=== PATIENT | male | born 1940 | race Caucasian/White ===

== ENCOUNTER → 2017-02-03 | Outpatient (CLI) | payer MEDICARE, OTHER ==
[2017-02-03 11:59] LABS: CH 33.1; CHCM 31.9; HCT 46.1 % (39.0-53.0); HDW 2.54; MCHC 32.5 g/dL (31.0-37.0); MCV 104.6 fL (80.0-100.0); Macrocytosis Moderate; Mean Platelet Volume 7.7; RBC 4.41 m/uL (4.30-5.90); RDW 13.9 % (11.5-15.5); WBC 7.5 k/uL (3.8-10.6)
[2017-02-03 13:44] LABS: ALT 51 U/L (21-72); AST 68 U/L (17-59); Alkaline Phosphatase 78 U/L (38-126); Anion Gap 11 mmol/L; Blood Urea Nitrogen 23 mg/dL (9-20); Calcium 9.4 mg/dL (8.4-10.2); Carbon Dioxide 26 mmol/L (22-30); Chloride 105 mmol/L (98-107); Cholesterol 202 mg/dL (<200); Glucose 165 mg/dL (74-99); HDL Cholesterol 69 mg/dL (40-60); Non-African American GFR(MDRD) >60 (>60 ml/min/1.73 sqM); Potassium 4.5 mmol/L (3.5-5.1); Sodium 142 mmol/L (137-145); Total Bilirubin 0.6 mg/dL (0.2-1.3); Total Protein 7.7 g/dL (6.3-8.2)
[2017-02-03 13:52] LABS: Triglycerides 574 mg/dL (<150)
[2017-02-03 16:00] LABS: Hemoglobin A1C 5.8 % (4.2-6.1)
== END | disposition home or self-care (01) ==
LOC: LABWHC1 11:26
PROVIDERS: ATTEND Internal Medicine
DX: I25.10 Atherosclerotic heart disease of native coronary artery without angina pectoris (principal); E78.5 Hyperlipidemia, unspecified; I10 Essential (primary) hypertension; Z12.5 Encounter for screening for malignant neoplasm of prostate; Z13.1 Encounter for screening for diabetes mellitus
CPT/HCPCS: 80061; 80053; 83036; 85027; 36415; G0103

== ENCOUNTER → 2018-03-21 | Outpatient (CLI) | payer MEDICARE, OTHER ==
[2018-03-21 18:02] LABS: Anion Gap 16 mmol/L; Calcium 9.4 mg/dL (8.4-10.2); Carbon Dioxide 21 mmol/L (22-30); Chloride 97 mmol/L (98-107); Glucose 377 mg/dL (74-99); Sodium 134 mmol/L (137-145)
[2018-03-21 18:03] LABS: Blood Urea Nitrogen 15 mg/dL (9-20); Potassium 5.4 mmol/L (3.5-5.1)
--- NOTE | 2018-03-22 12:20 | CT ---
EXAMINATION TYPE: CT pancreas biphase DATE OF EXAM: 03/21/2018 COMPARISON: NONE INDICATION: Possible cancer of pancreas. DLP: 1206 mGycm, Automated exposure control for dose reduction was used. CONTRAST: 125 mL of Isovue 370. Study performed TECHNIQUE: Axial images were obtained from above the diaphragm to iliac crests in the axial plane at 5 mm thick sections. Reconstructed images are reviewed on the computer in the coronal plane. FINDINGS: Limited CT sections are obtained the lung bases. The lung bases are clear. CT ABDOMEN: Liver: Normal Spleen: Normal Pancreas: Pancreas is atrophic. There is a dilated pancreatic duct which measures 0.5 cm at the tail of the pancreas, normal less than 0.1 cm. Pancreatic duct measures 0.7 cm in the body the pancreas, n ormal less than 0.2 cm. The pancreatic duct at the distal head of the pancreas 0.9 cm. Normal less th an 0.3 cm. On delayed imaging there is what appears to be normal enhancement through the head of the pancreas. On the early phase of contrast there is intense heterogenous enhancement of the head of the pancreas. Wall portion of the visualized atrophic pancreas adjacent to the dilated pancreatic duct h as a normal enhancement pattern. There appears to be a 1.3 cm lymph node adjacent to the pancreas hea d. Common bile duct is somewhat prominent 1.1 cm. Normal less than 0.8 cm at this age. Adrenal glands: The adrenal glands are normal. Gallbladder: Normal Kidneys: No masses are evident. No hydronephrosis is present. No cysts are present. Delayed images were obtained through the kidneys, which remain unremarkable. Aorta: Vascular calcification is within the aorta. Inferior vena cava: Normal. Loops of bowel within the abdomen without contrast appear normal. Osseous structures: No suspicious lytic or sclerotic lesions. Sacroiliac joint facet degenerative scot nges are within the lumbar spine. Some spinal canal stenosis L4-5 level may be present. IMPRESSIONS: 1. Intense enhancement of the head of the pancreas on early contrast images. This appears more homog enous on the delayed images. 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 Pillar carcinoma could be considered. 2. Dilated pancreatic duct within the atrophic pancreas discussed above. 3. Enlarged lymph node adjacent to the head of the pancreas 4. ERCP would be useful for additional evaluation.
== END | disposition home or self-care (01) ==
LOC: RADCTMAIN 16:56
PROVIDERS: ATTEND Surgery
DX: K86.89 Other specified diseases of pancreas (principal); C77.9 Secondary and unspecified malignant neoplasm of lymph node, unspecified; Z01.812 Encounter for preprocedural laboratory examination
CPT/HCPCS: 80048; 36415; 74160; Q9967

== ENCOUNTER 2018-06-03 23:30 | Inpatient (IN) | payer MEDICARE, OTHER ==
[2018-06-03] MEDS ORDERED: SODIUM CHLORIDE 0.9% 500 ML IV STA (23:39)
--- NOTE | 2018-06-04 00:05 | ED ---
Seizure HPI - General Chief Complaint: Seizure Stated Complaint: Seizure Time Seen by Provider: 06/03/18 23:39 Source: EMS, old records reviewed Mode of arrival: EMS Limitations: altered mental status (Postictal state) - History of Present Illness Initial Comments: This patient is a 77-year-old man who presents by ambulance to be evaluated for seizure. The patient had undergone Whipple procedure approximately one week ago for a pancreatic mass. [facility]. One of the staff there was checking the patient tonight, and stated that he started acting funny and then had what sounds like a generalized tonic-clonic seizure that lasts approximately 2 minutes. EMS was called and assessed the patient and then while they were transporting him just as a arrived here they described another episode similar to the first. Each episode lasted 1-2 minutes. When I see the patient, he does appear to be somewhat confused and disoriented, consistent with a postictal state. He was able answer simple yes or no questions, but when he tried to give longer answers she did appear to be confused. MD Complaint: seizure Onset/Timin -: hour(s) Description of Episode: loss of consciousness, tonic-clonic movement, post- event confusion Duration of Episode: 2 -: minutes(s) Witnessed: yes - by bystander Trauma: No Seizure History: none Place: other ([facility] facility) Possible Precipitating Event: none Treatments Prior to Arrival: none - Related Data Home Medications Medication Instructions Recorded Confirmed Allopurinol [Zyloprim] 300 mg PO DAILY 10/26/14 06/03/18 Atenolol [Tenormin] 50 mg PO BID 10/26/14 06/03/18 Clopidogrel [Plavix] 75 mg PO HS 10/26/14 06/03/18 Ibuprofen [Motrin] 400 mg PO DAILY PRN 10/26/14 06/03/18 LORazepam [Ativan] 2 mg PO HS PRN 10/26/14 06/03/18 PARoxetine [Paxil] 20 mg PO HS 10/26/14 06/03/18 Ranitidine HCl [Zantac] 150 mg PO HS 10/26/14 06/03/18 clonazePAM [KlonoPIN] 1 mg PO HS 10/26/14 06/03/18 Atorvastatin [Lipitor] 10 mg PO DAILY 06/03/18 06/03/18 Docusate Sodium [Dok] 100 mg PO DAILY 06/03/18 06/03/18 Enoxaparin [Lovenox] 40 mg SQ DAILY 06/03/18 06/03/18 Glimepiride [Amaryl] 1 mg PO AC-BRKFST 06/03/18 06/03/18 Melatonin 3 mg PO DAILY 06/03/18 06/03/18 Omeprazole [PriLOSEC] 20 mg PO AC-BRKFST 06/03/18 06/03/18 Polyethylene Glycol 3350 [Miralax] 17 gm PO DAILY 06/03/18 06/03/18 oxyCODONE HCL 10 mg PO Q4H PRN 06/03/18 06/03/18 oxyCODONE HCL [OxyIR] 5 mg PO Q4H PRN 06/03/18 06/03/18 Previous Rx's Medication Instructions Recorded Aspirin 81 mg PO DAILY #90 chew 11/01/14 HYDROcodone/APAP 10-325MG [[place] 1 each PO Q4H PRN #120 tab 11/01/14 10-325] Allergies Allergy/AdvReac Type Severity Reaction Status Date / Time No Known Allergies Allergy Verified 06/03/18 23:42 Review of Systems ROS Statement: Those systems with pertinent positive or pertinent negative responses have been documented in the HPI. ROS Other: All systems not noted in ROS Statement are negative. 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) History of Any Multi-Drug Resistant Organisms: MRSA Date of last positivie culture/infection: 10/29/2014 MDRO Source:: blood and left foot wound Past Surgical History: Adenoidectomy, Appendectomy, Bowel Resection, Coronary Bypass/CABG, Heart Catheterization, Tonsillectomy Additional Past Surgical History / Comment(s): rt eye sx for detatched retina still has some peripheral vision, triple bypass,meckles diverticulum,whipple procedure Past Anesthesia/Blood Transfusion Reactions: No Reported Reaction Past Psychological History: Depression Smoking Status: Former smoker Past Drug Use History: None Reported - Past Family History Father Family Medical History: Dementia Additional Family Medical History / Comment(s): AT AGE 93 Mother Family Medical History: Cancer Additional Family Medical History / Comment(s): BREAST CANCER SURVIVER, AT AGE 86 General Exam Limitations: altered mental status General appearance: alert, other (Appears postictal) Head exam: Present: atraumatic, normocephalic, normal inspection Eye exam: Absent: scleral icterus, conjunctival injection ENT exam: Present: mucous membranes dry Neck exam: Present: normal inspection, full ROM. Absent: tenderness Respiratory exam: Present: rhonchi (There are scattered rhonchi). Absent: respiratory distress, wheezes, rales, stridor Cardiovascular Exam: Present: regular rate, normal rhythm, normal heart sounds. Absent: systolic murmur, diastolic murmur, rubs, gallop GI/Abdominal exam: Present: soft, other (Patient's surgical incisions are clean dry and intact without any abnormal warmth or erythema. No drainage.). Absent : distended, tenderness, guarding, rebound, rigid, mass Extremities exam: Present: normal capillary refill, other (There is chronic postsurgical change of the left foot, no acute evidence of infection.). Absent : pedal edema, calf tenderness Back exam: Present: normal inspection. Absent: CVA tenderness (R), CVA tenderness (L), vertebral tenderness Neurological exam: Present: alert. Absent: motor sensory deficit Skin exam: Present: warm, dry, intact, normal color. Absent: rash Course Vital Signs 06/03/18 06/04/18 06/04/18 23:32 01:11 02:30 Temperature 98.6 F 98.3 F Pulse Rate 84 72 83 Respiratory 22 16 18 Rate Blood Pressure 185/85 103/53 89/58 O2 Sat by Pulse 95 2 L 97 Oximetry Medical Decision Making - Medical Decision Making The patient did have a third seizure in the emergency department. This was observed and consisted of generalized tonic-clonic seizure lasting less than 1 minute, stopping spontaneously before Ativan could be retrieved from the Pyxis and administered. He was given a dose of Ativan, and given loading dose of phenytoin. Results are discussed with Dr. Cardenas and the patient will be admitted to have EEG and neurology consultation. - Lab Data Result diagrams: 06/04/18 00:14 06/04/18 00:14 Lab Results 06/04/18 06/04/18 06/04/18 Range/Units 00:14 00:14 00:20 WBC 5.6 (3.8-10.6) k/uL RBC 3.00 L (4.30-5.90) m/uL Hgb 9.4 L (13.0-17.5) gm/dL Hct 29.3 L (39.0-53.0) % MCV 97.6 (80.0-100.0) fL MCH 31.2 (25.0-35.0) pg MCHC 32.0 (31.0-37.0) g/dL RDW 14.7 (11.5-15.5) % Plt Count 252 (150-450) k/uL Neutrophils % 58 % Lymphocytes % 30 % Monocytes % 5 % Eosinophils % 3 % Basophils % 0 % Neutrophils # 3.2 (1.3-7.7) k/uL Lymphocytes # 1.7 (1.0-4.8) k/uL Monocytes # 0.3 (0-1.0) k/uL Eosinophils # 0.2 (0-0.7) k/uL Basophils # 0.0 (0-0.2) k/uL Hypochromasia Moderate Poikilocytosis Slight Sodium 137 (137-145) mmol/L Potassium 4.0 (3.5-5.1) mmol/L Chloride 104 (98-107) mmol/L Carbon Dioxide 17 L (22-30) mmol/L Anion Gap 16 mmol/L BUN 7 L (9-20) mg/dL Creatinine 0.80 (0.66-1.25) mg/dL Est GFR (CKD-EPI)AfAm >90 (>60 ml/min/1.73 sqM) Est GFR (CKD-EPI)NonAf 87 (>60 ml/min/1.73 sqM) Glucose 174 H (74-99) mg/dL POC Glucose (mg/dL) 173 H (75-99) mg/dL POC Glu Bar Host/Hostess ID Megan Dukes Calcium 8.1 L (8.4-10.2) mg/dL Total Bilirubin 0.4 (0.2-1.3) mg/dL AST 37 (17-59) U/L ALT 36 (21-72) U/L Alkaline Phosphatase 109 (38-126) U/L Total Protein 5.6 L (6.3-8.2) g/dL Albumin 3.0 L (3.5-5.0) g/dL Urine Color Urine Appearance (Clear) Urine pH (5.0-8.0) Ur Specific Alexander (1.001-1.035) Urine Protein (Negative) Urine Glucose (UA) (Negative) Urine Ketones (Negative) Urine Blood (Negative) Urine Nitrite (Negative) Urine Bilirubin (Negative) Urine Urobilinogen (<2.0) mg/dL Ur Leukocyte Esterase (Negative) Urine RBC (0-5) /hpf Urine WBC (0-5) /hpf Ur Squamous Epith Cells (0-4) /hpf Hyaline Casts (0-2) /lpf Urine Mucus (None) /hpf 06/04/18 Range/Units 01:06 WBC (3.8-10.6) k/uL RBC (4.30-5.90) m/uL Hgb (13.0-17.5) gm/dL Hct (39.0-53.0) % MCV (80.0-100.0) fL MCH (25.0-35.0) pg MCHC (31.0-37.0) g/dL RDW (11.5-15.5) % Plt Count (150-450) k/uL Neutrophils % % Lymphocytes % % Monocytes % % Eosinophils % % Basophils % % Neutrophils # (1.3-7.7) k/uL Lymphocytes # (1.0-4.8) k/uL Monocytes # (0-1.0) k/uL Eosinophils # (0-0.7) k/uL Basophils # (0-0.2) k/uL Hypochromasia Poikilocytosis Sodium (137-145) mmol/L Potassium (3.5-5.1) mmol/L Chloride (98-107) mmol/L Carbon Dioxide (22-30) mmol/L Anion Gap mmol/L BUN (9-20) mg/dL Creatinine (0.66-1.25) mg/dL Est GFR (CKD-EPI)AfAm (>60 ml/min/1.73 sqM) Est GFR (CKD-EPI)NonAf (>60 ml/min/1.73 sqM) Glucose (74-99) mg/dL POC Glucose (mg/dL) (75-99) mg/dL POC Glu Bar Host/Hostess ID Calcium (8.4-10.2) mg/dL Total Bilirubin (0.2-1.3) mg/dL AST (17-59) U/L ALT (21-72) U/L Alkaline Phosphatase (38-126) U/L Total Protein (6.3-8.2) g/dL Albumin (3.5-5.0) g/dL Urine Color Yellow Urine Appearance Clear (Clear) Urine pH 5.5 (5.0-8.0) Ur Specific Alexander 1.014 (1.001-1.035) Urine Protein 1+ H (Negative) Urine Glucose (UA) Negative (Negative) Urine Ketones 1+ H (Negative) Urine Blood Negative (Negative) Urine Nitrite Negative (Negative) Urine Bilirubin Negative (Negative) Urine Urobilinogen <2.0 (<2.0) mg/dL Ur Leukocyte Esterase Negative (Negative) Urine RBC <1 (0-5) /hpf Urine WBC 4 (0-5) /hpf Ur Squamous Epith Cells <1 (0-4) /hpf Hyaline Casts 5 H (0-2) /lpf Urine Mucus Many H (None) /hpf - EKG Data -: EKG Interpreted by [place] EKG shows normal: sinus rhythm (With one PVC, rate 74 bpm), axis (Normal), intervals (MS interval 158 ms, normal. QRS duration 86 ms, normal. QTC 488 ms , prolonged.), QRS complexes (Low-voltage QRS complex), ST-T waves (Normal) Rate: normal Critical Care Time Critical Care Time: Yes (30 minutes) Disposition Clinical Impression: New onset seizure Disposition: ADMITTED IP TO THIS [facility] Condition: Fair
[2018-06-04 00:24] LABS: Basophils % (A) 0 %; Eosinophils # (A) 0.2 k/uL (0-0.7); Eosinophils % (A) 3 %; HCT 29.3 % (39.0-53.0); HGB 9.4 gm/dL (13.0-17.5); Hypochromasia Moderate; Lymphocytes # (A) 1.7 k/uL (1.0-4.8); Lymphocytes % (A) 30 %; MCH 31.2 pg (25.0-35.0); MCV 97.6 fL (80.0-100.0); Monocytes # (A) 0.3 k/uL (0-1.0); Monocytes % (A) 5 %; Neutrophils # (A) 3.2 k/uL (1.3-7.7); Neutrophils % (A) 58 %; Platelet Count 252 k/uL (150-450); Poikilocytosis Slight; RDW 14.7 % (11.5-15.5); WBC 5.6 k/uL (3.8-10.6)
[2018-06-04] MEDS ORDERED: PHENYTOIN SODIUM INJ 1,000 MG in SODIUM CHLORIDE 0.9% 100 ML IVPB STA (00:33)
[2018-06-04] MEDS ORDERED: LORazepam 2 MG/ML INJ IV STA (00:33)
[2018-06-04 00:38] LABS: Glucose 174 mg/dL (74-99); Total Protein 5.6 g/dL (6.3-8.2)
[2018-06-04 00:39] LABS: ALT 36 U/L (21-72); Alkaline Phosphatase 109 U/L (38-126); Anion Gap 16 mmol/L; Calcium 8.1 mg/dL (8.4-10.2); Carbon Dioxide 17 mmol/L (22-30); Chloride 104 mmol/L (98-107); Sodium 137 mmol/L (137-145); Total Bilirubin 0.4 mg/dL (0.2-1.3)
[2018-06-04 00:41] LABS: AST 37 U/L (17-59); Blood Urea Nitrogen 7 mg/dL (9-20)
[2018-06-04 00:50] LABS: Glucose,Whole Blood 173 mg/dL (75-99)
--- NOTE | 2018-06-04 00:58 | CT ---
EXAMINATION TYPE: CT brain wo con DATE OF EXAM: 06/04/2018 COMPARISON: None HISTORY: seizures CT DLP: 1090.40 mGycm Automated exposure control for dose reduction was used. FINDINGS: Ventricles have normal size. There is no mass effect nor midline shift. There is no sign of intracran ial hemorrhage. The calvarium is intact. There is cerebral cortical atrophy. IMPRESSION: CEREBRAL ATROPHY. NO ACUTE INTRACRANIAL ABNORMALITY.
[2018-06-04 01:44] LABS: Appearance,Urine Clear (Clear); Bilirubin,Urine Negative (Negative); Blood,Urine Negative (Negative); Color,Urine Yellow; Glucose,Urine (UA) Negative (Negative); Hyaline Casts,Urine 5 /lpf (0-2); Ketones,Urine 1+ (Negative); Leukocyte Esterase,Urine Negative (Negative); Mucus,Urine Many /hpf; Nitrite,Urine Negative (Negative); PH, Urine 5.5 (5.0-8.0); Protein,Urine 1+ (Negative); RBC,Urine <1 /hpf (0-5); Specific Gravity,Urine 1.014 (1.001-1.035); Squamous Epithelial Cell,Urine <1 /hpf (0-4); Urobilinogen,Urine <2.0 mg/dL (<2.0); WBC,Urine 4 /hpf (0-5)
[2018-06-04] MEDS ORDERED: SODIUM CHLORIDE 0.9% 1,000 ML IV ONE ×3 (01:54→03:43)
[2018-06-04] MEDS ORDERED: NALOXONE 0.4 MG/ML 1 ML VIAL IV PRN (01:57)
[2018-06-04] MEDS ORDERED: LORazepam 1 MG TAB PO PRN (01:59)
[2018-06-04] MEDS ORDERED: IBUPROFEN 200 MG TAB PO PRN (01:59)
[2018-06-04] MEDS ORDERED: LORazepam 2 MG/ML INJ IV PRN (02:01)
[2018-06-04] MEDS: SODIUM CHLORIDE 0.9% 1,000 ML IV SCH ×3 (02:19→21:20)
[2018-06-04 03:27] LABS: Glucose,Whole Blood 186 mg/dL (75-99)
--- NOTE | 2018-06-04 09:07 | P.CNNES ---
History of Present Illness Consult date: 06/04/18 Reason for Consult: Patient admitted with new onset seizure. History of Present Illness: This patient is a 77-year-old right-handed white male who was brought into the emergency room at [facility] for evaluation of new onset seizure. Patient states he has a history of melanoma that was diagnosed in November 2017. He had undergone surgical resection of this melanoma which involved his right arm. Apparently he was found to have spread of the melanoma to the pancreas. 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 He states he was hospitalized at the [facility] and subsequent sent to a jail for rehabilitation. Apparently he had a event yesterday with suggested possibility of a seizure as he became very confused and disoriented. He had some generalized tonic-clonic activity that lasted about 2 minutes in duration. EMS was called to the jail and he was immediately transferred to the ER for further evaluation. He was seen in the ER last night by Dr. Gomes who ordered a computed tomography scan of the brain. Computed tomography scan of the brain without contrast was completed and revealed cerebral atrophy with no acute intracranial abnormality. The patient had 2 more seizures in the emergency room lasting 1-2 minutes in duration. He was given Ativan and subsequently loaded with IV Dilantin. Patient denies any previous history of seizures. The patient is now resting comfortably in his room and did show signs of postictal confusion and disorientation which has resolved now this morning. Patient states that he is following closely with the [facility] regarding his recent Whipple procedure. We did review the results of the CAT scan of the brain today with the patient. He is scheduled to have a routine EEG this morning. We've explained to the patient that given his history of metastatic melanoma that he would require an MRI of the brain to rule out metastatic lesion to the brain as well. He is understanding this and is in agreement with our recommendation to proceed. The patient states he has no previous history of seizures as a young child or early adulthood. His kidney function has remained very good and he does have a history of having had a triple bypass surgery in the past. Patient is resting comfortably. He does complain of mild headache pain this morning. He is being scheduled for his EEG this morning which will be reviewed. We will place the patient on Dilantin 100 mg IV piggyback every 8 hours. We will check a Dilantin level tomorrow morning. We will arrange for MRI of the brain to be done as soon as possible. His overall prognosis at this time remains very guarded. Review of Systems Constitutional: Denies chills, Denies fever Eyes: denies blurred vision, denies pain Ears, nose, mouth and throat: Denies headache, Denies sore throat Cardiovascular: Denies chest pain, Denies shortness of breath Respiratory: Denies cough Gastrointestinal: Denies abdominal pain, Denies diarrhea, Denies nausea, Denies vomiting Musculoskeletal: Denies myalgias Integumentary: Denies pruritus, Denies rash Neurological: Reports confusion, Reports convulsions, Reports headaches, Reports seizures, Denies numbness, Denies weakness Psychiatric: Denies anxiety, Denies depression Endocrine: Denies fatigue, Denies weight change Past Medical History Past Medical History: Coronary Artery Disease (CAD), Diabetes Mellitus, GERD/ Reflux, Hyperlipidemia, Hypertension Additional Past Medical History / Comment(s): gout,triple bypass(1 since collapsed) used the saphenous vein lt leg ,mild tremors, 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 % (per pt) History of Any Multi-Drug Resistant Organisms: MRSA Date of last positivie culture/infection: 10/29/2014 MDRO Source:: blood and left foot wound Past Surgical History: Adenoidectomy, Appendectomy, Bowel Resection, Coronary Bypass/CABG, Heart Catheterization, Tonsillectomy Additional Past Surgical History / Comment(s): rt eye sx for detatched retina still has some peripheral vision, triple bypass,meckles diverticulum,whipple procedure Past Anesthesia/Blood Transfusion Reactions: No Reported Reaction Past Psychological History: Depression Smoking Status: Former smoker Past Drug Use History: None Reported - Past Family History Father Family Medical History: Dementia Additional Family Medical History / Comment(s): AT AGE 93 Mother Family Medical History: Cancer Additional Family Medical History / Comment(s): BREAST CANCER SURVIVER, AT AGE 86 Medications and Allergies Home Medications Medication Instructions Recorded Confirmed Type Allopurinol [Zyloprim] 300 mg PO DAILY 10/26/14 06/03/18 History Atenolol [Tenormin] 50 mg PO BID 10/26/14 06/03/18 History Clopidogrel [Plavix] 75 mg PO HS 10/26/14 06/03/18 History Ibuprofen [Motrin] 400 mg PO DAILY PRN 10/26/14 06/03/18 History LORazepam [Ativan] 2 mg PO HS PRN 10/26/14 06/03/18 History PARoxetine [Paxil] 20 mg PO HS 10/26/14 06/03/18 History Ranitidine HCl [Zantac] 150 mg PO HS 10/26/14 06/03/18 History clonazePAM [KlonoPIN] 1 mg PO HS 10/26/14 06/03/18 History Aspirin 81 mg PO DAILY #90 chew 11/01/14 06/03/18 Rx HYDROcodone/APAP 10-325MG [[place] 1 each PO Q4H PRN #120 tab 11/01/14 06/03/18 Rx 10-325] Atorvastatin [Lipitor] 10 mg PO DAILY 06/03/18 06/03/18 History Docusate Sodium [Dok] 100 mg PO DAILY 06/03/18 06/03/18 History Enoxaparin [Lovenox] 40 mg SQ DAILY 06/03/18 06/03/18 History Glimepiride [Amaryl] 1 mg PO AC-BRKT 06/03/18 06/03/18 History Melatonin 3 mg PO DAILY 06/03/18 06/03/18 History Omeprazole [PriLOSEC] 20 mg PO AC-BRKFST 06/03/18 06/03/18 History Polyethylene Glycol 3350 [Miralax] 17 gm PO DAILY 06/03/18 06/03/18 History oxyCODONE HCL 10 mg PO Q4H PRN 06/03/18 06/03/18 History oxyCODONE HCL [OxyIR] 5 mg PO Q4H PRN 06/03/18 06/03/18 History Allergies Allergy/AdvReac Type Severity Reaction Status Date / Time No Known Allergies Allergy Verified 06/03/18 23:42 Physical Examination - Vital Signs Vital Signs: Vital Signs Temp Pulse Pulse Resp BP BP Pulse Ox 06/04/18 06:55 94/57 06/04/18 05:40 100/61 06/04/18 05:00 88/53 06/04/18 04:20 89/49 08/18/18 04:00 83/46 06/04/18 03:40 77/39 06/04/18 03:30 74/42 06/04/18 03:25 85/52 06/04/18 03:20 82/40 06/04/18 03:15 88/55 06/04/18 03:10 80/44 06/04/18 03:05 81/49 06/04/18 03:00 98.0 F 75 18 98/39 95 06/04/18 02:30 98.3 F 83 18 89/58 97 06/04/18 01:11 72 16 103/53 2 L 06/03/18 23:32 98.6 F 84 22 185/85 95 Intake and Output 06/03/18 06/04/18 06/04/18 22:59 06:59 14:59 Intake Total 1400 Output Total 600 Balance 800 Intake: Intake, IV Titration 1400 Amount Sodium Chloride 0.9% 1, 400 000 ml @ 100 mls/hr IV . Q10H [facility] Rx#:[id number] Sodium Chloride 0.9% 1, 1000 000 ml @ 999 mls/hr IV . Q1H1M ONE Rx#:[id number] Output: Urine 600 Straight 600 Other: Weight 93 kg - Constitutional General appearance: average body habitus, cooperative - EENT EENT: PERRL, mucous membranes moist - Respiratory Respiratory: lungs clear, normal breath sounds - Cardiovascular Cardiovascular: regular rate, normal S1, normal S2 Extremities: no peripheral edema bilaterally - Gastrointestinal Gastrointestinal: normoactive bowel sounds - Integumentary Integumentary: normal - Neurologic Cranial nerve examination: PERRL, EOMI, VFF, V1/V2/V3 grossly intact, face symmetric, tongue midline, intact gag reflex, intact corneal reflex, normal palatal elevation Speech examination: intact Sensorimotor examination: intact Motor examination - right side: 45: biceps, triceps, wrist flexion, wrist extension, 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, hip flexors, knee extensors, dorsiflexion, toe extension (EHL) , plantarflexion Motor examination - left side: 45: biceps, triceps, wrist flexion, wrist extension, 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, hip flexors, knee extensors, dorsiflexion, toe extension (EHL) , plantarflexion Detailed sensory examination: intact Reflex and gait examination: intact Reflexes: 1+: ankle, bicep, knee, tricep - Musculoskeletal Musculoskeletal: no pain - Psychiatric Psychiatric: mood/affect appropriate, cooperative Results - Laboratory Findings CBC and BMP: 06/04/18 00:14 06/04/18 00:14 Abnormal Lab Findings: Abnormal Labs 06/04/18 06/04/18 06/04/18 00:14 00:14 00:20 RBC 3.00 L Hgb 9.4 L Hct 29.3 L Carbon Dioxide 17 L BUN 7 L Glucose 174 H POC Glucose (mg/dL) 173 H Plasma Lactic Acid Isidro Calcium 8.1 L Total Protein 5.6 L Albumin 3.0 L Urine Protein Urine Ketones Hyaline Casts Urine Mucus 06/04/18 06/04/18 06/04/18 01:06 02:05 03:25 RBC Hgb Hct Carbon Dioxide BUN Glucose POC Glucose (mg/dL) 186 H Plasma Lactic Acid Isidro 6.6 H* Calcium Total Protein Albumin Urine Protein 1+ H Urine Ketones 1+ H Hyaline Casts 5 H Urine Mucus Many H 06/04/18 05:25 RBC Hgb Hct Carbon Dioxide BUN Glucose POC Glucose (mg/dL) Plasma Lactic Acid Isidro 3.0 H* Calcium Total Protein Albumin Urine Protein Urine Ketones Hyaline Casts Urine Mucus Assessment and Plan (1) Metastatic melanoma Current Visit: Yes Status: Acute Code(s): C79.9 - SECONDARY MALIGNANT NEOPLASM OF UNSPECIFIED SITE SNOMED Code(s): 020321405 (2) Melanoma-pancreatic cancer syndrome Current Visit: Yes Status: Acute Code(s): C25.9 - MALIGNANT NEOPLASM OF PANCREAS, UNSPECIFIED SNOMED Code(s): 387781993 (3) Diabetes mellitus Current Visit: Yes Status: Acute Code(s): E11.9 - TYPE 2 DIABETES MELLITUS WITHOUT COMPLICATIONS SNOMED Code(s): 75649791 (4) Coronary artery disease Current Visit: Yes Status: Acute Code(s): I25.10 - ATHSCL HEART DISEASE OF [place] CORONARY ARTERY W/O ANG PCTRS SNOMED Code(s): 72865711 (5) New onset seizure Current Visit: Yes Status: Acute Code(s): R56.9 - UNSPECIFIED CONVULSIONS SNOMED Code(s): 28631283 Plan: This patient is a 77-year-old right-handed white male who has a history of recent diagnosis of melanoma involving his right arm. He underwent surgical removal of this melanotic lesion at the [facility]. 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 He underwent a Whipple procedure at the [facility] on 05/24/[address] Ballard. He was then transferred to a jail for further rehabilitation. Apparently yesterday he had a witnessed seizure at the nursing facility lasting 2 minutes in duration. He was transferred by EMS to the emergency room at [facility] for further evaluation. He was seen in the ER by Dr. Gomes and was sent for a computed tomography scan of the brain without contrast which was reported negative. He had 2 more seizures and was loaded with IV Dilantin. He is admitted to hospital for further management. His neurological examination at this time is nonfocal. We have recommended the patient to undergo a MRI of the brain with and without gadolinium for further evaluation of history of metastatic melanoma. We will also obtain a routine EEG today. He should continue with seizure precautions. He will be maintained on Dilantin 100 mg IV piggyback every 8 hours. Further recommendations will be given pending his MRI results. His overall prognosis at this time remains very guarded. We will continue close neurological follow-up for this patient during this admission. Time with Patient: Greater than 30
[2018-06-04] MEDS ORDERED: PHENYTOIN SODIUM INJ 100 MG in SODIUM CHLORIDE 0.9% 100 ML IVPB SCH (09:30)
[2018-06-04] MEDS ORDERED: KETOROLAC 30 MG/ML 1 ML VIAL IVP PRN (09:57)
[2018-06-04] MEDS: GLIMEPIRIDE 1 MG TAB PO SCH (10:15)
[2018-06-04] MEDS: ATORVASTATIN 10 MG TAB PO SCH (10:16)
[2018-06-04] MEDS: PANTOPRAZOLE 40 MG TABLET PO SCH (10:16)
[2018-06-04] MEDS: ALLOPURINOL 300 MG TAB PO SCH (10:16)
[2018-06-04] MEDS: ASPIRIN 81 MG PO SCH (10:16)
[2018-06-04] MEDS: DOCUSATE 100 MG CAP PO SCH (10:17)
[2018-06-04] MEDS: ENOXAPARIN 40 MG/0.4 ML SYRINGE SQ SCH (10:17)
[2018-06-04] MEDS: POLYETHYLENE GLYCOL 3350 17 GM POWD.PACK PO SCH (10:17)
[2018-06-04] MEDS: PHENYTOIN SODIUM INJ 50 MG/ML 2 ML VIAL IV SCH ×3 (10:17→23:10)
--- NOTE | 2018-06-04 11:38 | HP ---
HISTORY AND PHYSICAL ATTENDING PHYSICIAN: Dr. Shiloh Cardenas. CHIEF COMPLAINT: Seizures. HISTORY OF PRESENT ILLNESS: This is a 77-year-old gentleman who was recently discharged from [facility] after Whipple's procedure. 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 The patient's tumor was found incidentally on a PET scan. The patient had a right upper arm melanoma stage IV for which she had a surgical procedure of excision along with left auricle removal. The patient subsequently had a PET scan which revealed this tumor. The patient was sitting in his room and the nurse had just seen him and he suddenly had a seizure. The patient had a grand mal seizure. He is, in view of this, transferred to the hospital. On the way from [facility] to [facility], the patient did have another seizure on the way. The patient also had a 3rd seizure in the hospital. The patient has had no previous history of seizures. The patient had a stat CT scan of the brain done which revealed no evidence of any lesions in the brain. He has had no history of head injury. The patient has had no fever or any other associated symptoms. This morning, he is awake, alert, and his usual occasionally appears forgetful. The patient has a headache but denies any double vision. The patient has no focal neurological signs. PAST MEDICAL HISTORY: 1. Significant for hypertension for the past about 38 years. 2. History of coronary artery disease, status post CABG in September 2002. Has had no symptoms of angina since then. The patient underwent a recent major surgery without any cardiac complications. 3. History of infection and osteomyelitis, left great toe for which he has had surgical amputation. 4. Melanoma stage IV as mentioned above. 5. Neuroendocrine tumor of the pancreas as mentioned above. 6. No history of any TB, hepatitis, rheumatic fever, myocardial infarction. No CVA. 7. History of diabetes mellitus, recent diagnosis. PAST SURGICAL HISTORY: Significant for the CABG, Meckel's diverticular surgery, hemorrhoid surgery, melanoma excision, and Whipple's procedure. PERSONAL HISTORY: Nonsmoker, never smoker. Alcohol, ex-alcohol bingeing, none recently. Past vaccination history: Patient has a Pneumovax in 1998 and repeat later. Also July 17, 2014 also subsequent as well. ALLERGIES: None known. MEDICATIONS: Medications at present include oxycodone 10 mg p.r.n. q.4, Klonopin 1 mg at q.h.s., Zantac 150 mg at q.h.s., MiraLAX daily, Paxil 20 mg daily, Prilosec 20 mg daily. Melatonin 3 mg daily, lorazepam 2 mg p.r.n., Motrin 400 p.r.n. t.i.d., [place] 10/325 p.r.n., glimepiride 1 mg a.c. breakfast, Lovenox 40 mg subcu daily. Colace 100 mg daily, Plavix 75 mg daily. Lipitor 10 mg daily. Tenormin 50 mg b.i.d., aspirin 81 mg daily, allopurinol 300 mg daily. FAMILY MEDICAL HISTORY: Both parents are . Father had diabetes mellitus. Also history of melanoma and colonic diverticular disease. He was 90 years of age. Mother at the age of 85. She had history of carcinoma of the breast. The patient had no siblings. Patient has 1 daughter, 43 years of age in good health. 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 REVIEW OF SYSTEMS: Neuro: Has a headache. Denies any dizziness, double vision or blurred vision. No symptoms of TIA at present. Symptoms of a seizure. Psych: No anxiety, depression. Cardiac: No chest pain, angina or palpitation. Respiratory: No shortness of breath, cough, hemoptysis. GI no nausea, vomiting, abdominal pain, has frequent bowel movements. No blood or mucus in stool. no symptoms of dysuria or hematuria. Extremities: No pain or edema. Constitutional: No fever or chills. Hematological: No anemia or bleeding disorder. Endocrine: History of diabetes mellitus. Skin: No rashes or breakdown. ENT: Adequate smell test and vision. Adequate hearing. PHYSICAL EXAMINATION: Pleasant gentleman at present in no distress at present. Vital signs reveals temperature earlier was normal 98, pulse 75, respirations 18, pulse ox 95 percent on 2 L. Blood pressure during the night was low in the 80s. This morning it is 99/49, pulse 72, respirations 18, pulse ox 95 percent on 2 L. HEENT: Normocephalic. Neck no JVD. Pupils are reactive. Nostrils clear. Oral cavity is moist. No evidence of any tongue injury. Ears reveal no drainage. Neck reveals no JVD, carotid bruits or thyromegaly. No supraclavicular lymphadenopathy. CHEST: Clear to auscultation and percussion. Cardiac normal S1, S2 with no gallops, murmurs, or rubs. ABDOMEN: Soft. Bowel sounds are active. The patient has an incision in the epigastric area, with january still intact with no drainage. Rectal is deferred. Extremities reveal no edema. Good pulses both upper and lower extremities. Neurologically, awake, alert, oriented to place, person, time, however, has some difficulty with the sequence of events from last evening since the seizure. The patient deep tendon reflexes are diminished. Plantars are equivocal on the right, on the left side, the patient has amputation of the 1st and 2nd toe. LABORATORY DATA: Laboratory assessment was urinalysis unremarkable. Lactic acid was 6.6, hemoglobin 9.4, white count is normal 5.6, platelets normal. Electrolytes normal except for a CO2 of 17, anion gap of 16, BUN 7 7, creatinine 0.8, glucose 174, calcium 8.1. Albumin 3.0. Urinalysis unremarkable. Lactic acid as mentioned above, 6.6 and was down to 3.0. A CT scan of the brain did not reveal any acute changes. ASSESSMENT: 1. New onset seizures, etiology unclear. Rule out brain mets with underlying history of 2 malignancies. 2. History of melanoma. 3. History of neuroendocrine tumor of the pancreas, status post Whipple's procedure done on May 24, 2018. 4. Coronary artery disease stable with previous coronary artery bypass grafting. 5. Anemia secondary to recent blood loss. PLAN: The patient at present is stable continue present medical regimen. Patient's condition discussed with the patient. Prognosis remains guarded. Condition discussed with the neurologist, Dr. Flores. He is requesting an MRI. However, the patient since he had surgery recently, will have to wait 6 weeks prior to having an MRI. The patient's condition discussed with the patient. Prognosis guarded. The patient has been placed on Dilantin. MMODL / IJN: [id number] /
[2018-06-04 12:01] LABS: Glucose,Whole Blood 132 mg/dL (75-99)
[2018-06-04] MEDS: ATENOLOL 50 MG TAB PO SCH ×2 (12:17→21:19)
[2018-06-04] MEDS: INSULIN ASPART 100 UNIT/ML 1 ML 10 ML VIAL SQ SCH ×3 (12:18→21:20)
[2018-06-04 16:50] LABS: Glucose,Whole Blood 138 mg/dL (75-99)
[2018-06-04 18:39] LABS: Hemoglobin A1C 5.9 % (4.0-6.0)
[2018-06-04 20:43] LABS: Glucose,Whole Blood 135 mg/dL (75-99)
[2018-06-04] MEDS ORDERED: CLOPIDOGREL 75 MG TAB PO SCH (21:00)
[2018-06-04] MEDS: PARoxetine 20 MG TAB PO SCH (21:19)
[2018-06-04] MEDS: MELATONIN 3 MG TABLET PO SCH (21:19)
[2018-06-04] MEDS: FAMOTIDINE 20 MG TAB PO SCH (21:19)
[2018-06-05 06:23] LABS: Glucose,Whole Blood 123 mg/dL (75-99)
[2018-06-05] MEDS: INSULIN ASPART 100 UNIT/ML 1 ML 10 ML VIAL SQ SCH ×4 (06:35→21:53)
[2018-06-05] MEDS: GLIMEPIRIDE 1 MG TAB PO SCH (06:39)
[2018-06-05] MEDS: PANTOPRAZOLE 40 MG TABLET PO SCH (06:39)
[2018-06-05] MEDS ORDERED: ACETAMINOPHEN TAB 325 MG TAB PO PRN (07:34)
[2018-06-05] MEDS ORDERED: PHENYTOIN SODIUM EXTENDED 100 MG CAP PO STA (08:53)
[2018-06-05] MEDS ORDERED: PHENYTOIN SODIUM INJ 700 MG in SODIUM CHLORIDE 0.9% 100 ML IVPB ONE (09:00)
[2018-06-05] MEDS: ATORVASTATIN 10 MG TAB PO SCH (09:24)
[2018-06-05] MEDS: ALLOPURINOL 300 MG TAB PO SCH (09:24)
[2018-06-05] MEDS: ASPIRIN 81 MG PO SCH (09:24)
[2018-06-05] MEDS: ATENOLOL 50 MG TAB PO SCH ×2 (09:24→20:39)
[2018-06-05] MEDS: DOCUSATE 100 MG CAP PO SCH (09:24)
[2018-06-05] MEDS: POLYETHYLENE GLYCOL 3350 17 GM POWD.PACK PO SCH (09:24)
[2018-06-05] MEDS: PHENYTOIN SODIUM EXTENDED 100 MG CAP PO SCH ×2 (09:25→20:39)
[2018-06-05] MEDS: ENOXAPARIN 40 MG/0.4 ML SYRINGE SQ SCH (09:25)
[2018-06-05] MEDS ORDERED: PHENYTOIN SODIUM EXTENDED 100 MG CAP PO ONE (10:00)
--- NOTE | 2018-06-05 10:17 | P.DS ---
Providers Date of admission: 06/04/18 01:59 Expected date of discharge: 06/05/18 Attending physician: Mario Cardenas Consults: 06/04/18 01:58 Consult Physician Urgent Consulting Provider: Mary Flores Consult Reason/Comments: new onset seizures Do you want consulting provider notified?: Yes Primary care physician: Mario Cardenas [facility] Course: This 77-year-old gentleman was brought into the emergency room from [facility] and rehab. The patient was admitted there 3 days prior following a recent Whipple's procedure. Patient was sitting around when he suddenly had this seizure. This was a grand mal witnessed seizure. He also had another one in the ambulance on transfer to the hospital and one in the hospital. Patient was given Dilantin. He has recently been noted to have a pancreatic tumor for which she had a Whipple's procedure done. The patient had a neuroendocrine tumor lung with involvement and couple of lymph nodes locally. These were incidental findings on workup for melanoma. He had a level IV melanoma in his arm The patient had a PET scan done which reveals his tumor in the pancreas. The patient is recovering well from his Whipple's procedure. He also has underlying history of coronary artery disease stable. A CAT scan of the brain done did not reveal any focal signs however due to this new onset seizures it is felt that he might have a microscopic metastasis which could probably be best seen on MRI. MRI was not done since the patient had surgery recently. He is scheduled for one in 6 weeks. Meanwhile patient is on Dilantin. He was seen by Dr. Poole. He was done. Patient's back to his usual baseline status. He is wanting to go back to the nursing facility to continue his rehab. He will be discharged back to continue with all his usual medications narcotics but discontinued the Lovenox is discontinued and the patient's Plavix is discontinued. He'll continue with aspirin. Patient's diet is regular activity as per rehab. Patient will be on Dilantin 200 mg twice a day and repeat a level in 5 days Abdominal wall sutures be removed on June 07 alternate once and then rest on June 08.if The wound is no dehiscence Final diagnosis to include 1. New onset seizure 2. Neuroendocrine tumor of the pancreas 3. Status post Whipple's procedure 4. History of melanoma stage IV 5. Stable coronary artery disease 6. Diabetes mellitus type 2 without complications 7. Hypertension controlled 8. Amputation left first and second toe Patient Condition at Discharge: Fair Plan - Discharge Summary Discharge Rx Participant: No New Discharge Prescriptions: New Phenytoin Sodium Extended [Dilantin] 200 mg PO BID #0 cap Aspirin 81 mg PO DAILY #0 chew Continue Atenolol [Tenormin] 50 mg PO BID Allopurinol [Zyloprim] 300 mg PO DAILY PARoxetine [Paxil] 20 mg PO DAILY Aspirin 81 mg PO DAILY #90 chew Omeprazole [PriLOSEC] 20 mg PO AC-BRKFST Atorvastatin [Lipitor] 10 mg PO HS Glimepiride [Amaryl] 1 mg PO TID Melatonin 3 mg PO HS Zinc 50 mg PO DAILY Cholecalciferol [Vitamin D3] 1,000 unit PO DAILY Acetaminophen Tab [Tylenol] 650 mg PO Q6H PRN PRN Reason: Pain clonazePAM [KlonoPIN] 1 mg PO HS #30 tab Discontinued Clopidogrel [Plavix] 75 mg PO DAILY oxyCODONE HCL 10 mg PO Q4H PRN PRN Reason: Pain oxyCODONE HCL [OxyIR] 5 mg PO Q4H PRN PRN Reason: Pain Polyethylene Glycol 3350 [Miralax] 17 gm PO DAILY Enoxaparin [Lovenox] 40 mg SQ DAILY Docusate Sodium [Dok] 100 mg PO BID OLANZapine [ZyPREXA] 2.5 mg PO HS Discharge Medication List Allopurinol [Zyloprim] 300 mg PO DAILY 10/26/14 [History] Atenolol [Tenormin] 50 mg PO BID 10/26/14 [History] PARoxetine [Paxil] 20 mg PO DAILY 10/26/14 [History] Aspirin 81 mg PO DAILY #90 chew 11/01/14 [Rx] Atorvastatin [Lipitor] 10 mg PO HS 06/03/18 [History] Glimepiride [Amaryl] 1 mg PO TID 06/03/18 [History] Melatonin 3 mg PO HS 06/03/18 [History] Omeprazole [PriLOSEC] 20 mg PO AC-BRKFST 06/03/18 [History] Acetaminophen Tab [Tylenol] 650 mg PO Q6H PRN 06/04/18 [History] Cholecalciferol [Vitamin D3] 1,000 unit PO DAILY 06/04/18 [History] Zinc 50 mg PO DAILY 06/04/18 [History] Aspirin 81 mg PO DAILY #0 chew 06/05/18 [Rx] Phenytoin Sodium Extended [Dilantin] 200 mg PO BID #0 cap 06/05/18 [Rx] clonazePAM [KlonoPIN] 1 mg PO HS #30 tab 06/05/18 [Rx] Follow up Appointment(s)/Referral(s): Mario Cardenas MD [Primary Care Provider] - 1-2 days
[2018-06-05 11:53] LABS: Glucose,Whole Blood 216 mg/dL (75-99)
[2018-06-05 16:53] LABS: Glucose,Whole Blood 124 mg/dL (75-99)
[2018-06-05] MEDS: FAMOTIDINE 20 MG TAB PO SCH (20:39)
[2018-06-05] MEDS: PARoxetine 20 MG TAB PO SCH (20:39)
[2018-06-05] MEDS: MELATONIN 3 MG TABLET PO SCH (20:39)
[2018-06-05 21:19] LABS: Glucose,Whole Blood 174 mg/dL (75-99)
--- NOTE | 2018-06-05 21:51 | P.PN ---
Subjective Progress Note Date: 06/05/18 This patient is a 77-year-old male who was seen in neurology consultation yesterday for new onset seizure. He has a history of recently undergoing a Whipple procedure due to a neuroendocrine tumor in the pancreas. This was performed at the [facility]. He underwent a computed tomography scan of the brain without contrast which came back negative for any acute findings. He was loaded with IV Dilantin yesterday. His Dilantin level this morning is subtherapeutic at 7.7. We will adjust his Dilantin appropriately and recheck again tomorrow morning. The patient is unable to go for MRI of the brain due to his recent surgery. He is strongly advised to have the MRI of the brain done with and without gadolinium as soon as he is completed the 6 weeks of clearance from his recent surgery. He will discuss this further with Dr. Cardenas. Given his history of metastatic melanoma as well as neuroendocrine tumor in the pancreas he is at risk of having metastatic spread. MRI of the brain would be the most sensitive test to do for further evaluation. Once again we have recommended MRI of the brain with and without gadolinium to be done as soon as possible once he is cleared to 6 weeks postsurgery clearance for MRI. The patient continues to do fairly well today and we will continue close neurological follow-up for him. Due to his low Dilantin level today of 7.7 we had recommended to load him with an extra 700 mg of Dilantin IV piggyback. Unfortunately they nursing staff was unable to find a vein. We then discontinue the IV form of Dilantin and recommended he be given oral Dilantin over a period of 4 hours decompensated total of 700 mg of oral Dilantin. We will check his Dilantin level tomorrow morning. Patient underwent routine EEG yesterday and this will be reviewed. His EEG was reviewed today and is normal for his age. The EEG failed to reveal any evidence of epileptiform discharges. We reviewed the results of the EEG and CAT scan once again with the patient in detail. We have recommended that he cannot drive in the [facility] for appeared of 6 months following his last seizure. He is aware of this regulation and apparently was told this by Dr. Cardenas as well. Patient was eager to be discharged home earlier today however this cannot be done as he is subtherapeutic on his Dilantin level. We will recheck his Dilantin level early tomorrow morning and if it is therapeutic he may be considered for discharge home. Once again we have recommended the patient should follow up with [facility] where they' re treating him for his malignant melanoma. We once again recommend that he should have a MRI of the brain done with and without gadolinium within 6 weeks to rule out any possibility of metastatic lesion to the brain. He is unable to have MRI earlier as he has recently undergone abdominal surgery. He is to wait for 6 weeks prior to having MRI study done. The patient should follow up with Dr. Cardenas soon after discharge to have a repeat Dilantin level done. He should follow-up with his specialists at the [facility] as well to update them on his current finding of new onset seizure. This patient' s overall prognosis at this time remains very guarded. We have discussed all of his test results today with him in detail. He apparently was confused earlier today and was unable to get appropriate answers from the nursing staff. He is now been updated and is clearly aware of his overall condition and his restrictions in regards to driving and his recent new onset seizure. He is once again aware of the MRI study of the brain with and without gadolinium that needs to be done as soon as possible in 6 weeks. We have discussed that with the patient that if his Dilantin level comes back therapeutic tomorrow he will be set for discharge home tomorrow. He should follow-up with Dr. Cardenas soon afterwards. Objective - Vital Signs Vital signs: Vital Signs Temp 97.0 F L 06/05/18 04:00 Pulse 66 06/05/18 04:00 Resp 16 06/05/18 04:00 BP 111/61 06/05/18 04:00 Pulse Ox 98 06/05/18 04:00 Intake & Output 06/04/18 06/05/18 06/05/18 18:59 06:59 18:59 Intake Total 480 1020 Output Total 500 1000 Balance -20 20 Weight 91.5 kg Intake: IV 20 Invasive Line 1 20 Intake, IV Titration 1000 Amount Sodium Chloride 0.9% 1, 1000 000 ml @ 100 mls/hr IV . Q10H UMBERTO Rx#:[id number] Oral 480 Output: Urine 500 1000 Other: Voiding Method Diaper Urinal Incontinent # Voids 1 1 # Bowel Movements 0 - Exam Physical examination: PHYSICAL EXAMINATION: Patient is resting comfortably in bed. VITAL SIGNS: Blood pressure is [157/70]. Heart rate is [70]. Respiration is [18] . Temperature is [99.0]. HEENT: Head is atraumatic, neck is supple, there were no carotid bruits. CHEST: Lungs are clear to auscultation and percussion. CARDIAC: S1, S2 normal rate and rhythm. There is no murmur. ABDOMEN: Soft and nontender. Bowel sounds are present. EXTREMITIES: There is no pedal edema. Peripheral pulses are present. Neurological examination: Patient's neurological examination is unchanged from yesterday. Patient has a nonfocal neurological examination today at bedside. - Labs CBC & Chem 7: 06/04/18 00:14 06/04/18 00:14 Labs: Abnormal Lab Results - Last 24 Hours (Table) 06/04/18 06/04/18 06/04/18 Range/Units 11:42 16:40 20:42 POC Glucose (mg/dL) 132 H 138 H 135 H (75-99) mg/dL 06/05/18 Range/Units 06:21 POC Glucose (mg/dL) 123 H (75-99) mg/dL Assessment and Plan (1) Metastatic melanoma Current Visit: Yes Status: Acute Code(s): C79.9 - SECONDARY MALIGNANT NEOPLASM OF UNSPECIFIED SITE SNOMED Code(s): 466873486 (2) Melanoma-pancreatic cancer syndrome Current Visit: Yes Status: Acute Code(s): C25.9 - MALIGNANT NEOPLASM OF PANCREAS, UNSPECIFIED SNOMED Code(s): 548135104 (3) Diabetes mellitus Current Visit: Yes Status: Acute Code(s): E11.9 - TYPE 2 DIABETES MELLITUS WITHOUT COMPLICATIONS SNOMED Code(s): 66973180 (4) Coronary artery disease Current Visit: Yes Status: Acute Code(s): I25.10 - ATHSCL HEART DISEASE OF [place] CORONARY ARTERY W/O ANG PCTRS SNOMED Code(s): 67400911 (5) New onset seizure Current Visit: Yes Status: Acute Code(s): R56.9 - UNSPECIFIED CONVULSIONS SNOMED Code(s): 02144723 Plan: This patient is a 77-year-old male who was admitted hospital with new onset seizure. He has a history of metastatic melanoma as well as neuroendocrine tumor of the pancreas. He was recently treated at the [facility] with surgical approach for his pancreatic tumor. He is unable to have MRI of the brain for 6 weeks following his recent abdominal surgery. Patient was admitted with new onset seizure. He was loaded with IV Dilantin. His Dilantin level today was subtherapeutic at 7.7. We did give him oral Dilantin today of 700 mg and will have a repeat Dilantin level done tomorrow. If his Dilantin level comes back therapeutic he may be considered for discharge home. The patient also underwent routine EEG yesterday which was reviewed and is normal for his age. Patient was advised of the [place] driving law which states he cannot drive in the [facility] for a period of 6 months following his last seizure. We have recommended the patient to have a MRI of the brain with and without gadolinium as an outpatient after his 6 weeks of surgical healing have been completed and he is capable and cleared to have MRI of the brain done. He should follow-up with a specialist at the [facility] were managing his malignant melanoma and pancreatic tumor. They should be informed of his recent seizure and workup. He should have a repeat Dilantin level once he is discharged in about a week and follow- up with Dr. Cardenas. We have explained to the patient all of his test results in detail today at bedside. He was made aware of all of his current findings. His overall prognosis at this time remains guarded. We will continue close neurological follow-up for the patient during this admission.
[2018-06-05] MEDS: clonazePAM 1 MG TAB PO SCH (21:54)
[2018-06-06 06:40] LABS: Glucose,Whole Blood 145 mg/dL (75-99)
--- NOTE | 2018-06-06 07:19 | EEG ---
ELECTROENCEPHALOGRAM REPORT DATE OF EE06/04/2018 ELECTROENCEPHALOGRAPHIC EXAMINATION REPORT: INDICATION FOR EXAMINATION: This patient is a 77-year-old male, admitted to hospital with new onset seizure. Patient with history of metastatic melanoma and neuroendocrine tumor to the pancreas. The patient admitted with 1 minute episode of generalized seizure activity and confusion. A[age]: [age]. EEG FINDINGS: A routine 21 channel awake digital EEG recording was accomplished utilizing the 10-20 international system with bipolar and referential montages. The background activity in the most alert resting state consists of a low to medium amplitude, fairly well developed and well sustained 7-8 Hz activity over the posterior head region. This posterior rhythm attenuates to eye opening. There is a small amount of low amplitude 18- 20 Hz beta activity seen maximally over the anterior head regions. Muscle and movement artifact was observed on a few occasions during the tracing. Hypoventilation was not performed. Photic stimulation at flash frequencies of 2-30 Hz produced a good symmetrical occipital driving response. No epileptiform discharges were seen. IMPRESSION: This EEG is within normal limits for the patient's age. The EEG failed to reveal any focal, lateralized, or epileptiform abnormalities. Clinical correlation is recommended. MMODL / IJN: [id number] /
[2018-06-06] MEDS: PHENYTOIN SODIUM EXTENDED 100 MG CAP PO SCH ×3 (07:50→21:15)
[2018-06-06] MEDS: DOCUSATE 100 MG CAP PO SCH (07:55)
[2018-06-06] MEDS: ASPIRIN 81 MG PO SCH (07:55)
[2018-06-06] MEDS: PANTOPRAZOLE 40 MG TABLET PO SCH (07:55)
[2018-06-06] MEDS: INSULIN ASPART 100 UNIT/ML 1 ML 10 ML VIAL SQ SCH ×4 (07:55→21:16)
[2018-06-06] MEDS: ATENOLOL 50 MG TAB PO SCH ×3 (07:55→21:15)
[2018-06-06] MEDS: ALLOPURINOL 300 MG TAB PO SCH (07:55)
[2018-06-06] MEDS: GLIMEPIRIDE 1 MG TAB PO SCH (07:55)
[2018-06-06] MEDS: ATORVASTATIN 10 MG TAB PO SCH (07:55)
[2018-06-06] MEDS: POLYETHYLENE GLYCOL 3350 17 GM POWD.PACK PO SCH (07:56)
[2018-06-06] MEDS: ENOXAPARIN 40 MG/0.4 ML SYRINGE SQ SCH (07:56)
[2018-06-06 11:32] LABS: Glucose,Whole Blood 160 mg/dL (75-99)
[2018-06-06 16:50] LABS: Glucose,Whole Blood 139 mg/dL (75-99)
[2018-06-06 20:52] LABS: Glucose,Whole Blood 156 mg/dL (75-99)
[2018-06-06] MEDS: clonazePAM 1 MG TAB PO SCH (21:15)
[2018-06-06] MEDS: MELATONIN 3 MG TABLET PO SCH (21:15)
[2018-06-06] MEDS: FAMOTIDINE 20 MG TAB PO SCH (21:15)
[2018-06-06] MEDS: PARoxetine 20 MG TAB PO SCH (21:15)
[2018-06-06] MEDS: OLANZapine 2.5 MG TAB PO SCH (21:16)
[2018-06-07 06:08] LABS: Glucose,Whole Blood 131 mg/dL (75-99)
[2018-06-07] MEDS: GLIMEPIRIDE 1 MG TAB PO SCH (07:04)
[2018-06-07] MEDS: PANTOPRAZOLE 40 MG TABLET PO SCH (07:04)
[2018-06-07] MEDS: INSULIN ASPART 100 UNIT/ML 1 ML 10 ML VIAL SQ SCH ×4 (07:04→23:00)
[2018-06-07] MEDS: ACETAMINOPHEN TAB 325 MG TAB PO PRN (07:07)
--- NOTE | 2018-06-07 07:56 | PN ---
PROGRESS NOTE CHIEF COMPLAINT: Re-evaluation. HISTORY OF PRESENT ILLNESS: This is a 77-year-old gentleman who was admitted to the hospital with new onset seizure. CAT scan of the brain was unremarkable, based on the plain CAT scan. The patient has been seen by Neurology. EEG was unremarkable for any focal seizure. The patient has known melanoma and recent Whipple's procedure for neuroendocrine tumor. The patient's family has requested the patient be transferred to [facility]. I did contact the physicians down there and they are willing to take the patient when bed is available. Meanwhile, the patient has been kind of agitated off and on. He tried to walk out of the hospital. He cut off his ID band. Refused medications this morning. After further discussion, he did take his medication, except that he only agreed if Dilantin was cut down to 100 mg. The patient did agree to take 100 mg 3 times a day. The patient's level was therapeutic at 13. He does have some short-term memory deficits. His right pupil is smaller than the left. Otherwise no focal neurological deficit. REVIEW OF SYSTEMS: NEURO: Denies any headaches or dizziness. Does feel unsteady when he walks. CARDIAC: Denies chest pain, angina, palpitation. RESPIRATORY: Denies shortness of breath, cough, hemoptysis. GI: No nausea, vomiting, abdominal pain. Did have some loose stools. : No symptoms of dysuria, hematuria. EXTREMITIES: Denies pain. CONSTITUTIONAL: No fever or chills. PHYSICAL EXAMINATION: Pleasant gentleman at present in no distress. He is oriented to place and person and time. Moves both upper lower extremities well with no tremors. No focal deficit except for the right pupil being smaller than the left. They are reactive though. VITAL SIGNS: Patient refused to have any vitals taken. This mornings vital signs were temperature 98.6, pulse 71, respirations 18, blood pressure 145/74, pulse ox 100% on room air. HEENT: Normocephalic. Neck is supple. Right pupil smaller than left reactive. Oral cavity is moist. NECK: There is no JVD. No carotid bruits. CHEST: Clear to auscultation and percussion. CARDIAC: Normal S1, S2 with no gallops, murmurs. ABDOMEN: Soft. Bowel sounds present. Extremities reveal no edema. Good pulses upper extremities. Mild decreased pedal pulses. NEUROLOGICALLY: Awake, alert, oriented to place, person, time. However, he is forgetful about discussions had just a few minutes prior. He has equal strength and moves both upper and lower extremities well. No ataxia is noted. No nystagmus noted. LABORATORY ASSESSMENT: Blood sugars of 145 this morning and Dilantin level of 13.0. ASSESSMENT: 1. New onset seizures. 2. Mild short-term memory deficits. 3. Neuroendocrine pancreatic cancer with local metastasis. 4. History of melanoma. 5. Diabetes mellitus. 6. Coronary artery disease, stable. PLAN: The patient at present is stable. Continue present medical regimen. Patient's condition discussed with the patient. Prognosis guarded. He is awaiting transfer to [place]. Prognosis remains guarded. MMODL / IJN: [id number] /
[2018-06-07] MEDS: ALLOPURINOL 300 MG TAB PO SCH (09:35)
[2018-06-07] MEDS: ATORVASTATIN 10 MG TAB PO SCH (09:35)
[2018-06-07] MEDS: ASPIRIN 81 MG PO SCH (09:35)
[2018-06-07] MEDS: DOCUSATE 100 MG CAP PO SCH (09:35)
[2018-06-07] MEDS: PHENYTOIN SODIUM EXTENDED 100 MG CAP PO SCH ×3 (09:35→23:01)
[2018-06-07] MEDS: ATENOLOL 50 MG TAB PO SCH ×2 (09:35→20:33)
[2018-06-07] MEDS: ENOXAPARIN 40 MG/0.4 ML SYRINGE SQ SCH (09:36)
[2018-06-07] MEDS: POLYETHYLENE GLYCOL 3350 17 GM POWD.PACK PO SCH (09:42)
[2018-06-07 12:17] LABS: Glucose,Whole Blood 151 mg/dL (75-99)
[2018-06-07 16:59] LABS: Glucose,Whole Blood 161 mg/dL (75-99)
[2018-06-07] MEDS: FAMOTIDINE 20 MG TAB PO SCH (20:33)
[2018-06-07] MEDS: OLANZapine 2.5 MG TAB PO SCH (20:33)
[2018-06-07] MEDS: clonazePAM 1 MG TAB PO SCH (20:33)
[2018-06-07] MEDS: PARoxetine 20 MG TAB PO SCH (20:33)
[2018-06-07] MEDS: MELATONIN 3 MG TABLET PO SCH (20:33)
[2018-06-07 21:18] LABS: Glucose,Whole Blood 148 mg/dL (75-99)
[2018-06-07] MEDS: HYDROcodone/APAP 10-325MG 1 EACH TAB PO PRN (22:59)
--- NOTE | 2018-06-07 23:53 | PN ---
PROGRESS NOTE CHIEF COMPLAINT: Re-evaluation. HISTORY OF PRESENT ILLNESS: This 77-year-old gentleman was admitted to the hospital with new onset seizures. He is feeling better. Today he was more cooperative. The patient denies any headaches or dizziness. His unsteadiness is improved. Psych: Has been more cooperative, did sleep through the night. 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 The patient is status post Whipple procedure. REVIEW OF SYSTEMS: NEURO: Denies any headaches, dizziness. PSYCH: Cooperative. CARDIAC: No chest pain, angina, palpitation. RESPIRATORY: No shortness of breath, cough, hemoptysis. GI: No nausea, vomiting, abdominal pain, diarrhea. : No symptoms of dysuria, hematuria, urgency, frequency. EXTREMITIES: Denies pain, edema. CONSTITUTIONAL: No fever, chills. PHYSICAL EXAMINATION: Pleasant gentleman, at present in no distress. Vital signs reveal temperature 98.6, pulse 65, respirations 16, blood pressure 116/68, pulse ox of 95% on room air. HEENT: Normocephalic. Neck: No JVD. Pupils: Right slightly smaller than left, but reactive. Oral cavity is moist. Neck reveals no JVD. No carotid bruits. No thyromegaly. CHEST: Clear to auscultation, percussion. CARDIAC: Normal S1, S2 with no gallops, murmurs or rubs. ABDOMEN: Soft. Bowel sounds are active. Patient incisions dry. Extremities reveal no edema. No tenderness. Neurologically, awake, alert, oriented to place, person and time. Moves both upper and lower extremities adequately. There is no nystagmus noted. LABORATORY ASSESSMENT: The blood sugars which were in adequate range. ASSESSMENT: 1. New onset seizures. 2. Diabetes mellitus. 3. Status post Whipple procedure. 4. Neuroendocrine pancreatic tumor. 5. Melanoma. 6. Coronary artery disease, stable. 7. Anemia secondary to some blood loss. PLAN: The patient is stable. Continue present medical regimen. Patient's condition is stable. The patient is awaiting transfer to [place]. Will reconnect with him tomorrow, as the patient is basically fairly stable here. We will check the patient's Dilantin level tomorrow. MMODL / IJN: [id number] /
[2018-06-08 06:11] LABS: Glucose,Whole Blood 133 mg/dL (75-99)
[2018-06-08] MEDS: INSULIN ASPART 100 UNIT/ML 1 ML 10 ML VIAL SQ SCH ×4 (06:13→21:27)
[2018-06-08] MEDS: GLIMEPIRIDE 1 MG TAB PO SCH (06:14)
[2018-06-08] MEDS: PANTOPRAZOLE 40 MG TABLET PO SCH (06:14)
[2018-06-08] MEDS: ATENOLOL 50 MG TAB PO SCH ×2 (07:57→19:58)
[2018-06-08] MEDS: ASPIRIN 81 MG PO SCH (07:57)
[2018-06-08] MEDS: ALLOPURINOL 300 MG TAB PO SCH (07:57)
[2018-06-08] MEDS: ENOXAPARIN 40 MG/0.4 ML SYRINGE SQ SCH (07:58)
[2018-06-08] MEDS: DOCUSATE 100 MG CAP PO SCH (07:58)
[2018-06-08] MEDS: ATORVASTATIN 10 MG TAB PO SCH (07:58)
[2018-06-08] MEDS: PHENYTOIN SODIUM EXTENDED 100 MG CAP PO SCH ×3 (07:58→23:51)
[2018-06-08] MEDS: POLYETHYLENE GLYCOL 3350 17 GM POWD.PACK PO SCH (07:58)
[2018-06-08] MEDS: ACETAMINOPHEN TAB 325 MG TAB PO PRN (12:18)
[2018-06-08 16:44] LABS: Glucose,Whole Blood 126 mg/dL (75-99)
[2018-06-08 16:50] LABS: Glucose,Whole Blood 145 mg/dL (75-99)
[2018-06-08] MEDS: FAMOTIDINE 20 MG TAB PO SCH (19:57)
[2018-06-08] MEDS: PARoxetine 20 MG TAB PO SCH (19:57)
[2018-06-08] MEDS: OLANZapine 2.5 MG TAB PO SCH (19:58)
[2018-06-08] MEDS: MELATONIN 3 MG TABLET PO SCH (19:58)
[2018-06-08 21:13] LABS: Glucose,Whole Blood 165 mg/dL (75-99)
[2018-06-08] MEDS: HYDROcodone/APAP 10-325MG 1 EACH TAB PO PRN (21:27)
[2018-06-08] MEDS: clonazePAM 1 MG TAB PO SCH (21:27)
--- NOTE | 2018-06-08 23:51 | PN ---
PROGRESS NOTE CHIEF COMPLAINT: Re-evaluation. HISTORY OF PRESENT ILLNESS: This is a 77-year-old gentleman who was admitted to the hospital with new-onset seizures. The patient presented to the hospital after recent Whipple's procedure. Details of the above history as previously dictated. The patient since admission initially had some confusion, but now he has basically settled down pretty well. He has his usual alertness. The patient has had no seizure. His Dilantin level, however, is down to 5.4. He will be given additional Dilantin. The patient denies any headaches or dizziness. REVIEW OF SYSTEMS: NEURO: Denies any headaches, dizziness. PSYCH: No anxiety. CARDIAC: No chest pain, angina, palpitations. RESPIRATORY: No shortness of breath, cough. GI: No nausea, vomiting, abdominal pain, diarrhea. : No symptoms of dysuria, hematuria. EXTREMITIES: No pain. CONSTITUTIONAL: No fever or chills. PHYSICAL EXAMINATION: Pleasant gentleman in no distress. Vital signs reveal temperature 98.1, pulse 74, respiration 18, blood pressure 141/78, pulse ox 97% on room air. HEENT: Normocephalic. NECK: Supple. No JVD. CHEST: Clear to auscultation and percussion. CARDIAC: Normal S1, S2 with no gallops, murmurs. ABDOMEN: Soft. Bowel sounds present. Extremities reveal no edema. Neurologically awake, alert, oriented with well-coordinated movements. LABORATORY ASSESSMENT: Phenytoin level 5.5. ASSESSMENT: 1. New-onset seizures, etiology undetermined; suspect cerebral metastases. 2. History of level IV melanoma. 3. Neuroendocrine pancreatic tumor. 4. Anemia secondary to some blood loss. 5. Status post Whipple's procedure. 6. Stable coronary artery disease. PLAN: The patient is stable. Continue present medical regimen. Patient's condition discussed with the patient. Prognosis guarded. Patient is still awaiting a transfer to [place], [place]. Prognosis guarded. Patient will be given additional Dilantin. MMODL / IJN: [id number] /
[2018-06-09] MEDS: HYDROcodone/APAP 10-325MG 1 EACH TAB PO PRN ×2 (03:29→22:35)
[2018-06-09 07:07] LABS: Glucose,Whole Blood 105 mg/dL (75-99)
[2018-06-09] MEDS: INSULIN ASPART 100 UNIT/ML 1 ML 10 ML VIAL SQ SCH ×4 (07:17→22:31)
[2018-06-09] MEDS: PANTOPRAZOLE 40 MG TABLET PO SCH (07:55)
[2018-06-09] MEDS: DOCUSATE 100 MG CAP PO SCH (07:55)
[2018-06-09] MEDS: ENOXAPARIN 40 MG/0.4 ML SYRINGE SQ SCH (07:55)
[2018-06-09] MEDS: ATENOLOL 50 MG TAB PO SCH ×2 (07:56→20:23)
[2018-06-09] MEDS: PHENYTOIN SODIUM EXTENDED 100 MG CAP PO SCH ×3 (07:56→20:23)
[2018-06-09] MEDS: ATORVASTATIN 10 MG TAB PO SCH (07:56)
[2018-06-09] MEDS: GLIMEPIRIDE 1 MG TAB PO SCH (07:56)
[2018-06-09] MEDS: POLYETHYLENE GLYCOL 3350 17 GM POWD.PACK PO SCH (07:56)
[2018-06-09 08:26] LABS: HCT 29.4 % (39.0-53.0); HGB 9.2 gm/dL (13.0-17.5); Hypochromasia Marked; MCH 30.1 pg (25.0-35.0); MCHC 31.4 g/dL (31.0-37.0); MCV 95.9 fL (80.0-100.0); Mean Platelet Volume 7.4; Platelet Count 232 k/uL (150-450); Poikilocytosis Slight; RBC 3.06 m/uL (4.30-5.90); RDW 14.4 % (11.5-15.5); WBC 4.1 k/uL (3.8-10.6)
[2018-06-09 08:45] LABS: Anion Gap 4 mmol/L; Blood Urea Nitrogen 12 mg/dL (9-20); Calcium 7.6 mg/dL (8.4-10.2); Carbon Dioxide 29 mmol/L (22-30); Chloride 106 mmol/L (98-107); Glucose 97 mg/dL (74-99); Phenytoin (Dilantin) 6.4 ug/mL; Potassium 3.6 mmol/L (3.5-5.1); Sodium 139 mmol/L (137-145)
[2018-06-09] MEDS: ASPIRIN 81 MG PO SCH (09:28)
[2018-06-09] MEDS: ALLOPURINOL 300 MG TAB PO SCH (09:28)
[2018-06-09 11:58] LABS: Glucose,Whole Blood 200 mg/dL (75-99)
[2018-06-09 17:43] LABS: Glucose,Whole Blood 160 mg/dL (75-99)
[2018-06-09] MEDS: MELATONIN 3 MG TABLET PO SCH (20:23)
[2018-06-09] MEDS: PARoxetine 20 MG TAB PO SCH (20:23)
[2018-06-09] MEDS: FAMOTIDINE 20 MG TAB PO SCH (20:23)
[2018-06-09] MEDS: OLANZapine 2.5 MG TAB PO SCH (20:23)
[2018-06-09] MEDS: clonazePAM 1 MG TAB PO SCH (20:27)
[2018-06-09 21:33] LABS: Glucose,Whole Blood 140 mg/dL (75-99)
--- NOTE | 2018-06-09 22:07 | PN ---
PROGRESS NOTE ATTENDING PHYSICIAN: Dr. Mario Cardenas. CHIEF COMPLAINT: Re-evaluation. HISTORY OF PRESENT ILLNESS: This is a 77-year-old gentleman who was admitted to the hospital with following seizures. The patient has been doing fairly well. He is awaiting a transfer to [facility]. The patient meanwhile has had no further seizures on Dilantin, dose therapeutic. The patient has no focal neurological symptoms or signs. REVIEW OF SYSTEMS: Neuro: Denies any headaches or dizziness. Psych: No anxiety. Cardiac: No chest pain, angina or palpitations. Respiratory no shortness of breath, cough. GI no nausea, vomiting, abdominal pain, diarrhea with good bowel movement. no symptoms of dysuria or hematuria. Extremities: Denies pain, edema. Constitutional: No fever or chills. PHYSICAL EXAMINATION: Pleasant gentleman at present in no distress. Vital signs: Temperature 97.6, pulse 61, respirations 20, blood pressure 130/63, pulse ox 98% on room air. HEENT: Normocephalic. NECK: Supple. No JVD. CHEST: Clear to auscultation and percussion. Cardiac: Normal S1, S2 with no gallops. ABDOMEN: Soft. No palpable masses. Bowel sounds normal. No organomegaly. No abdominal bruits. Extremities reveal no edema. Good pulses on both upper extremities. Mild decreased pedal pulses. Neurologically awake, alert, oriented with well-coordinated movements. LABORATORY ASSESSMENT: White count 4.1, hemoglobin 9.2, platelets 232. Electrolytes normal. BUN and creatinine normal. Calcium 7.6, glucose was 97. Dilantin 6.4. ASSESSMENT: 1. New onset seizures. 2. History of melanoma. 3. History of neuroendocrine pancreatic CA. 4. Anemia secondary to recent blood loss. 5. Diabetes mellitus. PLAN: The patient at present is stable. Continue present medical regimen. Patient awaiting transfer [facility]. The patient's daughter has totally refused to accept the patient being discharged from the hospital to await evaluations at [facility]. I did call her today and left a message and never got a call back from her. MMODL / JACOBN: [id number] /
[2018-06-10] MEDS: HYDROcodone/APAP 10-325MG 1 EACH TAB PO PRN ×2 (06:01→21:34)
[2018-06-10 07:41] LABS: Glucose,Whole Blood 121 mg/dL (75-99)
[2018-06-10] MEDS: INSULIN ASPART 100 UNIT/ML 1 ML 10 ML VIAL SQ SCH ×4 (08:11→21:33)
[2018-06-10] MEDS: PHENYTOIN SODIUM EXTENDED 100 MG CAP PO SCH ×3 (08:16→21:33)
[2018-06-10] MEDS: ATENOLOL 50 MG TAB PO SCH ×2 (08:16→21:32)
[2018-06-10] MEDS: GLIMEPIRIDE 1 MG TAB PO SCH (08:16)
[2018-06-10] MEDS: ENOXAPARIN 40 MG/0.4 ML SYRINGE SQ SCH (08:16)
[2018-06-10] MEDS: ATORVASTATIN 10 MG TAB PO SCH (08:16)
[2018-06-10] MEDS: PANTOPRAZOLE 40 MG TABLET PO SCH (08:16)
[2018-06-10] MEDS: ASPIRIN 81 MG PO SCH (08:16)
[2018-06-10] MEDS: ALLOPURINOL 300 MG TAB PO SCH (08:16)
[2018-06-10] MEDS: DOCUSATE 100 MG CAP PO SCH (08:17)
[2018-06-10 10:20] VITALS: BMI 26.4
[2018-06-10 11:41] LABS: Glucose,Whole Blood 193 mg/dL (75-99)
[2018-06-10] MEDS: POLYETHYLENE GLYCOL 3350 17 GM POWD.PACK PO SCH (13:27)
[2018-06-10 16:50] LABS: Glucose,Whole Blood 131 mg/dL (75-99)
[2018-06-10 20:35] LABS: Glucose,Whole Blood 148 mg/dL (75-99)
[2018-06-10] MEDS: clonazePAM 1 MG TAB PO SCH (21:32)
[2018-06-10] MEDS: FAMOTIDINE 20 MG TAB PO SCH (21:32)
[2018-06-10] MEDS: PARoxetine 20 MG TAB PO SCH (21:33)
[2018-06-10] MEDS: OLANZapine 2.5 MG TAB PO SCH (21:33)
[2018-06-10] MEDS: MELATONIN 3 MG TABLET PO SCH (21:33)
[2018-06-10 23:55] VITALS: RESP 20
[2018-06-11] MEDS: HYDROcodone/APAP 10-325MG 1 EACH TAB PO PRN ×2 (04:46→17:21)
[2018-06-11 07:38] LABS: Glucose,Whole Blood 197 mg/dL (75-99)
[2018-06-11] MEDS: ATORVASTATIN 10 MG TAB PO SCH (08:16)
[2018-06-11] MEDS: ALLOPURINOL 300 MG TAB PO SCH (08:16)
[2018-06-11] MEDS: PANTOPRAZOLE 40 MG TABLET PO SCH (08:16)
[2018-06-11] MEDS: GLIMEPIRIDE 1 MG TAB PO SCH (08:16)
[2018-06-11] MEDS: DOCUSATE 100 MG CAP PO SCH (08:16)
[2018-06-11] MEDS: ATENOLOL 50 MG TAB PO SCH (08:16)
[2018-06-11] MEDS: ENOXAPARIN 40 MG/0.4 ML SYRINGE SQ SCH (08:16)
[2018-06-11] MEDS: ASPIRIN 81 MG PO SCH (08:17)
[2018-06-11] MEDS: INSULIN ASPART 100 UNIT/ML 1 ML 10 ML VIAL SQ SCH ×2 (08:17→13:02)
[2018-06-11] MEDS: PHENYTOIN SODIUM EXTENDED 100 MG CAP PO SCH ×2 (08:17→17:22)
[2018-06-11] MEDS: POLYETHYLENE GLYCOL 3350 17 GM POWD.PACK PO SCH (08:56)
[2018-06-11 12:05] LABS: Glucose,Whole Blood 161 mg/dL (75-99)
[2018-06-11 15:08] VITALS: BP 108/69; PULSE 50; TEMP 98.3
--- NOTE | 2018-06-11 17:09 | PN ---
PROGRESS NOTE CHIEF COMPLAINT: Re-evaluation. HISTORY OF PRESENT ILLNESS: This is a 77-year-old admitted to the hospital with new-onset seizures. The patient and daughter refused CT scans with contrast. The patient's MRI is probably not going to be able to be done for another 4 to 5 weeks. He just had a Whipple's procedure. The patient's etiology of new-onset seizure is not clear. The patient does have a history of neuroendocrine pancreatic cancer as well as level IV melanoma. The patient is otherwise doing well. Denies any headaches, dizziness. He has had no further seizures. He is on Dilantin. No adverse affects to Dilantin. REVIEW OF SYSTEMS: NEURO: Denies any headaches, dizziness. PSYCH: No anxiety. CARDIAC: No chest pain, angina, palpitations. RESPIRATORY: Denies shortness of breath, cough, hemoptysis. GI: No nausea, vomiting, abdominal pain, diarrhea. Did have a good bowel movement, well formed. : No symptoms of dysuria or hematuria. EXTREMITIES: No pain. CONSTITUTIONAL: No fever, chills. PHYSICAL EXAMINATION: Pleasant gentleman, at present in no distress. VITAL SIGNS: Temperature 98.6, pulse 70, respirations 20, blood pressure 144/74, pulse ox 90% on room air. HEENT: Normocephalic. NECK: Supple. No JVD. CHEST: Clear to auscultation and percussion. CARDIAC: Normal S1 and S2 with no gallops, murmurs, rubs. ABDOMEN: Soft. Incision well healed. Bowel sounds are active. EXTREMITIES: No edema. No tenderness. NEUROLOGIC: Awake, alert, oriented x3 with well-coordinated movements. The patient's pupils are equal and reactive. LABORATORY ASSESSMENT: Accu-Chek of 197 this morning. ASSESSMENT: 1. New-onset seizures, stable. 2. History of melanoma. 3. History of neuroendocrine tumor. 4. Status post Whipple. 5. Anemia secondary to acute blood loss. 6. Coronary artery disease. PLAN: The patient is stable. Continue present medical regimen. Patient's condition was discussed with the patient. Prognosis guarded. As mentioned above, he is awaiting a bed at the [facility] for continuation of further evaluation. MMODL / IJN: [id number] /
== END 2018-06-11 18:30 | disposition short-term general hospital (02) | DRG 101 ==
LOC: EC 23:30 → 6SEL 06-04 01:59 → 4MS4W 06-08 20:51
PROVIDERS: ADMIT Internal Medicine; ATTEND Internal Medicine
DX: G40.409 Other generalized epilepsy and epileptic syndromes, not intractable, without status epilepticus (principal); C77.9 Secondary and unspecified malignant neoplasm of lymph node, unspecified; C7A.8 Other malignant neuroendocrine tumors; C25.0 Malignant neoplasm of head of pancreas; D62 Acute posthemorrhagic anemia; C43.61 Malignant melanoma of right upper limb, including shoulder; E11.9 Type 2 diabetes mellitus without complications; E78.5 Hyperlipidemia, unspecified; I10 Essential (primary) hypertension; I25.10 Atherosclerotic heart disease of native coronary artery without angina pectoris; K21.9 Gastro-esophageal reflux disease without esophagitis; Z79.82 Long term (current) use of aspirin; Z79.899 Other long term (current) drug therapy; Z80.3 Family history of malignant neoplasm of breast; Z83.3 Family history of diabetes mellitus; Z87.891 Personal history of nicotine dependence; Z90.411 Acquired partial absence of pancreas; Z95.1 Presence of aortocoronary bypass graft; M10.9 Gout, unspecified; Z89.412 Acquired absence of left great toe; Z89.422 Acquired absence of other left toe(s); Z82.0 Family history of epilepsy and other diseases of the nervous system; Z79.02 Long term (current) use of antithrombotics/antiplatelets; Z79.84 Long term (current) use of oral hypoglycemic drugs; Z86.14 Personal history of Methicillin resistant Staphylococcus aureus infection; I65.23 Occlusion and stenosis of bilateral carotid arteries
CPT/HCPCS: 36415; 70450; 80048; 80053; 80185; 81001; 83036; 83605; 85025; 85027; 93005; 95816; 96361; 96374; 96375; 99291

== ENCOUNTER 2018-09-20 05:48 | Emergency (ER) | payer MEDICARE, OTHER ==
[2018-09-20] MEDS ORDERED: SODIUM CHLORIDE 0.9% 1,000 ML IV STA (05:52)
[2018-09-20] MEDS ORDERED: TRANEXAMIC ACID 1,000 MG in SODIUM CHLORIDE 0.9% 100 ML IV STA (05:52)
--- NOTE | 2018-09-20 06:04 | ED ---
Fall HPI - General Chief Complaint: Fall Stated Complaint: Fall Time Seen by Provider: 09/20/18 05:52 Source: EMS Mode of arrival: EMS - History of Present Illness Initial Comments: Dr Tovar is a 77-year-old gentleman with history of coronary artery disease status post bypass for which she is on Plavix and aspirin. Patient presents the emergency department today for evaluation of head trauma. Patient reports he went to bed between 8 and 9 PM, he woke sometime around midnight, patient reports he's had multiple toes removed and has a gait instability at baseline so he falls frequently. Patient reports that he fell backwards and struck his head he believes on some furniture. He did not lose consciousness he is able to get himself up and ambulate to the restroom. Patient reports that he is applied towels to his head and tried to sleep to stop the bleeding however he noticed around 5 AM that he continued to bleed and felt lightheaded upon standing at which time 911 was called. EMS reports the patient had 2 pillows soaked with blood, 2 towels soaked with blood, and he had soaked through for ADD pads during transport. Patient denies any headache or vision changes, he denies any chest pain or palpitations. His only complaint upon arrival is that he is cold. - Related Data Home Medications Medication Instructions Recorded Confirmed RX: Allopurinol [Zyloprim] 300 mg PO DAILY 10/26/14 06/04/18 RX: Atenolol [Tenormin] 50 mg PO BID 10/26/14 06/04/18 RX: PARoxetine [Paxil] 20 mg PO DAILY 10/26/14 06/04/18 RX: Atorvastatin [Lipitor] 10 mg PO HS 06/03/18 06/04/18 RX: Glimepiride [Amaryl] 1 mg PO TID 06/03/18 06/04/18 RX: Melatonin 3 mg PO HS 06/03/18 06/04/18 RX: Omeprazole [PriLOSEC] 20 mg PO AC-BRKFST 06/03/18 06/04/18 RX: Acetaminophen Tab [Tylenol] 650 mg PO Q6H PRN 06/04/18 06/04/18 RX: Cholecalciferol [Vitamin D3] 1,000 unit PO DAILY 06/04/18 06/04/18 RX: Zinc 50 mg PO DAILY 06/04/18 06/04/18 Previous Rx's Medication Instructions Recorded RX: Aspirin 81 mg PO DAILY #90 chew 11/01/14 RX: Aspirin 81 mg PO DAILY #0 chew 06/05/18 RX: Phenytoin Sodium Extended 200 mg PO BID #0 cap 06/05/18 [Dilantin] RX: clonazePAM [KlonoPIN] 1 mg PO HS #30 tab 06/05/18 Allergies Allergy/AdvReac Type Severity Reaction Status Date / Time No Known Allergies Allergy Verified 09/20/18 05:58 Review of Systems ROS Statement: Those systems with pertinent positive or pertinent negative responses have been documented in the HPI. ROS Other: All systems not noted in ROS Statement are negative. 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 Whipple Past Anesthesia/Blood Transfusion Reactions: No Reported Reaction Past Psychological History: Depression Smoking Status: Former smoker Past Drug Use History: None Reported - Past Family History Father Family Medical History: Dementia Additional Family Medical History / Comment(s): AT AGE 93 Mother Family Medical History: Cancer Additional Family Medical History / Comment(s): BREAST CANCER SURVIVER, AT AGE 86 General Exam - General Exam Comments Initial Comments: GENERAL: Patient appears pale HENT: Laceration on posterior scalp Cervical collar in place No midline cervical spine tenderness TMs normal bilaterally, no hemotympanum, no contreras signs, no raccoon eyes EYES: Conjunctiva pallor Pupils are round and reactive to light, left pupil is approximately 1 mm larger than the right, patient reports this is secondary to surgical intervention for retinal detachment in the past PULMONARY: Unlabored respirations. Good breath sounds bilaterally. No audible rales rhonchi or wheezing was noted. CARDIOVASCULAR: Tachycardiac, regular ABDOMEN: Soft and nontender with normal bowel sounds. SKIN: Multiple bruises in multiple stages of healing on bilateral extremities NEUROLOGIC: Patient is alert and oriented x3. Cranial nerves II through XII are grossly intact. Motor and sensory are also intact. Normal speech, volume and content. Symmetrical smile. MUSCULOSKELETAL: Normal extremities with adequate strength and full range of motion. No lower extremity swelling or edema. No calf tenderness. Toe amputations LYMPHATICS: No significant lymphadenopathy is noted PSYCHIATRIC: Normal psychiatric evaluation. Limitations: no limitations Limitations: no limitations Course Vital Signs 09/20/18 09/20/18 09/20/18 05:50 06:15 06:30 Temperature 96.4 F L Pulse Rate 114 H 68 65 Respiratory 20 18 18 Rate Blood Pressure 119/72 135/81 137/74 O2 Sat by Pulse 93 L 98 99 Oximetry 09/20/18 06:49 Temperature 97.9 F Pulse Rate 60 Respiratory 20 Rate Blood Pressure 128/81 O2 Sat by Pulse 100 Oximetry - Reevaluation(s) Reevaluation #1: Patient became nauseated and began vomiting Zofran was ordered 09/20/18 06:49 Procedures - Laceration Laceration #1 Consent Obtained: verbal consent Time Out Performed: Yes Indication: laceration Site: scalp Size (cm): 8 Description: linear Depth: simple, single layer Anesthetic Used: lidocaine 1%, with epi Anesthesia Technique: local infiltration Pre-repair: wound explored, deep structures intact Type of Sutures: other (january - 9 ) Technique: other Patient Tolerated Procedure: well Medical Decision Making - Medical Decision Making The patient was immediately seen and evaluated upon arrival to the emergency department Patient was noted to be tachycardic, actively bleeding, pressure dressing was placed Labs and imaging were ordered Packed red blood cell transfusion and TXA were ordered as I have a high suspicion the patient will have a hemoglobin of less than 7 Pressure dressing was placed on the scalp with improvement in the bleeding, patient was taken to CT for further evaluation Patient returned from CT, remained hemodynamically stable, blood pressure remained stable, heart rate has improved to the 60s Dressing removed from head, no active bleeding, wound was cleansed and explored , was anesthetized with 2 mL of 1% lidocaine with epinephrine, 9 january were placed, hemostasis was obtained Computed tomography scan of the head reveals no acute intracranial process, no acute cervical spine process, cervical collar was removed patient expressed significant improvement in his comfort level after c-collar was removed Patient care was discussed with trauma surgery on-call Dr. Chin who agrees with the plan for transfer to [facility] for further observation as the patient did have a significant fall with head injury and is on aspirin and Plavix, patient lives alone and has nobody to observe him Care was discussed with Dr. Ruiz at [facility] who accepts the transfer Patient developed nausea and had a single episode nonbloody nonbilious emesis. Zofran was ordered I suspect this is secondary to concussion syndrome. The patient's labs resulted, hemoglobin today is 9.1, when compared to hemoglobin of May this is only a mild drop from 9.4, however that hemoglobin was obtained shortly after patient's Whipple procedure and I suspect that he had some postoperative anemia at that time. I don't believe the patient's baseline hemoglobin is this low as his previous hemoglobin in 2017 was noted to be 15 - Lab Data Result diagrams: 09/20/18 05:43 09/20/18 05:43 Lab Results 09/20/18 09/20/18 09/20/18 Range/Units 05:43 05:43 05:43 WBC 10.8 H (3.8-10.6) k/uL RBC 3.90 L (4.30-5.90) m/uL Hgb 9.1 L (13.0-17.5) gm/dL Hct 30.5 L (39.0-53.0) % MCV 78.0 L (80.0-100.0) fL MCH 23.3 L (25.0-35.0) pg MCHC 29.8 L (31.0-37.0) g/dL RDW 17.6 H (11.5-15.5) % Plt Count 181 (150-450) k/uL Neutrophils % 59 % Lymphocytes % 31 % Monocytes % 7 % Eosinophils % 1 % Basophils % 0 % Neutrophils # 6.4 (1.3-7.7) k/uL Lymphocytes # 3.3 (1.0-4.8) k/uL Monocytes # 0.7 (0-1.0) k/uL Eosinophils # 0.1 (0-0.7) k/uL Basophils # 0.0 (0-0.2) k/uL Hypochromasia Marked Anisocytosis Slight Microcytosis Slight PT (9.0-12.0) sec INR (<1.2) APTT (22.0-30.0) sec Sodium 140 (137-145) mmol/L Potassium 4.3 (3.5-5.1) mmol/L Chloride 105 (98-107) mmol/L Carbon Dioxide 21 L (22-30) mmol/L Anion Gap 14 mmol/L BUN 16 (9-20) mg/dL Creatinine 0.72 (0.66-1.25) mg/dL Est GFR (CKD-EPI)AfAm >90 (>60 ml/min/1.73 sqM) Est GFR (CKD-EPI)NonAf >90 (>60 ml/min/1.73 sqM) Glucose 243 H (74-99) mg/dL Calcium 8.3 L (8.4-10.2) mg/dL Total Bilirubin 0.2 (0.2-1.3) mg/dL AST 29 (17-59) U/L ALT 22 (21-72) U/L Alkaline Phosphatase 93 (38-126) U/L Total Creatine Kinase 116 (55-170) U/L CK-MB (CK-2) 1.4 (0.0-2.4) ng/mL CK-MB (CK-2) Rel Index 1.2 Troponin I <0.012 (0.000-0.034) ng/mL Total Protein 5.9 L (6.3-8.2) g/dL Albumin 3.2 L (3.5-5.0) g/dL Serum Alcohol <10 mg/dL 09/20/18 Range/Units 05:43 WBC (3.8-10.6) k/uL RBC (4.30-5.90) m/uL Hgb (13.0-17.5) gm/dL Hct (39.0-53.0) % MCV (80.0-100.0) fL MCH (25.0-35.0) pg MCHC (31.0-37.0) g/dL RDW (11.5-15.5) % Plt Count (150-450) k/uL Neutrophils % % Lymphocytes % % Monocytes % % Eosinophils % % Basophils % % Neutrophils # (1.3-7.7) k/uL Lymphocytes # (1.0-4.8) k/uL Monocytes # (0-1.0) k/uL Eosinophils # (0-0.7) k/uL Basophils # (0-0.2) k/uL Hypochromasia Anisocytosis Microcytosis PT 10.8 (9.0-12.0) sec INR 1.1 (<1.2) APTT 20.7 L (22.0-30.0) sec Sodium (137-145) mmol/L Potassium (3.5-5.1) mmol/L Chloride (98-107) mmol/L Carbon Dioxide (22-30) mmol/L Anion Gap mmol/L BUN (9-20) mg/dL Creatinine (0.66-1.25) mg/dL Est GFR (CKD-EPI)AfAm (>60 ml/min/1.73 sqM) Est GFR (CKD-EPI)NonAf (>60 ml/min/1.73 sqM) Glucose (74-99) mg/dL Calcium (8.4-10.2) mg/dL Total Bilirubin (0.2-1.3) mg/dL AST (17-59) U/L ALT (21-72) U/L Alkaline Phosphatase (38-126) U/L Total Creatine Kinase (55-170) U/L CK-MB (CK-2) (0.0-2.4) ng/mL CK-MB (CK-2) Rel Index Troponin I (0.000-0.034) ng/mL Total Protein (6.3-8.2) g/dL Albumin (3.5-5.0) g/dL Serum Alcohol mg/dL - EKG Data -: EKG Interpreted by Me EKG Comments: EKG was obtained at 5:55 AM, rate was 66, rhythm was sinus, normal axis, MN mildly prolonged at 192, QRS is 74, QTC is 440 there is no acute ST elevations or depressions no evidence of acute ischemia or infarction. Disposition Clinical Impression: Fall, Laceration of scalp, Concussion Disposition: OTHER INSTITUTION NOT DEFINED Condition: Serious Referrals: Mario Cardenas MD [Primary Care Provider] - 1-2 days - Out of Hospital Transfer - Req. Specs Out of Hospital Transfer - Requested Specifics: Other Emergency Center ([facility])
[2018-09-20 06:08] LABS: Anisocytosis Slight; Basophils % (A) 0 %; Eosinophils # (A) 0.1 k/uL (0-0.7); Eosinophils % (A) 1 %; HCT 30.5 % (39.0-53.0); HGB 9.1 gm/dL (13.0-17.5); Hypochromasia Marked; Lymphocytes # (A) 3.3 k/uL (1.0-4.8); Lymphocytes % (A) 31 %; MCH 23.3 pg (25.0-35.0); MCHC 29.8 g/dL (31.0-37.0); Mean Platelet Volume 7.4; Microcytosis Slight; Monocytes # (A) 0.7 k/uL (0-1.0); Monocytes % (A) 7 %; Neutrophils # (A) 6.4 k/uL (1.3-7.7); Neutrophils % (A) 59 %; Platelet Count 181 k/uL (150-450); RDW 17.6 % (11.5-15.5); WBC 10.8 k/uL (3.8-10.6)
[2018-09-20] MEDS ORDERED: LIDOCAINE 1%-EPI 1:100,000 20 ML VIAL SUBMUCOSAL STA (06:13)
[2018-09-20 06:21] LABS: ALT 22 U/L (21-72); AST 29 U/L (17-59); Albumin 3.2 g/dL (3.5-5.0); Alcohol <10 mg/dL; Alkaline Phosphatase 93 U/L (38-126); Anion Gap 14 mmol/L; Blood Urea Nitrogen 16 mg/dL (9-20); Calcium 8.3 mg/dL (8.4-10.2); Carbon Dioxide 21 mmol/L (22-30); Chloride 105 mmol/L (98-107); Glucose 243 mg/dL (74-99); Potassium 4.3 mmol/L (3.5-5.1); Sodium 140 mmol/L (137-145); Total Bilirubin 0.2 mg/dL (0.2-1.3); Total Protein 5.9 g/dL (6.3-8.2)
--- NOTE | 2018-09-20 06:22 | CT ---
EXAMINATION TYPE: CT brain prerna wo con DATE OF EXAM: 09/20/2018 COMPARISON: CT brain 06/04/2018 HISTORY: trauma, fall headache. Neck pain. CT DLP: 1388.4 mGycm Automated exposure control for dose reduction was used. TECHNIQUE: CT scan of the head and cervical spine are performed without contrast. FINDINGS: There is cerebral cortical atrophy. There is no mass effect nor midline shift. There is n o sign of intracranial hemorrhage. The calvarium is intact. The cervical vertebra have normal alignment. There is moderate narrowing of the disc spaces from C3 t o C7 with spurring of the endplates. The posterior elements are intact. There is no compression fract ure. The skull base is intact. Prevertebral soft tissues are not enlarged. IMPRESSION: Cerebral atrophy. No acute intracranial abnormality. Brain unchanged compared to old exam. Spondylotic changes in the cervical spine. No fracture.
[2018-09-20 06:24] LABS: INR 1.1 (<1.2); Prothrombin Time 10.8 sec (9.0-12.0)
[2018-09-20] MEDS: TRANEXAMIC ACID 1,000 MG in SODIUM CHLORIDE 0.9% 250 ML IV ONE ×2 (06:27→06:55)
[2018-09-20 06:38] LABS: Creatine Kinase 116 U/L (55-170); Partial Thromboplastin Time 20.7 sec (22.0-30.0)
[2018-09-20] MEDS ORDERED: ONDANSETRON 4 MG/2 ML VIAL IVP STA (06:44)
[2018-09-20 06:51] VITALS: BP 128/81; PULSE 60; RESP 20; TEMP 97.9
[2018-09-20 06:51] LABS: Creatine Kinase MB 1.4 ng/mL (0.0-2.4); Troponin I <0.012 ng/mL (0.000-0.034)
== END 2018-09-20 07:31 | disposition other institution (70) ==
LOC: EC 05:48
DX: S06.0X0A Concussion without loss of consciousness, initial encounter (principal); S01.01XA Laceration without foreign body of scalp, initial encounter; R00.0 Tachycardia, unspecified; I25.10 Atherosclerotic heart disease of native coronary artery without angina pectoris; E11.9 Type 2 diabetes mellitus without complications; K21.9 Gastro-esophageal reflux disease without esophagitis; E78.5 Hyperlipidemia, unspecified; I10 Essential (primary) hypertension; M10.9 Gout, unspecified; F32.9 Major depressive disorder, single episode, unspecified; Z85.79 Personal history of other malignant neoplasms of lymphoid, hematopoietic and related tissues; Z86.14 Personal history of Methicillin resistant Staphylococcus aureus infection; Z95.1 Presence of aortocoronary bypass graft; Z95.818 Presence of other cardiac implants and grafts; Z87.891 Personal history of nicotine dependence; Z89.412 Acquired absence of left great toe; Z79.84 Long term (current) use of oral hypoglycemic drugs; Z79.899 Other long term (current) drug therapy; W19.XXXA Unspecified fall, initial encounter; Y92.009 Unspecified place in unspecified non-institutional (private) residence as the place of occurrence of the external cause
CPT/HCPCS: 36415; 93005; 86900; 86901; 80053; 82550; 82553; 84484; 85025; 85610; 85730; 86850; 72125; 70450; 99285; 12004; 96365; 96375; G0480; J2405; 80320; 86920

== ENCOUNTER → 2019-01-09 | Outpatient (CLI) | payer MEDICARE, OTHER ==
--- NOTE | 2019-01-11 09:06 | MR ---
EXAMINATION TYPE: MR abdomen wo/w con DATE OF EXAM: 01/09/2019 COMPARISON: CT pancreas March 21, 2018. HISTORY: Malignant neoplasm of head of pancreas status post Whipple surgical procedure. CONTRAST: Standard multiplanar, multisequence MRI departmental protocol utilizing 7.5 mL intravenous Gadavist g adolinium contrast. Imaging is performed of the abdomen focusing on pancreas. FINDINGS: Evaluate noted slightly suboptimal due to respiratory motion artifact degradation. In addit ion patient has had significant interval weight loss, there is little intra-abdominal fat on current study which makes evaluation suboptimal. Pancreas: Anterior to the splenic vein there is evidence of interval surgery as there is now nondilat ed small bowel loop at this level. Previously visualized pancreatic tissue with diffuse ductal dilata tion is not clearly identified. No suspicious recurrent or residual solid mass is present with attent ion to the area of [place] pancreatic head where prior neoplasm was present. There is interval cholecy stectomy noted. No new intrahepatic or extrahepatic biliary dilatation is seen. No new obvious abdomi nal adenopathy is noted. Other: No pleural or pericardial effusion is seen. Artifact from sternal wires is partially imaged. A nterior left hepatic lobe there is trying of the shaped opacification series 701 image 441 felt to re flect transient hepatic attenuation difference as no obvious masses seen on additional T1 and T2-weig hted images and the area is triangular in shape without additional suspicious lesions present. There is splenule in the splenic hilum redemonstrated. Both adrenal glands remain normal in size. There is no concerning renal mass or hydronephrosis. There is no suspicious bowel dilatation. There is multile jer spurring and disc space narrowing throughout the visualized thoracolumbar spine. IMPRESSION: Slightly suboptimal study as detailed above, no obvious residual or recurrent mass or breanne nopathy seen to suggest neoplastic recurrence after interval surgery.
== END | disposition home or self-care (01) ==
LOC: RADMRIMAIN 12:48
PROVIDERS: ATTEND Internal Medicine Hematology & Oncology
DX: C25.0 Malignant neoplasm of head of pancreas (principal)
CPT/HCPCS: 74183; A9585

== ENCOUNTER → 2020-03-15 | Outpatient (CLI) | payer MEDICARE, OTHER ==
--- NOTE | 2020-03-15 14:45 | MR ---
EXAMINATION TYPE: MR abdomen wo/w con DATE OF EXAM: 03/15/2020 COMPARISON: 01/09/2019 HISTORY: Pancreatic cancer CONTRAST: Standard multiplanar, multisequence MRI departmental protocol utilizing 7.5 mL intravenous Gadavist g adolinium contrast. FINDINGS: Exam limited by artifact. Pancreas: Postsurgical changes noted. Previously visualized pancreatic tissue with mild diffuse ducta l dilatation is noted. No suspicious recurrent or residual solid mass is present with attention to th e area of [place] pancreatic head where prior neoplasm was present. Tiny nodule seen adjacent to the c audate lobe of the liver on multiple prior exams including CT of 2018 and stable may represent an are a of shotty adenopathy as previously noted. Short axis measurement of 9 mm. There is post cholecystectomy noted. No new intrahepatic or extrahepatic biliary dilatation is seen. No new obvious abdominal adenopathy is noted. Other: No pleural or pericardial effusion is seen. Minimal intrahepatic biliary dilation noted. No suspicious hepatic lesions. Heterogeneous hepatic enhancement as previously noted is stable from t he prior exam. Triangular-shaped area of opacification is stable. Correlate with LFTs. There is splen ule in the splenic hilum redemonstrated. Both adrenal glands remain normal in size. There is no concerning renal mass or hydronephrosis. There is no suspicious bowel dilatation. There is multilevel spurring and disc space narrowing throughout the visualized thoracolumbar spine. Multilevel facet arthropathy. Suspect multilevel canal stenosis w ith areas of disc bulging or protrusion. IMPRESSION: 1. No evidence of recurrent mass. Small subcentimeter nodule adjacent to the caudate lobe of the live r is retrospectively stable dating back to 2018 and therefore likely benign. 2. Persistent heterogeneous enhancement of the liver some of which may be technical. No suspicious ma ss. The finding is stable from the prior exam.
== END | disposition home or self-care (01) ==
LOC: RADMRIMAIN 12:36
PROVIDERS: ATTEND Internal Medicine Hematology & Oncology
DX: K76.89 Other specified diseases of liver (principal); C25.0 Malignant neoplasm of head of pancreas
CPT/HCPCS: 74183; A9585

== ENCOUNTER 2021-02-26 21:22 | Emergency (ER) | payer MEDICARE, OTHER ==
[2021-02-26 21:30] VITALS: BP 142/81; PULSE 77; RESP 20; TEMP 97.9
--- NOTE | 2021-02-26 22:26 | ED ---
Fall HPI - General Chief Complaint: Fall Stated Complaint: Fall, head lac Time Seen by Provider: 02/26/21 21:33 Source: patient, family Mode of arrival: ambulatory - Related Data Home Medications Medication Instructions Recorded Confirmed PARoxetine [Paxil] 20 mg PO W/SUPPER 10/26/14 02/26/21 allopurinoL [Zyloprim] 300 mg PO W/SUPPER 10/26/14 02/26/21 atenoloL [Tenormin] 50 mg PO BID 10/26/14 02/26/21 Glimepiride [Amaryl] 2 mg PO BID 06/03/18 02/26/21 Omeprazole [PriLOSEC] 20 mg PO W/SUPPER 06/03/18 02/26/21 Zinc 50 mg PO W/SUPPER 06/04/18 02/26/21 Clopidogrel Bisulfate [Plavix] 75 mg PO W/SUPPER 02/26/21 02/26/21 Cyanocobalamin (Vitamin B-12) 1,000 mcg PO W/SUPPER 02/26/21 02/26/21 [Vitamin B-12] Ferrous Sulfate [Feosol] 325 mg PO W/SUPPER 02/26/21 02/26/21 Ibuprofen [Motrin Ib] 600 mg PO Q8H PRN 02/26/21 02/26/21 Lipase/Protease/Amylase [Creon Dr 24,000 units PO ACHS 02/26/21 02/26/21 24,000 Units Capsule] Multivitamins, Thera [Multivitamin 1 tab PO W/SUPPER 02/26/21 02/26/21 (formulary)] Simvastatin [Zocor] 20 mg PO W/SUPPER 02/26/21 02/26/21 clonazePAM [KlonoPIN] 1 mg PO W/SUPPER 02/26/21 02/26/21 lisinopriL [Zestril] 2.5 mg PO W/SUPPER 02/26/21 02/26/21 Allergies Allergy/AdvReac Type Severity Reaction Status Date / Time No Known Allergies Allergy Verified 02/26/21 22:09 Review of Systems ROS Statement: Those systems with pertinent positive or pertinent negative responses have been documented in the HPI. ROS Other: All systems not noted in ROS Statement are negative. 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 Whipple Past Anesthesia/Blood Transfusion Reactions: No Reported Reaction Past Psychological History: Depression Smoking Status: Former smoker Past Alcohol Use History: Daily Past Drug Use History: None Reported - Past Family History Father Family Medical History: Dementia Additional Family Medical History / Comment(s): AT AGE 93 Mother Family Medical History: Cancer Additional Family Medical History / Comment(s): BREAST CANCER SURVIVER, AT AGE 86 General Exam Limitations: no limitations Course Vital Signs 02/26/21 21:25 Temperature 97.9 F Pulse Rate 77 Respiratory 20 Rate Blood Pressure 142/81 O2 Sat by Pulse 98 Oximetry Disposition Clinical Impression: Fall, Laceration of forehead Disposition: HOME SELF-CARE Condition: Good Instructions (If sedation given, give patient instructions): Laceration (ED) Is patient prescribed a controlled substance at d/c from ED?: No Referrals: Ranjana Covarrubias MD [Primary Care Provider] - 1-2 days
--- NOTE | 2021-02-26 23:31 | CT ---
EXAMINATION TYPE: CT brain cspine wo con DATE OF EXAM: 02/26/2021 COMPARISON: 09/20/2018 HISTORY: fall CT DLP: 766 mGycm Automated exposure control for dose reduction was used. There is cerebral atrophy. There is no mass effect nor midline shift. There is no sign of intracrania l hemorrhage. The calvarium is intact. Skull base is intact. There is normal aeration of the mastoid sinuses. There is right frontal scalp soft tissue swelling. The cervical vertebra have normal alignment. There is degenerative disc space narrowing from C3 to C6 with spurring of the endplates. The facet joints are intact. I see no compression fracture. Skull ba se is intact. IMPRESSION: Multilevel cervical spondylotic changes with facet arthropathy. No fracture seen. Cerebral atrophy. No acute intracranial abnormality. Right frontal scalp hematoma. Brain appears unch anged compared to old exam. Cervical spine unchanged.
--- NOTE | 2021-02-26 23:40 | CT ---
EXAMINATION TYPE: CT facial bones wo con DATE OF EXAM: 02/26/2021 COMPARISON: None HISTORY: Fall CT DLP: 455.9 mGycm Automated exposure control for dose reduction was used. Images obtained from the bottom of the mandible to the top of the frontal sinuses without contrast. The mandibular ring is intact. Temporomandibular joints are intact. Zygomatic arches appear normal. M axilla is intact. The nasal bone appears intact. The orbital margins are intact. There is no evidence of retro-orbital mass. There is fairly normal ae ration of the paranasal sinuses. I see no bony destructive process. Sella turcica appears normal. The re is right frontal scalp soft tissue swelling. I see no evidence of frontal bone fracture. There is no evidence of blowout fracture of the orbits. IMPRESSION: Right frontal scalp hematoma measures up to 6 mm in thickness. No evidence of facial bone fracture.
== END 2021-02-27 00:09 | disposition home or self-care (01) ==
LOC: EC 21:22
DX: S00.03XA Contusion of scalp, initial encounter (principal); I25.10 Atherosclerotic heart disease of native coronary artery without angina pectoris; E11.9 Type 2 diabetes mellitus without complications; K21.9 Gastro-esophageal reflux disease without esophagitis; E78.5 Hyperlipidemia, unspecified; I10 Essential (primary) hypertension; F32.9 Major depressive disorder, single episode, unspecified; W19.XXXA Unspecified fall, initial encounter; Z90.49 Acquired absence of other specified parts of digestive tract; Z95.1 Presence of aortocoronary bypass graft; Z95.5 Presence of coronary angioplasty implant and graft; Z90.09 Acquired absence of other part of head and neck; Z87.891 Personal history of nicotine dependence; Z79.84 Long term (current) use of oral hypoglycemic drugs
CPT/HCPCS: 70450; 70486; 72125; 99283

== ENCOUNTER → 2021-03-13 | Outpatient (CLI) | payer MEDICARE, OTHER ==
--- NOTE | 2021-03-14 07:43 | MR ---
EXAMINATION TYPE: MR abdomen wo/w con DATE OF EXAM: 03/13/2021 COMPARISON: Prior MRI abdomen March 15, 2020 and January 09, 2019. Prior pancreatic CT March 21, 2018 HISTORY: History of pancreatic cancer status post Whipple surgery progress study. CONTRAST: Standard multiplanar, multisequence MRI departmental protocol utilizing 9 mL intravenous Gadavist co ntrast. FINDINGS: Evaluate noted slightly suboptimal due to respiratory motion artifact degradation. In addit ion patient has had significant interval weight loss, there is little intra-abdominal fat on current study which makes evaluation suboptimal. Pancreas: Postsurgical change redemonstrated. No suspicious recurrent or residual solid mass is prese nt with attention to the area of [place] pancreatic head where prior neoplasm was present. Some residu al tissue in the tail near the splenic hilum is unchanged from prior MRI studies. There is cholecyste ctomy change redemonstrated. Surgical changes from distal antrectomy and duodenectomy and small bowel anastomosis correlating with history of Whipple surgery redemonstrated. No new intrahepatic or extra hepatic biliary dilatation is seen. No new or enlarging greater than 1 cm abdominal adenopathy is not ed. Other: No pleural or pericardial effusion is seen. Artifact from sternal wires is once again partiall y imaged. No concerning new intrahepatic mass or ductal dilatation. There is 1.5 cm splenule in the s plenic hilum redemonstrated. Both adrenal glands remain normal in size. There is no concerning renal mass or hydronephrosis. Small central parapelvic cysts bilaterally are redemonstrated. There is no [place] spicious bowel dilatation. No new intra-abdominal ascites or abnormal adenopathy. There is multilevel spurring and disc space narrowing throughout the visualized thoracolumbar spine. IMPRESSION: No obvious recurrent mass or adenopathy seen to suggest neoplastic recurrence .
== END | disposition home or self-care (01) ==
LOC: RADMRIMAIN 12:20
PROVIDERS: ATTEND Internal Medicine Hematology & Oncology
DX: C25.0 Malignant neoplasm of head of pancreas (principal)
CPT/HCPCS: 74183; A9585

== ENCOUNTER 2021-11-25 20:02 | Emergency (ER) | payer MEDICARE, OTHER ==
[2021-11-25 20:10] VITALS: RESP 18; TEMP 97.8
[2021-11-25 20:31] LABS: Glucose,Whole Blood 114 mg/dL (75-99)
[2021-11-25 20:40] LABS: HCT 42.7 % (39.0-53.0); HGB 13.7 gm/dL (13.0-17.5); MCH 33.1 pg (25.0-35.0); MCV 103.2 fL (80.0-100.0); Macrocytosis Slight; Mean Platelet Volume 8.5; Platelet Count 122 k/uL (150-450); RBC 4.13 m/uL (4.30-5.90); RDW 14.5 % (11.5-15.5); WBC 6.8 k/uL (3.8-10.6)
[2021-11-25 20:51] LABS: ALT 18 U/L (4-49); AST 40 U/L (17-59); African American GFR (CKD) >90 (>60 ml/min/1.73 sqM); Albumin 4.5 g/dL (3.5-5.0); Alkaline Phosphatase 77 U/L (38-126); Anion Gap 13 mmol/L; Blood Urea Nitrogen 17 mg/dL (9-20); Calcium 8.8 mg/dL (8.4-10.2); Carbon Dioxide 23 mmol/L (22-30); Chloride 104 mmol/L (98-107); Glucose 112 mg/dL (74-99); Non-African American GFR(CKD) 84 (>60 ml/min/1.73 sqM); Potassium 3.8 mmol/L (3.5-5.1); Sodium 140 mmol/L (137-145); Total Bilirubin 0.7 mg/dL (0.2-1.3); Total Protein 7.8 g/dL (6.3-8.2)
[2021-11-25 21:08] LABS: INR 0.9 (<1.2); Partial Thromboplastin Time 25.1 sec (22.0-30.0); Prothrombin Time 10.3 sec (9.0-12.0)
--- NOTE | 2021-11-25 21:18 | CT ---
EXAMINATION TYPE: CT brain cspine wo con CT DLP: 1597.4 mGycm, Automated exposure control for dose reduction was used. DATE OF EXAM: 11/25/2021 8:51 PM COMPARISON: CT brain 02/26/2021. CLINICAL INDICATION:Male, 80 years old with history of trauma; fall, large posterior head lac TECHNIQUE: Brain: Multiple axial CT images of the brain were obtained without IV contrast. Cspine: Axial CT images from the skull base to the inferior aspect of T2 we obtained without intraven ous contrast. Coronal and sagittal reformatted images were also reviewed. FINDINGS: Brain: Extra-axial spaces: No abnormal extra-axial fluid collections. Ventricular system: Within normal limits Cerebral parenchyma: No acute intraparenchymal hemorrhage or mass effect. The morocho-white junction is well differentiated. Cerebellum: Unremarkable. Mass effect: No evidence of midline shift. Intracranial vasculature: Atherosclerotic calcifications of the intracranial vessels. Soft tissues: Posterior scalp soft tissue laceration and edema with subcutaneous edema. Calvarium/osseous structures: No depressed skull fracture. Paranasal sinuses and mastoid air cells: Clear. Visualized orbits: Orbital contents are intact. Postsurgical changes to the right globe. Cervical spine: Fracture: None. Osseous structures: Unremarkable Vertebral alignment: Within normal limits. Spinal canal/Neural Foramina: No evidence of significant spinal canal narrowing. No evidence of signi ficant neural foramina narrowing. Neck soft tissues: Prevertebral soft tissues are within normal limits. Other: The airway is patent. The lung apices are clear. IMPRESSION: 1. No acute intracranial process. 2. Posterior scalp edema with laceration. 3. No evidence of cervical spine fracture. 4. Mild multilevel degenerative disc disease.
[2021-11-25 21:32] LABS: Eosinophils # (M) 0.07 k/uL (0-0.7); Lymphocytes # (M) 2.92 k/uL (1.0-4.8); Monocytes # (M) 0.54 k/uL (0-1.0); Neutrophils # (M) 3.26 k/uL (1.3-7.7); Neutrophils % (M) 48 %; Nucleated Red Blood Cells 0 /100 WBC (0-0); Total Cells Counted 100
[2021-11-25 21:34] LABS: RBC Morphology Normal
--- NOTE | 2021-11-25 22:25 | ED ---
Head Injury HPI - General Chief complaint: Head Injury Stated complaint: Head laceration Source: patient Mode of arrival: ambulatory Limitations: no limitations - History of Present Illness Initial comments: 80-year-old male presents emergency Department after he sustained a fall. Patient states he was walking up steps in his house and fell backwards from 2 steps up. He hit his head on the linoleum floor. He did not have any loss of consciousness. He is on Plavix for previous history of bypass. He did sustain a laceration to the back of the head and a skin tear to the right elbow. He denies any pain in his extremities. No headaches, visual changes. He denies any numbness, tingling or weakness in his extremities. No unilateral numbness or weakness. No other alleviating, precipitating modifying factors - Related Data Home Medications Medication Instructions Recorded Confirmed PARoxetine [Paxil] 20 mg PO W/SUPPER 10/26/14 11/25/21 allopurinoL [Zyloprim] 300 mg PO W/SUPPER 10/26/14 11/25/21 atenoloL [Tenormin] 50 mg PO BID 10/26/14 11/25/21 Glimepiride [Amaryl] 2 mg PO BID 06/03/18 11/25/21 Omeprazole [PriLOSEC] 20 mg PO W/SUPPER 06/03/18 11/25/21 Clopidogrel Bisulfate [Plavix] 75 mg PO W/SUPPER 02/26/21 11/25/21 Cyanocobalamin (Vitamin B-12) 1,000 mcg PO W/SUPPER 02/26/21 11/25/21 [Vitamin B-12] Ferrous Sulfate [Feosol] 325 mg PO W/SUPPER 02/26/21 11/25/21 Lipase/Protease/Amylase [Creon Dr 1 cap PO W/SUPPER 02/26/21 11/25/21 24,000 Units Capsule] Multivitamins, Thera [Multivitamin 1 tab PO W/SUPPER 02/26/21 11/25/21 (formulary)] Simvastatin [Zocor] 20 mg PO W/SUPPER 02/26/21 11/25/21 clonazePAM [KlonoPIN] 1 mg PO W/SUPPER 02/26/21 11/25/21 Acetaminophen-Codeine 300-30mg 1 tab PO TID PRN 11/25/21 11/25/21 [Tylenol w/codeine #3] Gabapentin 300 mg PO BID 11/25/21 11/25/21 Gentamicin 0.1% Cream 1 applic TOPICAL BID 11/25/21 11/25/21 Losartan Potassium [Cozaar] 25 mg PO DAILY 11/25/21 11/25/21 icosapent ethyL [Icosapent Ethyl] 2 gm PO BID-W/MEALS 11/25/21 11/25/21 Allergies/Adverse reactions: Allergies Allergy/AdvReac Type Severity Reaction Status Date / Time lisinopril AdvReac CONSTANT Verified 11/25/21 22:25 COUGH Review of Systems ROS Statement: Those systems with pertinent positive or pertinent negative responses have been documented in the HPI. ROS Other: All systems not noted in ROS Statement are negative. 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 History of Any Multi-Drug Resistant Organisms: MRSA Date of last positivie culture/infection: 10/29/2014 MDRO Source:: Blood and left foot wound Past Surgical History: Adenoidectomy, Appendectomy, Bowel Resection, Coronary Bypass/CABG, Heart Catheterization, Tonsillectomy Additional Past Surgical History / Comment(s): Right eye sx for detatched retina (still has some peripheral vision), Menckel's diverticulum, recent whipple procedure, left great toe amputation w/ removal of some of the metatarsal (b alance issues). Whipple Past Anesthesia/Blood Transfusion Reactions: No Reported Reaction Past Psychological History: Depression Smoking Status: Former smoker Past Alcohol Use History: Daily Past Drug Use History: None Reported - Past Family History Father Family Medical History: Dementia Additional Family Medical History / Comment(s): AT AGE 93 Mother Family Medical History: Cancer Additional Family Medical History / Comment(s): BREAST CANCER SURVIVER, AT AGE 86 General Exam Limitations: no limitations General appearance: alert, in no apparent distress Head exam: Present: normocephalic, other (occipital laceration - stellate - 16 cm in length x 8 cm. mild oozing. no underlying bony fracture) Eye exam: Present: normal appearance, PERRL, EOMI. Absent: scleral icterus, conjunctival injection, periorbital swelling ENT exam: Present: normal exam, mucous membranes moist Neck exam: Present: normal inspection. Absent: tenderness, meningismus, lymphadenopathy Respiratory exam: Present: normal lung sounds bilaterally. Absent: respiratory distress, wheezes, rales, rhonchi, stridor Cardiovascular Exam: Present: regular rate, normal rhythm, normal heart sounds. Absent: systolic murmur, diastolic murmur, rubs, gallop, clicks GI/Abdominal exam: Present: soft, normal bowel sounds. Absent: distended, tenderness, guarding, rebound, rigid Extremities exam: Present: normal inspection, full ROM, normal capillary refill. Absent: tenderness, pedal edema, joint swelling, calf tenderness Back exam: Present: normal inspection Neurological exam: Present: alert, oriented X3, CN II-XII intact Psychiatric exam: Present: normal affect, normal mood Skin exam: Present: warm, dry, intact, normal color. Absent: rash Course Vital Signs 11/25/21 11/25/21 20:06 23:00 Temperature 97.8 F 97.8 F Pulse Rate 71 64 Respiratory 18 18 Rate Blood Pressure 124/73 110/68 O2 Sat by Pulse 94 L 95 Oximetry Procedures - Laceration Laceration #1 Consent Obtained: verbal consent Indication: laceration Site: scalp Size (cm): 16 Description: stellate Depth: involves muscle layer Patient Tolerated Procedure: well, no complications Additional Comments: 7 january Medical Decision Making - Medical Decision Making Upon arrival patient is placed into room 10. Thorough history and physical exam is performed. IV access established. Lab studies conducted. Patient is over for a CT of his head and cervical spine. He does have a large occipital scalp laceration which is repaired using [address] demonstrates no acute intracranial process. Patient does feel comfortable for discharge home at this time. He is ambulatory without difficulty. Patient will be discharged home and instructed to follow up with his primary care doctor within 5-7 days for staple removal. Return for any worsening symptoms for patient. She will plan he was discharged home in stable condition - Lab Data Result diagrams: 11/25/21 20:36 11/25/21 20:36 Lab Results 11/25/21 11/25/21 11/25/21 Range/Units 20:25 20:36 20:36 WBC 6.8 (3.8-10.6) k/uL RBC 4.13 L (4.30-5.90) m/uL Hgb 13.7 (13.0-17.5) gm/dL Hct 42.7 (39.0-53.0) % MCV 103.2 H (80.0-100.0) fL MCH 33.1 (25.0-35.0) pg MCHC 32.0 (31.0-37.0) g/dL RDW 14.5 (11.5-15.5) % Plt Count 122 L (150-450) k/uL MPV 8.5 Neutrophils % (Manual) 48 % Lymphocytes % (Manual) 43 % Monocytes % (Manual) 8 % Eosinophils % (Manual) 1 % Neutrophils # (Manual) 3.26 (1.3-7.7) k/uL Lymphocytes # (Manual) 2.92 (1.0-4.8) k/uL Monocytes # (Manual) 0.54 (0-1.0) k/uL Eosinophils # (Manual) 0.07 (0-0.7) k/uL Nucleated RBCs 0 (0-0) /100 WBC Manual Slide Review Performed RBC Morphology Normal Macrocytosis Slight PT 10.3 (9.0-12.0) sec INR 0.9 (<1.2) APTT 25.1 (22.0-30.0) sec Sodium (137-145) mmol/L Potassium (3.5-5.1) mmol/L Chloride (98-107) mmol/L Carbon Dioxide (22-30) mmol/L Anion Gap mmol/L BUN (9-20) mg/dL Creatinine (0.66-1.25) mg/dL Est GFR (CKD-EPI)AfAm (>60 ml/min/1.73 sqM) Est GFR (CKD-EPI)NonAf (>60 ml/min/1.73 sqM) Glucose (74-99) mg/dL POC Glucose (mg/dL) 114 H (75-99) mg/dL POC Glu Sheep Boner ID RafitaBilly Calcium (8.4-10.2) mg/dL Total Bilirubin (0.2-1.3) mg/dL AST (17-59) U/L ALT (4-49) U/L Alkaline Phosphatase (38-126) U/L Total Protein (6.3-8.2) g/dL Albumin (3.5-5.0) g/dL 11/25/21 Range/Units 20:36 WBC (3.8-10.6) k/uL RBC (4.30-5.90) m/uL Hgb (13.0-17.5) gm/dL Hct (39.0-53.0) % MCV (80.0-100.0) fL MCH (25.0-35.0) pg MCHC (31.0-37.0) g/dL RDW (11.5-15.5) % Plt Count (150-450) k/uL MPV Neutrophils % (Manual) % Lymphocytes % (Manual) % Monocytes % (Manual) % Eosinophils % (Manual) % Neutrophils # (Manual) (1.3-7.7) k/uL Lymphocytes # (Manual) (1.0-4.8) k/uL Monocytes # (Manual) (0-1.0) k/uL Eosinophils # (Manual) (0-0.7) k/uL Nucleated RBCs (0-0) /100 WBC Manual Slide Review RBC Morphology Macrocytosis PT (9.0-12.0) sec INR (<1.2) APTT (22.0-30.0) sec Sodium 140 (137-145) mmol/L Potassium 3.8 (3.5-5.1) mmol/L Chloride 104 (98-107) mmol/L Carbon Dioxide 23 (22-30) mmol/L Anion Gap 13 mmol/L BUN 17 (9-20) mg/dL Creatinine 0.82 (0.66-1.25) mg/dL Est GFR (CKD-EPI)AfAm >90 (>60 ml/min/1.73 sqM) Est GFR (CKD-EPI)NonAf 84 (>60 ml/min/1.73 sqM) Glucose 112 H (74-99) mg/dL POC Glucose (mg/dL) (75-99) mg/dL POC Glu Sheep Boner ID Calcium 8.8 (8.4-10.2) mg/dL Total Bilirubin 0.7 (0.2-1.3) mg/dL AST 40 (17-59) U/L ALT 18 (4-49) U/L Alkaline Phosphatase 77 (38-126) U/L Total Protein 7.8 (6.3-8.2) g/dL Albumin 4.5 (3.5-5.0) g/dL - EKG Data EKG Comments: EKG demonstrates a sinus rhythm with a first-degree AV block. Rate of 62. GA 212. QRS 97. QTC of 436. No acute ST segment elevations or depressions Disposition Clinical Impression: Concussion without loss of consciousness, Platelet inhibition due to Plavix, Scalp laceration Disposition: HOME SELF-CARE Condition: Stable Instructions (If sedation given, give patient instructions): Concussion (ED), Staple Care (ED) Additional Instructions: Please follow-up with Dr. Covarrubias within 5-7 days to have your january removed. Return to the emergency room for any new or worsening symptoms. Is patient prescribed a controlled substance at d/c from ED?: No Referrals: Ranjana Covarrubias MD [Primary Care Provider] - 1-2 days Time of Disposition: 22:25
[2021-11-26 03:05] VITALS: BP 110/68; PULSE 64
== END 2021-11-25 23:00 | disposition home or self-care (01) ==
LOC: EC 20:02
DX: S06.0X0A Concussion without loss of consciousness, initial encounter (principal); S01.01XA Laceration without foreign body of scalp, initial encounter; E11.9 Type 2 diabetes mellitus without complications; I10 Essential (primary) hypertension; K21.9 Gastro-esophageal reflux disease without esophagitis; Z79.890 Hormone replacement therapy; Z88.8 Allergy status to other drugs, medicaments and biological substances; Z87.890 Personal history of sex reassignment; Y93.01 Activity, walking, marching and hiking; X58.XXXA Exposure to other specified factors, initial encounter
CPT/HCPCS: 12005; 36415; 70450; 72125; 80053; 85025; 85610; 85730; 93005; 99284

== ENCOUNTER → 2022-03-13 | Outpatient (CLI) | payer MEDICARE, OTHER ==
--- NOTE | 2022-03-17 07:13 | PE ---
EXAMINATION TYPE: PET CT fusion skull to thigh DATE OF EXAM: 03/13/2022 COMPARISON: MRI abdomen February 24, 2022 and older studies. HISTORY: Malignant melanoma diagnosed right shoulder 2017 with pancreatic cancer diagnosed 2018. Rece nt abnormal MRI. TECHNIQUE: Following the intravenous administration of 10.91 mCi of F-18 FDG, whole body images are performed from the skull base to the midthigh. Images are reviewed on the computer in the coronal, a xial, and sagittal planes. Reconstructed rotating images are created on independent workstation and reviewed on the computer. A localization and attenuation correction CT is performed in conjunction with the PET scan. Blood glucose level equals 115. SCAN: Initial Scan FINDINGS: SKULL BASE AND NECK: No areas of abnormal hypermetabolic uptake. CHEST, MEDIASTINUM, AND HILAR REGION: Abnormal mass or lymph node in the right axilla measuring 2.1 x 1.5 cm axial image 103, max SUV is 7.38. There is additional area metabolic enlarged lymph node just inferior anterior and lateral to this axial image 110. No additional areas of abnormal hypermetabolic uptake in the thorax. ABDOMEN AND PELVIS: Correlating with recent MRI, there is confirmation of local neoplastic recurrence less well-visualized than noncontrast CT in the central upper abdomen just anterior to the abdominal aorta roughly 2.0 cm focus of abnormal hypermetabolic uptake, max SUV is 13.51 on axial image 153. Nonspecific uptake throughout bowel loops of the abdomen and pelvis along with gastric uptake. Normal excretion. No additional areas of abnormal hypermetabolic uptake. OSSEOUS STRUCTURES: No areas of abnormal hypermetabolic uptake. OTHER CT: Right globe cortical buckle. Mild to moderate calcified plaque bilateral carotid bulb level . Post CABG changes with sternal wires and mediastinal clips are present. There is bilateral gynecomast ia. Post Whipple changes redemonstrated. Pneumobilia is seen. Cholecystectomy clipped*noted. Scattered co lonic diverticula. Scattered prominent inferior pelvic phleboliths. Moderate calcified plaque of the infrarenal abdominal aorta. Multilevel spurring and disc space narrowing throughout the spine. IMPRESSION: 1. Confirmation of recurrent local neoplasm at site of prior treatment at area of concern on recent M RI in the central upper to mid abdomen. 2. Abnormal hypermetabolic enlarged right axillary lymph node. Correlate for recent COVID-19 vaccine administration which could then be monitored with short-term follow-up otherwise neoplasm at this lev el needs to be considered. No definitive metastatic disease otherwise is evident.
== END | disposition home or self-care (01) ==
LOC: RADPETMAIN 10:07
PROVIDERS: ATTEND Internal Medicine Hematology & Oncology
DX: C25.0 Malignant neoplasm of head of pancreas (principal)
CPT/HCPCS: 78815; A9552

== ENCOUNTER → 2022-06-12 | Outpatient (CLI) | payer MEDICARE, OTHER ==
--- NOTE | 2022-06-12 11:25 | US ---
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 TECHNIQUE: Carotid duplex ultrasound examination. Indirect Doppler criteria was utilized. FINDINGS: EXAM MEASUREMENTS: RIGHT: Peak Systolic Velocity (PSV) cm/sec ----- Right CCA: 63.7 ----- Right ICA: 97.4 ----- Right ECA: 93.0 ICA/CCA ratio: 1.5 RIGHT: End Diastole cm/sec ----- Right CCA: 12.9 ----- Right ICA: 38.0 ----- Right ECA: 10.6 LEFT: Peak Systolic Velocity (PSV) cm/sec ----- Left CCA: 46.6 ----- Left ICA: 75.6 ----- Left ECA: 188.4 ICA/CCA ratio: 1.6 LEFT: End Diastole cm/sec ----- Left CCA: 15.9 ----- Left ICA: 28.4 ----- Left ECA: 15.6 VERTEBRALS (direction of flow): Right Vertebral: Antegrade Left Vertebral: Antegrade Rhythm: Normal Atheromatous plaquing is present. There is intimal thickening present. Some hard plaque is in the lef t carotid bulb. No significant flow-limiting stenosis. Moderate narrowing greater than 50% is likely present within the left external carotid artery. IMPRESSION: Atheromatous plaquing without significant flow-limiting stenosis. Criteria for Assigning % of Stenosis / Diameter reduction (Estimation based on the indirect measurements of the internal carotid artery velocities (ICA PSV). 1. Normal (no stenosis)=ICA PSV < 125 cm/s: ratio < 2.0: ICA EDV<40 cm/s. 2. Less than 50% stenosis=ICA PSV < 125 cm/s: ratio < 2.0: ICA EDV<40 cm/s. 3. 50 to 69% stenosis=ICA PSV of 125 to 230 cm/s: ration 2.0 ? 4.0: ICA EDV 40-100 cm/s. 4. Greater than 70% stenosis to near occlusion= ICA PSV > 230 cm/s: ratio > 4.0: ICA EDV > 100 cm/s. 5. Near occlusion= ICA PSV velocities may be low or undetectable: variable ratio and ICA EDV. 6. Total occlusion=unable to detect flow.
== END | disposition home or self-care (01) ==
LOC: RADUSWWP 10:53
PROVIDERS: ATTEND Internal Medicine
DX: I25.810 Atherosclerosis of coronary artery bypass graft(s) without angina pectoris (principal); I65.23 Occlusion and stenosis of bilateral carotid arteries
CPT/HCPCS: 93880

== ENCOUNTER → 2022-06-19 | Outpatient (CLI) | payer MEDICARE, OTHER ==
[~2022-06-19] MED LIST: REGADENOSON 0.4 MG/5 ML SYRINGE IV PRN
--- NOTE | 2022-06-19 13:02 | NM ---
EXAMINATION TYPE: NM stress lexiscan cardiolite DATE OF EXAM: 06/19/2022 COMPARISON: NONE HISTORY: TECHNIQUE: After the intravenous administration of 10.3 mCi Tc 99m Sestamibi - Cardiolite resting SP ECT images acquired 45 minutes post injection. The patient received 0.4mg Lexiscan, 25.8 mCi Tc 99m Sestamibi - Stress images obtained [address] injection FINDINGS: Review of stress and rest SPECT images demonstrates no distinct perfusion abnormality. Gated analysi s shows normal wall motion with an estimated left ventricular ejection fraction of 59 %. IMPRESSION: No scintigraphic evidence for reversible ischemia.
--- NOTE | 2022-06-19 17:10 | CA ---
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 ICD-10 Codes: Patient History: ASCAD Medications: Meds past 24 hrs: Pretest Chest Pain: STRESS TEST Lexiscan Protocol Exercise Duration (min:sec): 02:[address] Depressions (mm): Angina Score: Melgoza Score: Resting HR (bpm): 60 Peak HR (bpm): 68 Resting BP (mmHg): 116 / 68 Peak BP (mmHg): 128 / 76 MPHR: 140 Target HR: 119 % MPHR: 49 METS: 1.0 Total Dose: Peak Dose: Atropine: Double Product: 8704 BP Response: Stress Termination: Infusion Complete Stress Symptoms: No chest pain or symptoms Stress Summary: ECG ANALYSIS Resting ECG: Stress ECG: CONCLUSIONS At baseline EKG showed normal sinus rhythm, normal axis, no significant ST-T wave abnormalities. Patient recieved IV infusion of Lexiscan 0.4mg and at peak infusion EKG showed no significant change from baseline. Conclusions: 1. Normal EKG response to Lexiscan infusion 2. Nuclear imaging to be reported separately. Dr. Lewis Claire DO (Electronically Signed) Final Date: 19 June 2022 17:09
== END | disposition home or self-care (01) ==
LOC: RADNMMAIN 07:39
PROVIDERS: ATTEND Internal Medicine
DX: I65.23 Occlusion and stenosis of bilateral carotid arteries (principal); I25.810 Atherosclerosis of coronary artery bypass graft(s) without angina pectoris
CPT/HCPCS: 93017; 78452; A9500; J2785

== ENCOUNTER 2022-06-30 13:01 | Day surgery (SDC) | payer MEDICARE, OTHER ==
[2022-06-30 13:47] VITALS: PULSE 68; RESP 18; TEMP 97.7
--- NOTE | 2022-06-30 14:25 | US ---
ULTRASOUND GUIDED CORE BIOPSY RIGHT AXILLA MASS: CLINICAL HISTORY: Abnormal PET scan FINDINGS: The procedure was explained to the patient. The risks, complications, benefits and alternatives were discussed and any questions were answered. Informed consent was obtained. Patient was placed supin e on the ultrasound table and prepped and draped in the usual sterile fashion. Utilizing a 18 gauge needle, four passes were made into the right axillary mass. Patient was stable throughout the procedure. Pathology is pending. All elements of maximal barrier technique were utilized. IMPRESSION: 1. Successful ultrasound guided core biopsy right axilla mass.
[2022-06-30 14:30] VITALS: BP 150/73
== END 2022-06-30 14:25 | disposition home or self-care (01) ==
LOC: RADPROMAIN 13:01
PROVIDERS: ATTEND Internal Medicine Hematology & Oncology
DX: C77.3 Secondary and unspecified malignant neoplasm of axilla and upper limb lymph nodes (principal)
CPT/HCPCS: 38505; 76942; 88305; 88341; 88342

== ENCOUNTER → 2023-01-20 | Outpatient (CLI) | payer MEDICARE, OTHER ==
--- NOTE | 2023-01-20 19:09 | MR ---
EXAMINATION TYPE: MR abdomen wo/w con DATE OF EXAM: 01/20/2023 9:38 AM INDICATION: Patient age:Male; 82 years old; Reason for study: C25.0; COMPARISON: MR 02/24/2022 including multiple MRI priors dating back to 01/09/2019. PET/CT 12/11/2022. TECHNIQUE: Multiplanar multi-sequence imaging was performed without contrast. Post contrast imaging was performed. Post IV contrast subtraction images were also submitted for review. IV Contrast: 8 cc Gadavist FINDINGS: LOWER CHEST: No gross irregularity. ABDOMEN Liver: Unremarkable. Gallbladder and Bile ducts: There is some suspected pneumobilia low T1 signal seen throughout the michael tral biliary system. Pancreas: Interval enlargement of pancreatic body mass measuring 3.2 x 2.4 cm, previously 2.4 x 1.9 c m. The mass appears to have intrinsic impression upon the portal system and possibly invasion of the superior mesenteric vein near the confluence on series 901 image 349 (series 301 image 11) the splen ic vein also terminates near this mass. There is heterogenous postcontrast enhancement. Spleen: Small splenule is present. Adrenal glands: Unremarkable. Kidneys: Unremarkable. Stomach and Bowel: Status post Whipple changes of the bowel. Peritoneum: No evidence of pneumoperitoneum or free fluid. Vasculature: Unremarkable. No aortic aneurysm. Musculoskeletal: The osseous structures appear intact. Lymph Nodes: Prominent retroperitoneal lymph node measuring up to 13 mm in short axis situated just a nterior to the inferior vena cava series 601 image 17, previously 9 mm in short axis on 03/13/2021. Abdominal wall: Unremarkable. IMPRESSION: 1. Interval increase in size of mass impressing upon the portal venous confluence measuring up to 3. 2 cm, possible invasion into the confluence. 2. Retroperitoneal lymph node just prominent and has slowly increased in size from 03/15/2020.
== END | disposition home or self-care (01) ==
LOC: RADMRIMAIN 08:29
PROVIDERS: ATTEND Internal Medicine Hematology & Oncology
DX: C25.0 Malignant neoplasm of head of pancreas (principal)
CPT/HCPCS: 74183; A9585

== ENCOUNTER → 2023-04-28 | Outpatient (CLI) | payer MEDICARE, OTHER ==
--- NOTE | 2023-05-03 10:08 | MR ---
EXAMINATION TYPE: MR abdomen wo/w con DATE OF EXAM: 04/28/2023 10:48 AM INDICATION: Patient age:Male; 82 years old; Reason for study: C25.0 MALIGNANT NEOPLASM OF HEAD OF PANCREAS; COMPARISON: Multiple MRI abdomen, most recent 01/20/2023, 02/24/2022 and 03/13/2021 TECHNIQUE: Multiplanar multi-sequence imaging was performed without contrast. Post contrast imaging was performed. Post IV contrast subtraction images were also submitted for review. IV Contrast: cc 8.5 cc Gadavist FINDINGS: LOWER CHEST: No gross irregularity. ABDOMEN Liver: Unremarkable. Gallbladder and Bile ducts: Similar suspected pneumobilia low T1 signal seen throughout the central b iliary system. Pancreas: Stable size of pancreatic body mass measuring 3.2 x 2.4 cm, previously 2.4 x 1.9 cm. The ma ss appears to have intrinsic impression upon the portal system as seen on prior imaging. The splenic vein also terminates near this mass postcontrast imaging series 901 image 313.. There is heterogenous postcontrast enhancement. Spleen: Small splenule is present. Adrenal glands: Unremarkable. Kidneys: Unremarkable. Stomach and Bowel: Status post Whipple changes of the bowel. Peritoneum: No evidence of pneumoperitoneum or free fluid. Vasculature: Unremarkable. No aortic aneurysm. Musculoskeletal: The osseous structures appear intact. Lymph Nodes: Prominent retroperitoneal lymph node measuring up to 11 mm in short axis , previously 13 mm in short axis. Abdominal wall: Unremarkable. IMPRESSION: 1. Stable size of mass impressing upon the portal venous confluence measuring up to 3.2 cm. 2. Retroperitoneal lymph node is prominent and has slowly increased in size from 03/15/2020.
== END | disposition home or self-care (01) ==
LOC: RADMRIMAIN 09:24
PROVIDERS: ATTEND Internal Medicine Hematology & Oncology
DX: C25.0 Malignant neoplasm of head of pancreas (principal)
CPT/HCPCS: 74183; A9585

== ENCOUNTER 2023-08-13 14:43 | Inpatient (IN) | payer MEDICARE, OTHER ==
[2023-08-13] MEDS ORDERED: Acetaminophen-Codeine 300-30mg TAB PO STA (17:34)
--- NOTE | 2023-08-13 18:08 | ED ---
General Adult HPI - General Source: patient, RN notes reviewed Mode of arrival: wheelchair Limitations: no limitations <Sheree Mcdonald - Last Filed: 08/13/23 19:46> <Salinas Becker - Last Filed: 08/13/23 21:38> - General Chief complaint: Skin/Abscess/Foreign Body Stated complaint: infected L foot Time Seen by Provider: 08/13/23 17:16 - History of Present Illness Initial comments: 82-year-old male with a past medical history significant for anemia, diabetes mellitus type 2, coronary artery disease presents the emergency department with a chief complaint of left foot wound. Patient reports that he was seen by his hook and eye machine operator today who is concerned that his wound looks worse. He denies any new trauma or injury. He denies any known fevers. It is not painful. Denies any numbness, tingling, weakness in the extremity. (Sheree Mcdonald) - Related Data Home Medications Medication Instructions Recorded Confirmed allopurinoL [Zyloprim] 300 mg PO DAILY 10/26/14 08/13/23 Glimepiride [Amaryl] 2 mg PO BID 06/03/18 08/13/23 Omeprazole [PriLOSEC] 20 mg PO DAILY 06/03/18 08/13/23 Clopidogrel Bisulfate [Plavix] 75 mg PO DAILY 02/26/21 08/13/23 Lipase/Protease/Amylase [Creon Dr 1 cap PO ACHS 02/26/21 08/13/23 24,000 Unit Capsule] Simvastatin [Zocor] 20 mg PO HS 02/26/21 08/13/23 icosapent ethyL [Icosapent Ethyl] 2 gm PO BID-W/MEALS 11/25/21 08/13/23 Furosemide [Lasix] 40 mg PO DIRECTED 08/13/23 08/13/23 LORazepam [Ativan] 0.5 mg PO HS PRN 08/13/23 08/13/23 Potassium(Unknown Dose) 1 tab PO DIRECTED 08/13/23 08/13/23 clonazePAM [KlonoPIN] 1 mg PO HS 08/13/23 08/13/23 Previous Rx's Medication Instructions Recorded Acetaminophen Tab [Tylenol] 650 mg PO Q6HR PRN tab 07/14/23 Acetaminophen-Codeine 300-30mg 1 tab PO TID PRN #9 tab 07/14/23 [Tylenol w/codeine #3] Gabapentin 300 mg PO BID #6 cap 07/14/23 Midodrine [ProAmatine] 5 mg PO AC-TID tab 07/14/23 Allergies Allergy/AdvReac Type Severity Reaction Status Date / Time No Known Allergies Allergy Verified 08/13/23 19:08 Review of Systems ROS Other: All systems not noted in ROS Statement are negative. <Sheree Mcdonald - Last Filed: 08/13/23 19:46> ROS Other: All systems not noted in ROS Statement are negative. <Salinas Bekcer - Last Filed: 08/13/23 21:38> ROS Statement: Those systems with pertinent positive or pertinent negative responses have been documented in the HPI. 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 Whipple Past Anesthesia/Blood Transfusion Reactions: No Reported Reaction Past Psychological History: Depression Smoking Status: Former smoker Past Alcohol Use History: Daily Past Drug Use History: None Reported - Past Family History Father Family Medical History: Dementia Additional Family Medical History / Comment(s): AT AGE 93 Mother Family Medical History: Cancer Additional Family Medical History / Comment(s): BREAST CANCER SURVIVER, AT AGE 86 <Sheree Mcdonald - Last Filed: 08/13/23 19:46> General Exam Limitations: no limitations <Sheree Mcdonald - Last Filed: 08/13/23 19:46> - General Exam Comments Initial Comments: General: Alert, in no acute distress Head: atraumatic normocephalic. Eyes PERRL, EOMI intact, mucous membranes moist Respiratory: Lungs clear to auscultation bilaterally Cardiovascular: Heart rate regular rate and rhythm Abdominal: Soft without guarding or rebound Extremities: Normal inspection with full range of motion and normal capillary refill, 1 x 1 cm circular ulcer to fifth metatarsal. No active drainage. No crepitus. 2+ DP/PT pulses. Circumferential erythema 1+ edema to left lower extremity. Neuroogic: alert and oriented 3, CN II-XII intact, able to ambulate with steady gait Skin: warm dry and intact with normal color (Sheree Mcdonald) Course <Sheree Mcdonald - Last Filed: 08/13/23 19:46> Vital Signs 08/13/23 14:49 Temperature 98.3 F Pulse Rate 69 Respiratory 18 Rate Blood Pressure 112/68 O2 Sat by Pulse 99 Oximetry - Reevaluation(s) Reevaluation #1: 08/13/23 19:46 Patient reevaluated. Patient aware awaiting laboratory and imaging results. No acute distress. (Sheree Mcdonald) Medical Decision Making - Lab Data Result diagrams: 08/13/23 18:34 <Sheree Mcdonald - Last Filed: 08/13/23 19:46> - Lab Data Result diagrams: 08/13/23 18:34 08/13/23 18:34 <Salinas Becker - Last Filed: 08/13/23 21:38> - Medical Decision Making Was pt. sent in by a medical professional or institution (THOMAS Dixon, COM WRITER, urgent care, hospital, or shelter...) When possible be specific @ -[No] Did you speak to anyone other than the patient for history (EMS, parent, family, police, friend...)? What history was obtained from this source @ -[No] Did you review nursing and triage notes (agree or disagree)? Why? @ -[I reviewed and agree with nursing and triage notes] Were old charts reviewed (outside hosp., previous admission, EMS record, old EKG, old radiological studies, urgent care reports/EKG's, shelter records)? Report findings @ -[No old charts were reviewed] Differential Diagnosis (chest pain, altered mental status, abdominal pain women, abdominal pain men, vaginal bleeding, weakness, fever, dyspnea, syncope, headache, dizziness, GI bleed, back pain, seizure, CVA, palpatations, mental health, musculoskeletal)? @ -[not applicable] EKG interpreted by me (3pts min.). @ -[As above] X-rays interpreted by me (1pt min.). @ -[None done] CT interpreted by me (1pt min.). @ -[None done] U/S interpreted by me (1pt. min.). @ -[None done] What testing was considered but not performed or refused? (CT, X-rays, U/S, labs)? Why? @ -[None] What meds were considered but not given or refused? Why? @ -[None] Did you discuss the management of the patient with other professionals (professionals i.e. , PA, COM WRITER, lab, RT, psych nurse, social problems specialist, customer success specialist, teacher, chief operations officer, case management manager)? Give summary @ -[No] Was smoking cessation discussed for >3mins.? @ -[No] Was critical care preformed (if so, how long)? @ -[No] Were there social determinants of health that impacted care today? How? (Homelessness, low income, unemployed, alcoholism, drug addiction, transportation, low edu. Level, literacy, decrease access to med. care, long-term, rehab)? @ -[No] Was there de-escalation of care discussed even if they declined (Discuss DNR or withdrawal of care, Hospice)? DNR status @ -[No] What co-morbidities impacted this encounter? (DM, HTN, Smoking, COPD, CAD, Cancer, CVA, ARF, Chemo, Hep., AIDS, mental health diagnosis, sleep apnea, morbid obesity)? @ -[None] Was patient admitted / discharged? Hospital course, mention meds given and route, prescriptions, significant lab abnormalities, going to OR and other pertinent info. @ -Disposition Pending. Patient is a pleasant 82-year-old male who presents the emergency department with foot wound. Patient had a thorough history and physical exam. 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 Patient will be signed out to CATRACHO nicholas pending laboratory and imaging results. (Sheree Mcdonald) Case signed out to Salinas malave PA-C. Imaging studies reviewed and at this time unable to rule out osteomyelitis. Laboratory studies reveal no elevation of white count and vital signs show that the patient is afebrile. However, with history of MRSA and other infections requiring IV antibiotic use, patient will be admitted to observation for IV antibiotics with consult to wound care infectious disease. Wound cultures obtained and at this time are pending. Discussed with Dr. Covarrubias, who accepts admission and is in agreement with plan of care. (Salinas Becker) - Lab Data Lab Results 08/13/23 08/13/23 08/13/23 Range/Units 18:34 18:34 18:34 WBC 7.3 (3.8-10.6) k/uL RBC 3.28 L (4.30-5.90) m/uL Hgb 9.8 L D (13.0-17.5) gm/dL Hct 31.2 L (39.0-53.0) % MCV 95.0 D (80.0-100.0) fL MCH 29.8 (25.0-35.0) pg MCHC 31.4 (31.0-37.0) g/dL RDW 16.8 H (11.5-15.5) % Plt Count 330 D (150-450) k/uL MPV 7.9 Neutrophils % 67 % Lymphocytes % 20 % Monocytes % 7 % Eosinophils % 4 % Basophils % 0 % Neutrophils # 4.9 (1.3-7.7) k/uL Lymphocytes # 1.4 (1.0-4.8) k/uL Monocytes # 0.5 (0-1.0) k/uL Eosinophils # 0.3 (0-0.7) k/uL Basophils # 0.0 (0-0.2) k/uL Hypochromasia Marked Anisocytosis Slight Sodium (137-145) mmol/L Potassium (3.5-5.1) mmol/L Chloride (98-107) mmol/L Carbon Dioxide (22-30) mmol/L Anion Gap mmol/L BUN (9-20) mg/dL Creatinine (0.66-1.25) mg/dL Est GFR (CKD-EPI)AfAm (>60 ml/min/1.73 sqM) Est GFR (CKD-EPI)NonAf (>60 ml/min/1.73 sqM) Glucose (74-99) mg/dL Plasma Lactic Acid Isidro 1.3 (0.7-2.0) mmol/L Calcium (8.4-10.2) mg/dL Total Bilirubin (0.2-1.3) mg/dL AST (17-59) U/L ALT (4-49) U/L Alkaline Phosphatase (38-126) U/L Total Protein (6.3-8.2) g/dL Albumin (3.5-5.0) g/dL Influenza Type A (PCR) Not Detected (Not Detectd) Influenza Type B (PCR) Not Detected (Not Detectd) RSV (PCR) Not Detected (Not Detectd) SARS-CoV-2 (PCR) Not Detected (Not Detectd) 08/13/23 Range/Units 18:34 WBC (3.8-10.6) k/uL RBC (4.30-5.90) m/uL Hgb (13.0-17.5) gm/dL Hct (39.0-53.0) % MCV (80.0-100.0) fL MCH (25.0-35.0) pg MCHC (31.0-37.0) g/dL RDW (11.5-15.5) % Plt Count (150-450) k/uL MPV Neutrophils % % Lymphocytes % % Monocytes % % Eosinophils % % Basophils % % Neutrophils # (1.3-7.7) k/uL Lymphocytes # (1.0-4.8) k/uL Monocytes # (0-1.0) k/uL Eosinophils # (0-0.7) k/uL Basophils # (0-0.2) k/uL Hypochromasia Anisocytosis Sodium 139 (137-145) mmol/L Potassium 4.0 (3.5-5.1) mmol/L Chloride 103 (98-107) mmol/L Carbon Dioxide 26 (22-30) mmol/L Anion Gap 10 mmol/L BUN 14 (9-20) mg/dL Creatinine 0.60 L (0.66-1.25) mg/dL Est GFR (CKD-EPI)AfAm >90 (>60 ml/min/1.73 sqM) Est GFR (CKD-EPI)NonAf >90 (>60 ml/min/1.73 sqM) Glucose 92 (74-99) mg/dL Plasma Lactic Acid Isidro (0.7-2.0) mmol/L Calcium 8.6 (8.4-10.2) mg/dL Total Bilirubin 0.6 (0.2-1.3) mg/dL AST 29 (17-59) U/L ALT 17 (4-49) U/L Alkaline Phosphatase 106 (38-126) U/L Total Protein 6.8 (6.3-8.2) g/dL Albumin 3.5 (3.5-5.0) g/dL Influenza Type A (PCR) (Not Detectd) Influenza Type B (PCR) (Not Detectd) RSV (PCR) (Not Detectd) SARS-CoV-2 (PCR) (Not Detectd) Disposition <Sheree Mcdonald - Last Filed: 08/13/23 19:46> Time of Disposition: 21:38 <Salinas Becker - Last Filed: 08/13/23 21:38> Clinical Impression: Osteomyelitis Disposition: ADMITTED IP TO THIS HOSP Condition: Good Referrals: Ranjana Covarrubias MD [Primary Care Provider] - 1-2 days
[2023-08-13 19:12] LABS: Anisocytosis Slight; Basophils % (A) 0 %; Eosinophils # (A) 0.3 k/uL (0-0.7); Eosinophils % (A) 4 %; HCT 31.2 % (39.0-53.0); Hypochromasia Marked; Lymphocytes # (A) 1.4 k/uL (1.0-4.8); Lymphocytes % (A) 20 %; MCH 29.8 pg (25.0-35.0); MCHC 31.4 g/dL (31.0-37.0); Mean Platelet Volume 7.9; Monocytes # (A) 0.5 k/uL (0-1.0); Monocytes % (A) 7 %; Neutrophils # (A) 4.9 k/uL (1.3-7.7); Neutrophils % (A) 67 %; RBC 3.28 m/uL (4.30-5.90); RDW 16.8 % (11.5-15.5); WBC 7.3 k/uL (3.8-10.6)
[2023-08-13 19:26] LABS: HGB 9.8 gm/dL (13.0-17.5); Platelet Count 330 k/uL (150-450)
[2023-08-13] MEDS ORDERED: VANCOMYCIN IV PER PHARMACY 1 EACH MISC MISCELLANE PRN (20:05)
[2023-08-13 20:22] LABS: ALT 17 U/L (4-49); AST 29 U/L (17-59); African American GFR (CKD) >90 (>60 ml/min/1.73 sqM); Albumin 3.5 g/dL (3.5-5.0); Alkaline Phosphatase 106 U/L (38-126); Anion Gap 10 mmol/L; Blood Urea Nitrogen 14 mg/dL (9-20); Calcium 8.6 mg/dL (8.4-10.2); Carbon Dioxide 26 mmol/L (22-30); Chloride 103 mmol/L (98-107); Glucose 92 mg/dL (74-99); Non-African American GFR(CKD) >90 (>60 ml/min/1.73 sqM); Sodium 139 mmol/L (137-145); Total Bilirubin 0.6 mg/dL (0.2-1.3); Total Protein 6.8 g/dL (6.3-8.2)
[2023-08-13] MEDS ORDERED: VANCOMYCIN 1,500 MG in SODIUM CHLORIDE 0.9% 500 ML 500 ML IVPB ONE (20:30)
--- NOTE | 2023-08-13 20:51 | XR ---
EXAMINATION TYPE: XR foot complete LT DATE OF EXAM: 08/13/2023 CLINICAL HISTORY: r/out osteomyelitis. Pain and swelling. TECHNIQUE: Frontal, lateral, and oblique images of the left foot are obtained. COMPARISON: Prior left foot x-ray October 26, 2014 FINDINGS: There is now amputation defect at level of the proximal metadiaphysis first metatarsal. The re is now dislocation at the level of the fifth metatarsophalangeal joint. There is some ill-defined deformity to the fifth metatarsal head. If this is site of soft tissue infection acute osteomyelitis at this level cannot be excluded. Correlate clinically. Amputation defect second toe at the metatarsa l head is now present. There is now marked flexion in the third through fifth toes making evaluation at this level suboptimal. Hindfoot and midfoot articulations are preserved. IMPRESSION: As above.
[2023-08-13] MEDS ORDERED: cefTRIAXone IN SWFI 1,000 MG/10 ML SYRINGE IVP STA (21:38)
[2023-08-13] MEDS ORDERED: NALOXONE 0.4 MG/ML 1 ML VIAL IV PRN (21:39)
[2023-08-13] MEDS ORDERED: ONDANSETRON 4 MG/2 ML VIAL IVP PRN (21:39)
[2023-08-13] MEDS ORDERED: KETOROLAC 15 MG/ML 1 ML VIAL IVP PRN (21:39)
[2023-08-13] MEDS ORDERED: ACETAMINOPHEN TAB 325 MG TAB PO PRN (21:39)
[2023-08-13] MEDS ORDERED: HYDROmorphone 1 MG/ML 1 ML SYRINGE IVP PRN (21:39)
[2023-08-14] MEDS: SODIUM CHLORIDE 0.9% 1,000 ML IV SCH ×2 (01:02→12:40)
[2023-08-14] MEDS: Acetaminophen-Codeine 300-30mg TAB PO PRN ×2 (01:06→19:44)
[2023-08-14] MEDS: LORazepam 0.5 MG TAB PO PRN ×2 (01:07→19:44)
[2023-08-14] MEDS: clonazePAM 1 MG TAB PO SCH ×2 (01:07→19:44)
[2023-08-14] MEDS: GABAPENTIN 300 MG CAP PO SCH ×3 (01:07→19:44)
[2023-08-14] MEDS ORDERED: VANCOMYCIN 1,500 MG in SODIUM CHLORIDE 0.9% 500 ML 500 ML IVPB SCH (06:00)
[2023-08-14 06:32] LABS: Anisocytosis Slight; Basophils % (A) 0 %; Eosinophils # (A) 0.3 k/uL (0-0.7); Eosinophils % (A) 7 %; HCT 30.1 % (39.0-53.0); HGB 9.2 gm/dL (13.0-17.5); Hypochromasia Marked; Lymphocytes # (A) 1.4 k/uL (1.0-4.8); Lymphocytes % (A) 28 %; MCH 30.1 pg (25.0-35.0); MCHC 30.7 g/dL (31.0-37.0); Macrocytosis Slight; Mean Platelet Volume 8.1; Monocytes # (A) 0.4 k/uL (0-1.0); Monocytes % (A) 8 %; Neutrophils # (A) 2.6 k/uL (1.3-7.7); Neutrophils % (A) 53 %; Platelet Count 277 k/uL (150-450); Poikilocytosis Slight; RBC 3.07 m/uL (4.30-5.90); RDW 16.6 % (11.5-15.5)
[2023-08-14] MEDS: PANTOPRAZOLE 40 MG TABLET PO SCH (06:34)
[2023-08-14] MEDS: MIDODRINE 5 MG TAB PO SCH ×3 (06:34→17:55)
[2023-08-14] MEDS: LIPASE 20,000/PROTEASE 63,000/AMYLASE 84,000 PO SCH ×4 (06:34→19:44)
[2023-08-14] MEDS: GLIMEPIRIDE 1 MG TAB PO SCH ×2 (06:34→17:55)
[2023-08-14] MEDS: VANCOMYCIN 1,500 MG in SODIUM CHLORIDE 0.9% 500 ML 500 ML IVPB SCH ×2 (06:34→17:55)
[2023-08-14 06:42] LABS: African American GFR (CKD) >90 (>60 ml/min/1.73 sqM); Non-African American GFR(CKD) >90 (>60 ml/min/1.73 sqM)
[2023-08-14] MEDS: Icosapent Ethyl [Icosapent Ethyl] 1 GM Capsule PO SCH ×2 (08:33→17:53)
[2023-08-14] MEDS: FUROSEMIDE 40 MG TAB PO SCH (08:33)
[2023-08-14] MEDS: CLOPIDOGREL 75 MG TAB PO SCH (08:33)
[2023-08-14] MEDS: POTASSIUM CHLORIDE ER 10 MEQ TAB.ER.PRT PO SCH (08:33)
[2023-08-14] MEDS: allopurinoL 300 MG TAB PO SCH (08:33)
[2023-08-14 14:27] VITALS: BMI 22.7
--- NOTE | 2023-08-14 16:35 | P.HPIM ---
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 He has more swelling and warmth and tenderness at the area around the fifth metatarsal tarsal joint. He denies any other specific complaints. No chest pain dyspnea. Change in urine or bowel habits. No fever. He denies smoking or illicit drugs. He consumes one cup of liquor or wine every day. He has history of anemia hemoglobin was 7.5 and currently improved to 9. He had a fall when he had more severe anemia but not currently. He had black stool but currently he taking iron pills which is most likely the cause of his black stool. Hemoglobin is stable at 9.2. His oncologist is Dr. Eason for his pancreatic cancer and malignant melanoma Hemodynamically stable and afebrile Hemoglobin 9.2, rest of CBC, BMP, liver enzymes are unremarkable. Influenza and called undetected Review of Systems Review of systems CONSTITUTIONAL: No fever, no malaise, no fatigue. HEENT: No recent visual problems or hearing problems. Denied any sore throat. CARDIOVASCULAR: No orthopnea, PND, no palpitations, no syncope. PULMONARY: No shortness of breath, no cough, no hemoptysis. GASTROINTESTINAL: No diarrhea, no nausea, no vomiting, no abdominal pain. Normoactive bowel sounds. NEUROLOGICAL: No headaches, no weakness, no numbness. HEMATOLOGICAL: Denies any bleeding or petechiae. GENITOURINARY: Denies any burning micturition, frequency, or urgency. MUSCULOSKELETAL/RHEUMATOLOGICAL: Denies any joint pain, swelling, or any muscle pain. ENDOCRINE: Denies any polyuria or polydipsia. 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 He and his have completed a home in [facility] in which she was hoping to have is his final jail home. He has an adult daughter who will be coming to quill picking machine operator her animals soon. He himself does not have any pets in the home. Smoking Status: Former smoker Past Alcohol Use History: Daily Additional Past Alcohol Use History / Comment(s): started smoking at age 12 smoke 1ppd quit cig 1965 swithced to pipe/cigar quit those 2001 Past Drug Use History: None Reported - Past Family History Father Family Medical History: Dementia Additional Family Medical History / Comment(s): AT AGE 93 Mother Family Medical History: Cancer Additional Family Medical History / Comment(s): BREAST CANCER SURVIVER, AT AGE 86 Medications and Allergies Home Medications Medication Instructions Recorded Confirmed Type allopurinoL [Zyloprim] 300 mg PO DAILY 10/26/14 08/13/23 History Glimepiride [Amaryl] 2 mg PO BID 06/03/18 08/13/23 History Omeprazole [PriLOSEC] 20 mg PO DAILY 06/03/18 08/13/23 History Clopidogrel Bisulfate [Plavix] 75 mg PO DAILY 02/26/21 08/13/23 History Lipase/Protease/Amylase [Shantel Verma 1 cap PO ACHS 02/26/21 08/13/23 History 24,000 Unit Capsule] Simvastatin [Zocor] 20 mg PO HS 02/26/21 08/13/23 History icosapent ethyL [Icosapent Ethyl] 2 gm PO BID-W/MEALS 11/25/21 08/13/23 History Acetaminophen Tab [Tylenol] 650 mg PO Q6HR PRN tab 07/14/23 08/13/23 Rx Acetaminophen-Codeine 300-30mg 1 tab PO TID PRN #9 tab 07/14/23 08/13/23 Rx [Tylenol w/codeine #3] Gabapentin 300 mg PO BID #6 cap 07/14/23 08/13/23 Rx Midodrine [ProAmatine] 5 mg PO AC-TID tab 07/14/23 08/13/23 Rx Furosemide [Lasix] 40 mg PO DIRECTED 08/13/23 08/13/23 History LORazepam [Ativan] 0.5 mg PO HS PRN 08/13/23 08/13/23 History Potassium(Unknown Dose) 1 tab PO DIRECTED 08/13/23 08/13/23 History clonazePAM [KlonoPIN] 1 mg PO HS 08/13/23 08/13/23 History Allergies Allergy/AdvReac Type Severity Reaction Status Date / Time No Known Allergies Allergy Verified 08/13/23 19:08 Physical Exam Vitals: Vital Signs Temp Pulse Pulse Resp BP BP Pulse Ox 08/13/23 22:09 98.2 F 65 18 129/65 100 08/13/23 21:45 98.5 F 69 15 106/58 97 08/13/23 14:49 98.3 F 69 18 112/68 99 Intake and Output 08/13/23 08/14/23 08/14/23 22:59 06:59 14:59 Other: # Voids 1 Weight 80.286 kg GENERAL: The patient is alert and oriented x3, not in any acute distress. Well developed, well nourished. HEENT: Pupils are round and equally reacting to light. EOMI. No scleral icterus. No conjunctival pallor. Normocephalic, atraumatic. No pharyngeal erythema. No thyromegaly. CARDIOVASCULAR: S1 and S2 present. No murmurs, rubs, or gallops. PULMONARY: Chest is clear to auscultation, no wheezing , no crackles. ABDOMEN: Soft, nontender, nondistended, normoactive bowel sounds. No palpable organomegaly. MUSCULOSKELETAL: No joint swelling or deformity. EXTREMITIES: No cyanosis, clubbing, or pedal edema. NEUROLOGICAL: Gross neurological examination did not reveal any focal deficits. SKIN: No rashes. no petechiae. Results CBC & Chem 7: 08/14/23 05:46 08/14/23 05:46 Labs: Abnormal Lab Results - Last 24 Hours (Table) 08/13/23 08/13/23 08/14/23 Range/Units 18:34 18:34 05:46 RBC 3.28 L (4.30-5.90) m/uL Hgb 9.8 L D (13.0-17.5) gm/dL Hct 31.2 L (39.0-53.0) % MCHC (31.0-37.0) g/dL RDW 16.8 H (11.5-15.5) % Creatinine 0.60 L 0.51 L (0.66-1.25) mg/dL 08/14/23 Range/Units 05:46 RBC 3.07 L (4.30-5.90) m/uL Hgb 9.2 L (13.0-17.5) gm/dL Hct 30.1 L (39.0-53.0) % MCHC 30.7 L (31.0-37.0) g/dL RDW 16.6 H (11.5-15.5) % Creatinine (0.66-1.25) mg/dL Thrombosis Risk Factor Assmnt - Choose All That Apply Any of the Below Risk Factors Present?: No Other Risk Factors: Yes Each Risk Factor Represents 3 Points: Elevated anticardiolipin antibodies Other congenital or acquired thrombophilia - If yes, enter type in comment: No Thrombosis Risk Factor Assessment Total Risk Factor Score: 3 Thrombosis Risk Factor Assessment Level: Moderate Risk Assessment and Plan Assessment: Left foot infection with diabetic foot ulcer history of pancreatic cancer and malignant melanoma Diabetes mellitus Hypertension Hyperlipidemia History of osteoarthritis History of gout History of coronary artery disease status post CABG Plan: Continue with IV vancomycin Continue with normal saline Infectious disease consult Labs and medication were reviewed.. Continue same treatment. Continue with symptomatic treatment. Resume home medication. Monitor lytes and vitals. DVT and GI prophylaxis. Further recommendations depends on the clinical course of the patient DVT prophylaxis: Subcutaneous heparin GI Prophylaxis: Ppi Prognosis is guarded
[2023-08-14] MEDS: ATORVASTATIN 10 MG TAB PO SCH (19:44)
[2023-08-14] MEDS: HEPARIN SODIUM,PORCINE 5,000 UNIT/ML 1 ML VIAL SQ SCH (19:45)
[2023-08-15] MEDS: SODIUM CHLORIDE 0.9% 1,000 ML IV SCH ×2 (02:42→12:50)
[2023-08-15] MEDS: VANCOMYCIN 1,500 MG in SODIUM CHLORIDE 0.9% 500 ML 500 ML IVPB SCH ×2 (06:06→17:57)
[2023-08-15] MEDS: PANTOPRAZOLE 40 MG TABLET PO SCH (06:07)
[2023-08-15] MEDS: MIDODRINE 5 MG TAB PO SCH ×3 (06:07→17:57)
[2023-08-15] MEDS: LIPASE 20,000/PROTEASE 63,000/AMYLASE 84,000 PO SCH ×4 (06:07→21:08)
[2023-08-15 07:09] LABS: African American GFR (CKD) >90 (>60 ml/min/1.73 sqM); Non-African American GFR(CKD) >90 (>60 ml/min/1.73 sqM)
--- NOTE | 2023-08-15 07:44 | P.CONS ---
History of Present Illness - Reason for Consult Consult date: 08/14/23 Chronic left foot wound, cellulitis Requesting physician: Salinas Becker - Chief Complaint Left foot nonhealing wound swelling and redness x days - History of Present Illness Patient is a 82-year-old male with a past medical history significant for diabetes mellitus hypertension hyperlipidemia coronary artery disease previous history of diabetic foot infection requiring amputation of the left first and second toe patient subsequently developing an ulceration to the left foot lateral border at the base of the fifth toe secondary to the ill fitting shoe and the patient has developed swelling and redness associated with it patient did have diabetic neuropathy hands denies significant pain feels like a pressure and did have some drainage for the patient was evaluated by his primary care physician and has been sent to the hospital for IV antibiotic therapy with a history of extensive diabetic foot infection requiring amputation, patient on presentation to the hospital was afebrile and no fever has been recorded subsequently he did have a normal white count creatinine was 0.60 influenza RSV COVID testing was negative patient did have x-ray of the left foot there is a dislocation at the level of the fifth metatarsal joint and and deformed deformity in the fifth metatarsal head concerning for acute osteomyelitis patient was started on vancomycin infectious disease was consulted for further management of antibiotic therapy Review of Systems Positive point and negatives has been mentioned in the HPI, complete review of systems was performed and all other systems are negative Past Medical History Past Medical History: Coronary Artery Disease (CAD), Cancer, Diabetes Mellitus, GERD/Reflux, Hyperlipidemia, Hypertension Additional Past Medical History / Comment(s): Gout, triple bypass (1 since collapsed - used the saphenous vein left leg), mild tremors, 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 History of Any Multi-Drug Resistant Organisms: MRSA Year Discovered:: 10/29/2014 MDRO Source:: Blood and left foot wound Past Surgical History: Adenoidectomy, Appendectomy, Bowel Resection, Coronary Bypass/CABG, Heart Catheterization, Tonsillectomy Additional Past Surgical History / Comment(s): Right eye sx for detatched retina (still has some peripheral vision), Menckel's diverticulum, recent whipple procedure, left great toe amputation w/ removal of some of the metatarsal (balance issues). 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 He has an adult daughter who will be coming to picker tender her animals soon. He himself does not have any pets in the home. Smoking Status: Former smoker Past Alcohol Use History: Daily Additional Past Alcohol Use History / Comment(s): started smoking at age 12 smoke 1ppd quit cig 1965 swithced to pipe/cigar quit those 2001 Past Drug Use History: None Reported - Past Family History Father Family Medical History: Dementia Additional Family Medical History / Comment(s): AT AGE 93 Mother Family Medical History: Cancer Additional Family Medical History / Comment(s): BREAST CANCER SURVIVER, AT AGE 86 Medications and Allergies Home Medications Medication Instructions Recorded Confirmed Type allopurinoL [Zyloprim] 300 mg PO DAILY 10/26/14 08/13/23 History Glimepiride [Amaryl] 2 mg PO BID 06/03/18 08/13/23 History Omeprazole [PriLOSEC] 20 mg PO DAILY 06/03/18 08/13/23 History Clopidogrel Bisulfate [Plavix] 75 mg PO DAILY 02/26/21 08/13/23 History Lipase/Protease/Amylase [Shantel Dr 1 cap PO ACHS 02/26/21 08/13/23 History 24,000 Unit Capsule] Simvastatin [Zocor] 20 mg PO HS 02/26/21 08/13/23 History icosapent ethyL [Icosapent Ethyl] 2 gm PO BID-W/MEALS 11/25/21 08/13/23 History Acetaminophen Tab [Tylenol] 650 mg PO Q6HR PRN tab 07/14/23 08/13/23 Rx Midodrine [ProAmatine] 5 mg PO AC-TID tab 07/14/23 08/13/23 Rx Furosemide [Lasix] 40 mg PO DIRECTED 08/13/23 08/13/23 History Potassium(Unknown Dose) 1 tab PO DIRECTED 08/13/23 08/13/23 History clonazePAM [KlonoPIN] 1 mg PO HS 08/13/23 08/13/23 History Acetaminophen-Codeine 300-30mg 1 tab PO TID PRN #9 tab 11/01/23 Rx [Tylenol w/codeine #3] Gabapentin 300 mg PO BID #6 cap 08/18/23 Rx LORazepam [Ativan] 0.5 mg PO HS PRN #3 tab 08/18/23 Rx Vancomycin 1,500 mg IVPB Q12H each 08/18/23 Rx Allergies Allergy/AdvReac Type Severity Reaction Status Date / Time No Known Allergies Allergy Verified 08/13/23 19:08 Physical Exam Vitals: Vital Signs Temp Pulse Pulse Resp BP BP Pulse Ox 08/14/23 07:00 98.0 F 61 16 94/65 100 08/13/23 22:09 98.2 F 65 18 129/65 100 08/13/23 21:45 98.5 F 69 15 106/58 97 08/13/23 14:49 98.3 F 69 18 112/68 99 Intake and Output 08/13/23 08/14/23 08/14/23 22:59 06:59 14:59 Other: # Voids 1 Weight 80.286 kg GENERAL DESCRIPTION: An elderly male up in the chair, no distress. No tachypnea or accessory muscle of respiration use. HEENT: Shows Pallor , no scleral icterus. Oral mucous membrane is dry. No pharyngeal erythema or thrush NECK: Trachea central, no thyromegaly. LUNGS: Unlabored breathing. Clear to auscultation anteriorly. No wheeze or crackle. HEART: S1, S2, regular rate and rhythm. No loud murmur ABDOMEN: Soft, no tenderness , guarding or rigidity, no organomegaly EXTREMITIES: Left foot and leg that has swelling and redness of the wound at the left foot lateral border at the base of the fifth toe with some slough tissue SKIN: No rash, no masses palpable. NEUROLOGICAL: The patient is awake, alert, oriented x3, mood and affect normal. Results CBC & Chem 7: 08/17/23 05:40 08/17/23 05:40 Labs: Abnormal Lab Results - Last 24 Hours (Table) 08/13/23 08/13/23 08/14/23 Range/Units 18:34 18:34 05:46 RBC 3.28 L (4.30-5.90) m/uL Hgb 9.8 L D (13.0-17.5) gm/dL Hct 31.2 L (39.0-53.0) % MCHC (31.0-37.0) g/dL RDW 16.8 H (11.5-15.5) % Creatinine 0.60 L 0.51 L (0.66-1.25) mg/dL 08/14/23 Range/Units 05:46 RBC 3.07 L (4.30-5.90) m/uL Hgb 9.2 L (13.0-17.5) gm/dL Hct 30.1 L (39.0-53.0) % MCHC 30.7 L (31.0-37.0) g/dL RDW 16.6 H (11.5-15.5) % Creatinine (0.66-1.25) mg/dL Assessment and Plan (1) Foot osteomyelitis, left Current Visit: Yes Status: Acute Code(s): M86.9 - OSTEOMYELITIS, UNSPECIFIED SNOMED Code(s): 2609955740225219 (2) Diabetic foot ulcer associated with type 2 diabetes mellitus Current Visit: No Status: Acute Code(s): E11.621 - TYPE 2 DIABETES MELLITUS WITH FOOT ULCER SNOMED Code(s): 8646876245788 Plan: 1patient presented to hospital with left diabetic foot ulcer and cellulitis at the base of the left fifth toe with abnormal x-ray of the foot at that location high clinical suspicious for osteomyelitis patient did have a history of MRSA infection could be related to MRSA versus gram-negative 2-patient benefit from vascular surgery evaluation as there is evidence of bony fracture more likely due to osteomyelitis and need for surgical debridement versus amputation 3-check inflammatory markers 4-continue with vancomycin watching his kidney function closely and add Unasyn We will follow on clinical condition and cultures to further adjust medication if needed Thank you for this consultation we will follow the patient along with you Dictation was produced using [employer] dictation software. please excuse any grammatical, word or spelling errors. Time with Patient: Greater than 30
[2023-08-15] MEDS: Icosapent Ethyl [Icosapent Ethyl] 1 GM Capsule PO SCH ×2 (08:41→17:57)
[2023-08-15] MEDS: HEPARIN SODIUM,PORCINE 5,000 UNIT/ML 1 ML VIAL SQ SCH ×2 (08:47→21:09)
[2023-08-15] MEDS: CLOPIDOGREL 75 MG TAB PO SCH (08:47)
[2023-08-15] MEDS: allopurinoL 300 MG TAB PO SCH (08:47)
[2023-08-15] MEDS: GLIMEPIRIDE 1 MG TAB PO SCH ×2 (08:47→18:06)
[2023-08-15] MEDS: GABAPENTIN 300 MG CAP PO SCH ×2 (08:47→21:08)
[2023-08-15] MEDS: POTASSIUM CHLORIDE ER 10 MEQ TAB.ER.PRT PO SCH (08:47)
[2023-08-15] MEDS: FUROSEMIDE 40 MG TAB PO SCH (08:47)
[2023-08-15] MEDS: AMPICILLIN-SULBACTAM 3 GM in SODIUM CHLORIDE 0.9% 100 ML IVPB SCH ×3 (12:49→21:14)
--- NOTE | 2023-08-15 13:30 | P.GSCN ---
History of Present Illness Consult date: 08/15/23 Reason for Consult: Osteomyelitis left fifth toe. History of present illness: Patient is an 82-year-old male who is currently hospitalized with a diagnosis of osteomyelitis of the left fifth toe. The patient has a proximal 66 year history of diabetes mellitus and is a diabetic allowing to status post Whipple procedure and removal of pancreas secondary to her history of pancreatic cancer. Patient has a history of the first and second toes of the left foot previously being amputated. He was in rehab and his shoe rubbed against the lateral aspect of his left fifth digit resulting in a wound which eventually led to osteomyelitis. Patient denies any ischemic rest pain or claudication type symptoms. 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 History of Any Multi-Drug Resistant Organisms: MRSA Year Discovered:: 10/29/2014 MDRO Source:: Blood and left foot wound Past Surgical History: Adenoidectomy, Appendectomy, Bowel Resection, Coronary Bypass/CABG, Heart Catheterization, Tonsillectomy Additional Past Surgical History / Comment(s): Right eye sx for detatched retina (still has some peripheral vision), Menckel's diverticulum, recent whipple p rocedure, left great toe amputation w/ removal of some of the metatarsal (balance issues). 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 He has an adult daughter who will be coming to pickling operator her animals soon. He himself does not have any pets in the home. Smoking Status: Former smoker Past Alcohol Use History: Daily Additional Past Alcohol Use History / Comment(s): started smoking at age 12 smoke 1ppd quit cig 1965 swithced to pipe/cigar quit those 2001 Past Drug Use History: None Reported - Past Family History Father Family Medical History: Dementia Additional Family Medical History / Comment(s): AT AGE 93 Mother Family Medical History: Cancer Additional Family Medical History / Comment(s): BREAST CANCER SURVIVER, AT AGE 86 Medications and Allergies Home Medications Medication Instructions Recorded Confirmed Type allopurinoL [Zyloprim] 300 mg PO DAILY 10/26/14 08/13/23 History Glimepiride [Amaryl] 2 mg PO BID 06/03/18 08/13/23 History Omeprazole [PriLOSEC] 20 mg PO DAILY 06/03/18 08/13/23 History Clopidogrel Bisulfate [Plavix] 75 mg PO DAILY 02/26/21 08/13/23 History Lipase/Protease/Amylase [Creon Dr 1 cap PO ACHS 02/26/21 08/13/23 History 24,000 Unit Capsule] Simvastatin [Zocor] 20 mg PO HS 02/26/21 08/13/23 History icosapent ethyL [Icosapent Ethyl] 2 gm PO BID-W/MEALS 11/25/21 08/13/23 History Acetaminophen Tab [Tylenol] 650 mg PO Q6HR PRN tab 07/14/23 08/13/23 Rx Acetaminophen-Codeine 300-30mg 1 tab PO TID PRN #9 tab 07/14/23 08/13/23 Rx [Tylenol w/codeine #3] Gabapentin 300 mg PO BID #6 cap 07/14/23 08/13/23 Rx Midodrine [ProAmatine] 5 mg PO AC-TID tab 07/14/23 08/13/23 Rx Furosemide [Lasix] 40 mg PO DIRECTED 08/13/23 08/13/23 History LORazepam [Ativan] 0.5 mg PO HS PRN 08/13/23 08/13/23 History Potassium(Unknown Dose) 1 tab PO DIRECTED 08/13/23 08/13/23 History clonazePAM [KlonoPIN] 1 mg PO HS 08/13/23 08/13/23 History Allergies Allergy/AdvReac Type Severity Reaction Status Date / Time No Known Allergies Allergy Verified 08/13/23 19:08 Surgical - Exam Osteopathic Statement: *. No significant issues noted on an osteopathic structural exam other than those noted in the History and Physical/Consult. Vital Signs Temp Pulse Resp BP Pulse Ox 98.3 F 69 18 112/68 99 08/13/23 14:49 08/13/23 14:49 08/13/23 14:49 08/13/23 14:49 08/13/23 14:49 Patient Seen Date: 08/15/23 Patient Seen Time: 11:40 Patient is awake, alert and in no apparent distress. Heart: Regular without murmur. Lungs: Clear to auscultation bilaterally. Abdomen: Soft and otherwise benign. Extremities: Patient has a palpable femoral, popliteal and posterior tibial pulse on the left. The patient has a femoral popliteal pulse noted on the right. There is an open wound. The base of the left fifth toe at the metatarsophalangeal joint level. The first and second toes left foot are surgically absent. There are significant bony change in the second and third toes of the left foot. Results - Labs 08/14/23 05:46 08/15/23 05:45 Abnormal Lab Results - Last 24 Hours (Table) 08/15/23 Range/Units 05:45 Creatinine 0.52 L (0.66-1.25) mg/dL Microbiology - Last 24 Hours (Table) 08/13/23 20:00 Gram Stain - Preliminary Foot - Left Wound Culture - Preliminary Presumptive Staph aureus 08/13/23 18:19 Blood Culture - Preliminary Blood 08/13/23 18:34 Blood Culture - Preliminary Blood Diabetes panel 08/15/23 Range/Units 05:45 Creatinine 0.52 L (0.66-1.25) mg/dL Pituitary panel 08/15/23 Range/Units 05:45 Creatinine 0.52 L (0.66-1.25) mg/dL Adrenal panel 08/15/23 Range/Units 05:45 Creatinine 0.52 L (0.66-1.25) mg/dL - Imaging Additional studies: Foot x-rays are reviewed. Assessment and Plan Assessment: 1: Osteomyelitis left fifth toe. 2: Coronary disease, status post coronary artery bypass grafting. 3: History of pancreatic cancer status post Whipple's procedure. 4: Status post amputation first and second toes left foot. 5: Charcot foot left. Plan: I discussed with the patient the need for amputation. Given the fact that his first and second toes artery amputated and he has significant Charcot foot barba es on the left I believe a transmetatarsal amputation would serve the patient most sufficiently. The procedure, risk and benefits are discussed. All questions answered patient's satisfaction. Patient is willing to proceed with same. I believe this should heal given his palpable pedal pulse and the overall good perfusion characteristics of the left foot. Time with Patient: Greater than 30
--- NOTE | 2023-08-15 14:12 | P.PN ---
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 He has more swelling and warmth and tenderness at the area around the fifth metatarsal tarsal joint. He denies any other specific complaints. No chest pain dyspnea. Change in urin e or bowel habits. No fever. He denies smoking or illicit drugs. He consumes one cup of liquor or wine every day. He has history of anemia hemoglobin was 7.5 and currently improved to 9. He had a fall when he had more severe anemia but not currently. He had black stool but currently he taking iron pills which is most likely the cause of his black stool. Hemoglobin is stable at 9.2. His oncologist is Dr. Eason for his pancreatic cancer and malignant melanoma Hemodynamically stable and afebrile Hemoglobin 9.2, rest of CBC, BMP, liver enzymes are unremarkable. Influenza and called undetected 08/15/2023 Patient presents with left foot infection and osteomyelitis suspected of the left foot. Patient sitting in chair with no new complaints. No chest pain or dyspnea. Is currently covered with IV vancomycin and Unasyn His wound culture is growing presumptive staph continue with normal saline 75 mL/h Objective - Vital Signs Vital signs: Vital Signs Temp 98.0 F 08/15/23 07:00 Pulse 62 08/15/23 07:00 Resp 16 08/15/23 07:00 BP 99/45 08/15/23 07:00 Pulse Ox 98 08/15/23 07:00 FiO2 Intake & Output 08/14/23 08/15/23 08/15/23 18:59 06:59 18:59 Intake Total 531 180 Balance 531 180 Weight 80.286 kg Intake: Oral 531 180 Other: Voiding Method Toilet Toilet Toilet # Voids 2 2 # Bowel Movements 1 - Exam GENERAL: The patient is alert and oriented x3, not in any acute distress. Well developed, well nourished. HEENT: Pupils are round and equally reacting to light. EOMI. No scleral icterus. No conjunctival pallor. Normocephalic, atraumatic. No pharyngeal erythema. No thyromegaly. CARDIOVASCULAR: S1 and S2 present. No murmurs, rubs, or gallops. PULMONARY: Chest is clear to auscultation, no wheezing , no crackles. ABDOMEN: Soft, nontender, nondistended, normoactive bowel sounds. No palpable organomegaly. MUSCULOSKELETAL: No joint swelling or deformity. -EXTREMITIES: No cyanosis, clubbing, or pedal edema. Left foot swelling erythema around the fifth tarsometatarsal joint NEUROLOGICAL: Gross neurological examination did not reveal any focal deficits. SKIN: No rashes. no petechiae. - Labs CBC & Chem 7: 08/14/23 05:46 08/15/23 05:45 Labs: Abnormal Lab Results - Last 24 Hours (Table) 08/15/23 Range/Units 05:45 Creatinine 0.52 L (0.66-1.25) mg/dL Microbiology - Last 24 Hours (Table) 08/13/23 20:00 Gram Stain - Preliminary Foot - Left Wound Culture - Preliminary Presumptive Staph aureus 08/13/23 18:19 Blood Culture - Preliminary Blood 08/13/23 18:34 Blood Culture - Preliminary Blood Assessment and Plan Assessment: Left foot infection with diabetic foot ulcer history of pancreatic cancer and malignant melanoma Diabetes mellitus Hypertension Hyperlipidemia History of osteoarthritis History of gout History of coronary artery disease status post CABG Plan: Continue with IV vancomycin and IV Unasyn Continue with normal saline Infectious disease consult Labs and medication were reviewed.. Continue same treatment. Continue with symptomatic treatment. Resume home medication. Monitor lytes and vitals. DVT and GI prophylaxis. Further recommendations depends on the clinical course of the patient DVT prophylaxis: Subcutaneous heparin GI Prophylaxis: Ppi Prognosis is guarded
--- NOTE | 2023-08-15 16:20 | P.PN ---
Subjective Progress Note Date: 08/15/23 Principal diagnosis: Left diabetic foot/osteomyelitis Patient is a 82-year-old male with a past medical history significant for diabetes mellitus hypertension hyperlipidemia coronary artery disease previous history of diabetic foot infection requiring amputation of the left first and second toe patient subsequently developing an ulceration to the left foot lateral border at the base of the fifth toe secondary to the ill fitting shoe, now presented to hospital with worsening infection to the left foot abnormal x-ray suggestive of osteomyelitis On today's evaluation and that is 08/15/2023, the patient denies any fever or chills, the patient is breathing comfortably on room air and no need for supplemental oxygen, the patient denies any chest pain or cough, patient denies nausea/vomiting or diarrhea and no abdominal pain, patient denies any worsening pain to the left foot patient did have a white count of 5.0, creatinine 0.52 local cultures growing staph aureus Objective - Vital Signs Vital signs: Vital Signs Temp 98.0 F 08/15/23 07:00 Pulse 62 08/15/23 07:00 Resp 16 08/15/23 07:00 BP 99/45 08/15/23 07:00 Pulse Ox 98 08/15/23 07:00 FiO2 Intake & Output 08/14/23 08/15/23 08/15/23 18:59 06:59 18:59 Intake Total 531 180 Balance 531 180 Weight 80.286 kg Intake: Oral 531 180 Other: Voiding Method Toilet Toilet Toilet # Voids 2 2 # Bowel Movements 1 - Exam GENERAL DESCRIPTION: An elderly male up in the chair in no distress RESPIRATORY SYSTEM: Unlabored breathing , clear to auscultation anteriorly HEART: S1 S2 regular rate and rhythm , ABDOMEN: Soft , no tenderness EXTREMITIES: Left foot is currently dressed no drainage - Labs CBC & Chem 7: 08/14/23 05:46 08/15/23 05:45 Labs: Abnormal Lab Results - Last 24 Hours (Table) 08/15/23 Range/Units 05:45 Creatinine 0.52 L (0.66-1.25) mg/dL Microbiology - Last 24 Hours (Table) 08/13/23 20:00 Gram Stain - Preliminary Foot - Left Wound Culture - Preliminary Presumptive Staph aureus 08/13/23 18:19 Blood Culture - Preliminary Blood 08/13/23 18:34 Blood Culture - Preliminary Blood Assessment and Plan (1) Foot osteomyelitis, left Current Visit: Yes Status: Acute Code(s): M86.9 - OSTEOMYELITIS, UNSPECIFIED SNOMED Code(s): 1685581299144145 (2) Diabetic foot ulcer associated with type 2 diabetes mellitus Current Visit: No Status: Acute Code(s): E11.621 - TYPE 2 DIABETES MELLITUS WITH FOOT ULCER SNOMED Code(s): 7941104450842 (3) Diabetic foot ulcer with osteomyelitis Current Visit: No Status: Acute Code(s): E11.621 - TYPE 2 DIABETES MELLITUS WITH FOOT ULCER SNOMED Code(s): 130633728 Plan: 1patient presented to hospital with left diabetic foot ulcer and cellulitis at the base of the left fifth toe with abnormal x-ray of the foot at that location high clinical suspicious for osteomyelitis patient did have a history of MRSA infection could be related to MRSA versus gram-negative 2-patient has been evaluated by vascular surgery recommending amputation and the patient seemed to be agreeable 3-Patient to with vancomycin and Unasyn, while waiting for the cultures to finalize Dictation was produced using [employer] dictation software. please excuse any grammatical, word or spelling errors. Time with Patient: Less than 30
[2023-08-15] MEDS: GLIMEPIRIDE 2 MG TAB PO SCH (18:05)
[2023-08-15] MEDS: LORazepam 0.5 MG TAB PO PRN (21:08)
[2023-08-15] MEDS: ATORVASTATIN 10 MG TAB PO SCH (21:08)
[2023-08-15] MEDS: clonazePAM 1 MG TAB PO SCH (21:08)
[2023-08-15] MEDS: Acetaminophen-Codeine 300-30mg TAB PO PRN (21:08)
[2023-08-16] MEDS: SODIUM CHLORIDE 0.9% 1,000 ML IV SCH (03:51)
[2023-08-16] MEDS: AMPICILLIN-SULBACTAM 3 GM in SODIUM CHLORIDE 0.9% 100 ML IVPB SCH ×2 (06:05→13:50)
[2023-08-16] MEDS: GLIMEPIRIDE 2 MG TAB PO SCH ×2 (06:05→17:50)
[2023-08-16] MEDS: VANCOMYCIN 1,500 MG in SODIUM CHLORIDE 0.9% 500 ML 500 ML IVPB SCH ×2 (06:05→18:31)
[2023-08-16] MEDS: MIDODRINE 5 MG TAB PO SCH ×3 (06:05→17:42)
[2023-08-16] MEDS: PANTOPRAZOLE 40 MG TABLET PO SCH (06:05)
[2023-08-16] MEDS: CLOPIDOGREL 75 MG TAB PO SCH (08:43)
[2023-08-16] MEDS: allopurinoL 300 MG TAB PO SCH (08:43)
[2023-08-16] MEDS: FUROSEMIDE 40 MG TAB PO SCH (08:43)
[2023-08-16] MEDS: GABAPENTIN 300 MG CAP PO SCH ×2 (08:43→21:26)
[2023-08-16] MEDS: POTASSIUM CHLORIDE ER 10 MEQ TAB.ER.PRT PO SCH (08:43)
[2023-08-16] MEDS: HEPARIN SODIUM,PORCINE 5,000 UNIT/ML 1 ML VIAL SQ SCH ×2 (08:44→21:27)
[2023-08-16] MEDS: Icosapent Ethyl [Icosapent Ethyl] 1 GM Capsule PO SCH ×2 (08:44→17:42)
[2023-08-16 09:02] LABS: Basophils # (A) 0.02 X 10*3/uL (0.00-0.10); Basophils % (A) 0.5 %; Eosinophils # (A) 0.28 X 10*3/uL (0.04-0.35); HCT 23.7 % (39.6-50.0); HGB 7.2 d/dL (13.0-17.0); Lymphocytes # (A) 0.97 X 10*3/uL (0.90-5.00); Lymphocytes % (A) 24.2 %; MCH 29.1 pg (27.0-32.0); MCHC 30.4 d/dL (32.0-37.0); Mean Platelet Volume 9.6 FL (9.5-12.2); Monocytes # (A) 0.53 X 10*3/uL (0.20-1.00); Monocytes % (A) 13.2 %; NRBC Per 100 WBC 0 X 10*3/uL (0.00-0.01); Neutrophils % (A) 54.9 %; Platelet Count 203 X 10*3/uL (140-440); RBC 2.47 X 10*6/uL (4.40-5.60); WBC 4.01 X 10*3/uL (4.50-10.00)
[2023-08-16 09:05] LABS: Blood Urea Nitrogen 9.9 mg/dL (9.0-27.0); Calcium 7.9 mg/dL (8.7-10.3); Carbon Dioxide 25.8 mmol/L (21.6-31.8); Chloride 109 mmol/L (96-109); Glucose 110 mg/dL (70-110); Potassium 3.9 mmol/L (3.5-5.5); Sodium 143 mmol/L (135-145)
[2023-08-16] MEDS: LIPASE 20,000/PROTEASE 63,000/AMYLASE 84,000 PO SCH ×4 (09:19→21:27)
[2023-08-16 09:21] LABS: Erythrocyte Sedimentation Rate 36 mm/Hr (0-20)
[2023-08-16] MEDS ORDERED: DEXTROSE 50% SYRINGE 50 ML IVP PRN ×2 (10:24)
[2023-08-16 12:04] LABS: Glucose,Whole Blood 172 mg/dL (70-110)
--- NOTE | 2023-08-16 12:08 | P.PN ---
Subjective Progress Note Date: 08/16/23 Principal diagnosis: Left diabetic foot/osteomyelitis Patient is a 82-year-old male with a past medical history significant for diabetes mellitus hypertension hyperlipidemia coronary artery disease previous history of diabetic foot infection requiring amputation of the left first and second toe patient subsequently developing an ulceration to the left foot lateral border at the base of the fifth toe secondary to the ill fitting shoe, now presented to hospital with worsening infection to the left foot abnormal x-ray suggestive of osteomyelitis On today's evaluation and that is 08/16/2023, the patient continues to be afebrile , the patient is breathing comfortably on room air and denies any shortness of breath, the patient denies any chest pain or cough, patient denies abdominal pain and no nausea/vomiting or diarrhea patient denies pain to the left foot patient did have a white count of 4.01, creatinine 0.6 local cultures growing MRSA Objective - Vital Signs Vital signs: Vital Signs Temp 98.0 F 08/16/23 07:20 Pulse 63 08/16/23 07:20 Resp 16 08/16/23 08:00 BP 145/76 08/16/23 07:20 Pulse Ox 94 L 08/16/23 07:20 FiO2 Intake & Output 08/15/23 08/16/23 08/16/23 18:59 06:59 18:59 Intake Total 180 118 Balance 180 118 Intake: Oral 180 118 Other: Voiding Method Toilet Toilet Toilet # Voids 3 1 # Bowel Movements 1 - Exam GENERAL DESCRIPTION: An elderly male up in the chair in no distress RESPIRATORY SYSTEM: Unlabored breathing , clear to auscultation anteriorly HEART: S1 S2 regular rate and rhythm , ABDOMEN: Soft , no tenderness EXTREMITIES: Left foot let him order wound at the base of the fifth toe did have some surrounding swelling and minimal redness or foul-smelling drainage - Labs CBC & Chem 7: 08/16/23 05:24 08/16/23 05:24 Labs: Abnormal Lab Results - Last 24 Hours (Table) 08/16/23 08/16/23 08/16/23 Range/Units 05:24 05:24 12:03 WBC 4.01 L (4.50-10.00) X 10*3/uL RBC 2.47 L (4.40-5.60) X 10*6/uL Hgb 7.2 L (13.0-17.0) d/dL Hct 23.7 L (39.6-50.0) % MCHC 30.4 L (32.0-37.0) d/dL RDW 17.0 H (11.5-14.5) % ESR 36 H (0-20) mm/Hr POC Glucose (mg/dL) 172 H (70-110) mg/dL Calcium 7.9 L (8.7-10.3) mg/dL C-Reactive Protein 1.50 H (0.00-0.80) mg/dL Microbiology - Last 24 Hours (Table) 08/13/23 20:00 Gram Stain - Final Foot - Left Wound Culture - Final Methicillin resist S. aureus 08/13/23 18:19 Blood Culture - Preliminary Blood 08/13/23 18:34 Blood Culture - Preliminary Blood Assessment and Plan (1) Foot osteomyelitis, left Current Visit: Yes Status: Acute Code(s): M86.9 - OSTEOMYELITIS, UNSPECIFIED SNOMED Code(s): 5682626619474243 (2) Diabetic foot ulcer associated with type 2 diabetes mellitus Current Visit: No Status: Acute Code(s): E11.621 - TYPE 2 DIABETES MELLITUS WITH FOOT ULCER SNOMED Code(s): 2977980625792 (3) Diabetic foot ulcer with osteomyelitis Current Visit: No Status: Acute Code(s): E11.621 - TYPE 2 DIABETES MELLITUS WITH FOOT ULCER SNOMED Code(s): 352796161 (4) MRSA (methicillin resistant staph aureus) culture positive Current Visit: Yes Status: Acute Code(s): Z22.322 - CARRIER OR SUSPECTED CARRIER OF METHICILLIN RESIS STAPH SNOMED Code(s): 791264011 Plan: 1patient presented to hospital with left diabetic foot ulcer and cellulitis at the base of the left fifth toe with abnormal x-ray of the foot at that location high clinical suspicious for osteomyelitis patient did have a history of MRSA infection could be related to MRSA versus gram-negative 2-patient has been evaluated by vascular surgery recommending amputation and the patient seemed to be agreeable 3-Patient local cultures are growing MRSA, we will continue with vancomycin and discontinue Unasyn, Dictation was produced using [employer] dictation software. please excuse any grammatical, word or spelling errors. Time with Patient: Less than 30
[2023-08-16] MEDS: INSULIN ASPART (NovoLOG) 100 UNIT/ML VIAL SQ SCH ×3 (12:30→22:19)
--- NOTE | 2023-08-16 13:09 | P.PN ---
Subjective Progress Note Date: 08/16/23 Principal diagnosis: Osteomyelitis patient is seen and examined today as a follow-up. No acute changes through the night. He has been afebrile. Continues on IV antibiotics. Objective - Vital Signs Vital signs: Vital Signs Temp 98.0 F 08/16/23 07:20 Pulse 63 08/16/23 07:20 Resp 16 08/16/23 07:20 BP 145/76 08/16/23 07:20 Pulse Ox 94 L 08/16/23 07:20 FiO2 Intake & Output 08/15/23 08/16/23 08/16/23 18:59 06:59 18:59 Intake Total 180 118 Balance 180 118 Intake: Oral 180 118 Other: Voiding Method Toilet Toilet # Voids 3 1 # Bowel Movements 1 - Exam General appearance: The patient is alert, oriented, appears in no acute distress. HET: Head is normocephalic and atraumatic. Neck: Supple. Abdomen: Soft, nondistended. Extremities: Left foot with previous first and second toe amputation. Diabetic Ulcer to lateral aspect of fifth toe. Neurological: No focal deficits. Alert and oriented 3. - Labs CBC & Chem 7: 08/16/23 05:24 08/16/23 05:24 Labs: Abnormal Lab Results - Last 24 Hours (Table) 08/16/23 08/16/23 Range/Units 05:24 05:24 WBC 4.01 L (4.50-10.00) X 10*3/uL RBC 2.47 L (4.40-5.60) X 10*6/uL Hgb 7.2 L (13.0-17.0) d/dL Hct 23.7 L (39.6-50.0) % MCHC 30.4 L (32.0-37.0) d/dL RDW 17.0 H (11.5-14.5) % ESR 36 H (0-20) mm/Hr Calcium 7.9 L (8.7-10.3) mg/dL C-Reactive Protein 1.50 H (0.00-0.80) mg/dL Microbiology - Last 24 Hours (Table) 08/13/23 18:19 Blood Culture - Preliminary Blood 08/13/23 18:34 Blood Culture - Preliminary Blood 08/13/23 20:00 Gram Stain - Preliminary Foot - Left Wound Culture - Preliminary Presumptive Staph aureus Assessment and Plan Assessment: 1. Osteomyelitis left fifth toe 2. Coronary artery disease status post coronary artery bypass grafting 3. History of pancreatic cancer status post Whipple's procedure 4. 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 Left Charcot foot Plan: 1. Continue with recommendations from infectious disease 2. Recommend transmetatarsal amputation as patient has previous first and second toe amputation and Charcot foot changes. There is no urgency to this procedure and may be scheduled as an outpatient. Timing to be determined Thank you for this consultation. The impression and plan of care has been dictated as directed. I performed a history and examination of this patient, discussed the same with the dictator. I agree with the dictator's note ,documented as a scribe. Any additional findings or plans will be noted.
[2023-08-16 17:14] LABS: Glucose,Whole Blood 168 mg/dL (70-110)
[2023-08-16] MEDS: ATORVASTATIN 10 MG TAB PO SCH (21:26)
[2023-08-16] MEDS: clonazePAM 1 MG TAB PO SCH (21:26)
[2023-08-16] MEDS: LORazepam 0.5 MG TAB PO PRN (21:26)
[2023-08-16] MEDS: Acetaminophen-Codeine 300-30mg TAB PO PRN (21:26)
[2023-08-16 22:20] LABS: Glucose,Whole Blood 147 mg/dL (70-110)
[2023-08-17] MEDS ORDERED: VANCOMYCIN TROUGH DUE 1 EACH MISC MISCELLANE ONE (05:00)
[2023-08-17 06:34] LABS: Glucose,Whole Blood 86 mg/dL (70-110)
[2023-08-17] MEDS: VANCOMYCIN 1,500 MG in SODIUM CHLORIDE 0.9% 500 ML 500 ML IVPB SCH ×2 (06:34→17:41)
[2023-08-17] MEDS: LIPASE 20,000/PROTEASE 63,000/AMYLASE 84,000 PO SCH ×4 (06:35→20:52)
[2023-08-17] MEDS: MIDODRINE 5 MG TAB PO SCH ×3 (06:35→17:29)
[2023-08-17] MEDS: GLIMEPIRIDE 2 MG TAB PO SCH ×2 (06:35→17:41)
[2023-08-17] MEDS: INSULIN ASPART (NovoLOG) 100 UNIT/ML VIAL SQ SCH ×4 (06:35→20:50)
[2023-08-17] MEDS: PANTOPRAZOLE 40 MG TABLET PO SCH (06:35)
[2023-08-17 06:43] LABS: African American GFR (CKD) >90 (>60 ml/min/1.73 sqM); Non-African American GFR(CKD) >90 (>60 ml/min/1.73 sqM)
[2023-08-17 08:42] LABS: HCT 25.5 % (39.6-50.0); HGB 7.9 d/dL (13.0-17.0); MCH 29.6 pg (27.0-32.0); MCV 95.5 FL (80.0-97.0); NRBC Per 100 WBC 0 X 10*3/uL (0.00-0.01); Platelet Count 217 X 10*3/uL (140-440); RBC 2.67 X 10*6/uL (4.40-5.60); WBC 3.89 X 10*3/uL (4.50-10.00)
[2023-08-17] MEDS: Icosapent Ethyl [Icosapent Ethyl] 1 GM Capsule PO SCH ×2 (09:31→17:17)
[2023-08-17] MEDS: FUROSEMIDE 40 MG TAB PO SCH (09:42)
[2023-08-17] MEDS: POTASSIUM CHLORIDE ER 10 MEQ TAB.ER.PRT PO SCH (09:42)
[2023-08-17] MEDS: GABAPENTIN 300 MG CAP PO SCH ×2 (09:42→20:52)
[2023-08-17] MEDS: CLOPIDOGREL 75 MG TAB PO SCH (09:42)
[2023-08-17] MEDS: HEPARIN SODIUM,PORCINE 5,000 UNIT/ML 1 ML VIAL SQ SCH ×2 (09:43→20:52)
[2023-08-17] MEDS: allopurinoL 300 MG TAB PO SCH (09:46)
--- NOTE | 2023-08-17 10:12 | P.PN ---
Subjective Progress Note Date: 08/17/23 Principal diagnosis: Osteomyelitis She was seen and examined sitting up in the bedside chair. He denies any fevers or chills. No abdominal pain, nausea or vomiting. He is afebrile. Final wound culture showing MRSA. Patient currently on IV vancomycin. Repeat hemoglobin 7.9. Patient continues to deny any signs or symptoms of GI bleed. Objective - Vital Signs Vital signs: Vital Signs Temp 98.3 F 08/17/23 01:35 Pulse 93 08/17/23 01:35 Resp 17 08/17/23 01:35 BP 136/73 08/17/23 01:35 Pulse Ox 97 08/17/23 01:35 FiO2 Intake & Output 08/16/23 08/17/23 08/17/23 18:59 06:59 18:59 Intake Total 356 Balance 356 Intake: Oral 356 Other: Voiding Method Toilet Toilet # Voids 3 1 # Bowel Movements 3 - Exam General appearance: The patient is alert, oriented, appears in no acute distress. HET: Head is normocephalic and atraumatic. Neck: Supple. Abdomen: Soft, nondistended. Extremities: Left foot with previous first and second toe amputation. Diabetic Ulcer to lateral aspect of fifth toe without any drainage or foul odor. Neurological: No focal deficits. Alert and oriented 3. - Labs CBC & Chem 7: 08/17/23 05:40 08/17/23 05:40 Labs: Abnormal Lab Results - Last 24 Hours (Table) 08/16/23 08/16/23 08/16/23 Range/Units 05:24 05:24 12:03 WBC 4.01 L (4.50-10.00) X 10*3/uL RBC 2.47 L (4.40-5.60) X 10*6/uL Hgb 7.2 L (13.0-17.0) d/dL Hct 23.7 L (39.6-50.0) % MCHC 30.4 L (32.0-37.0) d/dL RDW 17.0 H (11.5-14.5) % ESR 36 H (0-20) mm/Hr Creatinine (0.66-1.25) mg/dL POC Glucose (mg/dL) 172 H (70-110) mg/dL Calcium 7.9 L (8.7-10.3) mg/dL C-Reactive Protein 1.50 H (0.00-0.80) mg/dL 08/16/23 08/16/23 08/17/23 Range/Units 17:13 22:18 05:40 WBC (4.50-10.00) X 10*3/uL RBC (4.40-5.60) X 10*6/uL Hgb (13.0-17.0) d/dL Hct (39.6-50.0) % MCHC (32.0-37.0) d/dL RDW (11.5-14.5) % ESR (0-20) mm/Hr Creatinine 0.54 L (0.66-1.25) mg/dL POC Glucose (mg/dL) 168 H 147 H (70-110) mg/dL Calcium (8.7-10.3) mg/dL C-Reactive Protein (0.00-0.80) mg/dL Microbiology - Last 24 Hours (Table) 08/13/23 18:19 Blood Culture - Preliminary Blood 08/13/23 18:34 Blood Culture - Preliminary Blood 08/13/23 20:00 Gram Stain - Final Foot - Left Wound Culture - Final Methicillin resist S. aureus Assessment and Plan Assessment: 1. Osteomyelitis left fifth toe, wound culture growing MRSA 2. Coronary artery disease status post coronary artery bypass grafting 3. History of pancreatic cancer status post Whipple's procedure 4. 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 Left Charcot foot 6. 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 Continue with antibiotic recommendations from infectious disease 2. Recommend transmetatarsal amputation as patient has previous first and second toe amputation and Charcot foot changes. There is no urgency to this procedure and will be scheduled as an outpatient. Patient to follow-up with Dr. Morgan this to schedule outpatient TMA The impression and plan of care has been dictated as directed. I performed a history and examination of this patient, discussed the same with the dictator. I agree with the dictator's note ,documented as a scribe. Any additional findings or plans will be noted.
[2023-08-17 12:17] LABS: Glucose,Whole Blood 119 mg/dL (70-110)
--- NOTE | 2023-08-17 15:34 | P.PN ---
Subjective Progress Note Date: 08/17/23 Principal diagnosis: Left diabetic foot/osteomyelitis Patient is a 82-year-old male with a past medical history significant for diabetes mellitus hypertension hyperlipidemia coronary artery disease previous history of diabetic foot infection requiring amputation of the left first and second toe patient subsequently developing an ulceration to the left foot lateral border at the base of the fifth toe secondary to the ill fitting shoe, now presented to hospital with worsening infection to the left foot abnormal x-ray suggestive of osteomyelitis On today's evaluation and that is 08/17/2023, the patient remains to be afebrile , the patient is breathing comfortably on room air without need for supplemental oxygen, the patient denies any chest pain and no significant cough or sputum production, patient denies abdominal pain and no nausea/vomiting or diarrhea patient denies pain to the left foot patient did have a white count of 3.89, creatinine is 0.54, local cultures growing MRSA Objective - Vital Signs Vital signs: Vital Signs Temp 97.8 F 08/17/23 07:00 Pulse 116 H 08/17/23 07:00 Resp 16 08/17/23 07:00 BP 111/51 08/17/23 07:00 Pulse Ox 97 08/17/23 07:00 FiO2 Intake & Output 08/16/23 08/17/23 08/17/23 18:59 06:59 18:59 Intake Total 356 478 Balance 356 478 Intake: Oral 356 478 Other: Voiding Method Toilet Toilet Toilet # Voids 3 1 # Bowel Movements 3 - Exam GENERAL DESCRIPTION: An elderly male up in the chair in no distress RESPIRATORY SYSTEM: Unlabored breathing , clear to auscultation anteriorly HEART: S1 S2 regular rate and rhythm , ABDOMEN: Soft , no tenderness EXTREMITIES: Left foot let him order wound at the base of the fifth toe did have some surrounding swelling and minimal redness or foul-smelling drainage - Labs CBC & Chem 7: 08/17/23 05:40 08/17/23 05:40 Labs: Abnormal Lab Results - Last 24 Hours (Table) 08/16/23 08/16/23 08/17/23 Range/Units 17:13 22:18 05:40 WBC (4.50-10.00) X 10*3/uL RBC (4.40-5.60) X 10*6/uL Hgb (13.0-17.0) d/dL Hct (39.6-50.0) % MCHC (32.0-37.0) d/dL RDW (11.5-14.5) % Creatinine (0.66-1.25) mg/dL POC Glucose (mg/dL) 168 H 147 H (70-110) mg/dL Hemoglobin A1c 6.7 H (<=6.0) % 08/17/23 08/17/23 08/17/23 Range/Units 05:40 05:40 12:15 WBC 3.89 L (4.50-10.00) X 10*3/uL RBC 2.67 L (4.40-5.60) X 10*6/uL Hgb 7.9 L (13.0-17.0) d/dL Hct 25.5 L (39.6-50.0) % MCHC 31.0 L (32.0-37.0) d/dL RDW 17.0 H (11.5-14.5) % Creatinine 0.54 L (0.66-1.25) mg/dL POC Glucose (mg/dL) 119 H (70-110) mg/dL Hemoglobin A1c (<=6.0) % Microbiology - Last 24 Hours (Table) 08/13/23 20:00 Anaerobic Culture - Preliminary Foot - Left Anaerobic Gm Negative Bacilli 08/13/23 20:00 Gram Stain - Final Foot - Left Wound Culture - Final Methicillin resist S. aureus 08/13/23 18:19 Blood Culture - Preliminary Blood 08/13/23 18:34 Blood Culture - Preliminary Blood Assessment and Plan (1) Foot osteomyelitis, left Current Visit: Yes Status: Acute Code(s): M86.9 - OSTEOMYELITIS, UNSPECIFIED SNOMED Code(s): 1008211999799823 (2) Diabetic foot ulcer associated with type 2 diabetes mellitus Current Visit: No Status: Acute Code(s): E11.621 - TYPE 2 DIABETES MELLITUS WITH FOOT ULCER SNOMED Code(s): 8990117410588 (3) Diabetic foot ulcer with osteomyelitis Current Visit: No Status: Acute Code(s): E11.621 - TYPE 2 DIABETES MELLITUS WITH FOOT ULCER SNOMED Code(s): 242452437 (4) MRSA (methicillin resistant staph aureus) culture positive Current Visit: Yes Status: Acute Code(s): Z22.322 - CARRIER OR SUSPECTED CARRIER OF METHICILLIN RESIS STAPH SNOMED Code(s): 674260766 Plan: 1patient presented to hospital with left diabetic foot ulcer and cellulitis at the base of the left fifth toe with abnormal x-ray of the foot at that location high clinical suspicious for osteomyelitis patient did have a history of MRSA infection could be related to MRSA versus gram-negative 2-patient has been evaluated by vascular surgery recommending amputation however plan to do it as an outpatient 3-Patient local cultures are growing MRSA, we will continue with vancomycin , obtain a PICC line for outpatient IV vancomycin discussed with the admitting team Dictation was produced using [employer] dictation software. please excuse any grammatical, word or spelling errors. Time with Patient: Less than 30
[2023-08-17 17:15] LABS: Glucose,Whole Blood 163 mg/dL (70-110)
[2023-08-17 20:50] LABS: Glucose,Whole Blood 111 mg/dL (70-110)
[2023-08-17] MEDS: LORazepam 0.5 MG TAB PO PRN (20:52)
[2023-08-17] MEDS: clonazePAM 1 MG TAB PO SCH (20:52)
[2023-08-17] MEDS: ATORVASTATIN 10 MG TAB PO SCH (20:52)
[2023-08-18] MEDS: Icosapent Ethyl [Icosapent Ethyl] 1 GM Capsule PO SCH ×2 (05:49→17:25)
[2023-08-18 06:06] LABS: Glucose,Whole Blood 129 mg/dL (70-110)
[2023-08-18] MEDS: INSULIN ASPART (NovoLOG) 100 UNIT/ML VIAL SQ SCH ×3 (06:06→17:30)
[2023-08-18] MEDS: GLIMEPIRIDE 2 MG TAB PO SCH ×2 (06:28→17:35)
[2023-08-18] MEDS: PANTOPRAZOLE 40 MG TABLET PO SCH (06:28)
[2023-08-18] MEDS: VANCOMYCIN 1,500 MG in SODIUM CHLORIDE 0.9% 500 ML 500 ML IVPB SCH (06:28)
[2023-08-18] MEDS: LIPASE 20,000/PROTEASE 63,000/AMYLASE 84,000 PO SCH ×3 (06:28→17:34)
[2023-08-18] MEDS: MIDODRINE 5 MG TAB PO SCH ×3 (06:28→17:33)
[2023-08-18] MEDS ORDERED: LIDOCAINE 1% INJ 10MG/ML (20 ML MDV) SQ ONE (09:15)
[2023-08-18 09:16] VITALS: RESP 16; TEMP 97.8
--- NOTE | 2023-08-18 09:40 | IR ---
PICC LINE PLACEMENT: HISTORY: Infection requiring long-term antibiotic therapy PROCEDURE: Ultrasound and fluoroscopic guidance of PICC line placement. COMPLICATIONS: None ANESTHESIA: 1. 1% Lidocaine locally. FINDINGS/TECHNIQUE: The procedure was explained to the patient. The risks, complications, benefits and alternatives were discussed and any questions were answered. Informed consent was obtained. The patient was placed supine on the fluoroscopic table and prepped and draped in the usual sterile fash ion. Utilizing a 21 gauge needle and sonographic and fluoroscopic guidance, access in the left basi lic vein was achieved and there is placement of a 0.018 guidewire. The vein is patent. A 4-F sheath was placed over the guidewire. The guidewire and dilator were removed and a 4-F. PICC line was plac ed through the sheath with the tip at the level of the SVC. The sheath was removed, the catheter was flushed and sutured into position. The patient was stable throughout the procedure and remained sta ble upon discharge from the Department of Radiology. The vein puncture was patent under ultrasound. A morocho scale image was obtained to document patency of the vein punctured. All elements of the maximal barrier technique were utilized. FLUOROSCOPY TIME: DAP 0.1715Gy cm2 IMPRESSION: Successful PICC line placement under ultrasound and fluoroscopic guidance.
[2023-08-18] MEDS: HEPARIN SODIUM,PORCINE 5,000 UNIT/ML 1 ML VIAL SQ SCH (09:44)
[2023-08-18] MEDS: CLOPIDOGREL 75 MG TAB PO SCH (09:49)
[2023-08-18] MEDS: POTASSIUM CHLORIDE ER 10 MEQ TAB.ER.PRT PO SCH (09:49)
[2023-08-18] MEDS: allopurinoL 300 MG TAB PO SCH (09:49)
[2023-08-18] MEDS: FUROSEMIDE 40 MG TAB PO SCH (09:49)
[2023-08-18] MEDS: GABAPENTIN 300 MG CAP PO SCH (09:49)
--- NOTE | 2023-08-18 11:43 | P.PN ---
Subjective Progress Note Date: 08/16/23 HISTORY OF PRESENT ILLNESS: This is an 82-year-old male previous medical history significant for coronary artery disease status post coronary artery bypass graft using the WHEELER and RICA 2000, hypertension and hypertensive cardiovascular disease, hyperlipidemia, history of pancreatic cancer, as well as metastatic melanoma to the care of hematology oncology, gout, chronic alcohol use and dependence, diabetes mellitus type 2, diabetic polyneuropathy. Patient had a recent hospitalization in June which time he was treated for syncope likely vasovagal/orthostatic hypotension and alcohol intoxication. He sustained a scalp laceration at that time and was discharged to [facility] for subacute rehab. Patient has been subsequently discharged home and presented to the hospital on 08/13 due to ulceration to the left foot lateral border at the base of the fifth toe secondary to ill fitting shoe complicated by diabetic neuropathy. Patient was admitted to the medical floor and has been seen by vascular surgery with plan for transmetatarsal amputation next week. Plan was for patient to be discharged in time to follow-up in the office on to make arrangements for surgery next week. Patient has also been seen and followed by Dr. De La Fuente and maintained on IV antibiotics with vancomycin. Wound culture is positive for MRSA. Patient has been afebrile, heart rate in the 60s, blood pressure 145/76, pulse ox 94% on room air. WBC 4.0, hemoglobin 7.2, platelet count 203. Sed rate 36. Electrolytes and renal function normal. Blood sugar 110. CBG running 147-172. REVIEW OF SYSTEMS: Constitutional: No documented fever, no chills, no night sweats. No weight change. No weakness, fatigue or lethargy. No daytime sleepiness. HEENT: No headache. No blurred vision or double vision, no loss of vision. loss of Hearing, no ringing in the ears, positive for dizziness. No nasal drainage or congestion. No epistaxis. No sore throat. Lungs: No shortness of breath, no cough, no sputum production. No wheezing. Reports dyspnea with activity. Cardiovascular: No chest pain, no lower extremity edema. No palpitations. No paroxysmal nocturnal dyspnea. No orthopnea. No lightheadedness or dizziness. No syncopal episodes. Abdominal: Reports no abdominal pain. No nausea, vomiting. chronic diarrhea. No constipation. No bloody or tarry stools reports loss of appetite. Genitourinary: No dysuria, increased frequency, urgency. No urinary retention. Musculoskeletal: No myalgias. positive for muscle weakness, positive for gait dysfunction, frequent falls. No back pain. positive for neck pain. Integumentary: Left foot wound, no lesions. No rash or pruritus. scalp bruising. No change in hair or nails. Neurologic: No aphasia. No facial droop. No change in mentation. positive for head injury. No headache. No paralysis. No paresthesia, positive for dizziness Psychiatric: positive for depression. positive for anxiety. No mood swings. Endocrine: Mildly abnormal blood sugars. No weight change. PHYSICAL EXAMINATION: General: 82-year-old male lying down in bed in no distress HEENT: Head nontraumatic, normocephalic, pupils were equal round reactive to light and recommendation, extraocular muscle movement were intact, sclera nonicteric, conjunctivae were pale, mucous membranes of the mouth are somewhat dry. Neck: Supple, no JVP, normal carotid upstroke bilaterally, no lymphadenopathy. Chest: Decreased breath sounds at the bases, few rhonchi, no expiratory wheezes, no chest wall tenderness, no intercostal retractions. Heart: First heart sound is normal, second heart sound is normal there is ERNST 2/6 located a the left sternal border Abdomen: Soft, nontender, nondistended, positive bowel sounds. Extremities: There is no edema no calf tenderness DP +1 bilaterally, amputation of the left big and second toes with neuropathic changes in both feet, wound to the left lateral foot at the base of the fifth toe. Neurologic examination: Patient is awake alert and oriented X3 , cranial nerves II-12 appear grossly intact, muscle power were 5 out of 5 in upper extremities and 5 out of 5 in bilateral lower extremities, deep tendon reflexes normal bilaterally. ASSESSMENT AND PLAN: 1. Osteomyelitis of the left fifth toe with plan for transmetatarsal amputation. Consult with vascular surgeon appreciated. Continue patient on IV vancomycin. Consult with ID appreciated. 2. Coronary artery disease status post coronary artery bypass graft 3 continue patient on Clopidogrel 75 mg daily, atorvastatin 10 mg at bedtime. 5. Hypertension and hypertensive cardiovascular disease. Patient is currently hypotensive and has been maintained on midodrine 5 mg 3 times daily. 6. Mixed hyperlipidemia. Continue simvastatin 20 mg bedtime. 7. Diabetes mellitus type 2. Continue glimepiride 2 mg orally twice daily, NovoLog scale before meals and at bedtime. 8. Diabetic polyneuropathy. Continue gabapentin 300 mg orally twice every day. 9. Depression. 10. Anxiety disorder. Continue patient on Klonopin 1 mg orally bedtime. 11. History of gout. Continue Allopurinol 300 mg orally once daily. 12. History of pancreatic cancer status post the procedure. Continue Creon. 13. Metastatic melanoma currently under the care of Dr. Eason. 14. DVT prophylaxis. Heparin 5000 units subcutaneously every 12 hours. 15. GI prophylaxis. Continue PPI. 16. Full code. 17. PT/OT evaluation and recommendations for subacute rehab. Social work consult. Impression and plan of care have been directed as dictated by the signing physician. Paola Wilkinson nurse practitioner acting as scribe for signing physician. Objective - Vital Signs Vital signs: Vital Signs Temp 98.0 F 08/16/23 07:20 Pulse 55 L 08/16/23 12:30 Resp 16 08/16/23 08:00 BP 118/56 08/16/23 12:30 Pulse Ox 98 08/16/23 12:30 FiO2 Intake & Output 08/15/23 08/16/23 08/16/23 18:59 06:59 18:59 Intake Total 180 238 Balance 180 238 Intake: Oral 180 238 Other: Voiding Method Toilet Toilet Toilet # Voids 3 1 # Bowel Movements 1 - Labs CBC & Chem 7: 08/17/23 05:40 08/17/23 05:40 Labs: Abnormal Lab Results - Last 24 Hours (Table) 08/16/23 08/16/23 08/16/23 Range/Units 05:24 05:24 12:03 WBC 4.01 L (4.50-10.00) X 10*3/uL RBC 2.47 L (4.40-5.60) X 10*6/uL Hgb 7.2 L (13.0-17.0) d/dL Hct 23.7 L (39.6-50.0) % MCHC 30.4 L (32.0-37.0) d/dL RDW 17.0 H (11.5-14.5) % ESR 36 H (0-20) mm/Hr POC Glucose (mg/dL) 172 H (70-110) mg/dL Calcium 7.9 L (8.7-10.3) mg/dL C-Reactive Protein 1.50 H (0.00-0.80) mg/dL Microbiology - Last 24 Hours (Table) 08/13/23 20:00 Gram Stain - Final Foot - Left Wound Culture - Final Methicillin resist S. aureus 08/13/23 18:19 Blood Culture - Preliminary Blood 08/13/23 18:34 Blood Culture - Preliminary Blood
--- NOTE | 2023-08-18 12:23 | P.PN ---
Subjective Progress Note Date: 08/17/23 HISTORY OF PRESENT ILLNESS: This is an 82-year-old male previous medical history significant for coronary artery disease status post coronary artery bypass graft using the WHEELER and RICA 2000, hypertension and hypertensive cardiovascular disease, hyperlipidemia, history of pancreatic cancer, as well as metastatic melanoma to the care of hematology oncology, gout, chronic alcohol use and dependence, diabetes mellitus type 2, diabetic polyneuropathy. Patient had a recent hospitalization in June which time he was treated for syncope likely vasovagal/orthostatic hypotension and alcohol intoxication. He sustained a scalp laceration at that time and was discharged to [facility] for subacute rehab. Patient has been subsequently discharged home and presented to the hospital on 08/13 due to ulceration to the left foot lateral border at the base of the fifth toe secondary to ill fitting shoe complicated by diabetic neuropathy. Patient was admitted to the medical floor and has been seen by vascular surgery with plan for transmetatarsal amputation next week. Plan was for patient to be discharged in time to follow-up in the office on to make arrangements for surgery next week. Patient has also been seen and followed by Dr. De La Fuente and maintained on IV antibiotics with vancomycin. Wound culture is positive for MRSA. Patient has been afebrile, heart rate in the 60s, blood pressure 145/76, pulse ox 94% on room air. WBC 4.0, hemoglobin 7.2, platelet count 203. Sed rate 36. Electrolytes and renal function normal. Blood sugar 110. CBG running 147-172. 08/17: Patient denies any new complaints. He has been seen by social work and working on discharge planning for subacute rehab for IV antibiotics until his surgery is scheduled for next week. Vital signs have been stable. Repeat blood work reveals WBC 3.8, hemoglobin 7.9 and platelet count 217. Hemoglobin A1c 6.7. Vancomycin trough is being monitored. PICC line will be ordered for outpatient IV antibiotics REVIEW OF SYSTEMS: Constitutional: No documented fever, no chills, no night sweats. No weight change. No weakness, fatigue or lethargy. No daytime sleepiness. HEENT: No headache. No blurred vision or double vision, no loss of vision. loss of Hearing, no ringing in the ears, positive for dizziness. No nasal drainage or congestion. No epistaxis. No sore throat. Lungs: No shortness of breath, no cough, no sputum production. No wheezing. Reports dyspnea with activity. Cardiovascular: No chest pain, no lower extremity edema. No palpitations. No paroxysmal nocturnal dyspnea. No orthopnea. No lightheadedness or dizziness. No syncopal episodes. Abdominal: Reports no abdominal pain. No nausea, vomiting. chronic diarrhea. No constipation. No bloody or tarry stools reports loss of appetite. Genitourinary: No dysuria, increased frequency, urgency. No urinary retention. Musculoskeletal: No myalgias. positive for muscle weakness, positive for gait dysfunction, frequent falls. No back pain. positive for neck pain. Integumentary: Left foot wound, no lesions. No rash or pruritus. scalp bruising. Neurologic: No aphasia. No facial droop. No change in mentation. positive for head injury. No headache. No paralysis. No paresthesia, positive for dizziness Psychiatric: positive for depression. positive for anxiety. No mood swings. Endocrine: Mildly abnormal blood sugars. No weight change. PHYSICAL EXAMINATION: General: 82-year-old male lying down in bed in no distress HEENT: Head nontraumatic, normocephalic, pupils were equal round reactive to light and recommendation, extraocular muscle movement were intact, sclera nonicteric, conjunctivae were pale, mucous membranes of the mouth are somewhat dry. Neck: Supple, no JVP, normal carotid upstroke bilaterally, no lymphadenopathy. Chest: Decreased breath sounds at the bases, few rhonchi, no expiratory wheezes, no chest wall tenderness, no intercostal retractions. Heart: First heart sound is normal, second heart sound is normal there is ERNST 2/6 located a the left sternal border Abdomen: Soft, nontender, nondistended, positive bowel sounds. Extremities: There is no edema no calf tenderness DP +1 bilaterally, amputation of the left big and second toes with neuropathic changes in both feet, wound to the left lateral foot at the base of the fifth toe. Neurologic examination: Patient is awake alert and oriented X3 , cranial nerves II-12 appear grossly intact, muscle power were 5 out of 5 in upper extremities and 5 out of 5 in bilateral lower extremities, deep tendon reflexes normal b ilaterally. ASSESSMENT AND PLAN: 1. Osteomyelitis of the left fifth toe with plan for transmetatarsal amputation. Consult with vascular surgeon appreciated. Continue patient on IV vancomycin. Consult with ID appreciated. PICC line ordered for outpatient IV antibiotics 2. Coronary artery disease status post coronary artery bypass graft 3 continue patient on Clopidogrel 75 mg daily, atorvastatin 10 mg at bedtime. 5. Hypertension and hypertensive cardiovascular disease. Patient is currently hypotensive and has been maintained on midodrine 5 mg 3 times daily. 6. Mixed hyperlipidemia. Continue simvastatin 20 mg bedtime. 7. Diabetes mellitus type 2. Continue glimepiride 2 mg orally twice daily, NovoLog scale before meals and at bedtime. 8. Diabetic polyneuropathy. Continue gabapentin 300 mg orally twice every day. 9. Depression. 10. Anxiety disorder. Continue patient on Klonopin 1 mg orally bedtime. 11. History of gout. Continue Allopurinol 300 mg orally once daily. 12. History of pancreatic cancer status post the procedure. Continue Creon. 13. Metastatic melanoma currently under the care of Dr. Eason. 14. DVT prophylaxis. Heparin 5000 units subcutaneously every 12 hours. 15. GI prophylaxis. Continue PPI. 16. Full code. 17. PT/OT evaluation and recommendations for subacute rehab. Social work consult. Plan for discharge on Wednesday the patient will have follow-up with vascular surgery to schedule surgery next week. Impression and plan of care have been directed as dictated by the signing physician. Paola Wilkinson nurse practitioner acting as scribe for signing physician. Objective - Vital Signs Vital signs: Vital Signs Temp 97.8 F 08/17/23 07:00 Pulse 116 H 08/17/23 07:00 Resp 16 08/17/23 07:00 BP 111/51 08/17/23 07:00 Pulse Ox 97 08/17/23 07:00 FiO2 Intake & Output 08/16/23 08/17/23 08/17/23 18:59 06:59 18:59 Intake Total 356 478 Balance 356 478 Intake: Oral 356 478 Other: Voiding Method Toilet Toilet Toilet # Voids 3 1 # Bowel Movements 3 - Labs CBC & Chem 7: 08/17/23 05:40 08/17/23 05:40 Labs: Abnormal Lab Results - Last 24 Hours (Table) 08/16/23 08/16/23 08/17/23 Range/Units 17:13 22:18 05:40 WBC (4.50-10.00) X 10*3/uL RBC (4.40-5.60) X 10*6/uL Hgb (13.0-17.0) d/dL Hct (39.6-50.0) % MCHC (32.0-37.0) d/dL RDW (11.5-14.5) % Creatinine (0.66-1.25) mg/dL POC Glucose (mg/dL) 168 H 147 H (70-110) mg/dL Hemoglobin A1c 6.7 H (<=6.0) % 08/17/23 08/17/23 08/17/23 Range/Units 05:40 05:40 12:15 WBC 3.89 L (4.50-10.00) X 10*3/uL RBC 2.67 L (4.40-5.60) X 10*6/uL Hgb 7.9 L (13.0-17.0) d/dL Hct 25.5 L (39.6-50.0) % MCHC 31.0 L (32.0-37.0) d/dL RDW 17.0 H (11.5-14.5) % Creatinine 0.54 L (0.66-1.25) mg/dL POC Glucose (mg/dL) 119 H (70-110) mg/dL Hemoglobin A1c (<=6.0) % Microbiology - Last 24 Hours (Table) 08/13/23 20:00 Anaerobic Culture - Preliminary Foot - Left Anaerobic Gm Negative Bacilli 08/13/23 20:00 Gram Stain - Final Foot - Left Wound Culture - Final Methicillin resist S. aureus 08/13/23 18:19 Blood Culture - Preliminary Blood 08/13/23 18:34 Blood Culture - Preliminary Blood
[2023-08-18 12:28] LABS: Glucose,Whole Blood 184 mg/dL (70-110)
--- NOTE | 2023-08-18 12:35 | P.DS ---
Providers Date of admission: 08/16/23 11:05 Expected date of discharge: 08/18/23 Attending physician: Ranjana Covarrubias Consults: 08/13/23 21:39 Consult Physician Urgent Consulting Provider: Marcos De La Fuente Consult Reason/Comments: chroninc l foot wound, cellulitis, r/o osteo Do you want consulting provider notified?: Yes 08/15/23 07:46 Consult Physician Routine Consulting Provider: Kristina Mcconnell Consult Reason/Comments: L 5th toe osteomyelitis Do you want consulting provider notified?: Yes Primary care physician: Ranjana Covarrubias Hospital Course: HISTORY OF PRESENT ILLNESS: This is an 82-year-old male previous medical history significant for coronary artery disease status post coronary artery bypass graft using the WHEELER and RICA 2000, hypertension and hypertensive cardiovascular disease, hyperlipidemia, history of pancreatic cancer, as well as metastatic melanoma to the care of hematology oncology, gout, chronic alcohol use and dependence, diabetes mellitus type 2, diabetic polyneuropathy. Patient had a recent hospitalization in June which time he was treated for syncope likely vasovagal/orthostatic hypotension and alcohol intoxication. He sustained a scalp laceration at that time and was discharged to [facility] for subacute rehab. Patient has been subsequently discharged home and presented to the hospital on 08/13 due to ulceration to the left foot lateral border at the base of the fifth toe secondary to ill fitting shoe complicated by diabetic neuropathy. Patient was admitted to the medical floor and has been seen by vascular surgery with plan for transmetatarsal amputation next week. Plan was for patient to be discharged in time to follow-up in the office on to make arrangements for surgery next week. Patient has also been seen and followed by Dr. De La Fuente and maintained on IV antibiotics with vancomycin. Wound culture is positive for MRSA. Patient has been afebrile, heart rate in the 60s, blood pressure 145/76, pulse ox 94% on room air. WBC 4.0, hemoglobin 7.2, platelet count 203. Sed rate 36. Electrolytes and renal function normal. Blood sugar 110. CBG running 147-172. 08/17: Patient denies any new complaints. He has been seen by social work and working on discharge planning for subacute rehab for IV antibiotics until his surgery is scheduled for next week. Vital signs have been stable. Repeat blood work reveals WBC 3.8, hemoglobin 7.9 and platelet count 217. Hemoglobin A1c 6.7. Vancomycin trough is being monitored. PICC line will be ordered for outpatient IV antibiotics 08/18: Patient had PICC line insertion completed this morning. He remains afebrile, heart rate 84, blood pressure 118/58 and pulse ox 96% on room air. Patient has been accepted at [facility] for subacute rehab, IV antibiotic therapy. Patient will be discharged today once all arrangements are completed. DISCHARGE DIAGNOSES: 1. Osteomyelitis of the left fifth toe with plan for transmetatarsal amputation. 2. Coronary artery disease status post coronary artery bypass graft 3. 3. Hypertension and hypertensive cardiovascular disease. 4. Mixed hyperlipidemia. 5. Diabetes mellitus type 2. 6. Diabetic polyneuropathy. 7. Depression. 8. Generalized Anxiety disorder. 9. History of gout. 10. History of pancreatic cancer status post the procedure. 11. Metastatic melanoma currently under the care of Dr. Eason. Plan for discharge on Wednesday the patient will have follow-up with vascular surgery to schedule surgery next week. Greater than 35 minutes was utilized and coordinating patient's discharge. Impression and plan of care have been directed as dictated by the signing physician. Paola Wilkinson nurse practitioner acting as scribe for signing physician. Patient Condition at Discharge: Good Plan - Discharge Summary Discharge Rx Participant: No New Discharge Prescriptions: New Vancomycin 1,500 mg IVPB Q12H each Continue allopurinoL [Zyloprim] 300 mg PO DAILY Omeprazole [PriLOSEC] 20 mg PO DAILY Glimepiride [Amaryl] 2 mg PO BID Lipase/Protease/Amylase [Shantel Verma 24,000 Unit Capsule] 1 cap PO ACHS icosapent ethyL [Icosapent Ethyl] 2 gm PO BID-W/MEALS Acetaminophen-Codeine 300-30mg [Tylenol w/codeine #3] 1 tab PO TID PRN #9 tab PRN Reason: Pain LORazepam [Ativan] 0.5 mg PO HS PRN #3 tab PRN Reason: wakes up in middle of night Simvastatin [Zocor] 20 mg PO HS Clopidogrel Bisulfate [Plavix] 75 mg PO DAILY Midodrine [ProAmatine] 5 mg PO AC-TID tab Acetaminophen Tab [Tylenol] 650 mg PO Q6HR PRN tab PRN Reason: Mild Pain Or Fever > 100.5 Potassium(Unknown Dose) 1 tab PO DIRECTED clonazePAM [KlonoPIN] 1 mg PO HS Furosemide [Lasix] 40 mg PO DIRECTED Gabapentin 300 mg PO BID #6 cap Discharge Medication List allopurinoL [Zyloprim] 300 mg PO DAILY 10/26/14 [History] Glimepiride [Amaryl] 2 mg PO BID 06/03/18 [History] Omeprazole [PriLOSEC] 20 mg PO DAILY 06/03/18 [History] Clopidogrel Bisulfate [Plavix] 75 mg PO DAILY 02/26/21 [History] Lipase/Protease/Amylase [Creon Dr 24,000 Unit Capsule] 1 cap PO ACHS 02/26/21 [History] Simvastatin [Zocor] 20 mg PO HS 02/26/21 [History] icosapent ethyL [Icosapent Ethyl] 2 gm PO BID-W/MEALS 11/25/21 [History] Acetaminophen Tab [Tylenol] 650 mg PO Q6HR PRN tab 07/14/23 [Rx] Midodrine [ProAmatine] 5 mg PO AC-TID tab 07/14/23 [Rx] Furosemide [Lasix] 40 mg PO DIRECTED 08/13/23 [History] Potassium(Unknown Dose) 1 tab PO DIRECTED 08/13/23 [History] clonazePAM [KlonoPIN] 1 mg PO HS 08/13/23 [History] Acetaminophen-Codeine 300-30mg [Tylenol w/codeine #3] 1 tab PO TID PRN #9 tab 08/18/23 [Rx] Gabapentin 300 mg PO BID #6 cap 08/18/23 [Rx] LORazepam [Ativan] 0.5 mg PO HS PRN #3 tab 08/18/23 [Rx] Vancomycin 1,500 mg IVPB Q12H each 08/18/23 [Rx] Follow up Appointment(s)/Referral(s): Ranjana Covarrubias MD [Primary Care Provider] - 1-2 days Tristin Estevez DO [Doctor of Osteopathic Medicine] - 08/19/23 9:00 am Discharge Disposition: TRANSFER TO SNF/ECF
--- NOTE | 2023-08-18 12:45 | P.PN ---
Subjective Progress Note Date: 08/18/23 Principal diagnosis: Left diabetic foot/osteomyelitis Patient is a 82-year-old male with a past medical history significant for diabetes mellitus hypertension hyperlipidemia coronary artery disease previous history of diabetic foot infection requiring amputation of the left first and second toe patient subsequently developing an ulceration to the left foot lateral border at the base of the fifth toe secondary to the ill fitting shoe, now presented to hospital with worsening infection to the left foot abnormal x-ray suggestive of osteomyelitis On today's evaluation and that is 08/18/2023, the patient continues to be afebrile , the patient is breathing comfortably on room air and denies any shortness of breath, the patient denies any chest pain and no cough or sputum production, patient denies abdominal pain and no nausea/vomiting or diarrhea , patient denies pain to the left foot, feeling better no new symptoms patient did have a white count of 3.89, creatinine is 0.54 as of yesterday no lab drawn today, local cultures growing MRSA Objective - Vital Signs Vital signs: Vital Signs Temp 97.8 F 08/18/23 08:00 Pulse 84 08/18/23 08:00 Resp 16 08/18/23 08:00 BP 118/58 08/18/23 08:00 Pulse Ox 96 08/18/23 08:00 FiO2 Intake & Output 08/17/23 08/18/23 08/18/23 18:59 06:59 18:59 Intake Total 596 Balance 596 Intake: Oral 596 Other: Voiding Method Toilet Toilet # Voids 2 2 - Exam GENERAL DESCRIPTION: An elderly male up in the chair in no distress RESPIRATORY SYSTEM: Unlabored breathing , clear to auscultation anteriorly HEART: S1 S2 regular rate and rhythm , ABDOMEN: Soft , no tenderness EXTREMITIES: Left foot let him order wound at the base of the fifth toe did have some surrounding swelling and minimal redness or foul-smelling drainage - Labs CBC & Chem 7: 08/17/23 05:40 08/17/23 05:40 Labs: Abnormal Lab Results - Last 24 Hours (Table) 08/17/23 08/17/23 08/17/23 Range/Units 12:15 17:13 20:49 POC Glucose (mg/dL) 119 H 163 H 111 H (70-110) mg/dL 08/18/23 Range/Units 06:04 POC Glucose (mg/dL) 129 H (70-110) mg/dL Microbiology - Last 24 Hours (Table) 08/13/23 20:00 Anaerobic Culture - Preliminary Foot - Left Anaerobic Gm Negative Bacilli 08/13/23 20:00 Gram Stain - Final Foot - Left Wound Culture - Final Methicillin resist S. aureus Assessment and Plan (1) Foot osteomyelitis, left Current Visit: Yes Status: Acute Code(s): M86.9 - OSTEOMYELITIS, UNSPECIFIED SNOMED Code(s): 0380282118207017 (2) Diabetic foot ulcer associated with type 2 diabetes mellitus Current Visit: No Status: Acute Code(s): E11.621 - TYPE 2 DIABETES MELLITUS WITH FOOT ULCER SNOMED Code(s): 4594174201098 (3) Diabetic foot ulcer with osteomyelitis Current Visit: No Status: Acute Code(s): E11.621 - TYPE 2 DIABETES MELLITUS WITH FOOT ULCER SNOMED Code(s): 415003390 (4) MRSA (methicillin resistant staph aureus) culture positive Current Visit: Yes Status: Acute Code(s): Z22.322 - CARRIER OR SUSPECTED CARRIER OF METHICILLIN RESIS STAPH SNOMED Code(s): 872713473 Plan: 1patient presented to hospital with left diabetic foot ulcer and cellulitis at the base of the left fifth toe with abnormal x-ray of the foot at that location high clinical suspicious for osteomyelitis patient did have a history of MRSA infection could be related to MRSA versus gram-negative 2-patient has been evaluated by vascular surgery recommending amputation however plan to do it as an outpatient 3-Patient local cultures are growing MRSA, patient did contact PICC line for outpatient IV vancomycin to continue till the surgery for infected part is done multiple questions and concerns were answered Dictation was produced using [employer] software. please excuse any grammatical, word or spelling errors. Time with Patient: Less than 30
[2023-08-18 13:00] VITALS: PULSE 87
[2023-08-18 17:28] LABS: Glucose,Whole Blood 80 mg/dL (70-110)
[2023-08-18 17:55] VITALS: BP 136/75
== END 2023-08-18 18:31 | DRG 638 ==
LOC: EC 14:43 → 6NMEDSUR 21:25 → OBSVTOIN 08-16 11:05
PROVIDERS: ADMIT Internal Medicine; ATTEND Internal Medicine
PROC: 02HV33Z Insertion of Infusion Device into Superior Vena Cava, Percutaneous Approach (ICD-10-PCS; principal; 2023-08-18 07:30)
DX: E11.69 Type 2 diabetes mellitus with other specified complication (principal); C79.9 Secondary malignant neoplasm of unspecified site; L03.116 Cellulitis of left lower limb; M86.9 Osteomyelitis, unspecified; E11.621 Type 2 diabetes mellitus with foot ulcer; E11.610 Type 2 diabetes mellitus with diabetic neuropathic arthropathy; E11.628 Type 2 diabetes mellitus with other skin complications; E78.2 Mixed hyperlipidemia; E11.42 Type 2 diabetes mellitus with diabetic polyneuropathy; F32.A Depression, unspecified; F41.1 Generalized anxiety disorder; I11.9 Hypertensive heart disease without heart failure; I25.10 Atherosclerotic heart disease of native coronary artery without angina pectoris; M19.90 Unspecified osteoarthritis, unspecified site; K21.9 Gastro-esophageal reflux disease without esophagitis; L97.529 Non-pressure chronic ulcer of other part of left foot with unspecified severity; M1A.9XX0 Chronic gout, unspecified, without tophus (tophi); C43.9 Malignant melanoma of skin, unspecified; Z11.52 Encounter for screening for COVID-19; Z79.02 Long term (current) use of antithrombotics/antiplatelets; Z79.84 Long term (current) use of oral hypoglycemic drugs; Z79.899 Other long term (current) drug therapy; Z85.07 Personal history of malignant neoplasm of pancreas; Z86.14 Personal history of Methicillin resistant Staphylococcus aureus infection; Z90.411 Acquired partial absence of pancreas; Z95.1 Presence of aortocoronary bypass graft; Z71.3 Dietary counseling and surveillance; Z91.81 History of falling
CPT/HCPCS: 36415; 36573; 80048; 80053; 80202; 82565; 83036; 83605; 85025; 85027; 85610; 85652; 86140; 87040; 87070; 87075; 87077; 87186; 87205; 87636; 96365; 96366; 99284

== ENCOUNTER 2023-09-27 10:01 | Inpatient (IN) | payer MEDICARE, OTHER ==
[~2023-09-27 10:01] MED LIST changes: +HYDROmorphone 0.5 MG/0.5 ML SYRINGE IVP PRN; +LACTATED RINGERS 1,000 ML IV SCH; +LIDOCAINE 1% (10MG/ML) FOR IV START INTRADERMA PRN; +ONDANSETRON 4 MG/2 ML VIAL IVP ONE; -REGADENOSON 0.4 MG/5 ML SYRINGE IV PRN
[2023-09-27 11:22] LABS: Glucose,Whole Blood 182 mg/dL (70-110)
[2023-09-27 11:34] LABS: Anisocytosis Slight; HGB 8.7 gm/dL (13.0-17.5); Hypochromasia Marked; MCH 24.5 pg (25.0-35.0); Mean Platelet Volume 8.3; Microcytosis Slight; Platelet Count 205 k/uL (150-450); RBC 3.54 m/uL (4.30-5.90); RDW 18.3 % (11.5-15.5); WBC 4.6 k/uL (3.8-10.6)
[2023-09-27] MEDS ORDERED: fentaNYL (PF) 50 MCG/ML 2 ML AMP ONE (12:43)
[2023-09-27] MEDS ORDERED: LIDOCAINE 1% INJ 10MG/ML (20 ML MDV) ONE (12:43)
[2023-09-27] MEDS ORDERED: HYDROmorphone (PF) 1 MG/ML ONE (12:43)
[2023-09-27] MEDS ORDERED: PROPOFOL 10 MG/ML 20 ML VIAL IV ONE (12:43)
[2023-09-27] MEDS ORDERED: PHENYLEPHRINE-0.9% NACL SYG 1,000 MCG/10 ML SYRINGE ONE (12:43)
[2023-09-27] MEDS ORDERED: ceFAZolin 4,000 MG in SODIUM CHLORIDE 0.9% 1,000 ML IRRIGATION ONE (12:48)
[2023-09-27 13:54] LABS: Eosinophils # (M) 0.23 k/uL (0-0.7); Lymphocytes # (M) 1.15 k/uL (1.0-4.8); Neutrophils # (M) 2.62 k/uL (1.3-7.7); Neutrophils % (M) 57 %; Nucleated Red Blood Cells 0 /100 WBC (0-0); Total Cells Counted 100
[2023-09-27 14:58] LABS: Glucose,Whole Blood 103 mg/dL (70-110)
--- NOTE | 2023-09-27 14:59 | P.OP ---
Date of Procedure: 09/27/23 Preoperative Diagnosis: Nonhealing ulceration plantar surface left foot. Postoperative Diagnosis: Same. Procedure(s) Performed: Transmetatarsal amputation left foot. Implants: None. Anesthesia: GETA Surgeon: Tristin Estevez Estimated Blood Loss (ml): 200 Urine output (ml): 0 Pathology: other (Transmetatarsal amputation left foot) Condition: stable Disposition: floor Indications for Procedure: Patient is an 82-year-old male status post left great and fifth toe amputation who had presented with a nonhealing ulceration on the plantar surface of foot. This had been treated as an outpatient however failed to respond. Patient demonstrated adequate arterial perfusion was felt to this wound was secondary to small vessel disease. Owing to his location was felt the patient would benefit from a transmetatarsal amputation with the eventual goal of full laboratory status. The procedure, risk and benefits were discussed with patient. Patient wished to proceed. Description of Procedure: Patient brought the upper and placed in the supine position Mr. general endotracheal anesthesia administered by the department anesthesiology. Patient's left lower extremity sterilely prepped and draped in usual manner. A 3 x 3.5 cm nonhealing ulceration on the plantar surface at the base of the third metatarsal was identified. Skin incision was made on the dorsum of the foot and carried both medially and laterally. It was then carried posteriorly to allow for appropriate flap to occur. The incision was deepened through subcu change tissues. Abundant bleeding was encountered. This was controlled electrocautery. Utilizing a power saw the metatarsals were transected and sent to the department of pathology. Bleeding was controlled electrocautery. The tendons were taken back as far as possible on the R surface. Good soft tissue remained. The posterior flap was lifted anteriorly and reached the anterior incision. The wound was irrigated and then closed with 2-0 Vicryl at the fascial level and 3-0 nylon for skin approximation utilizing vertical mattress form. Proper dressings were applied. Patient tolerated the procedure well and was taken to the recovery area satisfactory and stable condition.
[2023-09-27] MEDS ORDERED: Acetaminophen-Codeine 300-30mg TAB PO PRN (15:01)
[2023-09-27] MEDS ORDERED: ACETAMINOPHEN TAB 325 MG TAB PO PRN (15:01)
[2023-09-27 17:18] LABS: Glucose,Whole Blood 114 mg/dL (70-110)
[2023-09-27] MEDS ORDERED: DEXTROSE 50% SYRINGE 50 ML IVP PRN ×2 (18:26)
[2023-09-27] MEDS: PATIENT'S OWN (Icosapent Ethyl [Icosapent Ethyl] 1 GM Capsule) PO SCH (18:38)
[2023-09-27] MEDS: MIDODRINE 5 MG TAB PO SCH (18:39)
[2023-09-27] MEDS: oxyCODONE-APAP 7.5-325MG 1 EACH TAB PO PRN (18:39)
[2023-09-27] MEDS: LIPASE 20,000/PROTEASE 63,000/AMYLASE 84,000 PO SCH ×2 (18:39→20:58)
[2023-09-27 20:24] LABS: Glucose,Whole Blood 154 mg/dL (70-110)
[2023-09-27] MEDS: clonazePAM 1 MG TAB PO SCH (21:41)
[2023-09-27] MEDS: GLIMEPIRIDE 1 MG TAB PO SCH (21:41)
[2023-09-27] MEDS: ATORVASTATIN 20 MG TAB PO SCH (21:41)
[2023-09-27] MEDS: GABAPENTIN 300 MG CAP PO SCH (21:41)
[2023-09-27] MEDS: INSULIN ASPART (NovoLOG) 100 UNIT/ML VIAL SQ SCH (21:42)
[2023-09-27] MEDS: INSULIN DETEMIR (LEVEMIR) 100 UNIT/ML SYR SQ SCH (21:42)
[2023-09-27] MEDS: SODIUM CHLORIDE 0.9% 1,000 ML IV SCH (21:59)
[2023-09-28] MEDS: oxyCODONE-APAP 7.5-325MG 1 EACH TAB PO PRN ×3 (00:18→23:21)
[2023-09-28 00:32] LABS: Glucose,Whole Blood 248 mg/dL (70-110)
--- NOTE | 2023-09-28 07:54 | P.PN ---
Subjective Progress Note Date: 09/28/23 Principal diagnosis: Transmetatarsal amputation Patient is seen and examined today as a follow-up. She is postop day #1 for transmetatarsal amputation.. He is overall doing very well. He is sitting up in the recliner. She is scheduled to be evaluated today by physical therapy. Dressing is clean dry and intact with Abdoul wrap. Pain has been well managed. Objective - Vital Signs Vital signs: Vital Signs Temp 97.3 F L 09/28/23 01:50 Pulse 87 09/28/23 01:50 Resp 17 09/28/23 01:50 BP 101/59 09/28/23 01:50 Pulse Ox 97 09/28/23 01:50 FiO2 Intake & Output 09/27/23 09/28/23 09/28/23 18:59 06:59 18:59 Intake Total 1101 Output Total 550 425 Balance 551 -425 Weight 80.2 kg Intake: IV 1101 Output: Urine 350 425 Estimated Blood Loss 200 Other: Voiding Method Urinal - Exam General appearance: The patient is alert, oriented, appears in no acute distress. HET: Head is normocephalic and atraumatic. Neck: Supple. Heart: Regular. Lungs: Equal expansion, normal respiratory effort. Abdomen: Soft, nondistended. Extremities: Left TMA with dressing clean dry and intact. Lower extremity swe lling Neurological: No focal deficits. Strength and sensation are grossly intact. - Labs CBC & Chem 7: 09/27/23 11:19 Labs: Abnormal Lab Results - Last 24 Hours (Table) 09/27/23 09/27/23 09/27/23 Range/Units 11:18 11:19 17:17 RBC 3.54 L (4.30-5.90) m/uL Hgb 8.7 L (13.0-17.5) gm/dL Hct 28.0 L (39.0-53.0) % MCV 79.0 L (80.0-100.0) fL MCH 24.5 L (25.0-35.0) pg RDW 18.3 H (11.5-15.5) % POC Glucose (mg/dL) 182 H 114 H (70-110) mg/dL 09/27/23 09/28/23 Range/Units 20:22 00:28 RBC (4.30-5.90) m/uL Hgb (13.0-17.5) gm/dL Hct (39.0-53.0) % MCV (80.0-100.0) fL MCH (25.0-35.0) pg RDW (11.5-15.5) % POC Glucose (mg/dL) 154 H 248 H (70-110) mg/dL Assessment and Plan Assessment: 1. Postop day #1 for left transmetatarsal amputation 2. Nonhealing ulcer to plantar surface of the left foot 3. Diabetes mellitus Plan: 1. Physical therapy on consult, appreciate their recommendations 2. Postop shoe ordered please have patient wear when ambulating 3. Offload weight to left forefoot, heel walk only 4. Plan for dressing change postop day #2 unless patient is being discharged today. 5. Patient is cleared for discharge from vascular surgery if patient has placement in ECF. Thank you for this consultation, we will continue to follow. The impression and plan of care has been dictated as directed. I performed a history and examination of this patient, discussed the same with the dictator. I agree with the dictator's note ,documented as a scribe. Any additional findings or plans will be noted.
[2023-09-28 08:08] LABS: Glucose,Whole Blood 106 mg/dL (70-110)
[2023-09-28] MEDS: INSULIN ASPART (NovoLOG) 100 UNIT/ML VIAL SQ SCH ×4 (08:14→21:13)
[2023-09-28] MEDS: PATIENT'S OWN (Icosapent Ethyl [Icosapent Ethyl] 1 GM Capsule) PO SCH ×2 (08:14→16:11)
[2023-09-28] MEDS ORDERED: POTASSIUM CHLORIDE ER 20 MEQ TAB.ER PO SCH (09:00)
[2023-09-28] MEDS ORDERED: FUROSEMIDE 40 MG TAB PO SCH (09:00)
[2023-09-28] MEDS: CLOPIDOGREL 75 MG TAB PO SCH (09:08)
[2023-09-28] MEDS: allopurinoL 300 MG TAB PO SCH (09:08)
[2023-09-28] MEDS: LIPASE 20,000/PROTEASE 63,000/AMYLASE 84,000 PO SCH ×4 (09:08→21:15)
[2023-09-28] MEDS: MIDODRINE 5 MG TAB PO SCH ×3 (09:08→17:59)
[2023-09-28] MEDS: MULTIVITAMINS, THERA 1 EACH TAB PO SCH (09:09)
[2023-09-28] MEDS: PANTOPRAZOLE 40 MG TABLET PO SCH (09:09)
[2023-09-28] MEDS: GLIMEPIRIDE 1 MG TAB PO SCH ×2 (09:09→21:14)
[2023-09-28] MEDS: GABAPENTIN 300 MG CAP PO SCH ×2 (09:09→21:14)
[2023-09-28] MEDS: ENOXAPARIN 40 MG/0.4 ML SYRINGE SQ SCH (09:09)
[2023-09-28 11:07] LABS: Basophils # (A) 0.02 X 10*3/uL (0.00-0.10); Basophils % (A) 0.4 %; Eosinophils # (A) 0.26 X 10*3/uL (0.04-0.35); Eosinophils % (A) 4.9 %; HCT 24.7 % (39.6-50.0); HGB 7.2 g/dL (13.0-17.0); Lymphocytes # (A) 1.98 X 10*3/uL (0.90-5.00); Lymphocytes % (A) 37.1 %; MCH 23.7 pg (27.0-32.0); MCHC 29.1 g/dL (32.0-37.0); MCV 81.3 FL (80.0-97.0); Mean Platelet Volume 9.7 FL (9.5-12.2); Monocytes # (A) 0.84 X 10*3/uL (0.20-1.00); Monocytes % (A) 15.8 %; NRBC Per 100 WBC 0 X 10*3/uL (0.00-0.01); Neutrophils # (A) 2.22 X 10*3/uL (1.80-7.70); Neutrophils % (A) 41.6 %; Platelet Count 199 X 10*3/uL (140-440); RBC 3.04 X 10*6/uL (4.40-5.60); RDW 19.1 % (11.5-14.5); WBC 5.33 X 10*3/uL (4.50-10.00)
[2023-09-28 11:25] LABS: ALT 17 U/L (10-49); AST 21 U/L (14-35); Albumin 3.1 g/dL (3.8-4.9); Albumin/Globulin Ratio 1.35 Ratio (1.60-3.17); Alkaline Phosphatase 106 U/L (41-126); BUN/Creat Ratio 15.14 Ratio (12.00-20.00); Blood Urea Nitrogen 10.6 mg/dL (9.0-27.0); Calcium 7.9 mg/dL (8.7-10.3); Carbon Dioxide 23.7 mmol/L (21.6-31.8); Chloride 105 mmol/L (96-109); Globulin 2.3 g/dL (1.6-3.3); Glucose 108 mg/dL (70-110); Potassium 3.8 mmol/L (3.5-5.5); Sodium 139 mmol/L (135-145); Total Bilirubin 0.3 mg/dL (0.3-1.2); Total Protein 5.4 g/dL (6.2-8.2)
[2023-09-28 11:55] LABS: Glucose,Whole Blood 186 mg/dL (70-110)
[2023-09-28] MEDS: SODIUM CHLORIDE 0.9% 1,000 ML IV SCH (12:35)
[2023-09-28] MEDS: SODIUM FERRIC GLUCONAT-SUCROSE 125 MG in SODIUM CHLORIDE 0.9% 100 ML IVPB SCH (13:45)
[2023-09-28 17:19] LABS: Glucose,Whole Blood 233 mg/dL (70-110)
[2023-09-28 20:46] LABS: Glucose,Whole Blood 236 mg/dL (70-110)
[2023-09-28] MEDS: ATORVASTATIN 20 MG TAB PO SCH (21:14)
[2023-09-28] MEDS: clonazePAM 1 MG TAB PO SCH (21:14)
[2023-09-28] MEDS: INSULIN DETEMIR (LEVEMIR) 100 UNIT/ML SYR SQ SCH (21:20)
[2023-09-29 07:30] LABS: Glucose,Whole Blood 68 mg/dL (70-110)
--- NOTE | 2023-09-29 07:38 | P.HPIM ---
History of Present Illness H&P Date: 09/27/23 This is an 82-year-old male previous medical history significant for coronary artery disease status post coronary artery bypass graft using the WHEELER and RICA 2000, hypertension and hypertensive cardiovascular disease, hyperlipidemia, history of pancreatic cancer, as well as metastatic melanoma to the care of hematology oncology, gout, chronic alcohol use and dependence, diabetes mellitus type 2, diabetic polyneuropathy, patient presented to the emergency department at [facility] after he has had what appears to be syncopal episode likely related to orthostatic hypotension, apparently he had 2 glasses of [place] and sat at the patio and put is steak on the grill and slept apparently he stood up and lost his balance and went head first and he struck his head on the right side and he bled a lot apparently his caregiver came because his watch went off and found him in a pool of blood so 911 was called and patient was transported to [facility] ER had CT scan of the brain and cervical spine that showed scalp hematoma with no acute issues and 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 Echocardiogram reveals LV systolic function is preserved with normal in size and atypical septal motion, mild TR and mild MR. Orthostatic vital signs this morning are negative. patient was stabilized and discharged to [facility]haband was subsequently discharged to home. 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 Patient was diagnosed with osteomyelitis of the left. Toe with planned from vascular surgery for transmetatarsal amputation. Patient was also seen by infectious disease and was started on IV antibiotics discharged with a PICC line in place to complete a course of vancomycin. Patient has now been readmitted to the hospital for the transmetatarsal amputation which was performed and patient has had no postop complications. Patient is afebrile, heart rate 83, blood pressure 119/58, initially patient was on a simple mask 6 L with good pulse ox readings. WBC 4.6, hemoglobin 8.7, platelet count 205. Blood sugar 182. REVIEW OF SYSTEMS: Constitutional: No documented fever, no chills, no night sweats. No weight change. No weakness, fatigue or lethargy. No daytime sleepiness. HEENT: No headache. No blurred vision or double vision, no loss of vision. Chronin loss of Hearing, no ringing in the ears, no dizziness. No nasal drainage or congestion. No epistaxis. No sore throat. Lungs: No shortness of breath, no cough, no sputum production. No wheezing. Reports dyspnea with activity. Cardiovascular: No chest pain, no lower extremity edema. No palpitations. No paroxysmal nocturnal dyspnea. No orthopnea. No lightheadedness or dizziness. No syncopal episodes. Abdominal: Reports no abdominal pain. No nausea, vomiting. chronic diarrhea. No constipation. No bloody or tarry stools reports loss of appetite. Genitourinary: No dysuria, increased frequency, urgency. No urinary retention. Musculoskeletal: No myalgias. No muscle weakness, positive for gait dysfunction, frequent falls. No back pain. positive for neck pain. Integumentary: Left TMA, no lesions. No rash or pruritus. No change in hair or nails. Neurologic: No aphasia. No facial droop. No change in mentation. No head injury. No headache. No paralysis. No paresthesia, positive for dizziness Psychiatric: positive for depression. positive for anxiety. No mood swings. Endocrine: No abnormal blood sugars. No weight change. PAST MEDICAL HISTORY: Coronary artery disease status post coronary artery bypass graft 3 in 2000 Hypertension and hypertensive cardiovascular disease. Mixed hyperlipidemia. Malignant neoplasm of the pancreas. Metastatic melanoma. Idiopathic gout. Diabetes mellitus type 2. Diabetic Polyneuropathy. Chronic ETOH use Depression Anxiety Falls Chronic diarrhea PAST SURGICAL HISTORY: [facility] surgery 1970 CABG 3 with WHEELER and RICA 2000. Left foot great toe and next toe amputation. Right eye retinal detachment. Right arm triceps melanoma removed December 2017 Procedure 05/24/2019 Hemorrhoidectomy. Cataract surgery 2. Colonoscopy. Transmetatarsal amputation SOCIAL HISTORY: She used to smoke a pack every day since age of 12 at the age of 30, he drinks on a regular basis, lives alone. He denies any drug use or abuse. FAMILY HISTORY: Father at age 93 from dementia, mother at age of 78 from breast cancer patient has one daughter alive and well. PHYSICAL EXAMINATION: General: 82-year-old male lying down in bed in no distress HEENT: Head atraumatic, normocephalic, pupils were equal round reactive to light and recommendation, extraocular muscle movement were intact, sclera nonicteric, conjunctivae were pale, mucous membranes of the mouth are somewhat dry. Neck: Supple, no JVP, normal carotid upstroke bilaterally, no lymphadenopathy. Chest: Decreased breath sounds at the bases, few rhonchi, no expiratory wheezes, no chest wall tenderness, no intercostal retractions. Heart: First heart sound is normal, second heart sound is normal there is ERNST 2/6 located a the left sternal border Abdomen: Soft, nontender, nondistended, positive bowel sounds. Extremities: There is no edema no calf tenderness DP +1 right, amputation of the right big and second toes with neuropathic changes in both feet, transmetatarsal amputation left with dressing in place. Neurologic examination: Patient is awake alert and oriented X3 , cranial nerves II-12 appear grossly intact, muscle power were 5 out of 5 in upper extremities and 5 out of 5 in bilateral lower extremities, deep tendon reflexes normal bilaterally. ASSESSMENT AND PLAN: 1. Osteomyelitis of the left foot status post transmetatarsal amputation on 09/27. Continue current pain management, incentive spirometry to reduce incidence of atelectasis and hospital-acquired pneumonia, continue IV fluids. Activity and weightbearing per vascular surgery. 2. Coronary artery disease status post coronary artery bypass graft 3 continue patient on Clopidogrel 75 mg daily, 8. Atorvastatin 20 mg daily. patient is not on beta anand due to hypotension and bradycardia.. 3. Hypertension and hypertensive cardiovascular disease. patient will be resumed on Lasix 40 mg daily, continue midodrine 5 mg 3 times daily. 4. Mixed hyperlipidemia. Continue atorvastatin 20 mg bedtime. 5. Diabetes mellitus type 2. Continue glimepiride 2 mg orally twice every day. Monitor blood glucose before each meal and at bedtime. 6. Diabetic polyneuropathy. Continue gabapentin 300 mg orally twice every day. 7. Recurrent depression. Patient is off paroxetine 20 mg once every day. 8. Anxiety disorder. Continue patient on Klonopin 1 mg orally bedtime. 9. History of gout. Continue Allopurinol 300 mg orally once daily. 10. History of pancreatic cancer status post the procedure. Continue Creon. 11. Metastatic melanoma currently under the care of Dr. Eason with Im munotherapy 12. History of alcohol abuse. Continue abstinence from ETOH. 13. DVT prophylaxis. Lovenox 40 mg subcutaneously every 24 hours. 14. GI prophylaxis. Continue PPI. 15. Full code. 16. PT/OT evaluation Thank you kindly for this consultation we'll be happy to follow along with you during the patient's hospitalization. 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 Whipple Past Anesthesia/Blood Transfusion Reactions: No Reported Reaction Additional Psychological History / Comment(s): 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 He and his have completed a home in [facility] in which she was hoping to have is his final prison home. He has an adult daughter who will be coming to picker box operator her animals soon. He himself does not have any pets in the home. Past Alcohol Use History: Daily Additional Past Alcohol Use History / Comment(s): started smoking at age 12 smoke 1ppd quit cig 1965 swithced to pipe/cigar quit those 2001 - Past Family History Father Family Medical History: Dementia Additional Family Medical History / Comment(s): AT AGE 93 Mother Family Medical History: Cancer Additional Family Medical History / Comment(s): BREAST CANCER SURVIVER, AT AGE 86 Medications and Allergies Home Medications Medication Instructions Recorded Confirmed Type allopurinoL [Zyloprim] 300 mg PO DAILY 10/26/14 09/27/23 History Glimepiride [Amaryl] 2 mg PO BID 06/03/18 09/27/23 History Omeprazole [PriLOSEC] 20 mg PO DAILY 06/03/18 09/27/23 History Clopidogrel Bisulfate [Plavix] 75 mg PO DAILY 02/26/21 09/27/23 History Lipase/Protease/Amylase [Shantel Dr 1 cap PO ACHS 02/26/21 09/27/23 History 24,000 Unit Capsule] icosapent ethyL [Icosapent Ethyl] 2 gm PO BID-W/MEALS 11/25/21 09/27/23 History Midodrine [ProAmatine] 5 mg PO AC-TID tab 07/14/23 09/27/23 Rx Furosemide [Lasix] 40 mg PO DAILY 08/13/23 09/27/23 History Potassium(Unknown Dose) 20 meq PO DAILY 08/13/23 09/27/23 History clonazePAM [KlonoPIN] 1 mg PO HS 08/13/23 09/27/23 History Acetaminophen-Codeine 300-30mg 1 tab PO TID PRN #9 tab 08/18/23 09/27/23 Rx [Tylenol w/codeine #3] Gabapentin 300 mg PO BID #6 cap 08/18/23 09/27/23 Rx Vancomycin 1,500 mg IVPB Q12H each 08/18/23 09/27/23 Rx Acetaminophen Tab [Tylenol] 325 mg PO Q6HR PRN 09/23/23 09/27/23 History Atorvastatin [Lipitor] 20 mg PO HS 09/23/23 09/27/23 History Insulin Lispro [humaLOG Kwikpen] 0 unit SQ AC-TID PRN 09/23/23 09/27/23 History Thera-M Multi Vitamin/Minerals 1 tab PO DAILY 09/23/23 09/27/23 History Allergies Allergy/AdvReac Type Severity Reaction Status Date / Time No Known Allergies Allergy Verified 09/27/23 10:49 Physical Exam Vitals: Vital Signs Temp Pulse Resp BP Pulse Ox 09/27/23 17:17 97.8 F 83 17 113/68 92 L 09/27/23 16:45 91 16 99/57 98 09/27/23 16:15 96 16 105/55 97 09/27/23 15:45 83 16 113/63 99 09/27/23 15:30 109 H 16 106/57 98 09/27/23 15:15 103 H 16 111/63 100 09/27/23 15:00 76 16 116/66 100 09/27/23 14:50 79 16 120/70 100 09/27/23 14:45 97.2 F L 83 14 119/58 98 09/27/23 10:48 97.7 F 106 H 18 105/70 100 Intake and Output 09/27/23 09/27/23 09/27/23 06:59 14:59 22:59 Intake Total 1101 Output Total 200 350 Balance 901 -350 Intake: IV 1101 Output: Urine 350 Estimated Blood Loss 200 Other: Weight 80.2 kg Results CBC & Chem 7: 09/28/23 06:11 09/28/23 06:11 Labs: Abnormal Lab Results - Last 24 Hours (Table) 09/27/23 09/27/23 09/27/23 Range/Units 11:18 11:19 17:17 RBC 3.54 L (4.30-5.90) m/uL Hgb 8.7 L (13.0-17.5) gm/dL Hct 28.0 L (39.0-53.0) % MCV 79.0 L (80.0-100.0) fL MCH 24.5 L (25.0-35.0) pg RDW 18.3 H (11.5-15.5) % POC Glucose (mg/dL) 182 H 114 H (70-110) mg/dL Thrombosis Risk Factor Assmnt - Choose All That Apply Each Factor Represents 1 point: Minor surgery planned Each Risk Factor Represents 2 Points: Malignancy Each Risk Factor Represents 3 Points: Age 75 years or older Thrombosis Risk Factor Assessment Total Risk Factor Score: 6 Thrombosis Risk Factor Assessment Level: High Risk
--- NOTE | 2023-09-29 07:43 | P.PN ---
Subjective Progress Note Date: 09/28/23 This is an 82-year-old male previous medical history significant for coronary artery disease status post coronary artery bypass graft using the WHEELER and RICA 2000, hypertension and hypertensive cardiovascular disease, hyperlipidemia, history of pancreatic cancer, as well as metastatic melanoma to the care of hematology oncology, gout, chronic alcohol use and dependence, diabetes mellitus type 2, diabetic polyneuropathy, patient presented to the emergency department at [facility] after he has had what appears to be syncopal episode likely related to orthostatic hypotension, apparently he had 2 glasses of [place] and sat at the patio and put is steak on the grill and slept apparently he stood up and lost his balance and went head first and he struck his head on the right side and he bled a lot apparently his caregiver came because his watch went off and found him in a pool of blood so 911 was called and patient was transported to [facility] ER had CT scan of the brain and cervical spine that showed scalp hematoma with no acute issues and 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 Echocardiogram reveals LV systolic function is preserved with normal in size and atypical septal motion, mild TR and mild MR. Orthostatic vital signs this morning are negative. patient was stabilized and discharged to [facility] for subacute rehaband was subsequently discharged to home. Patient had a follow-up appointment with his quality assurance calibrator and due to wound concern, patient was readmitted to the hospital on 08/13. Patient was diagnosed with osteomyelitis of the left. Toe with planned from vascular surgery for transmetatarsal amputation. Patient was also seen by infectious disease and was started on IV antibiotics discharged with a PICC line in place to complete a course of vancomycin. Patient has now been readmitted to the hospital for the transmetatarsal amputation which was performed and patient has had no postop complications. Patient is afebrile, heart rate 83, blood pressure 119/58, ini tially patient was on a simple mask 6 L with good pulse ox readings. WBC 4.6, hemoglobin 8.7, platelet count 205. Blood sugar 182. 09/28: patient states he worked with physical therapy this morning his plan is to return to [facility] did complaint rehab services. He states he is eating everything his appetite is good. Blood sugars are running between 106 and 186. Blood pressure 91/53, heart rate 61, afebrile, pulse ox 91% on room air.hemoglobin today is 7.2 and patient will be ordered for Ferrlecit IV piggyback daily 3. Hemoglobin A1c was 7.7. REVIEW OF SYSTEMS: Constitutional: No documented fever, no chills, no night sweats. No weight change. No weakness, fatigue or lethargy. No daytime sleepiness. HEENT: No headache. No blurred vision or double vision, no loss of vision. Chronin loss of Hearing, no ringing in the ears, no dizziness. No nasal drainage or congestion. No epistaxis. No sore throat. Lungs: No shortness of breath, no cough, no sputum production. No wheezing. Reports dyspnea with activity. Cardiovascular: No chest pain, no lower extremity edema. No palpitations. No paroxysmal nocturnal dyspnea. No orthopnea. No lightheadedness or dizziness. No syncopal episodes. Abdominal: Reports no abdominal pain. No nausea, vomiting. chronic diarrhea. No constipation. No bloody or tarry stools reports loss of appetite. Genitourinary: No dysuria, increased frequency, urgency. No urinary retention. Musculoskeletal: No myalgias. No muscle weakness, positive for gait dysfunction, frequent falls. No back pain. positive for neck pain. Integumentary: Left TMA, no lesions. No rash or pruritus. No change in hair or nails. Neurologic: No aphasia. No facial droop. No change in mentation. No head injury. No headache. No paralysis. No paresthesia, positive for dizziness Psychiatric: positive for depression. positive for anxiety. No mood swings. Endocrine: No abnormal blood sugars. No weight change. PHYSICAL EXAMINATION: General: 82-year-old male lying down in bed in no distress HEENT: Head atraumatic, normocephalic, pupils were equal round reactive to light and recommendation, extraocular muscle movement were intact, sclera nonicteric, conjunctivae were pale, mucous membranes of the mouth are somewhat dry. Neck: Supple, no JVP, normal carotid upstroke bilaterally, no lymphadenopathy. Chest: Decreased breath sounds at the bases, few rhonchi, no expiratory wheezes, no chest wall tenderness, no intercostal retractions. Heart: First heart sound is normal, second heart sound is normal there is ERNST 2/6 located a the left sternal border Abdomen: Soft, nontender, nondistended, positive bowel sounds. Extremities: There is no edema no calf tenderness DP +1 right, amputation of the right big and second toes with neuropathic changes in both feet, transmetatarsal amputation left with dressing in place. Neurologic examination: Patient is awake alert and oriented X3 , cranial nerves II-12 appear grossly intact, muscle power were 5 out of 5 in upper extremities and 5 out of 5 in bilateral lower extremities, deep tendon reflexes normal bilaterally. ASSESSMENT AND PLAN: 1. Osteomyelitis of the left foot status post transmetatarsal amputation on 09/27. Continue current pain management, incentive spirometry to reduce i ncidence of atelectasis and hospital-acquired pneumonia, discontinue IV fluids. Activity and weightbearing per vascular surgery. 2. Coronary artery disease status post coronary artery bypass graft 3 continue patient on Clopidogrel 75 mg daily, 8. Atorvastatin 20 mg daily. patient is not on beta anand due to hypotension and bradycardia.. 3. Hypertension and hypertensive cardiovascular disease. patient will be resumed on Lasix 40 mg daily, continue midodrine 5 mg 3 times daily. 4. Mixed hyperlipidemia. Continue atorvastatin 20 mg bedtime. 5. Diabetes mellitus type 2. Continue glimepiride 2 mg orally twice every day. Monitor blood glucose before each meal and at bedtime. 6. Diabetic polyneuropathy. Continue gabapentin 300 mg orally twice every day. 7. Recurrent depression. Patient is off paroxetine 20 mg once every day. 8. Anxiety disorder. Continue patient on Klonopin 1 mg orally bedtime. 9. History of gout. Continue Allopurinol 300 mg orally once daily. 10. History of pancreatic cancer status post the procedure. Continue Creon. 11. Metastatic melanoma currently under the care of Dr. Eason with Immunotherapy 12. Anemia of chronic disease with component of blood loss and dilution due to IV fluids. Patient will be ordered for Ferrlecit daily 3 days. 13. History of alcohol abuse. Continue abstinence from ETOH. 13. DVT prophylaxis. Lovenox 40 mg subcutaneously every 24 hours. 14. GI prophylaxis. Continue PPI. 15. Full code. 16. PT/OT evaluation Thank you kindly for this consultation we'll be happy to follow along with you d uring the patient's hospitalization. Objective - Vital Signs Vital signs: Vital Signs Temp 97.4 F L 09/29/23 02:00 Pulse 103 H 09/29/23 02:00 Resp 16 09/29/23 02:00 BP 97/58 09/29/23 02:00 Pulse Ox 92 L 09/29/23 02:00 FiO2 Intake & Output 09/28/23 09/29/23 09/29/23 18:59 06:59 18:59 Intake Total 1120 Output Total 975 Balance 145 Intake: Intake, IV Titration 1000 Amount Sodium Chloride 0.9% 1, 900 000 ml @ 75 mls/hr IV . [id number] [facility] Rx#:[id number] Sodium Ferric Gluconat- 100 Sucrose 125 mg In Sodium Chloride 0.9% 100 ml @ 100 mls/hr IVPB DAILY [facility] Rx#:[id number] Oral 120 Output: Urine 975 Other: Voiding Method Bedside Commode Urinal # Voids 3 - Labs CBC & Chem 7: 09/29/23 08:24 09/29/23 08:24 Labs: Abnormal Lab Results - Last 24 Hours (Table) 09/28/23 09/28/23 09/28/23 Range/Units 06:11 06:11 06:11 RBC 3.04 L (4.40-5.60) X 10*6/uL Hgb 7.2 L (13.0-17.0) g/dL Hct 24.7 L (39.6-50.0) % MCH 23.7 L (27.0-32.0) pg MCHC 29.1 L (32.0-37.0) g/dL RDW 19.1 H (11.5-14.5) % POC Glucose (mg/dL) (70-110) mg/dL Hemoglobin A1c 7.7 H (<=6.0) % Calcium 7.9 L (8.7-10.3) mg/dL Total Protein 5.4 L (6.2-8.2) g/dL Albumin 3.1 L (3.8-4.9) g/dL Albumin/Globulin Ratio 1.35 L (1.60-3.17) Ratio 09/28/23 09/28/23 09/28/23 Range/Units 11:54 17:18 20:45 RBC (4.40-5.60) X 10*6/uL Hgb (13.0-17.0) g/dL Hct (39.6-50.0) % MCH (27.0-32.0) pg MCHC (32.0-37.0) g/dL RDW (11.5-14.5) % POC Glucose (mg/dL) 186 H 233 H 236 H (70-110) mg/dL Hemoglobin A1c (<=6.0) % Calcium (8.7-10.3) mg/dL Total Protein (6.2-8.2) g/dL Albumin (3.8-4.9) g/dL Albumin/Globulin Ratio (1.60-3.17) Ratio 09/29/23 Range/Units 07:29 RBC (4.40-5.60) X 10*6/uL Hgb (13.0-17.0) g/dL Hct (39.6-50.0) % MCH (27.0-32.0) pg MCHC (32.0-37.0) g/dL RDW (11.5-14.5) % POC Glucose (mg/dL) 68 L (70-110) mg/dL Hemoglobin A1c (<=6.0) % Calcium (8.7-10.3) mg/dL Total Protein (6.2-8.2) g/dL Albumin (3.8-4.9) g/dL Albumin/Globulin Ratio (1.60-3.17) Ratio
--- NOTE | 2023-09-29 08:00 | P.DS ---
Providers Expected date of discharge: 09/29/23 Attending physician: Ranjana Covarrubias Consults: 09/27/23 15:18 Consult Physician Routine Consulting Provider: Tristin Estevez Consult Reason/Comments: left TMA Do you want consulting provider notified?: Already Contacted Primary care physician: Ranjana Covarrubias [facility] Course: This is an 82-year-old male previous medical history significant for coronary artery disease status post coronary artery bypass graft using the WHEELER and RICA 2001, hypertension and hypertensive cardiovascular disease, hyperlipidemia, history of pancreatic cancer, as well as metastatic melanoma to the care of hematology oncology, gout, chronic alcohol use and dependence, diabetes mellitus type 2, diabetic polyneuropathy, patient presented to the emergency department at [facility] after he has had what appears to be syncopal episode likely related to orthostatic hypotension, apparently he had 2 glasses of [place] and sat at the patio and put is steak on the grill and slept apparently he stood up and lost his balance and went head first and he struck his head on the right side and he bled a lot apparently his caregiver came because his watch went off and found him in a pool of blood so 911 was called and patient was transported to 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 Echocardiogram reveals LV systolic function is preserved with normal in size and atypical septal motion, mild TR and mild MR. Orthostatic vital signs this morning are negative. patient was stabilized and discharged to [facility] for subacute rehaband was subsequently discharged to home. Patient had a follow-up appointment with his body fitter and due to wound concern, patient was readmitted to the hospital on 08/13. Patient was diagnosed with osteomyelitis of the left. Toe with planned from vascular surgery for transmetatarsal amputation. Patient was also seen by infectious disease and was started on IV antibiotics discharged with a PICC line in place to complete a course of vancomycin. Patient has now been readmitted to the hospital for the transmetatarsal amputation which was performed and patient has had no postop complications. Patient is afebrile, heart rate 83, blood pressure 119/58, initially patient was on a simple mask 6 L with good pulse ox readings. WBC 4.6, hemoglobin 8.7, platelet count 205. Blood sugar 182. 09/28: patient states he worked with physical therapy this morning his plan is to return to [facility] did complaint rehab services. He states he is eating everything his appetite is good. Blood sugars are running between 106 and 186. Blood pressure 91/53, heart rate 61, afebrile, pulse ox 91% on room air.hemoglobin today is 7.2 and patient will be ordered for Ferrlecit IV piggyback daily 3. Hemoglobin A1c was 7.7. 09/29: Patient remains afebrile, heart rate 66-103, blood pressure 97/58, pulse ox 92% on room air. sUGAR THIS MORNING 68 OTHERWISE THEY WERE RUNNING IN THE 200S OVERNIGHT. PATIENT WILL BE DISCHARGED TO [facility] ONCE ALL ARRANGEMENTS ARE COMPLETED. DISCHARGE DIAGNOSES: 1. Osteomyelitis of the left foot status post transmetatarsal amputation on 09/27. 2. Coronary artery disease status post coronary artery bypass graft 3. 3. Hypertension and hypertensive cardiovascular disease. 4. Mixed hyperlipidemia. 5. Diabetes mellitus type 2. 6. Diabetic polyneuropathy. 7. Recurrent depression. 8. Anxiety disorder. 9. History of gout. 10. History of pancreatic cancer status post the procedure. 11. Metastatic melanoma currently under the care of Dr. Eason with Immunotherapy 12. Anemia of chronic disease with component of blood loss and dilution due to IV fluids. 13. History of alcohol abuse. Discharge plan: Return to [facility] Greater than 35 minutes was utilized and coordinating patient's discharge. Impression and plan of care have been directed as dictated by the signing physician. Paola Wilkinson nurse practitioner acting as scribe for signing physician. Plan - Discharge Summary Discharge Rx Participant: No New Discharge Prescriptions: New Insulin Detemir (Levemir) [Levemir] 10 unit SQ HS each Ferrous Sulfate [Iron (65 MG Elemental)] 325 mg PO DAILY #30 tab oxyCODONE-APAP 7.5-325MG [Percocet 7.5-325 mg] 1 each PO Q4HR PRN #18 tab PRN Reason: Pain Continue allopurinoL [Zyloprim] 300 mg PO DAILY Omeprazole [PriLOSEC] 20 mg PO DAILY Glimepiride [Amaryl] 2 mg PO BID Lipase/Protease/Amylase [Shantel Verma 24,000 Unit Capsule] 1 cap PO ACHS icosapent ethyL [Icosapent Ethyl] 2 gm PO BID-W/MEALS Insulin Lispro [humaLOG Kwikpen] 0 unit SQ AC-TID PRN PRN Reason: hyperglycemia per scale Atorvastatin [Lipitor] 20 mg PO HS Gabapentin 300 mg PO BID #6 cap Clopidogrel Bisulfate [Plavix] 75 mg PO DAILY Midodrine [ProAmatine] 5 mg PO AC-TID tab Potassium(Unknown Dose) 20 meq PO DAILY clonazePAM [KlonoPIN] 1 mg PO HS Furosemide [Lasix] 40 mg PO DAILY Thera-M Multi Vitamin/Minerals 1 tab PO DAILY Acetaminophen Tab [Tylenol] 325 mg PO Q6HR PRN PRN Reason: Pain Discontinued Vancomycin 1,500 mg IVPB Q12H each Acetaminophen-Codeine 300-30mg [Tylenol w/codeine #3] 1 tab PO TID PRN #9 tab PRN Reason: Pain Discharge Medication List allopurinoL [Zyloprim] 300 mg PO DAILY 10/26/14 [History] Glimepiride [Amaryl] 2 mg PO BID 06/03/18 [History] Omeprazole [PriLOSEC] 20 mg PO DAILY 06/03/18 [History] Clopidogrel Bisulfate [Plavix] 75 mg PO DAILY 02/26/21 [History] Lipase/Protease/Amylase [Creon Dr 24,000 Unit Capsule] 1 cap PO ACHS 02/26/21 [History] icosapent ethyL [Icosapent Ethyl] 2 gm PO BID-W/MEALS 11/25/21 [History] Midodrine [ProAmatine] 5 mg PO AC-TID tab 07/14/23 [Rx] Furosemide [Lasix] 40 mg PO DAILY 08/13/23 [History] Potassium(Unknown Dose) 20 meq PO DAILY 08/13/23 [History] clonazePAM [KlonoPIN] 1 mg PO HS 08/13/23 [History] Acetaminophen Tab [Tylenol] 325 mg PO Q6HR PRN 09/23/23 [History] Atorvastatin [Lipitor] 20 mg PO HS 09/23/23 [History] Insulin Lispro [humaLOG Kwikpen] 0 unit SQ AC-TID PRN 09/23/23 [History] Thera-M Multi Vitamin/Minerals 1 tab PO DAILY 09/23/23 [History] Ferrous Sulfate [Iron (65 MG Elemental)] 325 mg PO DAILY #30 tab 09/29/23 [Rx] Gabapentin 300 mg PO BID #6 cap 09/29/23 [Rx] Insulin Detemir (Levemir) [Levemir] 10 unit SQ HS each 09/29/23 [Rx] oxyCODONE-APAP 7.5-325MG [Percocet 7.5-325 mg] 1 each PO Q4HR PRN #18 tab 09/29/23 [Rx] Follow up Appointment(s)/Referral(s): Tristin Estevez DO [Doctor of Osteopathic Medicine] - 2 Weeks [facility] on [facility], [NON-STAFF] - 1 Week Ranjana Covarrubias MD [Primary Care Provider] - 1 Week (AT [facility]) Patient Instructions/Handouts: *Surgery [facility] - Managing Your Pain After Surgery Without Opioids, *Sur[facility] - (Anesthesia) Discharge Instructions Outpatient Surgery, Transmetatarsal Amputation (DC) Activity/Diet/Wound Care/Special Instructions: Offload weight to left forefoot, heel walk only with postop shoe Dressing change daily Adaptic, 4 x 4, Kerlix May shower, no tub bathing until cleared by vascular surgeon Follow up with vascular surgeon Dr. Morgan in 2 weeks Discharge Disposition: TRANSFER TO SNF/ECF
[2023-09-29] MEDS: PANTOPRAZOLE 40 MG TABLET PO SCH (08:36)
[2023-09-29] MEDS: ENOXAPARIN 40 MG/0.4 ML SYRINGE SQ SCH (08:36)
[2023-09-29] MEDS: oxyCODONE-APAP 7.5-325MG 1 EACH TAB PO PRN ×2 (08:36→20:57)
[2023-09-29] MEDS: MULTIVITAMINS, THERA 1 EACH TAB PO SCH (08:36)
[2023-09-29] MEDS: GABAPENTIN 300 MG CAP PO SCH ×2 (08:36→20:51)
[2023-09-29] MEDS: allopurinoL 300 MG TAB PO SCH (08:36)
[2023-09-29] MEDS: CLOPIDOGREL 75 MG TAB PO SCH (08:36)
[2023-09-29] MEDS: GLIMEPIRIDE 1 MG TAB PO SCH ×2 (08:37→20:51)
[2023-09-29] MEDS: LIPASE 20,000/PROTEASE 63,000/AMYLASE 84,000 PO SCH ×4 (08:37→20:51)
[2023-09-29] MEDS: MIDODRINE 5 MG TAB PO SCH ×3 (08:37→17:44)
[2023-09-29] MEDS: SODIUM FERRIC GLUCONAT-SUCROSE 125 MG in SODIUM CHLORIDE 0.9% 100 ML IVPB SCH (08:56)
[2023-09-29 08:57] LABS: Anisocytosis Slight; HCT 25.3 % (39.0-53.0); HGB 7.4 gm/dL (13.0-17.5); Hypochromasia Marked; MCH 23.8 pg (25.0-35.0); MCHC 29.4 g/dL (31.0-37.0); Mean Platelet Volume 7.3; Microcytosis Slight; Platelet Count 192 k/uL (150-450); RBC 3.13 m/uL (4.30-5.90); WBC 4.6 k/uL (3.8-10.6)
[2023-09-29 09:10] LABS: African American GFR (CKD) >90 (>60 ml/min/1.73 sqM); Anion Gap 9 mmol/L; Blood Urea Nitrogen 11 mg/dL (9-20); Calcium 8.1 mg/dL (8.4-10.2); Carbon Dioxide 22 mmol/L (22-30); Chloride 106 mmol/L (98-107); Glucose 87 mg/dL (74-99); Non-African American GFR(CKD) >90 (>60 ml/min/1.73 sqM); Potassium 3.8 mmol/L (3.5-5.1); Sodium 137 mmol/L (137-145)
[2023-09-29] MEDS: INSULIN ASPART (NovoLOG) 100 UNIT/ML VIAL SQ SCH ×4 (11:45→20:47)
[2023-09-29] MEDS: PATIENT'S OWN (Icosapent Ethyl [Icosapent Ethyl] 1 GM Capsule) PO SCH ×2 (11:45→17:44)
[2023-09-29] MEDS: SODIUM CHLORIDE 0.9% 1,000 ML IV SCH ×2 (11:45→17:43)
[2023-09-29 12:05] LABS: Glucose,Whole Blood 175 mg/dL (70-110)
--- NOTE | 2023-09-29 12:40 | P.PN ---
Subjective Progress Note Date: 09/29/23 Principal diagnosis: Transmetatarsal amputation Patient is seen and examined today as a follow-up. She is postop day #2 for transmetatarsal amputation.. He is overall doing very well. He is sitting up in the recliner. Physical therapy had evaluated patient and he was able to get up and ambulate with walker. Dressing is in place with Abdoul wrap. Yesterday's hemoglobin 7.2, patient was started on parenteral iron. Repeat hemoglobin today 7.4. No significant amount of bleeding from surgical site reported. Patient also has had some hyperglycemia. Objective - Vital Signs Vital signs: Vital Signs Temp 97.4 F L 09/29/23 02:00 Pulse 103 H 09/29/23 02:00 Resp 16 09/29/23 02:00 BP 97/58 09/29/23 02:00 Pulse Ox 92 L 09/29/23 02:00 FiO2 Intake & Output 09/28/23 09/29/23 09/29/23 18:59 06:59 18:59 Intake Total 1120 Output Total 975 Balance 145 Intake: Intake, IV Titration 1000 Amount Sodium Chloride 0.9% 1, 900 000 ml @ 75 mls/hr IV . [id number] [facility] Rx#:[id number] Sodium Ferric Gluconat- 100 Sucrose 125 mg In Sodium Chloride 0.9% 100 ml @ 100 mls/hr IVPB DAILY [facility] Rx#:[id number] Oral 120 Output: Urine 975 Other: Voiding Method Bedside Commode Urinal # Voids 3 - Exam General appearance: The patient is alert, oriented, appears in no acute distress. HET: Head is normocephalic and atraumatic. Neck: Supple. Abdomen: Soft, nondistended. Extremities: Left TMA well approximated with sutures. Serosanguineous drainage. Healthy pink tissue around surgical site. Neurological: No focal deficits. Strength and sensation are grossly intact. - Labs CBC & Chem 7: 09/29/23 08:24 09/29/23 08:24 Labs: Abnormal Lab Results - Last 24 Hours (Table) 09/28/23 09/28/23 09/28/23 Range/Units 06:11 06:11 06:11 RBC 3.04 L (4.40-5.60) X 10*6/uL Hgb 7.2 L (13.0-17.0) g/dL Hct 24.7 L (39.6-50.0) % MCH 23.7 L (27.0-32.0) pg MCHC 29.1 L (32.0-37.0) g/dL RDW 19.1 H (11.5-14.5) % POC Glucose (mg/dL) (70-110) mg/dL Hemoglobin A1c 7.7 H (<=6.0) % Calcium 7.9 L (8.7-10.3) mg/dL Total Protein 5.4 L (6.2-8.2) g/dL Albumin 3.1 L (3.8-4.9) g/dL Albumin/Globulin Ratio 1.35 L (1.60-3.17) Ratio 09/28/23 09/28/23 09/28/23 Range/Units 11:54 17:18 20:45 RBC (4.40-5.60) X 10*6/uL Hgb (13.0-17.0) g/dL Hct (39.6-50.0) % MCH (27.0-32.0) pg MCHC (32.0-37.0) g/dL RDW (11.5-14.5) % POC Glucose (mg/dL) 186 H 233 H 236 H (70-110) mg/dL Hemoglobin A1c (<=6.0) % Calcium (8.7-10.3) mg/dL Total Protein (6.2-8.2) g/dL Albumin (3.8-4.9) g/dL Albumin/Globulin Ratio (1.60-3.17) Ratio 09/29/23 Range/Units 07:29 RBC (4.40-5.60) X 10*6/uL Hgb (13.0-17.0) g/dL Hct (39.6-50.0) % MCH (27.0-32.0) pg MCHC (32.0-37.0) g/dL RDW (11.5-14.5) % POC Glucose (mg/dL) 68 L (70-110) mg/dL Hemoglobin A1c (<=6.0) % Calcium (8.7-10.3) mg/dL Total Protein (6.2-8.2) g/dL Albumin (3.8-4.9) g/dL Albumin/Globulin Ratio (1.60-3.17) Ratio Assessment and Plan Assessment: 1. Postop day #2 for left transmetatarsal amputation 2. Nonhealing ulcer to plantar surface of the left foot 3. Diabetes mellitus 4. Chronic anemia Plan: 1. Physical therapy on consult, appreciate their recommendations 2. Postop shoe ordered please have patient wear when ambulating 3. Offload weight to left forefoot, heel walk only 4. Dressing change today. Change daily with Adaptic, 4 x 4, ABDs pad and Kerlix 5. Agree with parental iron 6. Patient is cleared for discharge from vascular surgery. Sounds like plan is for discharge tomorrow. Thank you for this consultation, we will continue to follow. The impression and plan of care has been dictated as directed. Dr Mcconnell I performed a history and examination of this patient, discussed the same with the dictator. I agree with the dictator's note ,documented as a scribe. Any additional findings or plans will be noted.
--- NOTE | 2023-09-29 13:32 | P.PN ---
Subjective Progress Note Date: 09/29/23 This is an 82-year-old male previous medical history significant for coronary artery disease status post coronary artery bypass graft using the WHEELER and RICA 2000, hypertension and hypertensive cardiovascular disease, hyperlipidemia, history of pancreatic cancer, as well as metastatic melanoma to the care of hematology oncology, gout, chronic alcohol use and dependence, diabetes mellitus type 2, diabetic polyneuropathy, patient presented to the emergency department at [facility] after he has had what appears to be syncopal episode likely related to orthostatic hypotension, apparently he had 2 glasses of [place] and sat at the patio and put is steak on the grill and slept apparently he stood up and lost his balance and went head first and he struck his head on the right side and he bled a lot apparently his caregiver came because his watch went off and found him in a pool of blood so 911 was called and patient was transported to [facility] ER had CT scan of the brain and cervical spine that showed scalp hematoma with no acute issues and 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 Echocardiogram reveals LV systolic function is preserved with normal in size and atypical septal motion, mild TR and mild MR. Orthostatic vital signs this morning are negative. patient was stabilized and discharged to [facility] for subacute rehaband was subsequently discharged to home. 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 Patient was diagnosed with osteomyelitis of the left. Toe with planned from vascular surgery for transmetatarsal amputation. Patient was also seen by infectious disease and was started on IV antibiotics discharged with a PICC line in place to complete a course of vancomycin. Patient has now been readmitted to the hospital for the transmetatarsal amputation which was performed and patient has had no postop complications. Patient is afebrile, heart rate 83, blood pressure 119/58, ini tially patient was on a simple mask 6 L with good pulse ox readings. WBC 4.6, hemoglobin 8.7, platelet count 205. Blood sugar 182. 09/28: patient states he worked with physical therapy this morning his plan is to return to [facility] did complaint rehab services. He states he is eating everything his appetite is good. Blood sugars are running between 106 and 186. Blood pressure 91/53, heart rate 61, afebrile, pulse ox 91% on room air.hemoglobin today is 7.2 and patient will be ordered for Ferrlecit IV piggyback daily 3. Hemoglobin A1c was 7.7. 09/29: Patient remains afebrile, heart rate 66-103, blood pressure 97/58, pulse ox 92% on room air. Blood sugar this morning is 68, otherwise, blood sugars have been running in the 200s overnight. Levemir decreased to 10 units and patient encouraged to have hs snack. Second dose of Ferrilit today. Hgb 7.4. REVIEW OF SYSTEMS: Constitutional: No documented fever, no chills, no night sweats. No weight change. No weakness, fatigue or lethargy. No daytime sleepiness. HEENT: No headache. No blurred vision or double vision, no loss of vision. Chronin loss of Hearing, no ringing in the ears, no dizziness. No nasal drainage or congestion. No epistaxis. No sore throat. Lungs: No shortness of breath, no cough, no sputum production. No wheezing. Reports dyspnea with activity. Cardiovascular: No chest pain, no lower extremity edema. No palpitations. No paroxysmal nocturnal dyspnea. No orthopnea. No lightheadedness or dizziness. No syncopal episodes. Abdominal: Reports no abdominal pain. No nausea, vomiting. chronic diarrhea. No constipation. No bloody or tarry stools reports loss of appetite. Genitourinary: No dysuria, increased frequency, urgency. No urinary retention. Musculoskeletal: No myalgias. No muscle weakness, positive for gait dysfunction, frequent falls. No back pain. positive for neck pain. Integumentary: Left TMA, no lesions. No rash or pruritus. No change in hair or nails. Neurologic: No aphasia. No facial droop. No change in mentation. No head injury. No headache. No paralysis. No paresthesia, positive for dizziness Psychiatric: positive for depression. positive for anxiety. No mood swings. Endocrine: Noted abnormal blood sugars. No weight change. PHYSICAL EXAMINATION: General: 82-year-old male lying down in bed in no distress HEENT: Head atraumatic, normocephalic, pupils were equal round reactive to light and recommendation, extraocular muscle movement were intact, sclera nonicteric, conjunctivae were pale, mucous membranes of the mouth are somewhat dry. Neck: Supple, no JVP, normal carotid upstroke bilaterally, no lymphadenopathy. Chest: Decreased breath sounds at the bases, few rhonchi, no expiratory wheezes, no chest wall tenderness, no intercostal retractions. Heart: First heart sound is normal, second heart sound is normal there is ERNST 2/6 located a the left sternal border Abdomen: Soft, nontender, nondistended, positive bowel sounds. Extremities: There is no edema no calf tenderness DP +1 right, amputation of the right big and second toes with neuropathic changes in both feet, transmetatarsal amputation left with dressing in place. Neurologic examination: Patient is awake alert and oriented X3 , cranial nerves II-12 appear grossly intact, muscle power were 5 out of 5 in upper extremities and 5 out of 5 in bilateral lower extremities, deep tendon reflexes normal bilaterally. ASSESSMENT AND PLAN: 1. Osteomyelitis of the left foot status post transmetatarsal amputation on 09/27. Continue current pain management, incentive spirometry to reduce incidence of atelectasis and hospital-acquired pneumonia, discontinue IV fluids. Activity and weightbearing per vascular surgery. Patient will not require antibiotics at discharge. 2. Coronary artery disease status post coronary artery bypass graft 3 continue patient on Clopidogrel 75 mg daily, 8. Atorvastatin 20 mg daily. patient is not on beta anand due to hypotension and bradycardia.. 3. Hypertension and hypertensive cardiovascular disease. patient will be resumed on Lasix 40 mg daily, continue midodrine 5 mg 3 times daily. 4. Mixed hyperlipidemia. Continue atorvastatin 20 mg bedtime. 5. Diabetes mellitus type 2. Continue glimepiride 2 mg orally twice every day. Monitor blood glucose before each meal and at bedtime. 6. Diabetic polyneuropathy. Continue gabapentin 300 mg orally twice every day. 7. Recurrent depression. Patient is off paroxetine 20 mg once every day. 8. Anxiety disorder. Continue patient on Klonopin 1 mg orally bedtime. 9. History of gout. Continue Allopurinol 300 mg orally once daily. 10. History of pancreatic cancer status post the procedure. Continue Creon. 11. Metastatic melanoma currently under the care of Dr. Eason with Immunotherapy 12. Anemia of chronic disease with component of blood loss and dilution due to IV fluids. Patient will be ordered for Ferrlecit daily 3 days. 13. History of alcohol abuse. Continue abstinence from ETOH. 13. DVT prophylaxis. Lovenox 40 mg subcutaneously every 24 hours. 14. GI prophylaxis. Continue PPI. 15. Full code. 16. PT/OT evaluation Discharge plan: Return to [facility] on Wednesday Impression and plan of care have been directed as dictated by the signing physician. Paola Wilkinson nurse practitioner acting as scribe for signing physician. Objective - Vital Signs Vital signs: Vital Signs Temp 97.3 F L 09/29/23 07:34 Pulse 82 09/29/23 07:34 Resp 16 09/29/23 07:34 BP 103/57 09/29/23 07:34 Pulse Ox 98 09/29/23 07:34 FiO2 Intake & Output 09/28/23 09/29/23 09/29/23 18:59 06:59 18:59 Intake Total 1120 Output Total 975 975 Balance 145 -975 Intake: Intake, IV Titration 1000 Amount Sodium Chloride 0.9% 1, 900 000 ml @ 75 mls/hr IV . [id number] Rx#:[id number] Sodium Ferric Gluconat- 100 Sucrose 125 mg In Sodium Chloride 0.9% 100 ml @ 100 mls/hr IVPB DAILY [facility] Rx#:[id number] Oral 120 Output: Urine 975 975 Other: Voiding Method Bedside Commode Urinal # Voids 3 - Labs CBC & Chem 7: 09/29/23 08:24 09/29/23 08:24 Labs: Abnormal Lab Results - Last 24 Hours (Table) 09/28/23 09/28/23 09/28/23 Range/Units 06:11 06:11 06:11 RBC 3.04 L (4.40-5.60) X 10*6/uL Hgb 7.2 L (13.0-17.0) g/dL Hct 24.7 L (39.6-50.0) % MCH 23.7 L (27.0-32.0) pg MCHC 29.1 L (32.0-37.0) g/dL RDW 19.1 H (11.5-14.5) % Creatinine (0.66-1.25) mg/dL POC Glucose (mg/dL) (70-110) mg/dL Hemoglobin A1c 7.7 H (<=6.0) % Calcium 7.9 L (8.7-10.3) mg/dL Total Protein 5.4 L (6.2-8.2) g/dL Albumin 3.1 L (3.8-4.9) g/dL Albumin/Globulin Ratio 1.35 L (1.60-3.17) Ratio 09/28/23 09/28/23 09/28/23 Range/Units 11:54 17:18 20:45 RBC (4.40-5.60) X 10*6/uL Hgb (13.0-17.0) g/dL Hct (39.6-50.0) % MCH (27.0-32.0) pg MCHC (32.0-37.0) g/dL RDW (11.5-14.5) % Creatinine (0.66-1.25) mg/dL POC Glucose (mg/dL) 186 H 233 H 236 H (70-110) mg/dL Hemoglobin A1c (<=6.0) % Calcium (8.7-10.3) mg/dL Total Protein (6.2-8.2) g/dL Albumin (3.8-4.9) g/dL Albumin/Globulin Ratio (1.60-3.17) Ratio 09/29/23 09/29/23 09/29/23 Range/Units 07:29 08:24 08:24 RBC 3.13 L (4.40-5.60) X 10*6/uL Hgb 7.4 L (13.0-17.0) g/dL Hct 25.3 L (39.6-50.0) % MCH 23.8 L (27.0-32.0) pg MCHC 29.4 L (32.0-37.0) g/dL RDW 18.0 H (11.5-14.5) % Creatinine 0.53 L (0.66-1.25) mg/dL POC Glucose (mg/dL) 68 L (70-110) mg/dL Hemoglobin A1c (<=6.0) % Calcium 8.1 L (8.7-10.3) mg/dL Total Protein (6.2-8.2) g/dL Albumin (3.8-4.9) g/dL Albumin/Globulin Ratio (1.60-3.17) Ratio
[2023-09-29 17:24] LABS: Glucose,Whole Blood 134 mg/dL (70-110)
[2023-09-29 20:13] LABS: Glucose,Whole Blood 136 mg/dL (70-110)
[2023-09-29] MEDS: clonazePAM 1 MG TAB PO SCH (20:51)
[2023-09-29] MEDS: ATORVASTATIN 20 MG TAB PO SCH (20:51)
[2023-09-29] MEDS: INSULIN DETEMIR (LEVEMIR) 100 UNIT/ML SYR SQ SCH (20:54)
[2023-09-30] MEDS: SODIUM CHLORIDE 0.9% 1,000 ML IV SCH ×2 (04:15→16:55)
[2023-09-30 07:59] LABS: Glucose,Whole Blood 93 mg/dL (70-110)
[2023-09-30] MEDS: MIDODRINE 5 MG TAB PO SCH ×3 (08:10→17:57)
[2023-09-30] MEDS: GLIMEPIRIDE 1 MG TAB PO SCH ×2 (08:10→20:46)
[2023-09-30] MEDS: MULTIVITAMINS, THERA 1 EACH TAB PO SCH (08:10)
[2023-09-30] MEDS: CLOPIDOGREL 75 MG TAB PO SCH (08:10)
[2023-09-30] MEDS: allopurinoL 300 MG TAB PO SCH (08:10)
[2023-09-30] MEDS: LIPASE 20,000/PROTEASE 63,000/AMYLASE 84,000 PO SCH ×4 (08:10→21:28)
[2023-09-30] MEDS: GABAPENTIN 300 MG CAP PO SCH ×2 (08:10→20:46)
[2023-09-30] MEDS: ENOXAPARIN 40 MG/0.4 ML SYRINGE SQ SCH (08:10)
[2023-09-30] MEDS: PANTOPRAZOLE 40 MG TABLET PO SCH (08:10)
[2023-09-30] MEDS: SODIUM FERRIC GLUCONAT-SUCROSE 125 MG in SODIUM CHLORIDE 0.9% 100 ML IVPB SCH (08:11)
[2023-09-30] MEDS: oxyCODONE-APAP 7.5-325MG 1 EACH TAB PO PRN ×2 (08:13→20:47)
[2023-09-30 09:08] LABS: ALT 14 U/L (10-49); AST 18 U/L (14-35); Albumin 2.8 g/dL (3.8-4.9); Albumin/Globulin Ratio 1.22 Ratio (1.60-3.17); Alkaline Phosphatase 94 U/L (41-126); BUN/Creat Ratio 17.33 Ratio (12.00-20.00); Blood Urea Nitrogen 10.4 mg/dL (9.0-27.0); Chloride 107 mmol/L (96-109); Globulin 2.3 g/dL (1.6-3.3); Glucose 108 mg/dL (70-110); Potassium 3.8 mmol/L (3.5-5.5); Sodium 138 mmol/L (135-145); Total Bilirubin <0.2 mg/dL (0.3-1.2); Total Protein 5.1 g/dL (6.2-8.2)
[2023-09-30] MEDS: PATIENT'S OWN (Icosapent Ethyl [Icosapent Ethyl] 1 GM Capsule) PO SCH ×2 (09:11→18:01)
[2023-09-30] MEDS: INSULIN ASPART (NovoLOG) 100 UNIT/ML VIAL SQ SCH ×4 (09:11→21:28)
[2023-09-30 10:02] LABS: Basophils # (A) 0.02 X 10*3/uL (0.00-0.10); Basophils % (A) 0.4 %; Eosinophils # (A) 0.29 X 10*3/uL (0.04-0.35); Eosinophils % (A) 6.5 %; HCT 23.3 % (39.6-50.0); HGB 6.7 g/dL (13.0-17.0); Hypochromasia (M) 2+; Lymphocytes % (A) 24.6 %; MCH 23.4 pg (27.0-32.0); MCHC 28.8 g/dL (32.0-37.0); MCV 81.5 FL (80.0-97.0); Mean Platelet Volume 9.6 FL (9.5-12.2); Microcytosis (M) 2+; Monocytes # (A) 0.68 X 10*3/uL (0.20-1.00); Monocytes % (A) 15.2 %; NRBC Per 100 WBC 0 X 10*3/uL (0.00-0.01); Neutrophils # (A) 2.34 X 10*3/uL (1.80-7.70); Neutrophils % (A) 52.4 %; Platelet Count 190 X 10*3/uL (140-440); Polychromasia 2+; RBC 2.86 X 10*6/uL (4.40-5.60); WBC 4.47 X 10*3/uL (4.50-10.00)
--- NOTE | 2023-09-30 11:53 | P.PN ---
Subjective Progress Note Date: 09/30/23 Principal diagnosis: Transmetatarsal amputation Seen and examined today as a follow-up. He is sitting up in a bedside chair. He has his postop shoe in place. He states he is doing very well. Pain has been well-controlled. Anticipating discharge today to [facility] however patient had a drop in his hemoglobin to 6.7. No significant bleeding to his surgical site. Objective - Vital Signs Vital signs: Vital Signs Temp 98.4 F 09/30/23 07:42 Pulse 85 09/30/23 07:42 Resp 16 09/30/23 07:42 BP 110/57 09/30/23 07:42 Pulse Ox 98 09/30/23 07:42 FiO2 Intake & Output 09/29/23 09/30/23 09/30/23 18:59 06:59 18:59 Intake Total 200 1400 Output Total 1400 800 Balance -1200 600 Intake: Intake, IV Titration 900 Amount Sodium Chloride 0.9% 1, 900 000 ml @ 75 mls/hr IV . [id number] [facility] Rx#:[id number] Oral 200 500 Output: Urine 1400 800 Other: Voiding Method Bedside Commode Bedside Commode Urinal Urinal # Voids 2 # Bowel Movements 1 - Exam General appearance: The patient is alert, oriented, appears in no acute distress. HET: Head is normocephalic and atraumatic. Neck: Supple. Abdomen: Soft, nondistended. Extremities: Left TMA well approximated with sutures. Dressing clean dry and intact. Neurological: No focal deficits. Strength and sensation are grossly intact. - Labs CBC & Chem 7: 09/30/23 06:05 09/30/23 06:05 Labs: Abnormal Lab Results - Last 24 Hours (Table) 09/29/23 09/29/23 09/29/23 Range/Units 08:24 12:04 17:23 Creatinine 0.53 L (0.66-1.25) mg/dL POC Glucose (mg/dL) 175 H 134 H (70-110) mg/dL Calcium 8.1 L (8.4-10.2) mg/dL 09/29/23 Range/Units 20:11 Creatinine (0.66-1.25) mg/dL POC Glucose (mg/dL) 136 H (70-110) mg/dL Calcium (8.4-10.2) mg/dL Assessment and Plan Assessment: 1. Postop day #3 for left transmetatarsal amputation 2. Nonhealing ulcer to plantar surface of the left foot 3. Diabetes mellitus 4. Chronic anemia Plan: 1. Physical therapy on consult, appreciate their recommendations 2. Postop shoe ordered please have patient wear when ambulating 3. Offload weight to left forefoot, heel walk only 4. Dressing change daily with Adaptic, 4 x 4, ABDs pad and Kerlix 5. Type and screen and 1 unit of blood ordered Thank you for this consultation, we will continue to follow. The impression and plan of care has been dictated as directed. Dr Mcconnell I performed a history and examination of this patient, discussed the same with the dictator. I agree with the dictator's note ,documented as a scribe. Any additional findings or plans will be noted.
[2023-09-30 11:57] LABS: Glucose,Whole Blood 194 mg/dL (70-110)
--- NOTE | 2023-09-30 13:54 | P.PN ---
Subjective Progress Note Date: 09/30/23 This is an 82-year-old male previous medical history significant for coronary artery disease status post coronary artery bypass graft using the WHEELER and RICA 2000, hypertension and hypertensive cardiovascular disease, hyperlipidemia, history of pancreatic cancer, as well as metastatic melanoma to the care of hematology oncology, gout, chronic alcohol use and dependence, diabetes mellitus type 2, diabetic polyneuropathy, patient presented to the emergency department at [facility] after he has had what appears to be syncopal episode likely related to orthostatic hypotension, apparently he had 2 glasses of [place] and sat at the patio and put is steak on the grill and slept apparently he stood up and lost his balance and went head first and he struck his head on the right side and he bled a lot apparently his caregiver came because his watch went off and found him in a pool of blood so 911 was called and patient was transported to [facility] ER had CT scan of the brain and cervical spine that showed scalp hematoma with no acute issues and 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 Echocardiogram reveals LV systolic function is preserved with normal in size and atypical septal motion, mild TR and mild MR. Orthostatic vital signs this morning are negative. patient was stabilized and discharged to [facility] for subacute rehaband was subsequently discharged to home. Patient had a follow-up appointment with his trustee of estate and due to wound concern, patient was readmitted to the hospital on 08/13. Patient was diagnosed with osteomyelitis of the left. Toe with planned from vascular surgery for transmetatarsal amputation. Patient was also seen by infectious disease and was started on IV antibiotics discharged with a PICC line in place to complete a course of vancomycin. Patient has now been readmitted to the hospital for the transmetatarsal amputation which was performed and patient has had no postop complications. Patient is afebrile, heart rate 83, blood pressure 119/58, ini tially patient was on a simple mask 6 L with good pulse ox readings. WBC 4.6, hemoglobin 8.7, platelet count 205. Blood sugar 182. 09/28: patient states he worked with physical therapy this morning his plan is to return to [facility] did complaint rehab services. He states he is eating everything his appetite is good. Blood sugars are running between 106 and 186. Blood pressure 91/53, heart rate 61, afebrile, pulse ox 91% on room air.hemoglobin today is 7.2 and patient will be ordered for Ferrlecit IV piggyback daily 3. Hemoglobin A1c was 7.7. 09/29: Patient remains afebrile, heart rate 66-103, blood pressure 97/58, pulse ox 92% on room air. Blood sugar this morning is 68, otherwise, blood sugars have been running in the 200s overnight. Levemir decreased to 10 units and patient encouraged to have hs snack. Second dose of Ferrilit today. Hgb 7.4. 09/30:hemoglobin today is 6.7 and vascular surgery as ordered for transfusion 1 unit of packed RBCs.repeat blood work will be ordered for the morning. blood pressure 128/65, heart rate in the 80s, afebrile, pulse ox 93% on room air. capillary blood glucose running between 93 and 194. REVIEW OF SYSTEMS: Constitutional: No documented fever, no chills, no night sweats. No weight change. No weakness, fatigue or lethargy. No daytime sleepiness. HEENT: No headache. No blurred vision or double vision, no loss of vision. Chronin loss of Hearing, no ringing in the ears, no dizziness. No nasal drainage or congestion. No epistaxis. No sore throat. Lungs: No shortness of breath, no cough, no sputum production. No wheezing. Reports dyspnea with activity. Cardiovascular: No chest pain, no lower extremity edema. No palpitations. No paroxysmal nocturnal dyspnea. No orthopnea. No lightheadedness or dizziness. No syncopal episodes. Abdominal: Reports no abdominal pain. No nausea, vomiting. chronic diarrhea. No constipation. No bloody or tarry stools reports loss of appetite. Genitourinary: No dysuria, increased frequency, urgency. No urinary retention. Musculoskeletal: No myalgias. No muscle weakness, positive for gait dysfunction, frequent falls. No back pain. positive for neck pain. Integumentary: Left TMA, no lesions. No rash or pruritus. No change in hair or nails. Neurologic: No aphasia. No facial droop. No change in mentation. No head injury. No headache. No paralysis. No paresthesia, positive for dizziness Psychiatric: positive for depression. positive for anxiety. No mood swings. Endocrine: Noted abnormal blood sugars. No weight change. PHYSICAL EXAMINATION: General: 82-year-old male lying down in bed in no distress HEENT: Head atraumatic, normocephalic, pupils were equal round reactive to light and recommendation, extraocular muscle movement were intact, sclera nonicteric, conjunctivae were pale, mucous membranes of the mouth are somewhat dry. Neck: Supple, no JVP, normal carotid upstroke bilaterally, no lymphadenopathy. Chest: Decreased breath sounds at the bases, few rhonchi, no expiratory wheezes, no chest wall tenderness, no intercostal retractions. Heart: First heart sound is normal, second heart sound is normal there is ERNST 2/6 located a the left sternal border Abdomen: Soft, nontender, nondistended, positive bowel sounds. Extremities: There is no edema no calf tenderness DP +1 right, amputation of the right big and second toes with neuropathic changes in both feet, transmetatarsal amputation left with dressing in place. Neurologic examination: Patient is awake alert and oriented X3 , cranial nerves II-12 appear grossly intact, muscle power were 5 out of 5 in upper extremities and 5 out of 5 in bilateral lower extremities, deep tendon reflexes normal bilaterally. ASSESSMENT AND PLAN: 1. Osteomyelitis of the left foot status post transmetatarsal amputation on 09/27. Continue current pain management, incentive spirometry to reduce incidence of atelectasis and hospital-acquired pneumonia, discontinue IV fluids. Activity and weightbearing per vascular surgery. Patient will not require antibiotics at discharge. 2. Coronary artery disease status post coronary artery bypass graft 3 continue patient on Clopidogrel 75 mg daily, 8. Atorvastatin 20 mg daily. patient is not on beta anand due to hypotension and bradycardia.. 3. Hypertension and hypertensive cardiovascular disease. patient will be resumed on Lasix 40 mg daily, continue midodrine 5 mg 3 times daily. 4. Mixed hyperlipidemia. Continue atorvastatin 20 mg bedtime. 5. Diabetes mellitus type 2. Continue glimepiride 2 mg orally twice every day. Monitor blood glucose before each meal and at bedtime. 6. Diabetic polyneuropathy. Continue gabapentin 300 mg orally twice every day. 7. Recurrent depression. Patient is off paroxetine 20 mg once every day. 8. Anxiety disorder. Continue patient on Klonopin 1 mg orally bedtime. 9. History of gout. Continue Allopurinol 300 mg orally once daily. 10. History of pancreatic cancer status post the procedure. Continue Creon. 11. Metastatic melanoma currently under the care of Dr. Eason with Immunotherapy 12. Anemia of acute blood loss andchronic disease with component of blood loss and dilution due to IV fluids. continue Ferrlecit daily 3 days. transfuse 1 unit of packed RBCs. 13. History of alcohol abuse. Continue abstinence from ETOH. 13. DVT prophylaxis. Lovenox 40 mg subcutaneously every 24 hours. 14. GI prophylaxis. Continue PPI. 15. Full code. 16. PT/OT evaluation Discharge plan: Return to [facility] on Wednesday Impression and plan of care have been directed as dictated by the signing physician. Paola Wilkinson nurse practitioner acting as scribe for signing physician. Objective - Vital Signs Vital signs: Vital Signs Temp 98.4 F 09/30/23 07:42 Pulse 85 09/30/23 07:42 Resp 16 09/30/23 07:42 BP 110/57 09/30/23 07:42 Pulse Ox 98 09/30/23 07:42 FiO2 Intake & Output 09/29/23 09/30/23 09/30/23 18:59 06:59 18:59 Intake Total 200 1400 Output Total 1400 800 200 Balance -1200 600 -200 Intake: Intake, IV Titration 900 Amount Sodium Chloride 0.9% 1, 900 000 ml @ 75 mls/hr IV . [id number] [id number] Rx#:[id number] Oral 200 500 Output: Urine 1400 800 200 Other: Voiding Method Bedside Commode Bedside Commode Urinal Urinal # Voids 2 1 # Bowel Movements 1 - Labs CBC & Chem 7: 09/30/23 06:05 09/30/23 06:05 Labs: Abnormal Lab Results - Last 24 Hours (Table) 09/29/23 09/29/23 09/30/23 Range/Units 17:23 20:11 06:05 WBC 4.47 L (4.50-10.00) X 10*3/uL RBC 2.86 L (4.40-5.60) X 10*6/uL Hgb 6.7 A* (13.0-17.0) g/dL Hct 23.3 L (39.6-50.0) % MCH 23.4 L (27.0-32.0) pg MCHC 28.8 L (32.0-37.0) g/dL RDW 19.0 H (11.5-14.5) % Polychromasia 2+ A Hypochromasia (manual) 2+ A Microcytosis (manual) 2+ A POC Glucose (mg/dL) 134 H 136 H (70-110) mg/dL Calcium (8.7-10.3) mg/dL Total Bilirubin (0.3-1.2) mg/dL Total Protein (6.2-8.2) g/dL Albumin (3.8-4.9) g/dL Albumin/Globulin Ratio (1.60-3.17) Ratio 09/30/23 09/30/23 Range/Units 06:05 11:55 WBC (4.50-10.00) X 10*3/uL RBC (4.40-5.60) X 10*6/uL Hgb (13.0-17.0) g/dL Hct (39.6-50.0) % MCH (27.0-32.0) pg MCHC (32.0-37.0) g/dL RDW (11.5-14.5) % Polychromasia Hypochromasia (manual) Microcytosis (manual) POC Glucose (mg/dL) 194 H (70-110) mg/dL Calcium 8.0 L (8.7-10.3) mg/dL Total Bilirubin <0.2 L (0.3-1.2) mg/dL Total Protein 5.1 L (6.2-8.2) g/dL Albumin 2.8 L (3.8-4.9) g/dL Albumin/Globulin Ratio 1.22 L (1.60-3.17) Ratio
[2023-09-30 17:19] LABS: Glucose,Whole Blood 174 mg/dL (70-110)
[2023-09-30] MEDS ORDERED: FUROSEMIDE 10 MG/ML 2 ML VIAL IV STA (19:41)
[2023-09-30 20:28] LABS: Glucose,Whole Blood 189 mg/dL (70-110)
[2023-09-30] MEDS: ATORVASTATIN 20 MG TAB PO SCH (20:46)
[2023-09-30] MEDS: clonazePAM 1 MG TAB PO SCH (20:46)
[2023-09-30] MEDS: INSULIN DETEMIR (LEVEMIR) 100 UNIT/ML SYR SQ SCH (20:46)
[2023-10-01 03:11] VITALS: RESP 16
[2023-10-01 07:07] LABS: Glucose,Whole Blood 134 mg/dL (70-110)
[2023-10-01] MEDS: INSULIN ASPART (NovoLOG) 100 UNIT/ML VIAL SQ SCH ×2 (07:28→12:52)
--- NOTE | 2023-10-01 07:38 | P.DS ---
Providers Date of admission: 09/29/23 14:21 Expected date of discharge: 10/01/23 Attending physician: Ranjana Covarrubias Consults: 09/27/23 15:18 Consult Physician Routine Consulting Provider: Tristin Estevez Consult Reason/Comments: left TMA Do you want consulting provider notified?: Already Contacted Primary care physician: Ranjana Covarrubais [facility] Course: This is an 82-year-old male previous medical history significant for coronary artery disease status post coronary artery bypass graft using the WHEELER and RICA 2001, hypertension and hypertensive cardiovascular disease, hyperlipidemia, history of pancreatic cancer, as well as metastatic melanoma to the care of hematology oncology, gout, chronic alcohol use and dependence, diabetes mellitus type 2, diabetic polyneuropathy, patient presented to the emergency department at [facility] after he has had what appears to be syncopal episode likely related to orthostatic hypotension, apparently he had 2 glasses of [place] and sat at the patio and put is steak on the grill and slept apparently he stood up and lost his balance and went head first and he struck his head on the right side and he bled a lot apparently his caregiver came because his watch went off and found him in a pool of blood so 911 was called and patient was transported to [facility] ER had CT scan of the brain and cervical spine that showed scalp hematoma with no acute issues and 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 Echocardiogram reveals LV systolic function is preserved with normal in size and atypical septal motion, mild TR and mild MR. Orthostatic vital signs this morning are negative. patient was stabilized and discharged to [facility] for subacute rehaband was subsequently discharged to home. 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 Patient was diagnosed with osteomyelitis of the left. Toe with planned from vascular surgery for transmetatarsal amputation. Patient was also seen by infectious disease and was started on IV antibiotics discharged with a PICC line in place to complete a course of vancomycin. Patient has now been readmitted to the hospital for the transmetatarsal amputation which was performed and patient has had no postop complications. Patient is afebrile, heart rate 83, blood pressure 119/58, initially patient was on a simple mask 6 L with good pulse ox readings. WBC 4.6, hemoglobin 8.7, platelet count 205. Blood sugar 182. 09/28: patient states he worked with physical therapy this morning his plan is to return to [facility] did complaint rehab services. He states he is eating everything his appetite is good. Blood sugars are running between 106 and 186. Blood pressure 91/53, heart rate 61, afebrile, pulse ox 91% on room air.hemoglobin today is 7.2 and patient will be ordered for Ferrlecit IV piggyback daily 3. Hemoglobin A1c was 7.7. 09/29: Patient remains afebrile, heart rate 66-103, blood pressure 97/58, pulse ox 92% on room air. Blood sugar this morning is 68, otherwise, blood sugars have been running in the 200s overnight. Levemir decreased to 10 units and patient encouraged to have hs snack. Second dose of Ferrilit today. Hgb 7.4. 09/30:hemoglobin today is 6.7 and vascular surgery as ordered for transfusion 1 unit of packed RBCs.repeat blood work will be ordered for the morning. blood pressure 128/65, heart rate in the 80s, afebrile, pulse ox 93% on room air.capillary blood glucose running between 93 and 194. 10/01: Repeat hemoglobin is 7.5, WBC 5.7, platelet count 222. Electrolytes and renal function are normal. Capillary blood glucose running between 134 and 189. Patient is status post transfusion 1 unit of packed RBCs. Patient has been cleared for discharge from vascular surgery. Patient will be discharged back to [facility] to complete his course of acute rehab. DISCHARGE DIAGNOSES: 1. Osteomyelitis of the left foot status post transmetatarsal amputation on 09/27. 2. Coronary artery disease status post coronary artery bypass graft 3 3. Hypertension and hypertensive cardiovascular disease. 4. Mixed hyperlipidemia. 5. Diabetes mellitus type 2. 6. Diabetic polyneuropathy. 7. Recurrent depression. 8. Anxiety disorder. 9. History of gout. 10. History of pancreatic cancer status post the procedure. 11. Metastatic melanoma currently under the care of Dr. Eason with Immunotherapy 12. Anemia of acute blood loss andchronic disease with component of blood loss and dilution due to IV fluids. 13. History of alcohol abuse. Discharge plan: Return to [facility] Greater than 35 minutes was utilized and coordinating patient's discharge. Impression and plan of care have been directed as dictated by the signing physician. Paola Wilkinson nurse practitioner acting as scribe for signing physician. Patient Condition at Discharge: Stable Plan - Discharge Summary Discharge Rx Participant: No New Discharge Prescriptions: New Insulin Detemir (Levemir) [Levemir] 10 unit SQ HS each Ferrous Sulfate [Iron (65 MG Elemental)] 325 mg PO DAILY #30 tab oxyCODONE-APAP 7.5-325MG [Percocet 7.5-325 mg] 1 each PO Q4HR PRN #18 tab PRN Reason: Pain Continue allopurinoL [Zyloprim] 300 mg PO DAILY Omeprazole [PriLOSEC] 20 mg PO DAILY Glimepiride [Amaryl] 2 mg PO BID Lipase/Protease/Amylase [Shantel Verma 24,000 Unit Capsule] 1 cap PO ACHS icosapent ethyL [Icosapent Ethyl] 2 gm PO BID-W/MEALS Insulin Lispro [humaLOG Kwikpen] 0 unit SQ AC-TID PRN PRN Reason: hyperglycemia per scale Atorvastatin [Lipitor] 20 mg PO HS Gabapentin 300 mg PO BID #6 cap Clopidogrel Bisulfate [Plavix] 75 mg PO DAILY Midodrine [ProAmatine] 5 mg PO AC-TID tab Potassium(Unknown Dose) 20 meq PO DAILY Furosemide [Lasix] 40 mg PO DAILY Thera-M Multi Vitamin/Minerals 1 tab PO DAILY Acetaminophen Tab [Tylenol] 325 mg PO Q6HR PRN PRN Reason: Pain clonazePAM [KlonoPIN] 1 mg PO HS #3 tab Discontinued Vancomycin 1,500 mg IVPB Q12H each Acetaminophen-Codeine 300-30mg [Tylenol w/codeine #3] 1 tab PO TID PRN #9 tab PRN Reason: Pain Discharge Medication List allopurinoL [Zyloprim] 300 mg PO DAILY 10/26/14 [History] Glimepiride [Amaryl] 2 mg PO BID 06/03/18 [History] Omeprazole [PriLOSEC] 20 mg PO DAILY 06/03/18 [History] Clopidogrel Bisulfate [Plavix] 75 mg PO DAILY 02/26/21 [History] Lipase/Protease/Amylase [Crearis Dr 24,000 Unit Capsule] 1 cap PO ACHS 02/26/21 [History] icosapent ethyL [Icosapent Ethyl] 2 gm PO BID-W/MEALS 11/25/21 [History] Midodrine [ProAmatine] 5 mg PO AC-TID tab 07/14/23 [Rx] Furosemide [Lasix] 40 mg PO DAILY 08/13/23 [History] Potassium(Unknown Dose) 20 meq PO DAILY 08/13/23 [History] Acetaminophen Tab [Tylenol] 325 mg PO Q6HR PRN 09/23/23 [History] Atorvastatin [Lipitor] 20 mg PO HS 09/23/23 [History] Insulin Lispro [humaLOG Kwikpen] 0 unit SQ AC-TID PRN 09/23/23 [History] Thera-M Multi Vitamin/Minerals 1 tab PO DAILY 09/23/23 [History] Ferrous Sulfate [Iron (65 MG Elemental)] 325 mg PO DAILY #30 tab 09/29/23 [Rx] Gabapentin 300 mg PO BID #6 cap 09/29/23 [Rx] Insulin Detemir (Levemir) [Levemir] 10 unit SQ HS each 09/29/23 [Rx] oxyCODONE-APAP 7.5-325MG [Percocet 7.5-325 mg] 1 each PO Q4HR PRN #18 tab 09/29/23 [Rx] clonazePAM [KlonoPIN] 1 mg PO HS #3 tab 10/01/23 [Rx] Follow up Appointment(s)/Referral(s): Tristin Estevez DO [Doctor of Osteopathic Medicine] - 2 Weeks [facility] on [facility], [NON-STAFF] - 1 Week Ranjana Covarrubias MD [Primary Care Provider] - 1 Week (AT [facility]) Patient Instructions/Handouts: *Surgery [facility] - Managing Your Pain After Surgery Without Opioids, *[facility] - (Anesthesia) Discharge Instructions Outpatient Surgery, Transmetatarsal Amputation (DC) Activity/Diet/Wound Care/Special Instructions: Offload weight to left forefoot, heel walk only with postop shoe Dressing change daily Adaptic, 4 x 4, Kerlix May shower, no tub bathing until cleared by vascular surgeon Follow up with vascular surgeon Dr. Morgan in 2 weeks Discharge Disposition: TRANSFER TO SNF/ECF
[2023-10-01 08:44] LABS: Basophils # (A) 0.03 X 10*3/uL (0.00-0.10); Basophils % (A) 0.5 %; Eosinophils # (A) 0.34 X 10*3/uL (0.04-0.35); HCT 25.1 % (39.6-50.0); HGB 7.5 g/dL (13.0-17.0); Lymphocytes # (A) 1.42 X 10*3/uL (0.90-5.00); Lymphocytes % (A) 24.9 %; MCH 24.2 pg (27.0-32.0); MCHC 29.9 g/dL (32.0-37.0); Mean Platelet Volume 9.6 FL (9.5-12.2); Monocytes # (A) 0.82 X 10*3/uL (0.20-1.00); Monocytes % (A) 14.4 %; NRBC Per 100 WBC 0.02 X 10*3/uL (0.00-0.01); Neutrophils # (A) 2.98 X 10*3/uL (1.80-7.70); Neutrophils % (A) 52.3 %; Platelet Count 222 X 10*3/uL (140-440); RDW 18.8 % (11.5-14.5)
[2023-10-01] MEDS: allopurinoL 300 MG TAB PO SCH (09:11)
[2023-10-01] MEDS: CLOPIDOGREL 75 MG TAB PO SCH (09:11)
[2023-10-01] MEDS: LIPASE 20,000/PROTEASE 63,000/AMYLASE 84,000 PO SCH ×2 (09:11→12:52)
[2023-10-01] MEDS: ENOXAPARIN 40 MG/0.4 ML SYRINGE SQ SCH (09:11)
[2023-10-01] MEDS: MIDODRINE 5 MG TAB PO SCH ×2 (09:11→12:52)
[2023-10-01] MEDS: GLIMEPIRIDE 1 MG TAB PO SCH (09:12)
[2023-10-01] MEDS: GABAPENTIN 300 MG CAP PO SCH (09:12)
[2023-10-01] MEDS: PANTOPRAZOLE 40 MG TABLET PO SCH (09:12)
[2023-10-01] MEDS: MULTIVITAMINS, THERA 1 EACH TAB PO SCH (09:12)
[2023-10-01 09:15] LABS: ALT 13 U/L (10-49); AST 18 U/L (14-35); Albumin 2.9 g/dL (3.8-4.9); Albumin/Globulin Ratio 1.26 Ratio (1.60-3.17); Alkaline Phosphatase 97 U/L (41-126); BUN/Creat Ratio 16.71 Ratio (12.00-20.00); Blood Urea Nitrogen 11.7 mg/dL (9.0-27.0); Calcium 8.4 mg/dL (8.7-10.3); Chloride 107 mmol/L (96-109); Globulin 2.3 g/dL (1.6-3.3); Glucose 130 mg/dL (70-110); Potassium 3.8 mmol/L (3.5-5.5); Sodium 140 mmol/L (135-145); Total Bilirubin 0.4 mg/dL (0.3-1.2); Total Protein 5.2 g/dL (6.2-8.2)
[2023-10-01] MEDS: oxyCODONE-APAP 7.5-325MG 1 EACH TAB PO PRN (09:22)
--- NOTE | 2023-10-01 09:58 | P.PN ---
Subjective Progress Note Date: 10/01/23 Principal diagnosis: Transmetatarsal amputation Was seen and examined today for follow-up. He is postop day #4 for left transmetatarsal amputation. Patient is afebrile. Yesterday he had a hemoglobin of 6.7 and received 1 unit of blood. Today's repeat hemoglobin is 7.5. Patient denies any black stool or blood in his stool. No significant bleeding from surgical site. Pain has been very well controlled. He has been working with physical therapy. Objective - Vital Signs Vital signs: Vital Signs Temp 98.4 F 10/01/23 07:08 Pulse 85 10/01/23 07:08 Resp 16 10/01/23 07:08 BP 110/63 10/01/23 07:08 Pulse Ox 99 10/01/23 07:08 FiO2 Intake & Output 09/30/23 10/01/23 10/01/23 18:59 06:59 18:59 Intake Total 310 800 Output Total 200 1500 Balance 110 -700 Intake: Oral 800 Blood Product 310 Rc As-1 Unit 310 [id number] Output: Urine 200 1500 Other: Voiding Method Bedside Commode Bedside Commode Urinal Urinal # Voids 1 # Bowel Movements 1 - Exam General appearance: The patient is alert, oriented, appears in no acute distress. HET: Head is normocephalic and atraumatic. Neck: Supple. Abdomen: Soft, nondistended. Extremities: Left TMA well approximated with sutures. Scant amount of serosanguineous drainage from the lateral aspect of incision. Dressing changed today. Neurological: No focal deficits. Strength and sensation are grossly intact. - Labs CBC & Chem 7: 10/01/23 05:39 10/01/23 05:39 Labs: Abnormal Lab Results - Last 24 Hours (Table) 09/30/23 09/30/23 09/30/23 Range/Units 06:05 11:47 11:55 WBC 4.47 L (4.50-10.00) X 10*3/uL RBC 2.86 L (4.40-5.60) X 10*6/uL Hgb 6.7 A* (13.0-17.0) g/dL Hct 23.3 L (39.6-50.0) % MCH 23.4 L (27.0-32.0) pg MCHC 28.8 L (32.0-37.0) g/dL RDW 19.0 H (11.5-14.5) % Immature Gran # (0.00-0.04) X 10*3/uL NRBC/100 WBC Diff (0.00-0.01) X 10*3/uL Polychromasia 2+ A Hypochromasia (manual) 2+ A Microcytosis (manual) 2+ A Glucose (70-110) mg/dL POC Glucose (mg/dL) 194 H (70-110) mg/dL Calcium (8.7-10.3) mg/dL Total Protein (6.2-8.2) g/dL Albumin (3.8-4.9) g/dL Albumin/Globulin Ratio (1.60-3.17) Ratio Crossmatch See Detail 09/30/23 09/30/23 10/01/23 Range/Units 17:18 20:25 05:39 WBC (4.50-10.00) X 10*3/uL RBC 3.10 L (4.40-5.60) X 10*6/uL Hgb 7.5 L (13.0-17.0) g/dL Hct 25.1 L (39.6-50.0) % MCH 24.2 L (27.0-32.0) pg MCHC 29.9 L (32.0-37.0) g/dL RDW 18.8 H (11.5-14.5) % Immature Gran # 0.11 H (0.00-0.04) X 10*3/uL NRBC/100 WBC Diff 0.02 H (0.00-0.01) X 10*3/uL Polychromasia Hypochromasia (manual) Microcytosis (manual) Glucose (70-110) mg/dL POC Glucose (mg/dL) 174 H 189 H (70-110) mg/dL Calcium (8.7-10.3) mg/dL Total Protein (6.2-8.2) g/dL Albumin (3.8-4.9) g/dL Albumin/Globulin Ratio (1.60-3.17) Ratio Crossmatch 10/01/23 10/01/23 Range/Units 05:39 07:05 WBC (4.50-10.00) X 10*3/uL RBC (4.40-5.60) X 10*6/uL Hgb (13.0-17.0) g/dL Hct (39.6-50.0) % MCH (27.0-32.0) pg MCHC (32.0-37.0) g/dL RDW (11.5-14.5) % Immature Gran # (0.00-0.04) X 10*3/uL NRBC/100 WBC Diff (0.00-0.01) X 10*3/uL Polychromasia Hypochromasia (manual) Microcytosis (manual) Glucose 130 H (70-110) mg/dL POC Glucose (mg/dL) 134 H (70-110) mg/dL Calcium 8.4 L (8.7-10.3) mg/dL Total Protein 5.2 L (6.2-8.2) g/dL Albumin 2.9 L (3.8-4.9) g/dL Albumin/Globulin Ratio 1.26 L (1.60-3.17) Ratio Crossmatch Assessment and Plan Assessment: 1. Postop day #4 for left transmetatarsal amputation 2. Nonhealing ulcer to plantar surface of the left foot 3. Diabetes mellitus 4. Chronic anemia Plan: 1. Physical therapy on consult, appreciate their recommendations 2. Postop shoe ordered please have patient wear when ambulating 3. Offload weight to left forefoot, heel walk only 4. Dressing change daily with Adaptic, 4 x 4, and Kerlix 5. Patient is cleared by vascular surgery for discharge. Thank you for this consultation, we will continue to follow. The impression and plan of care has been dictated as directed. Dr Mcconnell I performed a history and examination of this patient, discussed the same with the dictator. I agree with the dictator's note ,documented as a scribe. Any additional findings or plans will be noted.
[2023-10-01 11:58] LABS: Glucose,Whole Blood 194 mg/dL (70-110)
[2023-10-01] MEDS: PATIENT'S OWN (Icosapent Ethyl [Icosapent Ethyl] 1 GM Capsule) PO SCH (12:17)
[2023-10-01 13:09] VITALS: BP 106/65; PULSE 78; TEMP 98
== END 2023-10-01 14:20 | DRG 617 ==
LOC: OR 10:01 → 5NMEDONC 14:38 → OR 09-29 14:21 → 5NMEDONC 09-29 14:21
PROVIDERS: ADMIT Internal Medicine; ATTEND Internal Medicine
PROC: 0Y6N0Z9 Detachment at Left Foot, Partial 1st Ray, Open Approach (ICD-10-PCS; principal; 2023-09-29)
PROC: 0Y6N0ZB Detachment at Left Foot, Partial 2nd Ray, Open Approach (ICD-10-PCS; 2023-09-29)
PROC: 0Y6N0ZC Detachment at Left Foot, Partial 3rd Ray, Open Approach (ICD-10-PCS; 2023-09-29)
PROC: 0Y6N0ZD Detachment at Left Foot, Partial 4th Ray, Open Approach (ICD-10-PCS; 2023-09-29)
PROC: 0Y6N0ZF Detachment at Left Foot, Partial 5th Ray, Open Approach (ICD-10-PCS; 2023-09-29)
DX: E11.69 Type 2 diabetes mellitus with other specified complication (principal); C79.9 Secondary malignant neoplasm of unspecified site; M86.8X7 Other osteomyelitis, ankle and foot; D62 Acute posthemorrhagic anemia; F33.9 Major depressive disorder, recurrent, unspecified; D63.8 Anemia in other chronic diseases classified elsewhere; I10 Essential (primary) hypertension; E11.42 Type 2 diabetes mellitus with diabetic polyneuropathy; E11.621 Type 2 diabetes mellitus with foot ulcer; Z87.891 Personal history of nicotine dependence; Z85.820 Personal history of malignant melanoma of skin; Z85.07 Personal history of malignant neoplasm of pancreas; E11.65 Type 2 diabetes mellitus with hyperglycemia; E78.2 Mixed hyperlipidemia; F41.9 Anxiety disorder, unspecified; C43.9 Malignant melanoma of skin, unspecified; I95.1 Orthostatic hypotension; M10.00 Idiopathic gout, unspecified site; R29.6 Repeated falls; I25.10 Atherosclerotic heart disease of native coronary artery without angina pectoris; L97.529 Non-pressure chronic ulcer of other part of left foot with unspecified severity; Z79.02 Long term (current) use of antithrombotics/antiplatelets; Z79.84 Long term (current) use of oral hypoglycemic drugs; Z95.1 Presence of aortocoronary bypass graft; Z79.899 Other long term (current) drug therapy; Z91.81 History of falling; Z79.4 Long term (current) use of insulin
CPT/HCPCS: 80048; 80053; 83036; 85025; 85027; 86850; 86900; 86901; 86920

== ENCOUNTER → 2024-03-10 | Outpatient (CLI) | payer MEDICARE, OTHER ==
--- NOTE | 2024-03-15 09:43 | PE ---
EXAMINATION TYPE: PET CT fusion skull to thigh DATE OF EXAM: 03/10/2024 COMPARISON: No recent pertinent CT. MRI 04/28/2023 Prior PET/CT: 12/11/2022 HISTORY: Pancreatic cancer TECHNIQUE: Following the intravenous administration of 10.9 mCi of F-18 FDG, whole body images are p erformed from the skull base to the midthigh. Images are reviewed on the computer in the coronal, ax ial, and sagittal planes. Reconstructed rotating images are created on independent workstation and r eviewed on the computer. A localization and attenuation correction CT is performed in conjunction w ith the PET scan. DLP: 468.04 mGycm SCAN: Subsequent Blood glucose: 57 mg/dL Average Mediastinum SUV: 1.44 Average Liver SUV: 2.04 FINDINGS: NECK: No abnormal uptake THORAX: No abnormal uptake ABDOMEN: There is a focus of radiotracer accumulation within the posterior lateral right upper lobe l iver, image 138, SUV 4.06 compatible with a metastatic lesion. There is additional hyperintensity anterior to right lower lobe liver, this appears to track adjacent and follows the loop of bowel, there is likely related to bowel activity and not metastatic. There is marked hyperintensity within the head of the pancreas example image 158, SUV 7.77. PELVIS: No abnormal uptake OSSEOUS STRUCTURES: No abnormal uptake LOCALIZATION CT: Mass at the head of the pancreas is indistinct localization CT. COMPARISON: Uptake remains at the head of the pancreas, SUV is diminished from 11.93 to the current 7 .77. The uptake in the posterior lateral right upper lobe liver is new. IMPRESSION: 1. Persistent radiotracer, but diminished SUV, within the head of the pancreas compatible with the pa tient's pancreatic cancer. 2. There is a new lesion within the peripheral right upper outer liver.
== END | disposition home or self-care (01) ==
LOC: RADPETMAIN 12:01
PROVIDERS: ATTEND Internal Medicine Hematology & Oncology
DX: C25.0 Malignant neoplasm of head of pancreas (principal); K76.9 Liver disease, unspecified
CPT/HCPCS: 78815; A9552

== ENCOUNTER → 2024-08-31 | Outpatient (CLI) | payer MEDICARE, OTHER ==
--- NOTE | 2024-09-03 22:05 | PE ---
EXAMINATION TYPE: PET CT fusion skull to thigh DATE OF EXAM: 08/31/2024 COMPARISON: No recent pertinent CT. Prior PET/CT: 03/10/2024 CLINICAL INDICATION: Male, 83 years old with history of C25.0 PANCREAS CANCER, TECHNIQUE: Following the intravenous administration of 9.93 mCi of F-18 FDG, whole body images are p erformed from the skull base to the midthigh. Images are reviewed on the computer in the coronal, ax ial, and sagittal planes. Reconstructed rotating images are created on independent workstation and r eviewed on the computer. A localization and attenuation correction CT is performed in conjunction w ith the PET scan. DLP: 5-0.82 mGycm SCAN: Subsequent Blood glucose: 110 mg/dL Average Mediastinum SUV: 1.88 Average Liver SUV: 3 FINDINGS: NECK: No abnormal uptake THORAX: No abnormal uptake ABDOMEN: Patient's primary pancreas cancer anterior to the aorta image 23 has an SUV of 9.03. Previou s SUV 7.08 The focus of radiotracer within the periphery of the right lobe liver, image 167, measures SUV 8.54 p revious SUV 4.06 PELVIS: No abnormal uptake OSSEOUS STRUCTURES: No abnormal uptake LOCALIZATION CT: The liver and pancreatic lesions Called to the noncontrast localization CT COMPARISON: Increasing opacity within 2 lesions. New lesions however are not identified. IMPRESSION: 1. There is increase in SUV values within 2 radiotracer lesions; the pancreas and the peripheral righ t lobe liver. 2. No lesion suspicious for additional metastatic disease [facility], , 09/03/2024 10:03 PM
== END | disposition home or self-care (01) ==
LOC: RADPETMAIN 14:06
PROVIDERS: ATTEND Internal Medicine Hematology & Oncology
DX: C25.0 Malignant neoplasm of head of pancreas (principal)
CPT/HCPCS: 78815; A9552

== ENCOUNTER 2025-03-20 14:07 | Inpatient (IN) | payer MEDICARE, OTHER ==
--- NOTE | 2025-03-20 14:16 | ED ---
Weakness HPI - General Stated complaint: Weakness Time Seen by Provider: 03/20/25 14:12 Source: RN notes reviewed, old records reviewed Mode of arrival: EMS Limitations: altered mental status - History of Present Illness Initial comments: This is a 84-year-old male without complaint, patient is a significantly poor historian.. Patient presents today for evaluation of altered mental status and weakness patient is unsure of why he is here in the emergency department MD Complaint: generalized weakness, lack of energy, difficulty walking -: days(s) Location: generalized Severity: severe Severity scale (1-10): 10 Consistency: constant Improves with: none Worsens with: none Context: recent illness, history of similar Associated Symptoms: denies other symptoms - Related Data Home Medications Medication Instructions Recorded Confirmed allopurinoL [Zyloprim] 300 mg PO DAILY 10/26/14 03/20/25 Omeprazole [PriLOSEC] 20 mg PO AC-BRKFST 06/03/18 03/20/25 Gabapentin 300 mg PO HS 03/20/25 03/20/25 Magnesium Chloride [Slow-Mag] 64 mg PO DAILY 03/20/25 03/20/25 Midodrine [ProAmatine] 5 mg PO BID 03/20/25 03/20/25 PARoxetine [Paxil] 20 mg PO DAILY 03/20/25 03/20/25 Simvastatin [Zocor] 20 mg PO HS 03/20/25 03/20/25 Previous Rx's Medication Instructions Recorded Acetaminophen Tab [Tylenol] 650 mg PO Q6HR PRN tab 03/30/25 Apixaban [Eliquis] 5 mg PO BID tab 03/30/25 DAPTOmycin [Cubicin] 400 mg IVPB Q24H each 03/30/25 Dapagliflozin Propanediol [Farxiga] 10 mg PO DAILY tab 03/30/25 Diphenox-Atrop 2.5-0.025 mg 2 tab PO AC-SUPPER #6 tab 03/30/25 [Lomotil] Folic Acid 1 mg PO DAILY tab 03/30/25 INSULIN LISPRO (HumaLOG) [HumaLOG] 0 unit SQ ACHS each 03/30/25 Ipratropium-Albuterol Nebulize 3 ml INHALATION RT-QID each 03/30/25 [Duoneb 0.5 mg-3 mg/3 ml Soln] Metoprolol Succinate (ER) [Toprol 25 mg PO DAILY tab 03/30/25 XL] Piperacillin-Tazobactam [Zosyn] 3.375 gm IVPB Q8H each 03/30/25 clonazePAM [KlonoPIN] 1 mg PO HS #3 tab 03/30/25 Allergies Allergy/AdvReac Type Severity Reaction Status Date / Time No Known Allergies Allergy Verified 03/23/25 14:39 Review of Systems ROS Statement: Those systems with pertinent positive or pertinent negative responses have been documented in the HPI. ROS Other: All systems not noted in ROS Statement are negative. 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 Whipple Past Anesthesia/Blood Transfusion Reactions: No Reported Reaction Additional Psychological History / Comment(s): 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 He and his have completed a home in [facility] in which she was hoping to have is his final longterm home. He has an adult daughter who will be coming to picker packer her animals soon. He himself does not have any pets in the home. Past Alcohol Use History: Daily Additional Past Alcohol Use History / Comment(s): started smoking at age 12 smoke 1ppd quit cig 1965 swithced to pipe/cigar quit those 2001 - Past Family History Father Family Medical History: Dementia Additional Family Medical History / Comment(s): AT AGE 93 Mother Family Medical History: Cancer Additional Family Medical History / Comment(s): BREAST CANCER SURVIVER, AT AGE 86 General Exam General appearance: alert, in no apparent distress Head exam: Present: atraumatic, normocephalic, normal inspection Eye exam: Present: normal appearance, PERRL, EOMI. Absent: scleral icterus, conjunctival injection, periorbital swelling ENT exam: Present: normal exam, mucous membranes moist Neck exam: Present: normal inspection. Absent: tenderness, meningismus, lymphadenopathy Respiratory exam: Present: normal lung sounds bilaterally. Absent: respiratory distress, wheezes, rales, rhonchi, stridor Cardiovascular Exam: Present: regular rate, normal rhythm, normal heart sounds. Absent: systolic murmur, diastolic murmur, rubs, gallop, clicks GI/Abdominal exam: Present: soft, normal bowel sounds. Absent: distended, tenderness, guarding, rebound, rigid Extremities exam: Present: normal inspection, full ROM, normal capillary refill. Absent: tenderness, pedal edema, joint swelling, calf tenderness Back exam: Present: normal inspection Neurological exam: Present: alert, oriented X3, CN II-XII intact Psychiatric exam: Present: normal affect, normal mood Skin exam: Present: warm, dry, intact, normal color. Absent: rash Course Vital Signs 03/20/25 03/20/25 03/20/25 14:12 15:27 18:00 Temperature 97.9 F Pulse Rate 87 79 89 Respiratory 20 16 16 Rate Blood Pressure 121/67 119/67 130/61 O2 Sat by Pulse 99 99 98 Oximetry 03/20/25 03/20/25 03/20/25 19:28 22:40 23:46 Temperature 98.4 F Pulse Rate 90 92 93 Respiratory 16 16 16 Rate Blood Pressure 118/71 122/77 147/80 O2 Sat by Pulse 98 99 98 Oximetry 03/21/25 01:05 Temperature 98.7 F Pulse Rate 95 Respiratory 16 Rate Blood Pressure 138/75 O2 Sat by Pulse 98 Oximetry - Reevaluation(s) Reevaluation #1: 03/20/25 16:46 Medical records reviewed Reevaluation #2: 03/20/25 16:46 Patient symptoms are unchanged here in the ER Reevaluation #3: 03/20/25 16:46 Patient informed of results questions answered Reevaluation #4: Was pt. sent in by a medical professional or institution (Dr., PA, ANALYSIS INTERN, urgent care, hospital, or detention...) When possible be specific @ -no Did you speak to anyone other than the patient for history (EMS, parent, family, police, friend...)? What history was obtained from this source @ -no Did you review nursing and triage notes (agree or disagree)? Why? @ -agree Are old charts reviewed (outside hosp., previous admission, EMS record, old EKG, old radiological studies, urgent care reports/EKG's, detention records)? Report findings @ -yes Differential Diagnosis (chest pain, altered mental status, abdominal pain women, abdominal pain men, vaginal bleeding, weakness, fever, dyspnea, syncope, headache, dizziness, GI bleed, back pain, seizure, CVA, palpatations, mental health, musculoskeletal)? @ -prior EKG interpreted by me (3pts min.). @ -yes X-rays interpreted by me (1pt min.). @ -no CT interpreted by me (1pt min.). @ -no U/S interpreted by me (1pt. min.). @ -no What testing was considered but not performed or refused? (CT, X-rays, U/S, labs)? Why? @ -none What meds were considered but not given or refused? Why? @ -none Did you discuss the management of the patient with other professionals (professionals i.e. THOMAS Dixon, ANALYSIS INTERN, lab, RT, psych nurse, social media intern, graining operator, teacher, conservation officer, egg caser)? Give summary @ -no Was smoking cessation discussed for >3mins.? @ -no Was critical care preformed (if so, how long)? @ -no Were there social determinants of health that impacted care today? How? (Homelessness, low income, unemployed, alcoholism, drug addiction, transportation, low edu. Level, literacy, decrease access to med. care, intermediate, rehab)? @ -none Was there de-escalation of care discussed even if they declined (Discuss DNR or withdrawal of care, Hospice)? DNR status @ -no What co-morbidities impacted this encounter? (DM, HTN, Smoking, COPD, CAD, Cancer, CVA, ARF, Chemo, Hep., AIDS, mental health diagnosis, sleep apnea, morbid obesity)? @ -none Was patient admitted / discharged? Hospital course, mention meds given and route, prescriptions, significant lab abnormalities, going to OR and other pertinent info. @ - 84 male to the ER for evaluation this patient will be admitted for failure to thrive weakness debility multiple electrolyte abnormalities and electrolyte replacement needed Admitted Undiagnosed new problem with uncertain prognosis? @ -no Drug Therapy requiring intensive monitoring for toxicity (Heparin, Nitro, Insulin, Cardizem)? @ -no Were any procedures done? @ -no Diagnosis/symptom? @ -Altered mental status Acute, or Chronic, or Acute on Chronic? @ -Acute Uncomplicated (without systemic symptoms) or Complicated (systemic symptoms)? @ -Complicated Side effects of treatment? @ -no Exacerbation, Progression, or Severe Exacerbation? @ -exacerbation Poses a threat to life or bodily function? How? (Chest pain, USA, NH, pneumonia, PE, COPD, DKA, ARF, appy, cholecystitis, CVA, Diverticulitis, Homicidal, Suicidal, threat to staff... and all critical care pts) @ -yes extremes of age Reevaluation #5: Differential Weakness: Hypoglycemia, shock, sepsis, hyponatremia, anemia, infection, NH, ETOH, adverse medicine reaction, overdose, stroke, this is not meant to be an all-inclusive list. EKG Findings - EKG Comments: EKG Findings:: EKG is A-fib 91 QRS 76 QTc 421 - EKG Results: EKG: interpreted by ASAEL Medical Decision Making - Medical Decision Making 84 male to the ER for evaluation this patient will be admitted for failure to thrive weakness debility multiple electrolyte abnormalities and electrolyte replacement needed - Lab Data Result diagrams: 03/30/25 02:33 03/30/25 02:33 Lab Results 03/20/25 03/20/25 03/20/25 Range/Units 14:15 14:21 14:21 WBC 8.57 (4.50-10.00) 10*3/uL RBC 2.87 L (4.40-5.60) 10*6/uL Hgb 10.3 L (13.0-17.0) g/dL Hct 29.7 L (39.6-50.0) % MCV 103.5 H (80.0-97.0) fL MCH 35.9 H (27.0-32.0) pg MCHC 34.7 (32.0-37.0) g/dL Plt Count 125 L (140-440) 10*3/uL MPV 10.2 (9.5-12.2) fL Immature Gran % (Auto) 0.6 % Neutrophils % 79.7 % Lymphocytes % 9.0 % Monocytes % 10.6 % Eosinophils % 0.0 % Basophils % 0.1 % Immature Gran # 0.05 H (0.00-0.04) 10*3/uL Neutrophils # 6.83 (1.80-7.70) 10*3/uL Lymphocytes # 0.77 L (0.90-5.00) 10*3/uL Monocytes # 0.91 (0.20-1.00) 10*3/uL Eosinophils # 0.00 L (0.04-0.35) 10*3/uL Basophils # 0.01 (0.00-0.10) 10*3/uL PT 11.1 (10.0-12.5) sec INR 1.0 (<1.2) APTT 26.2 (22.0-30.0) sec Sodium (137-145) mmol/L Potassium (3.5-5.1) mmol/L Chloride (98-107) mmol/L Carbon Dioxide (22-30) mmol/L Anion Gap mmol/L BUN (9-20) mg/dL Creatinine (0.66-1.25) mg/dL Est GFR (CKD-EPI)AfAm (>60 ml/min/1.73 sqM) Est GFR (CKD-EPI)NonAf (>60 ml/min/1.73 sqM) Glucose (74-99) mg/dL Estimated Ave Glu mg/dL 114 mg/dL Hemoglobin A1c 5.6 (<=6.0) % Lactic Ac Sepsis Rflx Plasma Lactic Acid Isidro (0.7-2.0) mmol/L Calcium (8.4-10.2) mg/dL Phosphorus (2.5-4.5) mg/dL Magnesium (1.6-2.3) mg/dL Total Bilirubin (0.2-1.3) mg/dL AST (17-59) U/L ALT (4-49) U/L Alkaline Phosphatase (38-126) U/L Troponin I (0.000-0.034) ng/mL NT-Pro-B Natriuret Pep pg/mL Total Protein (6.3-8.2) g/dL Albumin (3.5-5.0) g/dL Vitamin B12 (200.0-944.0) pg/mL Folate (4.40-31.00) ng/mL Serum Alcohol mg/dL 03/20/25 03/20/25 03/20/25 Range/Units 14:21 14:21 14:21 WBC (4.50-10.00) 10*3/uL RBC (4.40-5.60) 10*6/uL Hgb (13.0-17.0) g/dL Hct (39.6-50.0) % MCV (80.0-97.0) fL MCH (27.0-32.0) pg MCHC (32.0-37.0) g/dL Plt Count (140-440) 10*3/uL MPV (9.5-12.2) fL Immature Gran % (Auto) % Neutrophils % % Lymphocytes % % Monocytes % % Eosinophils % % Basophils % % Immature Gran # (0.00-0.04) 10*3/uL Neutrophils # (1.80-7.70) 10*3/uL Lymphocytes # (0.90-5.00) 10*3/uL Monocytes # (0.20-1.00) 10*3/uL Eosinophils # (0.04-0.35) 10*3/uL Basophils # (0.00-0.10) 10*3/uL PT (10.0-12.5) sec INR (<1.2) APTT (22.0-30.0) sec Sodium 131 L (137-145) mmol/L Potassium 2.6 L* (3.5-5.1) mmol/L Chloride 94 L (98-107) mmol/L Carbon Dioxide 26 (22-30) mmol/L Anion Gap 11 mmol/L BUN 15 (9-20) mg/dL Creatinine 0.58 L (0.66-1.25) mg/dL Est GFR (CKD-EPI)AfAm >90 (>60 ml/min/1.73 sqM) Est GFR (CKD-EPI)NonAf >90 (>60 ml/min/1.73 sqM) Glucose 140 H (74-99) mg/dL Estimated Ave Glu mg/dL mg/dL Hemoglobin A1c (<=6.0) % Lactic Ac Sepsis Rflx Plasma Lactic Acid Isidro 2.1 H* (0.7-2.0) mmol/L Calcium 7.3 L (8.4-10.2) mg/dL Phosphorus 2.3 L (2.5-4.5) mg/dL Magnesium 1.5 L (1.6-2.3) mg/dL Total Bilirubin 1.0 (0.2-1.3) mg/dL AST 136 H (17-59) U/L ALT 46 (4-49) U/L Alkaline Phosphatase 110 (38-126) U/L Troponin I 0.013 (0.000-0.034) ng/mL NT-Pro-B Natriuret Pep 3460 pg/mL Total Protein 5.4 L (6.3-8.2) g/dL Albumin 2.4 L (3.5-5.0) g/dL Vitamin B12 (200.0-944.0) pg/mL Folate (4.40-31.00) ng/mL Serum Alcohol <10 mg/dL 03/20/25 03/20/25 03/20/25 Range/Units 14:21 14:21 15:51 WBC (4.50-10.00) 10*3/uL RBC (4.40-5.60) 10*6/uL Hgb (13.0-17.0) g/dL Hct (39.6-50.0) % MCV (80.0-97.0) fL MCH (27.0-32.0) pg MCHC (32.0-37.0) g/dL Plt Count (140-440) 10*3/uL MPV (9.5-12.2) fL Immature Gran % (Auto) % Neutrophils % % Lymphocytes % % Monocytes % % Eosinophils % % Basophils % % Immature Gran # (0.00-0.04) 10*3/uL Neutrophils # (1.80-7.70) 10*3/uL Lymphocytes # (0.90-5.00) 10*3/uL Monocytes # (0.20-1.00) 10*3/uL Eosinophils # (0.04-0.35) 10*3/uL Basophils # (0.00-0.10) 10*3/uL PT (10.0-12.5) sec INR (<1.2) APTT (22.0-30.0) sec Sodium (137-145) mmol/L Potassium (3.5-5.1) mmol/L Chloride (98-107) mmol/L Carbon Dioxide (22-30) mmol/L Anion Gap mmol/L BUN (9-20) mg/dL Creatinine (0.66-1.25) mg/dL Est GFR (CKD-EPI)AfAm (>60 ml/min/1.73 sqM) Est GFR (CKD-EPI)NonAf (>60 ml/min/1.73 sqM) Glucose (74-99) mg/dL Estimated Ave Glu mg/dL mg/dL Hemoglobin A1c (<=6.0) % Lactic Ac Sepsis Rflx Y Plasma Lactic Acid Isidro (0.7-2.0) mmol/L Calcium (8.4-10.2) mg/dL Phosphorus (2.5-4.5) mg/dL Magnesium (1.6-2.3) mg/dL Total Bilirubin (0.2-1.3) mg/dL AST (17-59) U/L ALT (4-49) U/L Alkaline Phosphatase (38-126) U/L Troponin I (0.000-0.034) ng/mL NT-Pro-B Natriuret Pep pg/mL Total Protein (6.3-8.2) g/dL Albumin (3.5-5.0) g/dL Vitamin B12 758.0 (200.0-944.0) pg/mL Folate 8.00 (4.40-31.00) ng/mL Serum Alcohol mg/dL - EKG Data -: EKG Interpreted by Me Disposition Clinical Impression: Dehydration, Hypokalemia, Hyponatremia, Acute renal failure Disposition: ADMITTED IP TO THIS HOSP Condition: Serious Is patient prescribed a controlled substance at d/c from ED?: No Time of Disposition: 16:30
[2025-03-20 14:30] LABS: Basophils # (A) 0.01 10*3/uL (0.00-0.10); Basophils % (A) 0.1 %; HCT 29.7 % (39.6-50.0); HGB 10.3 g/dL (13.0-17.0); Lymphocytes # (A) 0.77 10*3/uL (0.90-5.00); MCH 35.9 pg (27.0-32.0); MCHC 34.7 g/dL (32.0-37.0); MCV 103.5 fL (80.0-97.0); Mean Platelet Volume 10.2 fL (9.5-12.2); Monocytes # (A) 0.91 10*3/uL (0.20-1.00); Monocytes % (A) 10.6 %; Neutrophils # (A) 6.83 10*3/uL (1.80-7.70); Neutrophils % (A) 79.7 %; Platelet Count 125 10*3/uL (140-440); RBC 2.87 10*6/uL (4.40-5.60); RDW 13.2 % (11.5-14.5); WBC 8.57 10*3/uL (4.50-10.00)
[2025-03-20] MEDS: SODIUM CHLORIDE 0.9% 1,000 ML IV ONE (14:36)
[2025-03-20 14:40] LABS: Partial Thromboplastin Time 26.2 sec (22.0-30.0); Prothrombin Time 11.1 sec (10.0-12.5)
[2025-03-20 14:45] LABS: ALT 46 U/L (4-49); AST 136 U/L (17-59); African American GFR (CKD) >90 (>60 ml/min/1.73 sqM); Albumin 2.4 g/dL (3.5-5.0); Alcohol <10 mg/dL; Alkaline Phosphatase 110 U/L (38-126); Anion Gap 11 mmol/L; Blood Urea Nitrogen 15 mg/dL (9-20); Calcium 7.3 mg/dL (8.4-10.2); Carbon Dioxide 26 mmol/L (22-30); Chloride 94 mmol/L (98-107); Glucose 140 mg/dL (74-99); Magnesium 1.5 mg/dL (1.6-2.3); Non-African American GFR(CKD) >90 (>60 ml/min/1.73 sqM); Phosphorus 2.3 mg/dL (2.5-4.5); Sodium 131 mmol/L (137-145); Total Protein 5.4 g/dL (6.3-8.2)
[2025-03-20 14:53] LABS: NT-Pro-B-Type Natriuretic Pept 3460 pg/mL
[2025-03-20 15:50] LABS: Potassium 2.6 mmol/L (3.5-5.1)
[2025-03-20] MEDS ORDERED: POTASSIUM BICARBONATE/CIT AC 20 MEQ TABLET.EFF PO ONE (16:42)
[2025-03-20] MEDS ORDERED: ONDANSETRON 4 MG/2 ML VIAL IVP PRN (16:43)
[2025-03-20] MEDS ORDERED: NALOXONE 0.4 MG/ML 1 ML VIAL IV PRN (16:43)
[2025-03-20] MEDS: MAGNESIUM SULFATE-D5W PMX 1 GM in DEXTROSE/WATER 1 100ML.BAG IVPB ONE (17:08)
[2025-03-20] MEDS: MAGNESIUM OXIDE 400 MG TAB PO STA (17:11)
[2025-03-20] MEDS: POTASSIUM BICARBONATE/CIT AC 20 MEQ TABLET.EFF PO ONE (17:11)
[2025-03-20] MEDS: MAGNESIUM OXIDE 400 MG TAB PO SCH (17:12)
[2025-03-20] MEDS: PANTOPRAZOLE 40 MG/10 ML VIAL IV SCH (17:23)
[2025-03-20] MEDS: SODIUM CHLORIDE 0.9% 1,000 ML IV SCH (17:24)
[2025-03-20] MEDS: POTASSIUM BICARBONATE/CIT AC 20 MEQ TABLET.EFF PO SCH (18:16)
[2025-03-20] MEDS: HYDROmorphone 1 MG/ML 1 ML SYRINGE IVP PRN (23:03)
[2025-03-21 00:48] LABS: Magnesium 1.8 mg/dL (1.6-2.3); Potassium 3.5 mmol/L (3.5-5.1)
[2025-03-21 08:11] LABS: HCT 32.8 % (39.6-50.0); HGB 10.7 g/dL (13.0-17.0); MCH 35.4 pg (27.0-32.0); MCHC 32.6 g/dL (32.0-37.0); MCV 108.6 FL (80.0-97.0); Mean Platelet Volume 10.9 FL (9.5-12.2); NRBC Per 100 WBC 0 X 10*3/uL (0.00-0.01); Platelet Count 142 X 10*3/uL (140-440); RBC 3.02 X 10*6/uL (4.40-5.60); RDW 13.9 % (11.5-14.5); WBC 8.62 X 10*3/uL (4.50-10.00)
[2025-03-21 08:26] LABS: Magnesium 1.7 mg/dL (1.5-2.4); Phosphorus 2.1 mg/dL (2.4-5.1)
[2025-03-21 08:35] LABS: ALT 50 U/L (10-49); AST 101 U/L (14-35); Albumin 2.5 g/dL (3.8-4.9); Albumin/Globulin Ratio 0.83 Ratio (1.60-3.17); Alkaline Phosphatase 108 U/L (41-126); Blood Urea Nitrogen 11.4 mg/dL (9.0-27.0); Calcium 7.3 mg/dL (8.7-10.3); Carbon Dioxide 23.5 mmol/L (21.6-31.8); Chloride 96 mmol/L (96-109); Glucose 121 mg/dL (70-110); Potassium 4.4 mmol/L (3.5-5.5); Sodium 136 mmol/L (135-145); Total Bilirubin 0.4 mg/dL (0.3-1.2); Total Protein 5.5 g/dL (6.2-8.2)
[2025-03-21] MEDS ORDERED: NON FORMULARY DRUG (Omeprazole 20 MG Capsule.Dr) PO SCH (09:00)
[2025-03-21] MEDS: CLOPIDOGREL 75 MG TAB PO SCH (09:17)
[2025-03-21] MEDS: allopurinoL 300 MG TAB PO SCH (09:17)
[2025-03-21] MEDS: ENOXAPARIN 40 MG/0.4 ML SYRINGE SQ SCH (09:18)
[2025-03-21] MEDS: PARoxetine 20 MG TAB PO SCH (09:18)
[2025-03-21] MEDS: atenoloL 50 MG TAB PO SCH (09:18)
[2025-03-21 10:01] LABS: Basophils # (A) 0.02 X 10*3/uL (0.00-0.10); Basophils % (A) 0.2 %; Eosinophils # (A) 0.01 X 10*3/uL (0.04-0.35); Eosinophils % (A) 0.1 %; Lymphocytes # (A) 0.88 X 10*3/uL (0.90-5.00); Lymphocytes % (A) 10.2 %; Macrocytosis (M) 2+ (None Seen); Monocytes # (A) 0.88 X 10*3/uL (0.20-1.00); Monocytes % (A) 10.2 %; Neutrophils # (A) 6.81 X 10*3/uL (1.80-7.70); Neutrophils % (A) 79.1 %
[2025-03-21 11:09] LABS: Glucose,Whole Blood 311 mg/dL (70-110)
[2025-03-21] MEDS: INSULIN LISPRO (HumaLOG) 100 UNIT/ML 10 mL VL SQ SCH (12:01)
[2025-03-21] MEDS: POTASSIUM BICARBONATE/CIT AC 20 MEQ TABLET.EFF PO SCH (12:01)
[2025-03-21 16:09] LABS: Glucose,Whole Blood 185 mg/dL (70-110)
--- NOTE | 2025-03-21 16:45 | P.CON ---
Consult Note - . Consult date: 03/21/25 Assessment/Plan:: wound care consultation: Reason for consultation: Bilateral foot ulcers Date of consultation: 03/21/2025 History of chief complaint: This 84-year-old gentleman is currently admitted for generalized weakness and difficulty with walking. He is status post left transmetatarsal amputation and we are asked to see him as well for an ulceration on the right great toe. the patient has a history of diabetes, atherosclerotic heart disease and the patient is status post pancreatectomy. Relevant examination: The right great toe has a rather large fungus nail. The distal aspect of the toe is extremely dried and has an ulceration with purulence beneath the dried skin. Of more significance is the fact that he has a large open ulceration on the plantar aspect of his distal left foot with multiple bones of the distal residual transmetatarsal amputation exposed. The patient did not appear to be aware of the severity of this ulceration. Recommendation: I have recommended that the vascular surgeon see the patient during this hospitalization for attention to the breakdown of the left transmetatarsal amputation. During that same process a debridement of the rather tender right great toe could be undertaken with further dressings as necessary following that debridement. In the meantime simple Opticell silver and gauze dressings could be applied. If there are further questions in regards to wound care during his stay please feel free to contact us in wound care.
--- NOTE | 2025-03-21 16:48 | P.HPIM ---
History of Present Illness H&P Date: 03/21/25 Patient is a 84-year-old male with CAD status post CABG, diabetes, GERD, hyperlipidemia, hypertension, history of malignant melanoma, depression, daily smoker here for evaluation of altered mental status and weakness. He is unsure why he was sent to the emergency department. On my evaluation, he reported that he has had a chronic wound on his left foot that is being managed by his PCP for about 2 to 3 weeks now and has not improved with 2 types of antibiotics. He was then advised to go to the ED for IV antibiotics by his lead level designer. He has no other associated symptoms. He denied fevers, cough, shortness of breath, recent prolonged travel, exposure to sick contacts, recent fall or trauma, abdominal pain, diarrhea, constipation, issues with urination or defecation, chest pain, lightheadedness, dizziness. He reported that he is able to eat meals on his own and does not have any issues with appetite or swallowing. On admission: Vitals: Temp 97.9 F, AK 87, RR 20, BP 121/67, O2 saturation 99% on room air Labs: WBC 8.5, hemoglobin 10.3, MCV 103.5, platelet count 1 25,000, sodium 131, potassium 2.6, chloride 94, BUN 15, creatinine 0.50, glucose 140, lactic acid 2.1, calcium 7.3,. Phosphorus 2.3, magnesium 1.5, AST 136, ALT 46, alk phos 110, troponin 0.013, proBNP 3000 4060, albumin 2.4. Serum alcohol less than 10. Imaging: EKG showed sinus rhythm with a rate of 91, PAC noted on lead II, normal axis, no ST-T changes, good R wave progression, QTc 421 MS,. ED documentation reviewed. Magnesium repletion, potassium repletion and IV fluids 0.9 normal saline initiated in the ED Review of systems: Pertinent positives and negatives as discussed in HPI, a complete review of s ystems was performed and all other systems are negative. Physical examination: Vital signs reviewed General: non toxic, no distress, appears older than stated age, frail and thin appearing Derm: no unusual rashes/lesions, warm Head: atraumatic, normocephalic, symmetric Eyes: EOMI, anicteric sclera, pupils equal round reactive to light ENT: Nose and ears atraumatic Neck: No cervical lymphadenopathy, trachea midline, supple Mouth: no lip lesion, mucus membranes moist Cardiovascular: S1S2 reg, no murmur Lungs: CTA bilateral, no rhonchi, no rales, no accessory muscle use Abdominal: soft, nondistended, nontender to palpation, no guarding Ext: muscle strength 5 out of 5 in all 4 extremities grossly, no gross muscle atrophy, no contractures, positive dorsalis pedis pulse bilateral, no edema, left foot amputated stump notable with unhealing wound with some purulance and foul smell, badage slightly soaked, left lower extremity erythematous no notable edema, right 1st digit covered with bandage Neuro: CN II-XI grossly intact, no gross focal neuro deficits Psych: Alert and oriented x 3, appropriate affect and mood Assessment/Plan: 84-year-old male with CAD status post CABG, diabetes here for evaluation of unhealing left lower extremity wounds concerning for cellulitis. Found to have multiple electrolyte abnormalities on labs concerning for malnutrition and failure to thrive. The patient is admitted with an anticipated greater than 2 midnight stay for evaluation of cellulitis of left lower extremity and debility Active: #. Left lower extremity chronic wound, concerning for cellulitis Patient has normal white count and afebrile at this time Initiate empiric Zosyn IVPB every 8 hours Consult ID and wound care #. Hypokalemia, improved #. Hypomagnesemia, improved #. Hypophosphatemia #. Debility Patient experiencing generalized weakness Repletion of 160 mEq potassium bicarb given in the ED Magnesium oxide 400 mg p.o. and 1 g mag sulfate given in the ED Potassium now normal levels of 3.5 Magnesium now at normal levels at 1.7 Conitnue IVF 0.9 normal saline 75ml/hour Continue cardiac monitoring Encourage oral intake PT OT consulted #. Macrocytic anemia likely due to malnutrition Check B12 and folate Folate supplementation daily #. Diabetes mellitus with hyperglycemia Glucose 140 on admission Hemoglobin A1c on October 2023 was 6.5. Check A1c today Hold home medications Glucose Accu-Cheks ACHS Initiate Insulin sliding scale ACHS Monitor for hypoglycemia Chronic Conditions: #. CAD status post CABG #. GERD #. Hyperlipidemia #. Hypertension Continue home allopurinol 300 mg daily, atenolol 50 mg twice daily, clonazepam 1 mg p.o. daily, clopidogrel 75 mg p.o. daily, gabapentin 300 mg p.o. daily, omeprazole 20 mg p.o. daily, paroxetine 20 mg p.o. daily and simvastatin 20 mg p.o. daily DVT ppx: Lovenox 40 mg subcu daily CODE STATUS: Full Discussed with: Patient Anticipated discharge place: Home Dania Vaca MD PGY-1 Internal Medicine Dictation was produced using [employer] dictation software. please excuse any gram matical, word or spelling errors. Attestation: I have seen and examined this patient with my resident, assessment and plan discussed with the resident, agree with assessment and plan as written above. Dr. 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 He and his have completed a home in [facility] in which she was hoping to have is his final senior care home. He has an adult daughter who will be coming to [employer] her animals soon. He himself does not have any pets in the home. Smoking Status: Former smoker Past Alcohol Use History: Daily Additional Past Alcohol Use History / Comment(s): started smoking at age 12 smoke 1ppd quit cig 1965 swithced to pipe/cigar quit those 2001 Past Drug Use History: Unable to Obtain - Past Family History Father Family Medical History: Dementia Additional Family Medical History / Comment(s): AT AGE 93 Mother Family Medical History: Cancer Additional Family Medical History / Comment(s): BREAST CANCER SURVIVER, AT AGE 86 Medications and Allergies Home Medications Medication Instructions Recorded Confirmed Type allopurinoL [Zyloprim] 300 mg PO DAILY 10/26/14 03/20/25 History Omeprazole [PriLOSEC] 20 mg PO AC-BRKFST 06/03/18 03/20/25 History Clopidogrel Bisulfate [Plavix] 75 mg PO DAILY 02/26/21 03/20/25 History clonazePAM [KlonoPIN] 1 mg PO HS #3 tab 10/01/23 03/20/25 Rx Diphenox-Atrop 2.5-0.025 mg 2 tab PO AC-SUPPER 03/20/25 03/20/25 History [Lomotil] Gabapentin 300 mg PO HS 03/20/25 03/20/25 History Magnesium Chloride [Slow-Mag] 64 mg PO DAILY 03/20/25 03/20/25 History Midodrine [ProAmatine] 5 mg PO BID 03/20/25 03/20/25 History PARoxetine [Paxil] 20 mg PO DAILY 03/20/25 03/20/25 History Simvastatin [Zocor] 20 mg PO HS 03/20/25 03/20/25 History atenoloL [Tenormin] 50 mg PO BID 03/20/25 03/20/25 History Allergies Allergy/AdvReac Type Severity Reaction Status Date / Time No Known Allergies Allergy Verified 03/20/25 16:06 Physical Exam Vitals: Vital Signs Temp Pulse Pulse Resp BP BP Pulse Ox 03/21/25 01:55 97.7 F 107 H 17 150/71 96 03/21/25 01:05 98.7 F 95 16 138/75 98 03/20/25 23:46 93 16 147/80 98 03/20/25 22:40 92 16 122/77 99 03/20/25 19:28 98.4 F 90 16 118/71 98 03/20/25 18:00 89 16 130/61 98 03/20/25 15:27 79 16 119/67 99 03/20/25 14:12 97.9 F 87 20 121/67 99 Intake and Output 0603/21/25 03/21/25 22:59 06:59 14:59 Other: # Voids 1 Weight 63.503 kg Results CBC & Chem 7: 03/21/25 02:51 03/21/25 02:51 Labs: Abnormal Lab Results - Last 24 Hours (Table) 03/20/25 03/20/25 03/20/25 Range/Units 14:21 14:21 14:21 RBC 2.87 L (4.40-5.60) 10*6/uL Hgb 10.3 L (13.0-17.0) g/dL Hct 29.7 L (39.6-50.0) % MCV 103.5 H (80.0-97.0) fL MCH 35.9 H (27.0-32.0) pg Plt Count 125 L (140-440) 10*3/uL Immature Gran # 0.05 H (0.00-0.04) 10*3/uL Lymphocytes # 0.77 L (0.90-5.00) 10*3/uL Eosinophils # 0.00 L (0.04-0.35) 10*3/uL Sodium 131 L (137-145) mmol/L Potassium 2.6 L* (3.5-5.1) mmol/L Chloride 94 L (98-107) mmol/L Creatinine 0.58 L (0.66-1.25) mg/dL Glucose 140 H (74-99) mg/dL Plasma Lactic Acid Isidro 2.1 H* (0.7-2.0) mmol/L Calcium 7.3 L (8.4-10.2) mg/dL Phosphorus 2.3 L (2.5-4.5) mg/dL Magnesium 1.5 L (1.6-2.3) mg/dL AST 136 H (17-59) U/L Total Protein 5.4 L (6.3-8.2) g/dL Albumin 2.4 L (3.5-5.0) g/dL Thrombosis Risk Factor Assmnt - Choose All That Apply Any of the Below Risk Factors Present?: Yes Each Factor Represents 1 point: Swollen legs (current) Each Risk Factor Represents 3 Points: Age 75 years or older Thrombosis Risk Factor Assessment Total Risk Factor Score: 4 Thrombosis Risk Factor Assessment Level: Moderate Risk
[2025-03-21] MEDS: PIPERACILLIN-TAZOBACTAM 3.375 GM in SODIUM CHLORIDE 0.9% 100 ML IVPB SCH (18:14)
[2025-03-21 21:17] LABS: Glucose,Whole Blood 225 mg/dL (70-110)
[2025-03-21] MEDS: GABAPENTIN 300 MG CAP PO SCH (21:52)
[2025-03-21] MEDS: clonazePAM 1 MG TAB PO SCH (21:52)
[2025-03-21] MEDS: ATORVASTATIN 10 MG TAB PO SCH (21:52)
[2025-03-22 06:10] LABS: Glucose,Whole Blood 112 mg/dL (70-110)
[2025-03-22] MEDS: FOLIC ACID 1 MG TAB PO SCH (07:58)
[2025-03-22] MEDS: METOPROLOL SUCCINATE (ER) 50 MG TAB.ER.24H PO SCH (07:58)
[2025-03-22 08:50] LABS: Basophils # (A) 0.02 X 10*3/uL (0.00-0.10); Basophils % (A) 0.3 %; Eosinophils # (A) 0.01 X 10*3/uL (0.04-0.35); Eosinophils % (A) 0.1 %; HCT 30.9 % (39.6-50.0); HGB 10.3 g/dL (13.0-17.0); Lymphocytes # (A) 0.82 X 10*3/uL (0.90-5.00); Lymphocytes % (A) 10.8 %; MCH 36.8 pg (27.0-32.0); MCHC 33.3 g/dL (32.0-37.0); MCV 110.4 FL (80.0-97.0); Mean Platelet Volume 10.6 FL (9.5-12.2); Monocytes # (A) 0.78 X 10*3/uL (0.20-1.00); Monocytes % (A) 10.3 %; NRBC Per 100 WBC 0 X 10*3/uL (0.00-0.01); Neutrophils # (A) 5.85 X 10*3/uL (1.80-7.70); Neutrophils % (A) 77.1 %; Platelet Count 139 X 10*3/uL (140-440); RDW 13.6 % (11.5-14.5); WBC 7.59 X 10*3/uL (4.50-10.00)
[2025-03-22 08:58] LABS: Blood Urea Nitrogen 5.4 mg/dL (9.0-27.0); Calcium 7.1 mg/dL (8.7-10.3); Carbon Dioxide 27.9 mmol/L (21.6-31.8); Chloride 96 mmol/L (96-109); Glucose 159 mg/dL (70-110); Magnesium 1.7 mg/dL (1.5-2.4); Phosphorus 1.5 mg/dL (2.4-5.1); Sodium 132 mmol/L (135-145)
--- NOTE | 2025-03-22 09:48 | US ---
EXAMINATION TYPE: US arterial LE multi level DATE OF EXAM: 03/22/2025 9:37 AM COMPARISONS: None. CLINICAL INDICATION: Male, 84 years old with history of Nonhealing wounds; pt has open wound on Lt fo ot TECHNIQUE: Systolic pressures were taken of the upper and lower extremity arteries with ankle-brachia l indices and toe brachial indices calculated bilaterally. History of: Smoker: previous Hypertension: Yes Diabetic: Yes Hyperlipidemia: previous TIA/CVA: No Previous Vascular Surgery: No CAD: No AR: No Vascular Ulcers: Yes Claudication: Yes Gangrene: No FINDINGS: Doppler Waveforms: Right: Biphasic Left: Biphasic Brachial Artery systolic pressure: Right: 139 Left: 133 Posterior Tibial artery systolic pressure: Right: 152 Left: 138 Dorsalis Pedis artery systolic pressure: Right: 149 Left: 140 Toe artery systolic pressure: Right: unable to obtain, pt toe nail is falling off, open sores Left: unable to obtain due to no toe Ankle-Brachial Indices: Right: 1.1 Left: 1.0 (Normal > 0.6; Mild 0.35 - 0.59, Moderate 0.12 - 0.34, Severe <0.12) IMPRESSION: ESTHER: Right: Normal 0.9 - 1.4, Recommendation: None Left: Normal 0.9 - 1.4, Recommendation: None Cannot exclude significant peripheral vascular disease in the bilateral feet. [facility], , 03/22/2025 9:46 AM
--- NOTE | 2025-03-22 09:49 | P.CONS ---
History of Present Illness - Reason for Consult Consult date: 03/21/25 Left foot wound Requesting physician: Dania Vaca - Chief Complaint Weakness mental status changes x days - History of Present Illness Patient is a 84-year-old male with a past medical history significant for Coronary Artery Disease (CAD), Cancer, Diabetes Mellitus, GERD/Reflux, Hyperlipidemia, Hypertension and this patient has been dealing with a nonhealing wound to the left foot presenting to the hospital for evaluation of weakness and mental status changes that have been has been going on for the last few days apparently the patient left foot is being managed by his PCP over the last few weeks is not very clear which type of antibiotic he has received for the same patient denies significant pain to the wound area there is mild drainage patient denies high-grade fever or any chills and on presentation to the hospital the patient was afebrile no fever have been called subsequently patient was not tachycardic hypotensive or hypoxic patient did have a white count of 8.57 creatinine 0.58 electrolytes are normal liver enzymes normal serum alcohol was less than 10 local culture have been obtained patient was started on Zosyn infectious he was consulted for further management of antibiotic therapy Review of Systems Positive point and negatives has been mentioned in the HPI, complete review of systems was performed and all other systems are negative Past Medical History Past Medical History: Coronary Artery Disease (CAD), Cancer, Diabetes Mellitus, GERD/Reflux, Hyperlipidemia, Hypertension Additional Past Medical History / Comment(s): Gout, triple bypass (1 since collapsed - used the saphenous vein left leg), mild tremors, 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 He has an adult daughter who will be coming to last pick[employer] her animals soon. He himself does not have any pets in the home. Smoking Status: Former smoker Past Alcohol Use History: Daily Additional Past Alcohol Use History / Comment(s): started smoking at age 12 smoke 1ppd quit cig 1965 swithced to pipe/cigar quit those 2001 Past Drug Use History: Unable to Obtain - Past Family History Father Family Medical History: Dementia Additional Family Medical History / Comment(s): AT AGE 93 Mother Family Medical History: Cancer Additional Family Medical History / Comment(s): BREAST CANCER SURVIVER, AT AGE 86 Medications and Allergies Home Medications Medication Instructions Recorded Confirmed Type allopurinoL [Zyloprim] 300 mg PO DAILY 10/26/14 03/20/25 History Omeprazole [PriLOSEC] 20 mg PO AC-BRKFST 06/03/18 03/20/25 History Clopidogrel Bisulfate [Plavix] 75 mg PO DAILY 02/26/21 03/20/25 History clonazePAM [KlonoPIN] 1 mg PO HS #3 tab 10/01/23 03/20/25 Rx Diphenox-Atrop 2.5-0.025 mg 2 tab PO AC-SUPPER 03/20/25 03/20/25 History [Lomotil] Gabapentin 300 mg PO HS 03/20/25 03/20/25 History Magnesium Chloride [Slow-Mag] 64 mg PO DAILY 03/20/25 03/20/25 History Midodrine [ProAmatine] 5 mg PO BID 03/20/25 03/20/25 History PARoxetine [Paxil] 20 mg PO DAILY 03/20/25 03/20/25 History Simvastatin [Zocor] 20 mg PO HS 03/20/25 03/20/25 History atenoloL [Tenormin] 50 mg PO BID 03/20/25 03/20/25 History Allergies Allergy/AdvReac Type Severity Reaction Status Date / Time No Known Allergies Allergy Verified 03/20/25 16:06 Physical Exam Vitals: Vital Signs Temp Pulse Pulse Resp BP BP Pulse Ox 03/21/25 07:57 97.2 F L 63 15 119/80 92 L 03/21/25 07:45 63 15 03/21/25 01:55 97.7 F 107 H 17 150/71 96 03/21/25 01:05 98.7 F 95 16 138/75 98 03/20/25 23:46 93 16 147/80 98 03/20/25 22:40 92 16 122/77 99 03/20/25 19:28 98.4 F 90 16 118/71 98 03/20/25 18:00 89 16 130/61 98 03/20/25 15:27 79 16 119/67 99 03/20/25 14:12 97.9 F 87 20 121/67 99 Intake and Output 03/20/25 03/21/25 03/21/25 22:59 06:59 14:59 Other: # Voids 1 Weight 63.503 kg GENERAL DESCRIPTION: Elderly male lying in bed, no distress. No tachypnea or accessory muscle of respiration use. HEENT: Shows Pallor , no scleral icterus. Oral mucous membrane is dry. No pharyngeal erythema or thrush NECK: Trachea central, no thyromegaly. LUNGS: Unlabored breathing. Clear to auscultation anteriorly. No wheeze or crackle. HEART: S1, S2, regular rate and rhythm. No loud murmur ABDOMEN: Soft, no tenderness , guarding or rigidity, no organomegaly EXTREMITIES: Left foot wound on the plantar aspect with some slough tissue no surrounding redness SKIN: No rash, no masses palpable. NEUROLOGICAL: The patient is awake, alert, mood and affect normal. Results CBC & Chem 7: 03/22/25 03:32 03/22/25 03:32 Labs: Abnormal Lab Results - Last 24 Hours (Table) 03/20/25 03/20/25 03/20/25 Range/Units 14:21 14:21 14:21 RBC 2.87 L (4.40-5.60) 10*6/uL Hgb 10.3 L (13.0-17.0) g/dL Hct 29.7 L (39.6-50.0) % MCV 103.5 H (80.0-97.0) fL MCH 35.9 H (27.0-32.0) pg Plt Count 125 L (140-440) 10*3/uL Immature Gran # 0.05 H (0.00-0.04) 10*3/uL Lymphocytes # 0.77 L (0.90-5.00) 10*3/uL Eosinophils # 0.00 L (0.04-0.35) 10*3/uL Macrocytosis (manual) (None Seen) Sodium 131 L (137-145) mmol/L Potassium 2.6 L* (3.5-5.1) mmol/L Chloride 94 L (98-107) mmol/L Anion Gap (4.00-12.00) mmol/L Creatinine 0.58 L (0.66-1.25) mg/dL Glucose 140 H (74-99) mg/dL POC Glucose (mg/dL) (70-110) mg/dL Plasma Lactic Acid Isidro 2.1 H* (0.7-2.0) mmol/L Calcium 7.3 L (8.4-10.2) mg/dL Phosphorus 2.3 L (2.5-4.5) mg/dL Magnesium 1.5 L (1.6-2.3) mg/dL AST 136 H (17-59) U/L ALT (10-49) U/L Total Protein 5.4 L (6.3-8.2) g/dL Albumin 2.4 L (3.5-5.0) g/dL Albumin/Globulin Ratio (1.60-3.17) Ratio 03/21/25 03/21/25 03/21/25 Range/Units 02:51 02:51 11:08 RBC 3.02 L (4.40-5.60) 10*6/uL Hgb 10.7 L (13.0-17.0) g/dL Hct 32.8 L (39.6-50.0) % MCV 108.6 H (80.0-97.0) fL MCH 35.4 H (27.0-32.0) pg Plt Count (140-440) 10*3/uL Immature Gran # (0.00-0.04) 10*3/uL Lymphocytes # 0.88 L (0.90-5.00) 10*3/uL Eosinophils # 0.01 L (0.04-0.35) 10*3/uL Macrocytosis (manual) 2+ A (None Seen) Sodium (137-145) mmol/L Potassium (3.5-5.1) mmol/L Chloride (98-107) mmol/L Anion Gap 16.50 H (4.00-12.00) mmol/L Creatinine (0.66-1.25) mg/dL Glucose 121 H (74-99) mg/dL POC Glucose (mg/dL) 311 H (70-110) mg/dL Plasma Lactic Acid Isidro (0.7-2.0) mmol/L Calcium 7.3 L (8.4-10.2) mg/dL Phosphorus 2.1 L (2.5-4.5) mg/dL Magnesium (1.6-2.3) mg/dL AST 101 H (17-59) U/L ALT 50 H (10-49) U/L Total Protein 5.5 L (6.3-8.2) g/dL Albumin 2.5 L (3.5-5.0) g/dL Albumin/Globulin Ratio 0.83 L (1.60-3.17) Ratio Assessment and Plan (1) Diabetic ulcer of left foot Current Visit: Yes Status: Acute Code(s): E11.621 - TYPE 2 DIABETES MELLITUS WITH FOOT ULCER; L97.529 - NON-PRESSURE CHRONIC ULCER OTH PRT LEFT FOOT W UNSP SEVERITY SNOMED Code(s): 690345786 Plan: 1patient with a chronic nonhealing wound of the plantar aspect of the left foot and this patient has been treated with 2 different antibiotics in the outpatient setting wounds looks deep keeping in mind patient with underlying diabetes will need to cover for the polymicrobial simeon associated diabetic foot infection. 2local culture obtained and will guide further antibiotic therapy. 3will check x-ray of the left foot as well as inflammatory markers. 4-patient would benefit from surgical evaluation and need for debridement and deep culture 5-empirically treat with Zosyn while waiting for the workup to be completed We will follow on clinical condition and cultures to further adjust medication if needed Thank you for this consultation we will follow the patient along with you Dictation was produced using [employer] software. please excuse any grammatical, word or spelling errors. Time with Patient: Greater than 30
--- NOTE | 2025-03-22 11:03 | XR ---
EXAMINATION TYPE: XR foot complete LT DATE OF EXAM: 03/22/2025 CLINICAL INDICATION: Male, 84 years old with history of Left foot ulcer, pain TECHNIQUE: Frontal, lateral, and oblique images of the left foot are obtained. COMPARISON: Left foot x-ray August 13, 2023 FINDINGS: There is now amputation defect at the level of the metatarsal heads of all toes. Evaluatio n is suboptimal due to artifact from overlying sock. There is soft tissue ulceration along the planta r surface of the midfoot stump localized medially. No suspicious bony destruction to suggest acute os teomyelitis is seen but the lucency does approach the plantar surface of the midfoot bones. Surgical clips immediately distal leg level incidentally noted. IMPRESSION: Suboptimal study. There is soft tissue ulceration without convincing radiographic eviden ce for acute osteomyelitis. If clinical concern persists further investigation with 3 phase bone scan or MRI study may BE warranted. [facility], , 03/22/2025 11:01 AM
--- NOTE | 2025-03-22 11:14 | P.GSCN ---
History of Present Illness Consult date: 03/22/25 Reason for Consult: Left foot possible amputation Requesting physician: Lisa Xie History of present illness: This a pleasant 84-year-old male who was brought in to the emergency department for generalized weakness. Past medical history includes coronary artery disease status post CABG, diabetes mellitus, hyperlipidemia, hypertension, gout with a history of previous transmetatarsal amputation of the left foot which was done by Dr. Estevez in 2022. He was last seen by vascular surgery in November 2023 in the office. Per note TMA had healed. Apparently about 2 months ago he started with a new wound on the plantar aspect of his foot. It had recently gotten bigger. Patient was initially evaluated by wound care Dr. Perez who is on consultation, they recommended further evaluation by vascular surgery. Patient denies any fevers or chills. No leukocytosis. Patient denies any significant pain to the left foot. Review of Systems A 14 point review systems was completed all pertinent positives and negatives as stated in the HPI. 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 He and his have completed a home in [facility] in which she was hoping to have is his final halfway home. He has an adult daughter who will be coming to shredder picker her animals soon. He himself does not have any pets in the home. Smoking Status: Former smoker Past Alcohol Use History: Daily Additional Past Alcohol Use History / Comment(s): started smoking at age 12 smoke 1ppd quit cig 1965 swithced to pipe/cigar quit those 2001 Past Drug Use History: Unable to Obtain - Past Family History Father Family Medical History: Dementia Additional Family Medical History / Comment(s): AT AGE 93 Mother Family Medical History: Cancer Additional Family Medical History / Comment(s): BREAST CANCER SURVIVER, AT AGE 86 Medications and Allergies Home Medications Medication Instructions Recorded Confirmed Type allopurinoL [Zyloprim] 300 mg PO DAILY 10/26/14 03/20/25 History Omeprazole [PriLOSEC] 20 mg PO AC-BRKFST 06/03/18 03/20/25 History Clopidogrel Bisulfate [Plavix] 75 mg PO DAILY 02/26/21 03/20/25 History clonazePAM [KlonoPIN] 1 mg PO HS #3 tab 10/01/23 03/20/25 Rx Diphenox-Atrop 2.5-0.025 mg 2 tab PO AC-SUPPER 03/20/25 03/20/25 History [Lomotil] Gabapentin 300 mg PO HS 03/20/25 03/20/25 History Magnesium Chloride [Slow-Mag] 64 mg PO DAILY 03/20/25 03/20/25 History Midodrine [ProAmatine] 5 mg PO BID 03/20/25 03/20/25 History PARoxetine [Paxil] 20 mg PO DAILY 03/20/25 03/20/25 History Simvastatin [Zocor] 20 mg PO HS 03/20/25 03/20/25 History atenoloL [Tenormin] 50 mg PO BID 03/20/25 03/20/25 History Allergies Allergy/AdvReac Type Severity Reaction Status Date / Time No Known Allergies Allergy Verified 03/20/25 16:06 Surgical - Exam Vital Signs Temp Pulse Resp BP Pulse Ox 97.9 F 87 20 121/67 99 03/20/25 14:12 03/20/25 14:12 03/20/25 14:12 03/20/25 14:12 03/20/25 14:12 General appearance: The patient is alert, oriented, appears in no acute distress. HET: Head is normocephalic and atraumatic. Pupils are equal and reactive. Neck: Supple. Heart: Regular. Lungs: Equal expansion, normal respiratory effort. Abdomen: Soft, nondistended. Extremities: Right great toe with ulcer at distal tip. Left lower extremity, previous TMA healed, diabetic ulcer to plantar aspect foot with surrounding erythema, bleeding no purulent drainage noted. Neurological: Alert and oriented. Results - Labs 03/22/25 03:32 03/22/25 03:32 Abnormal Lab Results - Last 24 Hours (Table) 03/21/25 03/21/25 03/21/25 Range/Units 02:51 02:51 11:08 Lymphocytes # 0.88 L (0.90-5.00) X 10*3/uL Eosinophils # 0.01 L (0.04-0.35) X 10*3/uL Macrocytosis (manual) 2+ A (None Seen) Anion Gap 16.50 H (4.00-12.00) mmol/L Glucose 121 H (70-110) mg/dL POC Glucose (mg/dL) 311 H (70-110) mg/dL Calcium 7.3 L (8.7-10.3) mg/dL Phosphorus 2.1 L (2.4-5.1) mg/dL AST 101 H (14-35) U/L ALT 50 H (10-49) U/L Total Protein 5.5 L (6.2-8.2) g/dL Albumin 2.5 L (3.8-4.9) g/dL Albumin/Globulin Ratio 0.83 L (1.60-3.17) Ratio 03/21/25 03/21/25 03/22/25 Range/Units 16:07 21:12 06:09 Lymphocytes # (0.90-5.00) X 10*3/uL Eosinophils # (0.04-0.35) X 10*3/uL Macrocytosis (manual) (None Seen) Anion Gap (4.00-12.00) mmol/L Glucose (70-110) mg/dL POC Glucose (mg/dL) 185 H 225 H 112 H (70-110) mg/dL Calcium (8.7-10.3) mg/dL Phosphorus (2.4-5.1) mg/dL AST (14-35) U/L ALT (10-49) U/L Total Protein (6.2-8.2) g/dL Albumin (3.8-4.9) g/dL Albumin/Globulin Ratio (1.60-3.17) Ratio Microbiology - Last 24 Hours (Table) 03/21/25 13:02 Gram Stain - Preliminary Foot - Left Diabetes panel 03/21/25 Range/Units 02:51 Sodium 136 (135-145) mmol/L Potassium 4.4 (3.5-5.5) mmol/L Chloride 96 (96-109) mmol/L Carbon Dioxide 23.5 (21.6-31.8) mmol/L BUN 11.4 (9.0-27.0) mg/dL Creatinine 0.6 (0.6-1.5) mg/dL Glucose 121 H (70-110) mg/dL Calcium 7.3 L (8.7-10.3) mg/dL AST 101 H (14-35) U/L ALT 50 H (10-49) U/L Alkaline Phosphatase 108 (41-126) U/L Total Protein 5.5 L (6.2-8.2) g/dL Albumin 2.5 L (3.8-4.9) g/dL Calcium panel 03/21/25 Range/Units 02:51 Calcium 7.3 L (8.7-10.3) mg/dL Phosphorus 2.1 L (2.4-5.1) mg/dL Albumin 2.5 L (3.8-4.9) g/dL Pituitary panel 03/21/25 Range/Units 02:51 Sodium 136 (135-145) mmol/L Potassium 4.4 (3.5-5.5) mmol/L Chloride 96 (96-109) mmol/L Carbon Dioxide 23.5 (21.6-31.8) mmol/L BUN 11.4 (9.0-27.0) mg/dL Creatinine 0.6 (0.6-1.5) mg/dL Glucose 121 H (70-110) mg/dL Calcium 7.3 L (8.7-10.3) mg/dL Adrenal panel 03/21/25 Range/Units 02:51 Sodium 136 (135-145) mmol/L Potassium 4.4 (3.5-5.5) mmol/L Chloride 96 (96-109) mmol/L Carbon Dioxide 23.5 (21.6-31.8) mmol/L BUN 11.4 (9.0-27.0) mg/dL Creatinine 0.6 (0.6-1.5) mg/dL Glucose 121 H (70-110) mg/dL Calcium 7.3 L (8.7-10.3) mg/dL Total Bilirubin 0.4 (0.3-1.2) mg/dL AST 101 H (14-35) U/L ALT 50 H (10-49) U/L Alkaline Phosphatase 108 (41-126) U/L Total Protein 5.5 L (6.2-8.2) g/dL Albumin 2.5 L (3.8-4.9) g/dL Assessment and Plan Assessment: 1. Chronic nonhealing diabetic foot ulcer, left foot 2. Diabetic ulcer to right great toe 3. 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 Generalized weakness 5. Diabetes mellitus 6. History of coronary artery disease status post CABG Plan: 1. N.p.o. after midnight 2. Tentative plan for surgical debridement of left plantar ulcer with possible wound VAC placement and right great toe ulcer debridement tomorrow 3. Antibiotics per infectious disease 4. Arterial duplex of lower extremities ordered 5. Rest of medical management per primary medical team Thank you for this consultation, we will continue to follow. The impression and plan of care has been dictated as directed. I performed a history and examination of this patient, discussed the same with the dictator. I agree with the dictator's note ,documented as a scribe. Any additional findings or plans will be noted.
[2025-03-22 11:42] LABS: Glucose,Whole Blood 211 mg/dL (70-110)
--- NOTE | 2025-03-22 13:46 | P.PN ---
Subjective Progress Note Date: 03/22/25 Principal diagnosis: Left foot infected ulcer Patient is a 84-year-old male with a past medical history significant for Coronary Artery Disease (CAD), Cancer, Diabetes Mellitus, GERD/Reflux, Hyperlipidemia, Hypertension and this patient has been dealing with a nonhealing wound to the left foot presenting to the hospital for evaluation of weakness and mental status changes did have a nonhealing wound to the left foot prompting this consultation. On today's evaluation that is 03/22/2025,the patient remains to be afebrile, patient is on room air not requiring supplemental oxygen and denies any shortness of breath no chest pain or cough.Patient denies having any nausea or vomiting, no abdominal pain and no diarrhea has been reported, denies pain to the left foot. The patient white count is 7.59, creatinine 0.6, x-ray of the foot soft tissue ulceration without radiographic evidence for acute osteomyelitis Objective - Vital Signs Vital signs: Vital Signs Temp 98.1 F 03/22/25 07:19 Pulse 76 03/22/25 07:19 Resp 18 03/22/25 07:19 BP 115/79 03/22/25 07:19 Pulse Ox 95 03/22/25 01:26 FiO2 Intake & Output 03/21/25 03/22/25 03/22/25 18:59 06:59 18:59 Other: # Voids 2 2 # Bowel Movements 1 - Exam GENERAL DESCRIPTION: An elderly male lying in bed in no distress RESPIRATORY SYSTEM: Unlabored breathing , decreased breath sounds at bases HEART: S1 S2 regular rate and rhythm , ABDOMEN: Soft , no tenderness EXTREMITIES: Left foot wound is currently dressed - Labs CBC & Chem 7: 03/22/25 03:32 03/22/25 03:32 Labs: Abnormal Lab Results - Last 24 Hours (Table) 03/21/25 03/21/25 03/22/25 Range/Units 16:07 21:12 03:32 RBC 2.80 L (4.40-5.60) X 10*6/uL Hgb 10.3 L (13.0-17.0) g/dL Hct 30.9 L (39.6-50.0) % MCV 110.4 H (80.0-97.0) FL MCH 36.8 H (27.0-32.0) pg Plt Count 139 L (140-440) X 10*3/uL Immature Gran # 0.11 H (0.00-0.04) X 10*3/uL Lymphocytes # 0.82 L (0.90-5.00) X 10*3/uL Eosinophils # 0.01 L (0.04-0.35) X 10*3/uL Sodium (135-145) mmol/L BUN (9.0-27.0) mg/dL BUN/Creatinine Ratio (12.00-20.00) Ratio Glucose (70-110) mg/dL POC Glucose (mg/dL) 185 H 225 H (70-110) mg/dL Calcium (8.7-10.3) mg/dL Phosphorus (2.4-5.1) mg/dL 03/22/25 03/22/25 03/22/25 Range/Units 03:32 06:09 11:42 RBC (4.40-5.60) X 10*6/uL Hgb (13.0-17.0) g/dL Hct (39.6-50.0) % MCV (80.0-97.0) FL MCH (27.0-32.0) pg Plt Count (140-440) X 10*3/uL Immature Gran # (0.00-0.04) X 10*3/uL Lymphocytes # (0.90-5.00) X 10*3/uL Eosinophils # (0.04-0.35) X 10*3/uL Sodium 132 L (135-145) mmol/L BUN 5.4 L (9.0-27.0) mg/dL BUN/Creatinine Ratio 9.00 L (12.00-20.00) Ratio Glucose 159 H (70-110) mg/dL POC Glucose (mg/dL) 112 H 211 H (70-110) mg/dL Calcium 7.1 L (8.7-10.3) mg/dL Phosphorus 1.5 L (2.4-5.1) mg/dL Microbiology - Last 24 Hours (Table) 03/21/25 13:02 Gram Stain - Preliminary Foot - Left Assessment and Plan (1) Diabetic ulcer of left foot Current Visit: Yes Status: Acute Code(s): E11.621 - TYPE 2 DIABETES MELLITUS WITH FOOT ULCER; L97.529 - NON-PRESSURE CHRONIC ULCER OTH PRT LEFT FOOT W UNSP SEVERITY SNOMED Code(s): 625981651 Plan: 1patient with a chronic nonhealing wound of the plantar aspect of the left foot and this patient has been treated with 2 different antibiotics in the outpatient setting wounds looks deep keeping in mind patient with underlying diabetes will need to cover for the polymicrobial simeon associated diabetic foot infection. 2local culture obtained which are currently pending x-ray of the foot did not show any bony changes inflammatory markers are currently pending 3patient has been evaluated vascular surgery and planning for debridement and deep culture was scheduled for tomorrow 4patient will be treated with Zosyn while waiting for the workup to be completed Dictation was produced using [employer] dictation software. please excuse any grammatical, word or spelling errors. Time with Patient: Less than 30
--- NOTE | 2025-03-22 14:43 | P.PN ---
Subjective Progress Note Date: 03/22/25 Patient is a 84-year-old male with CAD status post CABG, diabetes, GERD, hyperlipidemia, hypertension, history of malignant melanoma, depression, daily smoker here for evaluation of altered mental status and weakness. He is unsure why he was sent to the emergency department. On my evaluation, he reported that he has had a chronic wound on his left foot that is being managed by his PCP for about 2 to 3 weeks now and has not improved with 2 types of antibiotics. He was then advised to go to the ED for IV antibiotics by his architectural project captain. He has no other associated symptoms. He denied fevers, cough, shortness of breath, recent prolonged travel, exposure to sick contacts, recent fall or trauma, abdominal pain, diarrhea, constipation, issues with urination or defecation, chest pain, lightheadedness, dizziness. He reported that he is able to eat meals on his own and does not have any issues with appetite or swallowing. On admission: Vitals: Temp 97.9 F, FL 87, RR 20, BP 121/67, O2 saturation 99% on room air Labs: WBC 8.5, hemoglobin 10.3, MCV 103.5, platelet count 1 25,000, sodium 131, potassium 2.6, chloride 94, BUN 15, creatinine 0.50, glucose 140, lactic acid 2.1, calcium 7.3,. Phosphorus 2.3, magnesium 1.5, AST 136, ALT 46, alk phos 110, troponin 0.013, proBNP 3000 4060, albumin 2.4. Serum alcohol less than 10. Imaging: EKG showed sinus rhythm with a rate of 91, PAC noted on lead II, normal axis, no ST-T changes, good R wave progression, QTc 421 MS,. 03/22/2025 patient seen and examined at bedside. No acute events overnight. ID and wound care recommends vascular surgery consult for I&D. Labs today: WBC 7.59, hemoglobin 10.3, platelet count 1 39,000, sodium 132, potassium 4, chloride 96, bicarb 27.9, BUN 5.4, creatinine 0.6, glucose 159, calcium 7.1, phosphorus 1.5, magnesium 1.7, B12 758, folate 8 Review of systems: Pertinent positives and negatives as discussed in HPI, a complete review of systems was performed and all other systems are negative. Physical examination: Vital signs reviewed General: non toxic, no distress, appears at stated age, thin and frail appearing Derm: no unusual rashes/lesions, warm Head: atraumatic, normocephalic, symmetric Eyes: EOMI, anicteric sclera, pupils equal round reactive to light ENT: Nose and ears atraumatic Neck: No cervical lymphadenopathy, trachea midline, supple Mouth: no lip lesion, mucus membranes moist Cardiovascular: S1S2 reg, no murmur Lungs: CTA bilateral, no rhonchi, no rales, no accessory muscle use Abdominal: soft, nontender to palpation, no guarding Ext: muscle strength 5 out of 5 in all 4 extremities grossly, no gross muscle atrophy, no contractures, positive dorsalis pedis pulse bilateral, no edema, left foot amputated stump notable with unhealing wound, badage dry, left lower extremity erythematous no notable edema, right 1st digit covered with bandage dr y and clean with no noted discharge Neuro: CN II-XI grossly intact, no gross focal neuro deficits Psych: Alert and oriented x3, appropriate affect and mood Assessment/Plan: 84-year-old male with CAD status post CABG, diabetes here for evaluation of unhealing left lower extremity wounds concerning for cellulitis. Found to have multiple electrolyte abnormalities on labs concerning for malnutrition and failure to thrive. The patient is admitted with an anticipated greater than 2 midnight stay for evaluation of cellulitis of left lower extremity and debility Active: #. Diabetic ulcer of the left foot #. Diabetic ulcer of right toe Patient has normal white count and afebrile at this time Initiate empiric Zosyn IVPB every 8 hours Consult ID and wound care. Recommended vascular surgery consult for I and D. Planned for tomorrow #. Hypokalemia, improved #. Hypomagnesemia, improved #. Hypophosphatemia #. Debility Patient experiencing generalized weakness Potassium 4 Magnesium 1.7 Phosphate 1.5 Phos neutra packet TID Continue cardiac monitoring Encourage oral intake PT OT consulted #. Macrocytic anemia likely due to malnutrition B12 and folate within normal limits Folate supplementation daily #. Diabetes mellitus Hemoglobin A1c 5.6 Hold home medications Glucose Accu-Cheks ACHS Initiate Insulin sliding scale ACHS Monitor for hypoglycemia Chronic Conditions: #. CAD status post CABG #. GERD #. Hyperlipidemia #. Hypertension Continue home allopurinol 300 mg daily, atenolol 50 mg twice daily, clonazepam 1 mg p.o. daily, clopidogrel 75 mg p.o. daily, gabapentin 300 mg p.o. daily, omeprazole 20 mg p.o. daily, paroxetine 20 mg p.o. daily and simvastatin 20 mg p.o. daily DVT ppx: Lovenox 40 mg subcu daily CODE STATUS: Full Discussed with: Patient Anticipated discharge place: Home Dania Vaca MD PGY-1/[employer] Dictation was produced using [employer] dictation software. please excuse any grammatical, word or spelling errors. Attestation: I have seen and examined this patient with my resident, assessment and plan discussed with the resident, agree with assessment and plan as written above. Dr. Shi Objective - Vital Signs Vital signs: Vital Signs Temp 98.1 F 03/22/25 07:19 Pulse 76 03/22/25 07:19 Resp 18 03/22/25 07:19 BP 115/79 03/22/25 07:19 Pulse Ox 95 03/22/25 01:26 FiO2 Intake & Output 03/21/25 03/22/25 03/22/25 18:59 06:59 18:59 Other: # Voids 2 2 # Bowel Movements 1 - Labs CBC & Chem 7: 03/22/25 03:32 03/22/25 03:32 Labs: Abnormal Lab Results - Last 24 Hours (Table) 03/21/25 03/21/25 03/21/25 Range/Units 02:51 02:51 11:08 Lymphocytes # 0.88 L (0.90-5.00) X 10*3/uL Eosinophils # 0.01 L (0.04-0.35) X 10*3/uL Macrocytosis (manual) 2+ A (None Seen) Anion Gap 16.50 H (4.00-12.00) mmol/L Glucose 121 H (70-110) mg/dL POC Glucose (mg/dL) 311 H (70-110) mg/dL Calcium 7.3 L (8.7-10.3) mg/dL AST 101 H (14-35) U/L ALT 50 H (10-49) U/L Total Protein 5.5 L (6.2-8.2) g/dL Albumin 2.5 L (3.8-4.9) g/dL Albumin/Globulin Ratio 0.83 L (1.60-3.17) Ratio 03/21/25 03/21/25 03/22/25 Range/Units 16:07 21:12 06:09 Lymphocytes # (0.90-5.00) X 10*3/uL Eosinophils # (0.04-0.35) X 10*3/uL Macrocytosis (manual) (None Seen) Anion Gap (4.00-12.00) mmol/L Glucose (70-110) mg/dL POC Glucose (mg/dL) 185 H 225 H 112 H (70-110) mg/dL Calcium (8.7-10.3) mg/dL AST (14-35) U/L ALT (10-49) U/L Total Protein (6.2-8.2) g/dL Albumin (3.8-4.9) g/dL Albumin/Globulin Ratio (1.60-3.17) Ratio Microbiology - Last 24 Hours (Table) 03/21/25 13:02 Gram Stain - Preliminary Foot - Left
[2025-03-22] MEDS: POTAS-SOD-PHOS 280-160-250 MG 1 EACH PACKET PO SCH (16:39)
[2025-03-22 16:57] LABS: Glucose,Whole Blood 238 mg/dL (70-110)
[2025-03-22 20:15] LABS: Glucose,Whole Blood 154 mg/dL (70-110)
[2025-03-23 06:32] LABS: Glucose,Whole Blood 70 mg/dL (70-110)
[2025-03-23] MEDS: DEXTROSE 50% SYRINGE 50 ML IVP PRN ×2 (06:42→12:39)
[2025-03-23 07:03] LABS: Glucose,Whole Blood 125 mg/dL (70-110)
[2025-03-23 07:04] LABS: African American GFR (CKD) >90 (>60 ml/min/1.73 sqM); Anion Gap 5 mmol/L; Blood Urea Nitrogen 8 mg/dL (9-20); Calcium 7.2 mg/dL (8.4-10.2); Carbon Dioxide 29 mmol/L (22-30); Chloride 96 mmol/L (98-107); Glucose 106 mg/dL (74-99); Non-African American GFR(CKD) >90 (>60 ml/min/1.73 sqM); Phosphorus 2.1 mg/dL (2.5-4.5); Potassium 3.7 mmol/L (3.5-5.1); Sodium 130 mmol/L (137-145)
[2025-03-23 11:21] VITALS: BMI 19.0
[2025-03-23 11:54] LABS: Glucose,Whole Blood 60 mg/dL (70-110)
[2025-03-23 12:32] LABS: Glucose,Whole Blood 48 mg/dL (70-110)
[2025-03-23 12:43] LABS: Glucose,Whole Blood 49 mg/dL (70-110)
[2025-03-23 13:11] LABS: Glucose,Whole Blood 158 mg/dL (70-110)
--- NOTE | 2025-03-23 15:01 | P.PN ---
Subjective Progress Note Date: 03/23/25 Principal diagnosis: Left foot infected ulcer Patient is a 84-year-old male with a past medical history significant for Coronary Artery Disease (CAD), Cancer, Diabetes Mellitus, GERD/Reflux, Hyperlipidemia, Hypertension and this patient has been dealing with a nonhealing wound to the left foot presenting to the hospital for evaluation of weakness and mental status changes did have a nonhealing wound to the left foot prompting this consultation. On today's evaluation that is 03/23/2025, the patient continues to be afebrile, the patient is on room air and breathing comfortably, the Pt denies having any chest pain or cough, the patient denies having any abdominal pain no vomiting or any diarrhea and denies pain to the left foot wound area. No CBC was done today's creatinine 0.54 cultures currently growing Pseudomonas and MRSA Objective - Vital Signs Vital signs: Vital Signs Temp 97.5 F L 03/23/25 14:49 Pulse 48 L 03/23/25 14:49 Resp 16 03/23/25 14:49 BP 94/53 03/23/25 14:49 Pulse Ox 94 L 03/23/25 14:49 FiO2 Intake & Output 03/22/25 03/23/25 03/23/25 18:59 06:59 18:59 Intake Total 100 Balance 100 Weight 63.503 kg Intake: Intake, IV Titration 100 Amount Piperacillin-Tazobactam 3 100 .375 gm In Sodium Chloride 0.9% 100 ml @ 25 mls/hr IVPB Q8HR [facility] Rx# :[id number] Other: Voiding Method Urinal Urinal # Voids 2 2 # Bowel Movements 1 2 - Exam GENERAL DESCRIPTION: An elderly male lying in bed in no distress RESPIRATORY SYSTEM: Unlabored breathing , decreased breath sounds at bases HEART: S1 S2 regular rate and rhythm , ABDOMEN: Soft , no tenderness EXTREMITIES: Left foot wound is currently dressed - Labs CBC & Chem 7: 03/22/25 03:32 03/23/25 05:36 Labs: Abnormal Lab Results - Last 24 Hours (Table) 03/22/25 03/22/25 03/22/25 Range/Units 03:32 03:32 16:56 ESR 59 H (0-20) mm/Hr Sodium (137-145) mmol/L Chloride (98-107) mmol/L BUN (9-20) mg/dL Creatinine (0.66-1.25) mg/dL Glucose (74-99) mg/dL POC Glucose (mg/dL) 238 H (70-110) mg/dL Calcium (8.4-10.2) mg/dL Phosphorus (2.5-4.5) mg/dL C-Reactive Protein 17.10 H (0.00-0.80) mg/dL 03/22/25 03/23/25 03/23/25 Range/Units 20:13 05:36 07:01 ESR (0-20) mm/Hr Sodium 130 L (137-145) mmol/L Chloride 96 L (98-107) mmol/L BUN 8 L (9-20) mg/dL Creatinine 0.54 L (0.66-1.25) mg/dL Glucose 106 H (74-99) mg/dL POC Glucose (mg/dL) 154 H 125 H (70-110) mg/dL Calcium 7.2 L (8.4-10.2) mg/dL Phosphorus 2.1 L (2.5-4.5) mg/dL C-Reactive Protein (0.00-0.80) mg/dL 03/23/25 03/23/25 03/23/25 Range/Units 11:53 12:31 12:37 ESR (0-20) mm/Hr Sodium (137-145) mmol/L Chloride (98-107) mmol/L BUN (9-20) mg/dL Creatinine (0.66-1.25) mg/dL Glucose (74-99) mg/dL POC Glucose (mg/dL) 60 L 48 L* 49 L* (70-110) mg/dL Calcium (8.4-10.2) mg/dL Phosphorus (2.5-4.5) mg/dL C-Reactive Protein (0.00-0.80) mg/dL 03/23/25 Range/Units 13:10 ESR (0-20) mm/Hr Sodium (137-145) mmol/L Chloride (98-107) mmol/L BUN (9-20) mg/dL Creatinine (0.66-1.25) mg/dL Glucose (74-99) mg/dL POC Glucose (mg/dL) 158 H (70-110) mg/dL Calcium (8.4-10.2) mg/dL Phosphorus (2.5-4.5) mg/dL C-Reactive Protein (0.00-0.80) mg/dL Microbiology - Last 24 Hours (Table) 03/21/25 13:02 Gram Stain - Final Foot - Left Wound Culture - Final Pseudomonas aeruginosa Methicillin resist S. aureus Assessment and Plan (1) Diabetic ulcer of left foot Current Visit: Yes Status: Acute Code(s): E11.621 - TYPE 2 DIABETES MELLITUS WITH FOOT ULCER; L97.529 - NON-PRESSURE CHRONIC ULCER OTH PRT LEFT FOOT W UNSP SEVERITY SNOMED Code(s): 378201004 (2) MRSA (methicillin resistant staph aureus) culture positive Current Visit: No Status: Acute Code(s): Z22.322 - CARRIER OR SUSPECTED CARRIER OF METHICILLIN RESIS STAPH SNOMED Code(s): 977555642 Plan: 1patient with a chronic nonhealing wound of the plantar aspect of the left foot and this patient has been treated with 2 different antibiotics in the outpatient setting wounds looks deep keeping in mind patient with underlying diabetes will need to cover for the polymicrobial simeon associated diabetic foot infection. 2local culture grew MRSA and Pseudomonas aeruginosa x-ray of the foot did not show any bony changes 3patient has been evaluated vascular surgery and planning for debridement and deep culture was scheduled for this discussed with the surgeon to obtain deep cultures 4patient will be treated with Zosyn, we will add daptomycin to cover for the MRSA Dictation was produced using [employer] dictation software. please excuse any grammatical, word or spelling errors. Time with Patient: Less than 30
[2025-03-23 15:22] LABS: Glucose,Whole Blood 125 mg/dL (70-110)
[2025-03-23] MEDS ORDERED: PROPOFOL 10 MG/ML 20 ML VIAL IV ONE (15:56)
[2025-03-23] MEDS: IV FLUID CONTINUATION 1,000 ML IV ONE (16:12)
--- NOTE | 2025-03-23 16:16 | P.PN ---
Subjective Progress Note Date: 03/23/25 Patient is a 84-year-old male with CAD status post CABG, diabetes, GERD, hyperlipidemia, hypertension, history of malignant melanoma, depression, daily smoker here for evaluation of altered mental status and weakness. He is unsure why he was sent to the emergency department. On my evaluation, he reported that he has had a chronic wound on his left foot that is being managed by his PCP for about 2 to 3 weeks now and has not improved with 2 types of antibiotics. He was then advised to go to the ED for IV antibiotics by his paper maker. He has no other associated symptoms. He denied fevers, cough, shortness of breath, recent prolonged travel, exposure to sick contacts, recent fall or trauma, abdominal pain, diarrhea, constipation, issues with urination or defecation, chest pain, lightheadedness, dizziness. He reported that he is able to eat meals on his own and does not have any issues with appetite or swallowing. On admission: Vitals: Temp 97.9 F, MA 87, RR 20, BP 121/67, O2 saturation 99% on room air Labs: WBC 8.5, hemoglobin 10.3, MCV 103.5, platelet count 1 25,000, sodium 131, potassium 2.6, chloride 94, BUN 15, creatinine 0.50, glucose 140, lactic acid 2.1, calcium 7.3,. Phosphorus 2.3, magnesium 1.5, AST 136, ALT 46, alk phos 110, troponin 0.013, proBNP 3000 4060, albumin 2.4. Serum alcohol less than 10. Imaging: EKG showed sinus rhythm with a rate of 91, PAC noted on lead II, normal axis, no ST-T changes, good R wave progression, QTc 421 MS,. 03/22/2025 patient seen and examined at bedside. No acute events overnight. ID and wound care recommends vascular surgery consult for I&D. Labs today: WBC 7.59, hemoglobin 10.3, platelet count 1 39,000, sodium 132, potassium 4, chloride 96, bicarb 27.9, BUN 5.4, creatinine 0.6, glucose 159, calcium 7.1, phosphorus 1.5, magnesium 1.7, B12 758, folate 8 03/23/2025 patient seen and examined at bedside. No acute event overnight. Labs: Sodium 130, potassium 3.7, chloride 96, BUN 8, creatinine 0.54, glucose 106, calcium 7.2, phosphorus 2.1, CRP 17.1. Wound culture positive for pseudomonas and MRSA Imaging; foot x-ray showed soft tissue ulceration without convincing radiographic evidence for acute osteomyelitis. ESTHER index by ultrasound showed normal for right and left lower extremities Review of systems: Pertinent positives and negatives as discussed in HPI, a complete review of systems was performed and all other systems are negative. Physical examination: Vital signs reviewed General: non toxic, no distress, appears at stated age, thin and frail appearing Derm: no unusual rashes/lesions, warm Head: atraumatic, normocephalic, symmetric Eyes: EOMI, anicteric sclera, pupils equal round reactive to light ENT: Nose and ears atraumatic Neck: No cervical lymphadenopathy, trachea midline, supple Mouth: no lip lesion, mucus membranes moist Cardiovascular: S1S2 reg, no murmur Lungs: CTA bilateral, no rhonchi, no rales, no accessory muscle use Abdominal: soft, nontender to palpation, no guarding Ext: muscle strength 5 out of 5 in all 4 extremities grossly, no gross muscle atrophy, no contractures, positive dorsalis pedis pulse bilateral, no edema, left foot amputated stump notable with unhealing wound, badage dry, left lower extremity erythematous no notable edema, right 1st digit covered with bandage dry and clean with no noted discharge Neuro: CN II-XI grossly intact, no gross focal neuro deficits Psych: Alert and oriented x3, appropriate affect and mood Assessment/Plan: 84-year-old male with CAD status post CABG, diabetes here for evaluation of unhealing left lower extremity wounds concerning for cellulitis. Found to have multiple electrolyte abnormalities on labs concerning for malnutrition and failure to thrive. The patient is admitted with an anticipated greater than 2 midnight stay for evaluation of cellulitis of left lower extremity and debility Active: #. Diabetic ulcer of the left foot #. Diabetic ulcer of right toe Patient has normal white count and afebrile at this time Continue empiric Zosyn IVPB every 8 hours Consult ID and wound care. Recommended vascular surgery consult for I and D. Planned for today Wound culture positive for pseudomonas and MRSA. ID recommendations Zosyn IV and daptomycin IV #. Hypokalemia, improved #. Hypomagnesemia, improved #. Hypophosphatemia #. Debility Patient experiencing generalized weakness Potassium 4 Magnesium 1.7 Phosphate 2.1 Phos neutra packet TID Ensure protein for supplementation Continue cardiac monitoring Encourage oral intake PT OT consulted. Recommended STONE on discharge #. Macrocytic anemia likely due to malnutrition B12 and folate within normal limits Folate supplementation daily #. Diabetes mellitus Hemoglobin A1c 5.6 Hold home medications Glucose Accu-Cheks ACHS Initiate Insulin sliding scale ACHS Monitor for hypoglycemia Chronic Conditions: #. CAD status post CABG #. GERD #. Hyperlipidemia #. Hypertension Continue home allopurinol 300 mg daily, atenolol 50 mg twice daily, clonazepam 1 mg p.o. daily, clopidogrel 75 mg p.o. daily, gabapentin 300 mg p.o. daily, omeprazole 20 mg p.o. daily, paroxetine 20 mg p.o. daily and simvastatin 20 mg p.o. daily DVT ppx: Lovenox 40 mg subcu daily CODE STATUS: Full Discussed with: Patient Anticipated discharge place: Home Dania Vaca MD PGY-1/Folder Seamer Dictation was produced using [employer] dictation software. please excuse any grammatical, word or spelling errors. Attestation: I have seen and examined this patient with my resident, assessment and plan discussed with the resident, agree with assessment and plan as written above. Dr. Shi Objective - Vital Signs Vital signs: Vital Signs Temp 99.1 F 03/23/25 01:41 Pulse 96 03/23/25 07:03 Resp 16 03/23/25 07:03 BP 101/61 03/23/25 07:03 Pulse Ox 94 L 03/23/25 07:03 FiO2 Intake & Output 03/22/25 03/23/25 03/23/25 18:59 06:59 18:59 Intake Total 100 Balance 100 Intake: Intake, IV Titration 100 Amount Piperacillin-Tazobactam 3 100 .375 gm In Sodium Chloride 0.9% 100 ml @ 25 mls/hr IVPB Q8HR [facility] Rx# :[id number] Other: Voiding Method Urinal # Voids 2 2 # Bowel Movements 1 2 - Labs CBC & Chem 7: 03/30/25 02:33 03/30/25 02:33 Labs: Abnormal Lab Results - Last 24 Hours (Table) 03/22/25 03/22/25 03/22/25 Range/Units 03:32 03:32 11:42 ESR 59 H (0-20) mm/Hr Sodium (137-145) mmol/L Chloride (98-107) mmol/L BUN (9-20) mg/dL Creatinine (0.66-1.25) mg/dL Glucose (74-99) mg/dL POC Glucose (mg/dL) 211 H (70-110) mg/dL Calcium (8.4-10.2) mg/dL Phosphorus (2.5-4.5) mg/dL C-Reactive Protein 17.10 H (0.00-0.80) mg/dL 03/22/25 03/22/25 03/23/25 Range/Units 16:56 20:13 05:36 ESR (0-20) mm/Hr Sodium 130 L (137-145) mmol/L Chloride 96 L (98-107) mmol/L BUN 8 L (9-20) mg/dL Creatinine 0.54 L (0.66-1.25) mg/dL Glucose 106 H (74-99) mg/dL POC Glucose (mg/dL) 238 H 154 H (70-110) mg/dL Calcium 7.2 L (8.4-10.2) mg/dL Phosphorus 2.1 L (2.5-4.5) mg/dL C-Reactive Protein (0.00-0.80) mg/dL 03/23/25 Range/Units 07:01 ESR (0-20) mm/Hr Sodium (137-145) mmol/L Chloride (98-107) mmol/L BUN (9-20) mg/dL Creatinine (0.66-1.25) mg/dL Glucose (74-99) mg/dL POC Glucose (mg/dL) 125 H (70-110) mg/dL Calcium (8.4-10.2) mg/dL Phosphorus (2.5-4.5) mg/dL C-Reactive Protein (0.00-0.80) mg/dL Microbiology - Last 24 Hours (Table) 03/21/25 13:02 Gram Stain - Preliminary Foot - Left Wound Culture - Preliminary Gram Neg Bacilli Assessment and Plan Assessment: Attestation Attestation/ Machinist Mate Note: Attestation to progress Note, Participation (I saw and evaluated the patient with the Resident, and I reviewed and discussed the patient with the Resident and agree with the Resident's findings and plans as documented above., management reviewed and discussed), I agree with findings & plan, Provider Signature (FRANCK VEGA, MARYSE Miguel. Time with Patient: Greater than 30
--- NOTE | 2025-03-23 16:31 | P.OP ---
Date of Procedure: 03/23/25 Description of Procedure: Preoperative diagnosis: Bilateral lower extremity wounds Postoperative diagnosis: Same Procedure: Sharp excisional debridement right great toe wound to bone 1 x 0.7 x 0.9 cm Sharp excisional debridement left plantar wound to bone 4.5 x 3 x 2 cm with 9:00 tunneling of 2 cm Surgeon: Kristina Mcconnell D.O. EBL: 5 cc IV fluids: See records Urine output: Not measured Drains: None Complications: None immediately apparent Condition: Stable to recovery Operative indication and findings: Patient is an 84-year-old male with previous TMA on the left and bilateral lower extremity wounds who is in need of debridement. Risk and benefits were discussed. He seemingly understands and is willing to proceed. Procedure in detail: Patient was taken the operative suite and placed in supine position. The bilateral lower extremities were prepped and draped in usual sterile fashion. A preprocedural timeout was performed, all parties were in agreement. Starting with the right great toe, the eschar was removed with the tip of the toe and there was a very small amount of purulent drainage therefore a culture was obtained as well as a deep culture into the area where the bone was exposed. The bone itself was debrided and was not healthy appearing at this level. There was adequate appearing bleeding and no further drainage through any further areas of the toe. Attention was then turned towards the left lower extremity, the fibrinous exudate was removed with a scalpel and curette. Due to the undermining size of the wound, the skin incision was enlarged around the area to allow for appropriate evaluation of the depth of the wound. Once cleared out this was debrided all the way down to the level of the bone which again felt unhealthy at this level and eroded. There was some undermining. The area was then cleared of all its infectious and necrotic appearing tissues. There were both irrigated well. A compressive dry dressing was placed on the left and iodoform dressing on the right. He seemingly did well without any apparent complication was transferred to recovery in stable condition having tolerated the procedure well
[2025-03-23 21:11] LABS: Glucose,Whole Blood 78 mg/dL (70-110)
[2025-03-23] MEDS: PIPERACILLIN-TAZOBACTAM 3.375 GM in SODIUM CHLORIDE 0.9% 100 ML IVPB SCH (22:19)
[2025-03-24 06:18] LABS: Glucose,Whole Blood 185 mg/dL (70-110)
[2025-03-24 06:32] LABS: African American GFR (CKD) >90 (>60 ml/min/1.73 sqM); Anion Gap 5 mmol/L; Blood Urea Nitrogen 5 mg/dL (9-20); Calcium 7.2 mg/dL (8.4-10.2); Carbon Dioxide 29 mmol/L (22-30); Chloride 96 mmol/L (98-107); Glucose 156 mg/dL (74-99); Non-African American GFR(CKD) >90 (>60 ml/min/1.73 sqM); Phosphorus 2.9 mg/dL (2.5-4.5); Sodium 130 mmol/L (137-145)
[2025-03-24] MEDS: POTASSIUM CHLORIDE ER 20 MEQ TAB.ER PO ONE ×2 (10:23→16:30)
[2025-03-24] MEDS: POTASSIUM CHLORIDE ER 20 MEQ TAB.ER PO STA (10:25)
[2025-03-24 11:40] LABS: Glucose,Whole Blood 257 mg/dL (70-110)
--- NOTE | 2025-03-24 13:27 | P.PN ---
Subjective Progress Note Date: 03/24/25 Principal diagnosis: Foot wounds Patient seen and examined at bedside. States he is doing well and his surgical sites are doing well without any complaints of pain. His only complaint of pain is at his right shoulder as well as swelling in his right elbow. Objective - Vital Signs Vital signs: Vital Signs Temp 97.8 F 03/24/25 06:52 Pulse 95 03/24/25 06:52 Resp 17 03/24/25 06:52 BP 102/58 03/24/25 06:52 Pulse Ox 95 03/24/25 06:52 FiO2 Intake & Output 03/23/25 03/24/25 03/24/25 18:59 06:59 18:59 Intake Total 350 500 Output Total 5 Balance 345 500 Weight 63.503 kg 63.503 kg Intake: IV 350 Oral 500 Output: Estimated Blood Loss 5 Other: Voiding Method Urinal Urinal # Voids 3 2 # Bowel Movements 1 - Exam Right elbow with dependent edema. No tenderness to palpation. Decreased active and passive range of motion of the right shoulder right great toe with packing in place, no purulent drainage. Mild erythema. Left plantar foot wound with packing in place. Good fibrinous tissue noted when removal of the packing without any significant purulent drainage. - Labs CBC & Chem 7: 03/22/25 03:32 03/24/25 05:23 Labs: Abnormal Lab Results - Last 24 Hours (Table) 03/23/25 03/24/25 03/24/25 Range/Units 15:20 05:23 05:23 Sodium 130 L (137-145) mmol/L Potassium 3.0 L (3.5-5.1) mmol/L Chloride 96 L (98-107) mmol/L BUN 5 L (9-20) mg/dL Creatinine 0.45 L (0.66-1.25) mg/dL Glucose 156 H (74-99) mg/dL POC Glucose (mg/dL) 125 H (70-110) mg/dL Calcium 7.2 L (8.4-10.2) mg/dL Magnesium 1.5 L (1.6-2.3) mg/dL 03/24/25 03/24/25 Range/Units 06:17 11:39 Sodium (137-145) mmol/L Potassium (3.5-5.1) mmol/L Chloride (98-107) mmol/L BUN (9-20) mg/dL Creatinine (0.66-1.25) mg/dL Glucose (74-99) mg/dL POC Glucose (mg/dL) 185 H 257 H (70-110) mg/dL Calcium (8.4-10.2) mg/dL Magnesium (1.6-2.3) mg/dL Microbiology - Last 24 Hours (Table) 03/23/25 16:24 Gram Stain - Preliminary Foot - Left 03/23/25 16:24 Gram Stain - Preliminary Toe - Right First 03/21/25 13:02 Gram Stain - Final Foot - Left Wound Culture - Final Pseudomonas aeruginosa Methicillin resist S. aureus Assessment and Plan Assessment: 1. Chronic nonhealing diabetic foot ulcer, left foot postop day 1 excisional de bridement 2. Diabetic ulcer to right great toe 3. 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 Generalized weakness 5. Diabetes mellitus 6. History of coronary artery disease status post CABG Plan: 1. Continue local wound care with daily dressing changes, Dakin's to the plantar wound and continue packing of the great toe. 2. Antibiotics per infectious disease 3. Rest of medical management per primary medical team 4. Will reeval Wednesday
--- NOTE | 2025-03-24 15:05 | XR ---
EXAMINATION TYPE: XR shoulder complete RT DATE OF EXAM: 03/24/2025 1:34 PM COMPARISON: None. CLINICAL INDICATION: Male, 84 years old with history of pain, Pain TECHNIQUE: XR shoulder complete RT 3 view(s) obtained. FINDINGS: There is advanced degenerative change through the glenohumeral junction. There is erosion of the cindi oid and sclerosis along the joints. There is loss of the joint space. The acromio-clavicular junction is normal. No acute fractures or dislocations are evident. Structures are osteopenic. A follow up study can be performed 7-10 days from acute trauma for continued pain. MRI can be perfor med if soft tissue evaluation would be of benefit. IMPRESSION: 1. 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 [facility], , 03/24/2025 3:02 PM
--- NOTE | 2025-03-24 16:10 | P.PN ---
Subjective Progress Note Date: 03/24/25 Patient is a 84-year-old male with CAD status post CABG, diabetes, GERD, hyperlipidemia, hypertension, history of malignant melanoma, depression, daily smoker here for evaluation of altered mental status and weakness. He is unsure why he was sent to the emergency department. On my evaluation, he reported that he has had a chronic wound on his left foot that is being managed by his PCP for about 2 to 3 weeks now and has not improved with 2 types of antibiotics. He was then advised to go to the ED for IV antibiotics by his account support associate. He has no other associated symptoms. He denied fevers, cough, shortness of breath, recent prolonged travel, exposure to sick contacts, recent fall or trauma, abdominal pain, diarrhea, constipation, issues with urination or defecation, chest pain, lightheadedness, dizziness. He reported that he is able to eat meals on his own and does not have any issues with appetite or swallowing. On admission: Vitals: Temp 97.9 F, SC 87, RR 20, BP 121/67, O2 saturation 99% on room air Labs: WBC 8.5, hemoglobin 10.3, MCV 103.5, platelet count 1 25,000, sodium 131, potassium 2.6, chloride 94, BUN 15, creatinine 0.50, glucose 140, lactic acid 2.1, calcium 7.3,. Phosphorus 2.3, magnesium 1.5, AST 136, ALT 46, alk phos 110, troponin 0.013, proBNP 3000 4060, albumin 2.4. Serum alcohol less than 10. Imaging: EKG showed sinus rhythm with a rate of 91, PAC noted on lead II, normal axis, no ST-T changes, good R wave progression, QTc 421 MS,. 03/22/2025 patient seen and examined at bedside. No acute events overnight. ID and wound care recommends vascular surgery consult for I&D. Labs today: WBC 7.59, hemoglobin 10.3, platelet count 1 39,000, sodium 132, potassium 4, chloride 96, bicarb 27.9, BUN 5.4, creatinine 0.6, glucose 159, calcium 7.1, phosphorus 1.5, magnesium 1.7, B12 758, folate 8 03/23/2025 patient seen and examined at bedside. No acute event overnight. Labs: Sodium 130, potassium 3.7, chloride 96, BUN 8, creatinine 0.54, glucose 106, calcium 7.2, phosphorus 2.1, CRP 17.1. Wound culture positive for pseudomonas and MRSA Imaging; foot x-ray showed soft tissue ulceration without convincing radiographic evidence for acute osteomyelitis. ESTHER index by ultrasound showed normal for right and left lower extremities 03/24/2025 patient seen and examined at bedside. No acute events overnight. Patient underwent wound debridement of right great toe and left plantar wound. ID added IV Dapto after procedure. Patient has history of pancreatic cancer s/p irradiation and is being followed by Dr. Eason. Labs: Sodium 130, potassium 3, chloride 96, bicarb 29, creatinine 0.45, BUN 5, glucose 156, calcium 7.2, Phos 2.9 Review of systems: Pertinent positives and negatives as discussed in HPI, a complete review of systems was performed and all other systems are negative. Physical examination: Vital signs reviewed General: non toxic, no distress, appears at stated age, thin and frail appearing Derm: no unusual rashes/lesions, warm Head: atraumatic, normocephalic, symmetric Eyes: EOMI, anicteric sclera, pupils equal round reactive to light ENT: Nose and ears atraumatic Neck: No cervical lymphadenopathy, trachea midline, supple Mouth: no lip lesion, mucus membranes moist Cardiovascular: S1S2 reg, no murmur Lungs: CTA bilateral, no rhonchi, no rales, no accessory muscle use Abdominal: soft, nontender to palpation, no guarding Ext: muscle strength 5 out of 5 in all 4 extremities grossly, no gross muscle atrophy, no contractures, positive dorsalis pedis pulse bilateral, no edema, left foot amputated stump badage dry and clean, left lower extremity erythematous no notable edema, right 1st digit covered with bandage dry and clean with no noted discharge Neuro: CN II-XI grossly intact, no gross focal neuro deficits Psych: Alert and oriented x3, appropriate affect and mood Assessment/Plan: 84-year-old male with CAD status post CABG, diabetes here for evaluation of unhealing left lower extremity wounds concerning for cellulitis. Found to have multiple electrolyte abnormalities on labs concerning for malnutrition and failure to thrive. The patient is admitted with an anticipated greater than 2 midnight stay for evaluation of cellulitis of left lower extremity and debility Active: #. Diabetic ulcer of the left foot #. Diabetic ulcer of right toe Patient has normal white count and afebrile at this time Continue empiric Zosyn IVPB every 8 hours Consult ID and wound care. Recommended vascular surgery consult for I and D. Planned for today Wound culture positive for pseudomonas and MRSA. ID recommendations Zosyn IV and daptomycin IV #. Hypokalemia #. Debility #. History of malignant melanoma #. History of pancreatic cancer Patient experiencing generalized weakness Potassium 3 today. Repleted with potassium chloride 60 mEq p.o. Check Magnesium. If low, will replete Continue Phos neutra packet TID Continue Ensure protein for supplementation Continue cardiac monitoring Encourage oral intake Consulted dietitian Follows with Dr. Eason as HemeOnc PT OT consulted. Recommended STONE on discharge #. Macrocytic anemia likely due to malnutrition B12 and folate within normal limits Folate supplementation daily #. Diabetes mellitus Hemoglobin A1c 5.6 Hold home medications Glucose Accu-Cheks ACHS Initiate Insulin sliding scale ACHS Monitor for hypoglycemia #. Hypomagnesemia, resolved #. Hypophosphatemia, resolved Chronic Conditions: #. CAD status post CABG #. GERD #. Hyperlipidemia #. Hypertension Continue home allopurinol 300 mg daily, atenolol 50 mg twice daily, clonazepam 1 mg p.o. daily, clopidogrel 75 mg p.o. daily, gabapentin 300 mg p.o. daily, omeprazole 20 mg p.o. daily, paroxetine 20 mg p.o. daily and simvastatin 20 mg p.o. daily DVT ppx: Lovenox 40 mg subcu daily CODE STATUS: Full Discussed with: Patient Anticipated discharge place: Home Dania Vaca MD PGY-1/Traveling Inventory Associate Dictation was produced using [employer] dictation software. please excuse any grammatical, word or spelling errors. Attestation: I have seen and examined this patient with my resident, assessment and plan discussed with the resident, agree with assessment and plan as written above. Dr. Shi Objective - Vital Signs Vital signs: Vital Signs Temp 97.8 F 03/24/25 06:52 Pulse 95 03/24/25 06:52 Resp 17 03/24/25 06:52 BP 102/58 03/24/25 06:52 Pulse Ox 95 03/24/25 06:52 FiO2 Intake & Output 03/23/25 03/24/25 03/24/25 18:59 06:59 18:59 Intake Total 350 500 Output Total 5 Balance 345 500 Weight 63.503 kg Intake: IV 350 Oral 500 Output: Estimated Blood Loss 5 Other: Voiding Method Urinal Urinal # Voids 3 2 # Bowel Movements 1 - Labs CBC & Chem 7: 03/30/25 02:33 03/30/25 02:33 Labs: Abnormal Lab Results - Last 24 Hours (Table) 03/23/25 03/23/25 03/23/25 Range/Units 11:53 12:31 12:37 Sodium (137-145) mmol/L Potassium (3.5-5.1) mmol/L Chloride (98-107) mmol/L BUN (9-20) mg/dL Creatinine (0.66-1.25) mg/dL Glucose (74-99) mg/dL POC Glucose (mg/dL) 60 L 48 L* 49 L* (70-110) mg/dL Calcium (8.4-10.2) mg/dL 03/23/25 03/23/25 03/24/25 Range/Units 13:10 15:20 05:23 Sodium 130 L (137-145) mmol/L Potassium 3.0 L (3.5-5.1) mmol/L Chloride 96 L (98-107) mmol/L BUN 5 L (9-20) mg/dL Creatinine 0.45 L (0.66-1.25) mg/dL Glucose 156 H (74-99) mg/dL POC Glucose (mg/dL) 158 H 125 H (70-110) mg/dL Calcium 7.2 L (8.4-10.2) mg/dL 03/24/25 Range/Units 06:17 Sodium (137-145) mmol/L Potassium (3.5-5.1) mmol/L Chloride (98-107) mmol/L BUN (9-20) mg/dL Creatinine (0.66-1.25) mg/dL Glucose (74-99) mg/dL POC Glucose (mg/dL) 185 H (70-110) mg/dL Calcium (8.4-10.2) mg/dL Microbiology - Last 24 Hours (Table) 03/23/25 16:24 Gram Stain - Preliminary Foot - Left 03/23/25 16:24 Gram Stain - Preliminary Toe - Right First 03/21/25 13:02 Gram Stain - Final Foot - Left Wound Culture - Final Pseudomonas aeruginosa Methicillin resist S. 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
[2025-03-24] MEDS: MAGNESIUM SULFATE-D5W PMX 1 GM in DEXTROSE/WATER 1 100ML.BAG IVPB SCH (16:30)
[2025-03-24 17:15] LABS: Glucose,Whole Blood 319 mg/dL (70-110)
[2025-03-24] MEDS: ZINC OXIDE PASTE (Z-GUARD) 1 APPLIC TOPICAL PRN (17:42)
[2025-03-24 20:13] LABS: Glucose,Whole Blood 220 mg/dL (70-110)
[2025-03-25 04:04] LABS: Glucose,Whole Blood 231 mg/dL (70-110)
[2025-03-25 05:02] LABS: Basophils # (A) 0.03 10*3/uL (0.00-0.10); Basophils % (A) 0.4 %; Eosinophils # (A) 0.02 10*3/uL (0.04-0.35); Eosinophils % (A) 0.2 %; HCT 35.2 % (39.6-50.0); HGB 11.3 g/dL (13.0-17.0); Lymphocytes # (A) 0.69 10*3/uL (0.90-5.00); Lymphocytes % (A) 8.6 %; MCH 34.7 pg (27.0-32.0); MCHC 32.1 g/dL (32.0-37.0); Mean Platelet Volume 9.3 fL (9.5-12.2); Monocytes # (A) 0.46 10*3/uL (0.20-1.00); Monocytes % (A) 5.7 %; Neutrophils # (A) 6.78 10*3/uL (1.80-7.70); Neutrophils % (A) 84.5 %; Platelet Count 224 10*3/uL (140-440); RBC 3.26 10*6/uL (4.40-5.60); RDW 13.6 % (11.5-14.5); WBC 8.03 10*3/uL (4.50-10.00)
[2025-03-25 05:19] LABS: African American GFR (CKD) >90 (>60 ml/min/1.73 sqM); Anion Gap 12 mmol/L; Blood Urea Nitrogen 4 mg/dL (9-20); Calcium 7.4 mg/dL (8.4-10.2); Carbon Dioxide 22 mmol/L (22-30); Chloride 98 mmol/L (98-107); Glucose 235 mg/dL (74-99); Magnesium 1.9 mg/dL (1.6-2.3); Non-African American GFR(CKD) >90 (>60 ml/min/1.73 sqM); Potassium 4.2 mmol/L (3.5-5.1); Sodium 132 mmol/L (137-145)
[2025-03-25 06:23] LABS: Glucose,Whole Blood 218 mg/dL (70-110)
[2025-03-25 11:50] LABS: Glucose,Whole Blood 186 mg/dL (70-110)
[2025-03-25 17:31] LABS: Glucose,Whole Blood 167 mg/dL (70-110)
--- NOTE | 2025-03-25 17:34 | P.PN ---
Subjective Progress Note Date: 03/24/25 Principal diagnosis: Left foot infected ulcer Patient is a 84-year-old male with a past medical history significant for Coronary Artery Disease (CAD), Cancer, Diabetes Mellitus, GERD/Reflux, Hyperlipidemia, Hypertension and this patient has been dealing with a nonhealing wound to the left foot presenting to the hospital for evaluation of weakness and mental status changes did have a nonhealing wound to the left foot prompting this consultation. On today's evaluation that is Patient is status post sharp excisional debridement right great toe wound to bone 1 x 0.7 x 0.9 cm andSharp excisional debridement left plantar wound to bone 4.5 x 3 x 2 cm with 9:00 tunneling of 2 cm, completed on 03/23/2025 On today's evaluation that is 03/24/2024, patient did have a temperature of 98 F this morning and denies having any chills, patient is on 1 L nasal cannula oxygen And breathing comfortably no chest pain or cough, the patient did not have any nausea vomiting abdominal pain or any diarrhea, denies any worsening pain of bilateral foot wound area No CBC was done today creatinine 0.45 Objective - Vital Signs Vital signs: Vital Signs Temp 97.8 F 03/24/25 06:52 Pulse 95 03/24/25 06:52 Resp 17 03/24/25 06:52 BP 102/58 03/24/25 06:52 Pulse Ox 95 03/24/25 06:52 FiO2 Intake & Output 03/23/25 03/24/25 03/24/25 18:59 06:59 18:59 Intake Total 350 500 Output Total 5 Balance 345 500 Weight 63.503 kg 63.503 kg Intake: IV 350 Oral 500 Output: Estimated Blood Loss 5 Other: Voiding Method Urinal Urinal # Voids 3 2 # Bowel Movements 1 - Exam GENERAL DESCRIPTION: An elderly male lying in bed in no distress RESPIRATORY SYSTEM: Unlabored breathing , decreased breath sounds at bases HEART: S1 S2 regular rate and rhythm , ABDOMEN: Soft , no tenderness EXTREMITIES: Left foot wound is currently dressed - Labs CBC & Chem 7: 03/25/25 04:40 03/25/25 04:40 Labs: Abnormal Lab Results - Last 24 Hours (Table) 03/23/25 03/24/25 03/24/25 Range/Units 15:20 05:23 05:23 Sodium 130 L (137-145) mmol/L Potassium 3.0 L (3.5-5.1) mmol/L Chloride 96 L (98-107) mmol/L BUN 5 L (9-20) mg/dL Creatinine 0.45 L (0.66-1.25) mg/dL Glucose 156 H (74-99) mg/dL POC Glucose (mg/dL) 125 H (70-110) mg/dL Calcium 7.2 L (8.4-10.2) mg/dL Magnesium 1.5 L (1.6-2.3) mg/dL 03/24/25 03/24/25 Range/Units 06:17 11:39 Sodium (137-145) mmol/L Potassium (3.5-5.1) mmol/L Chloride (98-107) mmol/L BUN (9-20) mg/dL Creatinine (0.66-1.25) mg/dL Glucose (74-99) mg/dL POC Glucose (mg/dL) 185 H 257 H (70-110) mg/dL Calcium (8.4-10.2) mg/dL Magnesium (1.6-2.3) mg/dL Microbiology - Last 24 Hours (Table) 03/23/25 16:24 Gram Stain - Preliminary Foot - Left 03/23/25 16:24 Gram Stain - Preliminary Toe - Right First 03/21/25 13:02 Gram Stain - Final Foot - Left Wound Culture - Final Pseudomonas aeruginosa Methicillin resist S. aureus Assessment and Plan (1) Diabetic ulcer of left foot Current Visit: Yes Status: Acute Code(s): E11.621 - TYPE 2 DIABETES MELLITUS WITH FOOT ULCER; L97.529 - NON-PRESSURE CHRONIC ULCER OTH PRT LEFT FOOT W UNSP SEVERITY SNOMED Code(s): 845320952 (2) MRSA (methicillin resistant staph aureus) culture positive Current Visit: No Status: Acute Code(s): Z22.322 - CARRIER OR SUSPECTED CARRIER OF METHICILLIN RESIS STAPH SNOMED Code(s): 040486857 Plan: 1patient with a chronic nonhealing wound of the plantar aspect of the left foot and this patient has been treated with 2 different antibiotics in the outpatient setting wounds looks deep keeping in mind patient with underlying diabetes will need to cover for the polymicrobial simeon associated diabetic foot infection. 2local culture grew MRSA and Pseudomonas aeruginosa x-ray of the foot did not show any bony changes 3patient did have debridement down to the bone suggestive of osteomyelitis and deep culture which are currently pending 4patient currently being treated with Zosyn and daptomycin will monitor clinical course closely Dictation was produced using [employer] software. please excuse any grammatical, word or spelling errors. Time with Patient: Less than 30
--- NOTE | 2025-03-25 17:35 | P.PN ---
Subjective Progress Note Date: 03/25/25 Principal diagnosis: Left foot infected ulcer Patient is a 84-year-old male with a past medical history significant for Coronary Artery Disease (CAD), Cancer, Diabetes Mellitus, GERD/Reflux, Hyperlipidemia, Hypertension and this patient has been dealing with a nonhealing wound to the left foot presenting to the hospital for evaluation of weakness and mental status changes did have a nonhealing wound to the left foot prompting this consultation. On today's evaluation that is Patient is status post sharp excisional debridement right great toe wound to bone 1 x 0.7 x 0.9 cm andSharp excisional debridement left plantar wound to bone 4.5 x 3 x 2 cm with 9:00 tunneling of 2 cm, completed on 03/23/2025 On today's evaluation that is 03/25/2025, Patient is afebrile patient is currently on room air and denies having any shortness of breath, the patient denies any chest pain or cough, the patient denies any nausea vomiting did not have any abdominal pain and no diarrhea, the patient pain to bilateral foot wound is currently controlled Patient white count is 8.03, creatinine 0.54 Objective - Vital Signs Vital signs: Vital Signs Temp 97.7 F 03/25/25 13:55 Pulse 85 03/25/25 13:55 Resp 18 03/25/25 13:55 BP 102/67 03/25/25 13:55 Pulse Ox 96 03/25/25 13:55 FiO2 Intake & Output 03/24/25 03/25/25 03/25/25 18:59 06:59 18:59 Intake Total 250 Output Total 400 Balance -150 Weight 63.503 kg Intake: Oral 250 Output: Urine 400 Other: Voiding Method External Catheter External Catheter External Catheter # Voids 6 1 # Bowel Movements 2 1 - Exam GENERAL DESCRIPTION: An elderly male lying in bed in no distress RESPIRATORY SYSTEM: Unlabored breathing , decreased breath sounds at bases HEART: S1 S2 regular rate and rhythm , ABDOMEN: Soft , no tenderness EXTREMITIES: Left foot wound is currently dressed - Labs CBC & Chem 7: 03/25/25 04:40 03/25/25 04:40 Labs: Abnormal Lab Results - Last 24 Hours (Table) 03/24/25 03/25/25 03/25/25 Range/Units 20:12 04:03 04:40 RBC (4.40-5.60) 10*6/uL Hgb (13.0-17.0) g/dL Hct (39.6-50.0) % MCV (80.0-97.0) fL MCH (27.0-32.0) pg MPV (9.5-12.2) fL Immature Gran # (0.00-0.04) 10*3/uL Lymphocytes # (0.90-5.00) 10*3/uL Eosinophils # (0.04-0.35) 10*3/uL Sodium 132 L (137-145) mmol/L BUN 4 L (9-20) mg/dL Creatinine 0.54 L (0.66-1.25) mg/dL Glucose 235 H (74-99) mg/dL POC Glucose (mg/dL) 220 H 231 H (70-110) mg/dL Calcium 7.4 L (8.4-10.2) mg/dL 03/25/25 03/25/25 03/25/25 Range/Units 04:40 06:21 11:48 RBC 3.26 L (4.40-5.60) 10*6/uL Hgb 11.3 L (13.0-17.0) g/dL Hct 35.2 L (39.6-50.0) % MCV 108.0 H (80.0-97.0) fL MCH 34.7 H (27.0-32.0) pg MPV 9.3 L (9.5-12.2) fL Immature Gran # 0.05 H (0.00-0.04) 10*3/uL Lymphocytes # 0.69 L (0.90-5.00) 10*3/uL Eosinophils # 0.02 L (0.04-0.35) 10*3/uL Sodium (137-145) mmol/L BUN (9-20) mg/dL Creatinine (0.66-1.25) mg/dL Glucose (74-99) mg/dL POC Glucose (mg/dL) 218 H 186 H (70-110) mg/dL Calcium (8.4-10.2) mg/dL 03/25/25 Range/Units 17:29 RBC (4.40-5.60) 10*6/uL Hgb (13.0-17.0) g/dL Hct (39.6-50.0) % MCV (80.0-97.0) fL MCH (27.0-32.0) pg MPV (9.5-12.2) fL Immature Gran # (0.00-0.04) 10*3/uL Lymphocytes # (0.90-5.00) 10*3/uL Eosinophils # (0.04-0.35) 10*3/uL Sodium (137-145) mmol/L BUN (9-20) mg/dL Creatinine (0.66-1.25) mg/dL Glucose (74-99) mg/dL POC Glucose (mg/dL) 167 H (70-110) mg/dL Calcium (8.4-10.2) mg/dL Microbiology - Last 24 Hours (Table) 03/23/25 16:24 Gram Stain - Preliminary Foot - Left Wound Culture - Preliminary Presumptive MRSA Pseudomonas aeruginosa 03/23/25 16:24 Gram Stain - Preliminary Toe - Right First Wound Culture - Preliminary Presumptive MRSA Assessment and Plan (1) Diabetic ulcer of left foot Current Visit: Yes Status: Acute Code(s): E11.621 - TYPE 2 DIABETES MELLITUS WITH FOOT ULCER; L97.529 - NON-PRESSURE CHRONIC ULCER OTH PRT LEFT FOOT W UNSP SEVERITY SNOMED Code(s): 009626160 (2) MRSA (methicillin resistant staph aureus) culture positive Current Visit: No Status: Acute Code(s): Z22.322 - CARRIER OR SUSPECTED CARRIER OF METHICILLIN RESIS STAPH SNOMED Code(s): 347969275 Plan: 1patient with a chronic nonhealing wound of the plantar aspect of the left foot and this patient has been treated with 2 different antibiotics in the outpatient setting wounds looks deep keeping in mind patient with underlying diabetes will need to cover for the polymicrobial simeon associated diabetic foot infection. 2local culture grew MRSA and Pseudomonas aeruginosa x-ray of the foot did not show any bony changes 3patient did have debridement down to the bone suggestive of osteomyelitis and deep culture which are currently pending 4patient to continue with Zosyn and daptomycin will order PICC line for outpatient IV antibiotics Dictation was produced using [email or web address] dictation software. please excuse any grammatical, word or spelling errors. Time with Patient: Less than 30
[2025-03-25 21:16] LABS: Glucose,Whole Blood 131 mg/dL (70-110)
--- NOTE | 2025-03-25 22:34 | P.PN ---
Subjective Progress Note Date: 03/25/25 Patient is a 84-year-old male with CAD status post CABG, diabetes, GERD, hyperlipidemia, hypertension, history of malignant melanoma, depression, daily smoker here for evaluation of altered mental status and weakness. He is unsure why he was sent to the emergency department. On my evaluation, he reported that he has had a chronic wound on his left foot that is being managed by his PCP for about 2 to 3 weeks now and has not improved with 2 types of antibiotics. He was then advised to go to the ED for IV antibiotics by his family nurse practitioner. He has no other associated symptoms. He denied fevers, cough, shortness of breath, recent prolonged travel, exposure to sick contacts, recent fall or trauma, abdominal pain, diarrhea, constipation, issues with urination or defecation, chest pain, lightheadedness, dizziness. He reported that he is able to eat meals on his own and does not have any issues with appetite or swallowing. On admission: Vitals: Temp 97.9 F, TN 87, RR 20, BP 121/67, O2 saturation 99% on room air Labs: WBC 8.5, hemoglobin 10.3, MCV 103.5, platelet count 1 25,000, sodium 131, potassium 2.6, chloride 94, BUN 15, creatinine 0.50, glucose 140, lactic acid 2.1, calcium 7.3,. Phosphorus 2.3, magnesium 1.5, AST 136, ALT 46, alk phos 110, troponin 0.013, proBNP 3000 4060, albumin 2.4. Serum alcohol less than 10. Imaging: EKG showed sinus rhythm with a rate of 91, PAC noted on lead II, normal axis, no ST-T changes, good R wave progression, QTc 421 MS,. 03/22/2025 patient seen and examined at bedside. No acute events overnight. ID and wound care recommends vascular surgery consult for I&D. Labs today: WBC 7.59, hemoglobin 10.3, platelet count 1 39,000, sodium 132, potassium 4, chloride 96, bicarb 27.9, BUN 5.4, creatinine 0.6, glucose 159, calcium 7.1, phosphorus 1.5, magnesium 1.7, B12 758, folate 8 03/23/2025 patient seen and examined at bedside. No acute event overnight. Labs: Sodium 130, potassium 3.7, chloride 96, BUN 8, creatinine 0.54, glucose 106, calcium 7.2, phosphorus 2.1, CRP 17.1. Wound culture positive for pseudomonas and MRSA Imaging; foot x-ray showed soft tissue ulceration without convincing radiographic evidence for acute osteomyelitis. ESTHER index by ultrasound showed normal for right and left lower extremities 03/24/2025 patient seen and examined at bedside. No acute events overnight. Patient underwent wound debridement of right great toe and left plantar wound. ID added IV Dapto after procedure. Patient has history of pancreatic cancer s/p irradiation and is being followed by Dr. Eason. Labs: Sodium 130, potassium 3, chloride 96, bicarb 29, creatinine 0.45, BUN 5, glucose 156, calcium 7.2, Phos 2.9 03/25/2025. Patient is s/p debridement of diabetic foot ulcer. Patient is lying in the bed. Awake alert and oriented. Afebrile overnight. Continued on IV antibiotics abnormal daptomycin and Zosyn. No complaints of chest pain or shortness of breath. Laboratory showed WBC 8.0 hemoglobin 9.3 MCV 108 and platelets 224 sodium 132 potassium 4.2 chloride 98 bicarb is 22 BUN 14 creatinine 0.54 and blood sugar 235 and calcium 7.5 magnesium 1.9. Review of systems: Pertinent positives and negatives as discussed in HPI, a complete review of systems was performed and all other systems are negative. Physical examination: Vital signs reviewed General: non toxic, no distress, appears at stated age, thin and frail appearing Derm: no unusual rashes/lesions, warm Head: atraumatic, normocephalic, symmetric Eyes: EOMI, anicteric sclera, pupils equal round reactive to light ENT: Nose and ears atraumatic Neck: No cervical lymphadenopathy, trachea midline, supple Mouth: no lip lesion, mucus membranes moist Cardiovascular: S1S2 reg, no murmur Lungs: CTA bilateral, no rhonchi, no rales, no accessory muscle use Abdominal: soft, nontender to palpation, no guarding Ext: muscle strength 5 out of 5 in all 4 extremities grossly, no gross muscle atrophy, no contractures, positive dorsalis pedis pulse bilateral, no edema, left foot amputated stump badage dry and clean, left lower extremity erythe matous no notable edema, right 1st digit covered with bandage dry and clean with no noted discharge Neuro: CN II-XI grossly intact, no gross focal neuro deficits Psych: Alert and oriented x3, appropriate affect and mood Assessment/Plan: 84-year-old male with CAD status post CABG, diabetes here for evaluation of unhealing left lower extremity wounds concerning for cellulitis. Found to have multiple electrolyte abnormalities on labs concerning for malnutrition and failure to thrive. The patient is admitted with an anticipated greater than 2 midnight stay for evaluation of cellulitis of left lower extremity and debility Active: #. Diabetic ulcer of the left foot patient is s/p debridement on 03/23/2025. Deep wound cultures pending. #. Diabetic ulcer of right toe Patient has normal white count and afebrile at this time Continue empiric Zosyn IVPB every 8 hours Consult ID and wound care. Recommended vascular surgery consult for I and D. Planned for today Wound culture positive for pseudomonas and MRSA. ID recommendations Zosyn IV and daptomycin IV #. Hypokalemia #. Debility #. History of malignant melanoma #. History of pancreatic cancer Patient experiencing generalized weakness Potassium level 4.2 today. Check Magnesium. If low, will replete Continue Phos neutra packet TID Continue Ensure protein for supplementation Continue cardiac monitoring Encourage oral intake Consulted dietitian Follows with Dr. Eason as HemeOnc PT OT consulted. Recommended STONE on discharge #. Macrocytic anemia likely due to malnutrition B12 and folate within normal limits Folate supplementation daily #. Diabetes mellitus Hemoglobin A1c 5.6 Hold home medications Glucose Accu-Cheks ACHS Initiate Insulin sliding scale ACHS Monitor for hypoglycemia. Diabetic diet. #. Hypomagnesemia, resolved #. Hypophosphatemia, resolved Chronic Conditions: #. CAD status post CABG #. GERD #. Hyperlipidemia #. Hypertension Continue home allopurinol 300 mg daily, atenolol 50 mg twice daily, clonazepam 1 mg p.o. daily, clopidogrel 75 mg p.o. daily, gabapentin 300 mg p.o. daily, o meprazole 20 mg p.o. daily, paroxetine 20 mg p.o. daily and simvastatin 20 mg p.o. daily DVT ppx: Lovenox 40 mg subcu daily CODE STATUS: Full Discussed with: Patient Anticipated discharge place: Home Dictation was produced using [employer] dictation software. please excuse any grammatical, word or spelling errors. Objective - Vital Signs Vital signs: Vital Signs Temp 97.7 F 03/25/25 13:55 Pulse 85 03/25/25 13:55 Resp 18 03/25/25 13:55 BP 102/67 03/25/25 13:55 Pulse Ox 96 03/25/25 13:55 FiO2 Intake & Output 03/25/25 03/25/25 03/26/25 06:59 18:59 06:59 Intake Total 250 Output Total 400 600 Balance -150 -600 Intake: Oral 250 Output: Urine 400 600 Other: Voiding Method External Catheter External Catheter # Voids 1 # Bowel Movements 1 1 - Labs CBC & Chem 7: 03/25/25 04:40 03/25/25 04:40 Labs: Abnormal Lab Results - Last 24 Hours (Table) 03/24/25 03/25/25 03/25/25 Range/Units 20:12 04:03 04:40 RBC (4.40-5.60) 10*6/uL Hgb (13.0-17.0) g/dL Hct (39.6-50.0) % MCV (80.0-97.0) fL MCH (27.0-32.0) pg MPV (9.5-12.2) fL Immature Gran # (0.00-0.04) 10*3/uL Lymphocytes # (0.90-5.00) 10*3/uL Eosinophils # (0.04-0.35) 10*3/uL Sodium 132 L (137-145) mmol/L BUN 4 L (9-20) mg/dL Creatinine 0.54 L (0.66-1.25) mg/dL Glucose 235 H (74-99) mg/dL POC Glucose (mg/dL) 220 H 231 H (70-110) mg/dL Calcium 7.4 L (8.4-10.2) mg/dL 03/25/25 03/25/25 03/25/25 Range/Units 04:40 06:21 11:48 RBC 3.26 L (4.40-5.60) 10*6/uL Hgb 11.3 L (13.0-17.0) g/dL Hct 35.2 L (39.6-50.0) % MCV 108.0 H (80.0-97.0) fL MCH 34.7 H (27.0-32.0) pg MPV 9.3 L (9.5-12.2) fL Immature Gran # 0.05 H (0.00-0.04) 10*3/uL Lymphocytes # 0.69 L (0.90-5.00) 10*3/uL Eosinophils # 0.02 L (0.04-0.35) 10*3/uL Sodium (137-145) mmol/L BUN (9-20) mg/dL Creatinine (0.66-1.25) mg/dL Glucose (74-99) mg/dL POC Glucose (mg/dL) 218 H 186 H (70-110) mg/dL Calcium (8.4-10.2) mg/dL 03/25/25 Range/Units 17:29 RBC (4.40-5.60) 10*6/uL Hgb (13.0-17.0) g/dL Hct (39.6-50.0) % MCV (80.0-97.0) fL MCH (27.0-32.0) pg MPV (9.5-12.2) fL Immature Gran # (0.00-0.04) 10*3/uL Lymphocytes # (0.90-5.00) 10*3/uL Eosinophils # (0.04-0.35) 10*3/uL Sodium (137-145) mmol/L BUN (9-20) mg/dL Creatinine (0.66-1.25) mg/dL Glucose (74-99) mg/dL POC Glucose (mg/dL) 167 H (70-110) mg/dL Calcium (8.4-10.2) mg/dL Microbiology - Last 24 Hours (Table) 03/23/25 16:24 Gram Stain - Preliminary Foot - Left Wound Culture - Preliminary Presumptive MRSA Pseudomonas aeruginosa 03/23/25 16:24 Gram Stain - Preliminary Toe - Right First Wound Culture - Preliminary Presumptive MRSA
[2025-03-26 06:24] LABS: Glucose,Whole Blood 139 mg/dL (70-110)
[2025-03-26 07:56] LABS: HCT 29.7 % (39.6-50.0); HGB 9.2 g/dL (13.0-17.0); MCH 34.6 pg (27.0-32.0); MCV 111.7 FL (80.0-97.0); Mean Platelet Volume 9.8 FL (9.5-12.2); NRBC Per 100 WBC 0 X 10*3/uL (0.00-0.01); Platelet Count 195 X 10*3/uL (140-440); RBC 2.66 X 10*6/uL (4.40-5.60); RDW 14.1 % (11.5-14.5); WBC 10.73 X 10*3/uL (4.50-10.00)
[2025-03-26 08:13] LABS: Blood Urea Nitrogen 5.7 mg/dL (9.0-27.0); Calcium 6.9 mg/dL (8.7-10.3); Carbon Dioxide 27.1 mmol/L (21.6-31.8); Chloride 102 mmol/L (96-109); Glucose 195 mg/dL (70-110); Potassium 4.6 mmol/L (3.5-5.5); Sodium 141 mmol/L (135-145)
[2025-03-26 09:35] LABS: Basophils # (A) 0.03 X 10*3/uL (0.00-0.10); Basophils % (A) 0.3 %; Crenated RBC 2+ (None Seen); Eosinophils # (A) 0.14 X 10*3/uL (0.04-0.35); Eosinophils % (A) 1.3 %; Lymphocytes % (A) 6.5 %; Macrocytosis (M) 2+ (None Seen); Monocytes # (A) 0.63 X 10*3/uL (0.20-1.00); Monocytes % (A) 5.9 %; Neutrophils # (A) 9.18 X 10*3/uL (1.80-7.70); Neutrophils % (A) 85.5 %
--- NOTE | 2025-03-26 11:26 | P.PN ---
Subjective Progress Note Date: 03/26/25 Principal diagnosis: Bilateral lower extremity wounds with osteomyelitis Patient seen and examined today as a follow-up. He is status post surgical excisional debridement of the right great toe wound to the bone as well as left plantar wound to the bone. Patient states he is not in any pain. He has been afebrile, denies fevers or chills. Currently remains on IV antibiotics. PICC line as ordered. Discussed with patient extent of osteomyelitis into the bone and patient will likely need left below the knee amputation and right great toe amputation. Wound culture positive for MRSA. Objective - Vital Signs Vital signs: Vital Signs Temp 98.7 F 03/26/25 00:50 Pulse 91 03/26/25 07:30 Resp 18 03/26/25 07:30 BP 109/66 03/26/25 07:05 Pulse Ox 100 03/26/25 07:05 FiO2 Intake & Output 03/25/25 03/26/25 03/26/25 18:59 06:59 18:59 Output Total 600 Balance -600 Output: Urine 600 Other: Voiding Method External Catheter External Catheter External Catheter # Voids 2 # Bowel Movements 1 2 - Exam General appearance: The patient is alert, oriented, ill-appearing, appears in no acute distress. HET: Head is normocephalic and atraumatic. Pupils are equal and reactive. Oxygen supplementation with nasal cannula. Neck: Supple. Heart: Regular. Lungs: Equal expansion, normal respiratory effort. Abdomen: Soft, nondistended. Extremities: Right lower extremity warm to the touch, good capillary refill. Right great toe debridement site with serosanguineous drainage, iodoform packing. Left plantar wound to the bone, with some granulation. Neurological: Alert and oriented x 3. - Labs CBC & Chem 7: 03/26/25 02:54 03/26/25 02:54 Labs: Abnormal Lab Results - Last 24 Hours (Table) 03/25/25 03/25/25 03/25/25 Range/Units 11:48 17:29 21:15 WBC (4.50-10.00) X 10*3/uL RBC (4.40-5.60) X 10*6/uL Hgb (13.0-17.0) g/dL Hct (39.6-50.0) % MCV (80.0-97.0) FL MCH (27.0-32.0) pg MCHC (32.0-37.0) g/dL Immature Gran # (0.00-0.04) X 10*3/uL Neutrophils # (1.80-7.70) X 10*3/uL Lymphocytes # (0.90-5.00) X 10*3/uL Macrocytosis (manual) (None Seen) Crenated Cell (None Seen) BUN (9.0-27.0) mg/dL Creatinine (0.6-1.5) mg/dL BUN/Creatinine Ratio (12.00-20.00) Ratio Glucose (70-110) mg/dL POC Glucose (mg/dL) 186 H 167 H 131 H (70-110) mg/dL Calcium (8.7-10.3) mg/dL 03/26/25 03/26/25 03/26/25 Range/Units 02:54 02:54 06:23 WBC 10.73 H (4.50-10.00) X 10*3/uL RBC 2.66 L (4.40-5.60) X 10*6/uL Hgb 9.2 L (13.0-17.0) g/dL Hct 29.7 L (39.6-50.0) % MCV 111.7 H (80.0-97.0) FL MCH 34.6 H (27.0-32.0) pg MCHC 31.0 L (32.0-37.0) g/dL Immature Gran # 0.05 H (0.00-0.04) X 10*3/uL Neutrophils # 9.18 H (1.80-7.70) X 10*3/uL Lymphocytes # 0.70 L (0.90-5.00) X 10*3/uL Macrocytosis (manual) 2+ A (None Seen) Crenated Cell 2+ A (None Seen) BUN 5.7 L (9.0-27.0) mg/dL Creatinine 0.5 L (0.6-1.5) mg/dL BUN/Creatinine Ratio 11.40 L (12.00-20.00) Ratio Glucose 195 H (70-110) mg/dL POC Glucose (mg/dL) 139 H (70-110) mg/dL Calcium 6.9 L (8.7-10.3) mg/dL Microbiology - Last 24 Hours (Table) 03/23/25 16:24 Gram Stain - Final Toe - Right First Wound Culture - Final Methicillin resist S. aureus 03/23/25 16:24 Gram Stain - Preliminary Foot - Left Wound Culture - Preliminary Presumptive MRSA Pseudomonas aeruginosa Assessment and Plan Assessment: 1. Chronic nonhealing diabetic foot ulcer, left foot status post excisional debridement to the bone, with osteomyelitis 2. Diabetic ulcer to right great toe status post excisional debridement to the bone, with osteomyelitis 3. 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 Generalized weakness 5. Diabetes mellitus 6. History of coronary artery disease status post CABG Plan: 1. Daily dressing change: Wet-to-dry dressing change with Dakin solution to left plantar wound and iodoform packing to right great toe 2. IV antibiotics per infectious disease. 3. Nonweightbearing to left foot Discussed with patient findings of osteomyelitis and concern for infection not healing with only antibiotics. Likely potential patient would need below the knee amputation of the left lower extremity and right great toe amputation. At this time patient would not like to be aggressive with surgical intervention and would like to continue antibiotics. Recommend outpatient wound care at wound care center. Thank you for this consultation, we will continue to follow. The impression and plan of care has been dictated as directed. Dr.Cuello Bolanos performed a history and examination of this patient, discussed the same with the dictator. I agree with the dictator's note ,documented as a scribe. Any additional findings or plans will be noted.
[2025-03-26 11:31] LABS: Glucose,Whole Blood 188 mg/dL (70-110)
--- NOTE | 2025-03-26 11:54 | XR ---
EXAMINATION TYPE: XR chest 1V portable DATE OF EXAM: 03/26/2025 11:05 AM COMPARISON: 01/25/2015 CLINICAL INDICATION: Male, 84 years old with history of Productive cough, TECHNIQUE: XR chest 1V portable view(s) obtained. FINDINGS: The heart size is normal. The pulmonary vasculature is normal. The lungs are clear. Advanced degenerative changes are bilateral shoulders. Sternotomy wires are in the midline IMPRESSION: 1. No acute pulmonary process. [facility], , 03/26/2025 11:52 AM
--- NOTE | 2025-03-26 11:54 | P.PN ---
Subjective Progress Note Date: 03/26/25 HISTORY OF PRESENT ILLNESS: Patient is a 84-year-old male with CAD status post CABG, diabetes, GERD, hype rlipidemia, hypertension, history of malignant melanoma, depression, daily smoker here for evaluation of altered mental status and weakness. He is unsure why he was sent to the emergency department. On my evaluation, he reported that he has had a chronic wound on his left foot that is being managed by his PCP for about 2 to 3 weeks now and has not improved with 2 types of antibiotics. He was then advised to go to the ED for IV antibiotics by his orthoptist. He has no other associated symptoms. He denied fevers, cough, shortness of breath, recent prolonged travel, exposure to sick contacts, recent fall or trauma, abdominal pain, diarrhea, constipation, issues with urination or defecation, chest pain, lightheadedness, dizziness. He reported that he is able to eat meals on his own and does not have any issues with appetite or swallowing. On admission: Vitals: Temp 97.9 F, KS 87, RR 20, BP 121/67, O2 saturation 99% on room air Labs: WBC 8.5, hemoglobin 10.3, MCV 103.5, platelet count 1 25,000, sodium 131, potassium 2.6, chloride 94, BUN 15, creatinine 0.50, glucose 140, lactic acid 2.1, calcium 7.3,. Phosphorus 2.3, magnesium 1.5, AST 136, ALT 46, alk phos 110, troponin 0.013, proBNP 3000 4060, albumin 2.4. Serum alcohol less than 10. Imaging: EKG showed sinus rhythm with a rate of 91, PAC noted on lead II, normal axis, no ST-T changes, good R wave progression, QTc 421 MS,. 03/22/2025 patient seen and examined at bedside. No acute events overnight. ID and wound care recommends vascular surgery consult for I&D. Labs today: WBC 7.59, hemoglobin 10.3, platelet count 1 39,000, sodium 132, potassium 4, chloride 96, bicarb 27.9, BUN 5.4, creatinine 0.6, glucose 159, calcium 7.1, phosphorus 1.5, magnesium 1.7, B12 758, folate 8 03/23/2025 patient seen and examined at bedside. No acute event overnight. Labs: Sodium 130, potassium 3.7, chloride 96, BUN 8, creatinine 0.54, glucose 106, calcium 7.2, phosphorus 2.1, CRP 17.1. Wound culture positive for pseudomonas and MRSA Imaging; foot x-ray showed soft tissue ulceration without convincing radiographic evidence for acute osteomyelitis. ESTHER index by ultrasound showed normal for right and left lower extremities 03/24/2025 patient seen and examined at bedside. No acute events overnight. Patient underwent wound debridement of right great toe and left plantar wound. ID added IV Dapto after procedure. Patient has history of pancreatic cancer s/p irradiation and is being followed by Dr. Eason. Labs: Sodium 130, potassium 3, chloride 96, bicarb 29, creatinine 0.45, BUN 5, glucose 156, calcium 7.2, Phos 2.9 03/25/2025. Patient is s/p debridement of diabetic foot ulcer. Patient is lying in the bed. Awake alert and oriented. Afebrile overnight. Continued on IV antibiotics abnormal daptomycin and Zosyn. No complaints of chest pain or shortness of breath. Laboratory showed WBC 8.0 hemoglobin 9.3 MCV 108 and platelets 224 sodium 132 potassium 4.2 chloride 98 bicarb is 22 BUN 14 creatinine 0.54 and blood sugar 235 and calcium 7.5 magnesium 1.9. 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 of it and the wound appeared to be clean all the way to the bone, also on the right big toe ulcer that is debrided all the way down to the bone as well, patient will likely require 6 weeks of IV antibiotic at this time, infectious disease following, PICC line is ordered, patient will need to go for subacute rehabilitation, patient appears to be quite congested this point in time, chest x-ray was ordered, start the patient on DuoNeb 3 mL nebulization 4 times every day, patient baseline rhythm appears to be atrial fibrillation, start the patient on Eliquis 5 mg orally twice every day, continue metoprolol ER 50 mg once every bedtime, follow-up with the patient very closely, cardiology consultation, echocardiogram, I will follow-up with the patient very closely. REVIEW OF SYSTEMS: Constitutional: No documented fever, no chills, no night sweats. Significant weight change. Positive for weakness, positive for fatigue or lethargy. No daytime sleepiness. EENT: No headache. No blurred vision or double vision, no loss of vision. No loss of Hearing, no ringing in the ears, no dizziness. No nasal drainage or congestion. No epistaxis. No sore throat. Lungs: Positive for shortness of breath, positive for cough, positive for sputum production. Positive for wheezing. Reports dyspnea with activity. Cardiovascular: No chest pain, no lower extremity edema. No palpitations. No paroxysmal nocturnal dyspnea. No orthopnea. No lightheadedness or dizziness. No syncopal episodes. Abdominal: Reports no abdominal pain. No nausea, vomiting. Positive for diarrhea. No constipation. No bloody or tarry stools reports loss of appetite. Genitourinary: No dysuria, increased frequency, urgency. No urinary retention. Musculoskeletal: No myalgias. No muscle weakness, no gait dysfunction, no frequent falls. No back pain. No neck pain. Integumentary: Positive for 2 wounds 1 at the base of the left transmetatarsal a mputation at the bottom that is debrided all the way down to the bone and 1 at the right big toe ulcer that was debrided to the bone., no lesions. No rash or pruritus. No unusual bruising. No change in hair or nails. Neurologic: No aphasia. No facial droop. No change in mentation. No head injury. No headache. No paralysis. Positive paresthesia. Psychiatric: Positive for depression. Positive for anxiety. No mood swings. Endocrine: Positive for abnormal blood sugars. Positive weight change. PHYSICAL EXAMINATION: General: 84-year-old gentleman laying down in bed in minimal distress HEENT: Head is atraumatic, normocephalic, pupils were equal round reactive to light and recommendation, extraocular muscle movement were intact, sclera nonicteric, conjunctivae were pale, mucous membranes of the mouth are somewhat dry. Neck: Supple, no JVP, normal carotid upstroke bilaterally, no lymphadenopathy. Chest: Decreased breath sounds at the bases, few rhonchi, positive for minimal expiratory wheezes, no chest wall tenderness, no intercostal retractions. Heart: First heart sound is normal, second heart sounds normal, irregular irregular there systolic ejection murmur 2/6 located in the left sternal border Abdomen: Soft, nontender, nondistended, positive bowel sounds. Extremities: There is no edema, no calf tenderness, there is a left transmetatarsal amputation with a large wound to the base of the stump all the way to the bone and there is right big toe ulcer status post debridement all the way down to the bone. Dorsalis pedis +1 bilaterally. Neurologic examination: Patient is awake alert and oriented x3, cranial nerves II-12 appear grossly intact, muscle power were 3 out of 5 in upper extremities and 3 out of 5 in bilateral lower extremities. ASSESSMENT AND PLAN: 1. Diabetic ulcer of the left foot patient is s/p debridement on 03/23/2025. Deep wound culture is positive for MRSA as well as Pseudomonas aeruginosa continue patient daptomycin 400 mg IV piggyback every 24 hours, continue Zosyn 3.375 g piggyback every 8 hours, patient will have a PICC line placement for 6 weeks of IV antibiotic. 2. Diabetic ulcer of right toe status post debridement. Continue patient on daptomycin 400 mg a piggyback every 24 hours, for 6 more weeks. Continue Dakin's solution as per vascular surgery. 3. Hypokalemia status post replacement. Recheck the patient CMP and magnesium tomorrow morning 4. medical debility due to chronic medical conditions. Physical therapy evaluation, patient will likely require subacute rehabilitation. 5. History of metastatic malignant melanoma. Currently off immunotherapy under the care of Dr. Hassan 6. History of pancreatic cancer currently in remission. Status post Whipple procedure. 7. Chronic diarrhea. Continue patient on Lomotil 2.5 mg at bedtime. 8. Atrial fibrillation continue patient on metoprolol ER 50 mg at bedtime, add Eliquis 5 mg orally twice every day, patient will have an echocardiogram as well as cardiology consultation. 9. Acute respiratory insufficiency continue oxygen support, chest x-ray did not show evidence of acute pulmonary disease at this time, continue aggressive pulmonary toileting start the patient on DuoNeb 3 mL nebulization 4 times every day, and encourage the usage of incentive spirometer. Pulmonary consultation. 10. Hypertension and hypertensive vascular disease. Continue patient on metoprolol ER 50 mg once every day monitor patient blood pressure very closely. 11. Diabetes mellitus type 2. Continue with a sliding scale insulin. 12. Anxiety and depressive disorder. Continue patient on Klonopin 1 mg at bedtime continue with paroxetine 20 mg orally once every day. 13. DVT prophylaxis. Continue patient on Eliquis 5 mg orally twice every day. 14. GI prophylaxis. Continue Protonix 40 mg once every day. 15. Gout. Continue allopurinol 300 mg orally once every day. 16. Peripheral neuropathy continue gabapentin 300 mg at bedtime. 17. Overall prognosis is guarded. 18. Patient is full code. 19. Physical therapy evaluation for subacute rehabilitation. 20. music worker consultation for subacute rehabilitation Objective - Vital Signs Vital signs: Vital Signs Temp 98.7 F 03/26/25 00:50 Pulse 91 03/26/25 07:30 Resp 18 03/26/25 07:30 BP 109/66 03/26/25 07:05 Pulse Ox 100 03/26/25 07:05 FiO2 Intake & Output 03/25/25 03/26/25 03/26/25 18:59 06:59 18:59 Output Total 600 Balance -600 Output: Urine 600 Other: Voiding Method External Catheter External Catheter External Catheter # Voids 2 # Bowel Movements 1 2 - Labs CBC & Chem 7: 03/26/25 02:54 03/26/25 02:54 Labs: Abnormal Lab Results - Last 24 Hours (Table) 03/25/25 03/25/25 03/25/25 Range/Units 11:48 17:29 21:15 WBC (4.50-10.00) X 10*3/uL RBC (4.40-5.60) X 10*6/uL Hgb (13.0-17.0) g/dL Hct (39.6-50.0) % MCV (80.0-97.0) FL MCH (27.0-32.0) pg MCHC (32.0-37.0) g/dL Immature Gran # (0.00-0.04) X 10*3/uL Neutrophils # (1.80-7.70) X 10*3/uL Lymphocytes # (0.90-5.00) X 10*3/uL Macrocytosis (manual) (None Seen) Crenated Cell (None Seen) BUN (9.0-27.0) mg/dL Creatinine (0.6-1.5) mg/dL BUN/Creatinine Ratio (12.00-20.00) Ratio Glucose (70-110) mg/dL POC Glucose (mg/dL) 186 H 167 H 131 H (70-110) mg/dL Calcium (8.7-10.3) mg/dL Phosphorus (2.4-5.1) mg/dL 03/26/25 03/26/25 03/26/25 Range/Units 02:54 02:54 02:54 WBC 10.73 H (4.50-10.00) X 10*3/uL RBC 2.66 L (4.40-5.60) X 10*6/uL Hgb 9.2 L (13.0-17.0) g/dL Hct 29.7 L (39.6-50.0) % MCV 111.7 H (80.0-97.0) FL MCH 34.6 H (27.0-32.0) pg MCHC 31.0 L (32.0-37.0) g/dL Immature Gran # 0.05 H (0.00-0.04) X 10*3/uL Neutrophils # 9.18 H (1.80-7.70) X 10*3/uL Lymphocytes # 0.70 L (0.90-5.00) X 10*3/uL Macrocytosis (manual) 2+ A (None Seen) Crenated Cell 2+ A (None Seen) BUN 5.7 L (9.0-27.0) mg/dL Creatinine 0.5 L (0.6-1.5) mg/dL BUN/Creatinine Ratio 11.40 L (12.00-20.00) Ratio Glucose 195 H (70-110) mg/dL POC Glucose (mg/dL) (70-110) mg/dL Calcium 6.9 L (8.7-10.3) mg/dL Phosphorus 2.3 L (2.4-5.1) mg/dL 03/26/25 Range/Units 06:23 WBC (4.50-10.00) X 10*3/uL RBC (4.40-5.60) X 10*6/uL Hgb (13.0-17.0) g/dL Hct (39.6-50.0) % MCV (80.0-97.0) FL MCH (27.0-32.0) pg MCHC (32.0-37.0) g/dL Immature Gran # (0.00-0.04) X 10*3/uL Neutrophils # (1.80-7.70) X 10*3/uL Lymphocytes # (0.90-5.00) X 10*3/uL Macrocytosis (manual) (None Seen) Crenated Cell (None Seen) BUN (9.0-27.0) mg/dL Creatinine (0.6-1.5) mg/dL BUN/Creatinine Ratio (12.00-20.00) Ratio Glucose (70-110) mg/dL POC Glucose (mg/dL) 139 H (70-110) mg/dL Calcium (8.7-10.3) mg/dL Phosphorus (2.4-5.1) mg/dL Microbiology - Last 24 Hours (Table) 03/23/25 16:24 Gram Stain - Final Toe - Right First Wound Culture - Final Methicillin resist S. aureus 03/23/25 16:24 Gram Stain - Preliminary Foot - Left Wound Culture - Preliminary Presumptive MRSA Pseudomonas aeruginosa
[2025-03-26] MEDS: IPRATROPIUM-ALBUTEROL 3 ML NEB INHALATION SCH (12:27)
[2025-03-26] MEDS: SODIUM HYPOCHLORITE 0.25% 480 ML BOT MISCELLANE SCH (12:27)
--- NOTE | 2025-03-26 14:30 | P.CNPUL ---
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 Cultures are positive for MRSA and Pseudomonas aeruginosa. He is being followed by vascular surgery and did have debridement this admission on 03/23/2025. He was admitted back on 03/20/2025 for altered mental status and generalized weakness. We were consulted today 03/26/2025 for complaints of cough. Chest x-ray reveals no acute pulmonary process. He is maintaining O2 saturations up to 100% on room air oxygen. He is seen today in consultation on the regular medical floor. He is awake and alert. Quite cachectic appearing. He has a dry nonproductive cough. No fever or chills. White count 10.7. Hemoglobin 9.2. Platelets 195. Sodium 141. Potassium 4.6. Bicarb 27. BUN 6. Creatinine 0.5. Glucose 195. He is currently on daptomycin and Zosyn. Anticoagulated with Eliquis. Review of Systems REVIEW OF SYSTEMS: CONSTITUTIONAL: Denies any recent significant weight loss or weight gain. EYES: Denies change in vision. EARS, NOSE, MOUTH, THROAT: Denies headaches, denies sore throat. CARDIOVASCULAR: Denies chest pain, palpitations or syncopal episodes. RESPIRATORY: Positive for cough, no congestion or hemoptysis. GASTROINTESTINAL: Denies change in appetite, denies abdominal pain GENITOURINARY: Denies hematuria, denies infections. MUSKULOSKELETAL: Denies pain, denies swelling. INTEGUMENTARY: Denies rash, denies eczema. NEUROLOGICAL: Denies recent memory loss, no recent seizure activity. PSYCHIATRIC: Denies anxiety, denies depression. HEMATOLOGIC/LYMPHATIC: Denies anemia, denies enlarged lymph nodes. 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 Malignant myelnoma of the right shoulder/ pancreatic cancer (2022) History of Any Multi-Drug Resistant Organisms: MRSA Date of last positivie culture/infection: 03/21/25 MDRO Source:: lt foot, blood Past Surgical History: Adenoidectomy, Appendectomy, Bowel Resection, Coronary Bypass/CABG, Heart Catheterization, Tonsillectomy Additional Past Surgical History / Comment(s): Right eye sx for detatched retina (still has some peripheral vision), Menckel's diverticulum, recent whipple procedure, amputation of all toes on left foot, Whipple Past Anesthesia/Blood Transfusion Reactions: No Reported Reaction Past Psychological History: Depression Additional Psychological History / Comment(s): 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 He and his have completed a home in [facility] in which she was hoping to have is his final detention home. He has an adult daughter who will be coming to lease picker her animals soon. He himself does not have any pets in the home. Smoking Status: Former smoker Past Alcohol Use History: Daily Additional Past Alcohol Use History / Comment(s): started smoking at age 12 smoke 1ppd quit cig 1965 swithced to pipe/cigar quit those 2001 Past Drug Use History: Unable to Obtain - Past Family History Father Family Medical History: Dementia Additional Family Medical History / Comment(s): AT AGE 93 Mother Family Medical History: Cancer Additional Family Medical History / Comment(s): BREAST CANCER SURVIVER, AT AGE 86 Medications and Allergies Home Medications Medication Instructions Recorded Confirmed Type allopurinoL [Zyloprim] 300 mg PO DAILY 10/26/14 03/20/25 History Omeprazole [PriLOSEC] 20 mg PO AC-BRKFST 06/03/18 03/20/25 History Clopidogrel Bisulfate [Plavix] 75 mg PO DAILY 02/26/21 03/20/25 History clonazePAM [KlonoPIN] 1 mg PO HS #3 tab 10/01/23 03/20/25 Rx Diphenox-Atrop 2.5-0.025 mg 2 tab PO AC-SUPPER 03/20/25 03/20/25 History [Lomotil] Gabapentin 300 mg PO HS 03/20/25 03/20/25 History Magnesium Chloride [Slow-Mag] 64 mg PO DAILY 03/20/25 03/20/25 History Midodrine [ProAmatine] 5 mg PO BID 03/20/25 03/20/25 History PARoxetine [Paxil] 20 mg PO DAILY 03/20/25 03/20/25 History Simvastatin [Zocor] 20 mg PO HS 03/20/25 03/20/25 History atenoloL [Tenormin] 50 mg PO BID 03/20/25 03/20/25 History Allergies Allergy/AdvReac Type Severity Reaction Status Date / Time No Known Allergies Allergy Verified 03/23/25 14:39 Physical Exam Vitals: Vital Signs Temp Pulse Pulse Resp BP Pulse Ox 03/26/25 12:41 88 03/26/25 12:27 88 03/26/25 07:30 91 18 03/26/25 07:05 91 18 109/66 100 03/26/25 00:50 98.7 F 102 H 18 95/54 96 03/25/25 18:47 98.6 F 61 17 90/57 98 Intake and Output 03/25/25 03/26/25 03/26/25 22:59 06:59 14:59 Output Total 600 Balance -600 Output: Urine 600 Other: Voiding Method External Catheter External Catheter # Voids 2 # Bowel Movements 1 2 GENERAL EXAM: Alert, weak, cachectic 84-year-old male, on room air oxygen, fairly comfortable in no apparent distress. HEAD: Normocephalic. EYES: Normal reaction of pupils, equal size. NOSE: Clear with pink turbinates. THROAT: No erythema or exudates. NECK: No masses, no JVD. CHEST: No chest wall deformity. LUNGS: Equal air entry with no crackles, wheeze, rhonchi or dullness. CVS: S1 and S2 normal with no audible murmur, regular rhythm. ABDOMEN: No hepatosplenomegaly, normal bowel sounds, no guarding or rigidity. SPINE: No scoliosis or deformity SKIN: No rashes CENTRAL NERVOUS SYSTEM: No focal deficits, tone is normal in all 4 extremities. EXTREMITIES: Left transmetatarsal amputation of the foot with open wound at the stump, right great toe open wound. No clubbing, no cyanosis. Peripheral pulses are intact. Results - Laboratory Findings CBC and BMP: 03/26/25 02:54 03/26/25 02:54 PT/INR, D-dimer PT 11.1 sec (10.0-12.5) 03/20/25 14:21 INR 1.0 (<1.2) 03/20/25 14:21 Abnormal lab findings: Abnormal Labs 03/20/25 03/20/25 03/20/25 14:21 14:21 14:21 WBC RBC 2.87 L Hgb 10.3 L Hct 29.7 L MCV 103.5 H MCH 35.9 H MCHC Plt Count 125 L MPV Immature Gran # 0.05 H Neutrophils # Lymphocytes # 0.77 L Eosinophils # 0.00 L Macrocytosis (manual) Crenated Cell ESR Sodium 131 L Potassium 2.6 L* Chloride 94 L Anion Gap BUN Creatinine 0.58 L BUN/Creatinine Ratio Glucose 140 H POC Glucose (mg/dL) Plasma Lactic Acid Isidro 2.1 H* Calcium 7.3 L Phosphorus 2.3 L Magnesium 1.5 L AST 136 H ALT C-Reactive Protein Total Protein 5.4 L Albumin 2.4 L Albumin/Globulin Ratio 03/21/25 03/21/25 03/21/25 02:51 02:51 11:08 WBC RBC 3.02 L Hgb 10.7 L Hct 32.8 L MCV 108.6 H MCH 35.4 H MCHC Plt Count MPV Immature Gran # Neutrophils # Lymphocytes # 0.88 L Eosinophils # 0.01 L Macrocytosis (manual) 2+ A Crenated Cell ESR Sodium Potassium Chloride Anion Gap 16.50 H BUN Creatinine BUN/Creatinine Ratio Glucose 121 H POC Glucose (mg/dL) 311 H Plasma Lactic Acid Isidro Calcium 7.3 L Phosphorus 2.1 L Magnesium AST 101 H ALT 50 H C-Reactive Protein Total Protein 5.5 L Albumin 2.5 L Albumin/Globulin Ratio 0.83 L 03/21/25 03/21/25 03/22/25 16:07 21:12 03:32 WBC RBC 2.80 L Hgb 10.3 L Hct 30.9 L MCV 110.4 H MCH 36.8 H MCHC Plt Count 139 L MPV Immature Gran # 0.11 H Neutrophils # Lymphocytes # 0.82 L Eosinophils # 0.01 L Macrocytosis (manual) Crenated Cell ESR Sodium Potassium Chloride Anion Gap BUN Creatinine BUN/Creatinine Ratio Glucose POC Glucose (mg/dL) 185 H 225 H Plasma Lactic Acid Isidro Calcium Phosphorus Magnesium AST ALT C-Reactive Protein Total Protein Albumin Albumin/Globulin Ratio 03/22/25 03/22/25 03/22/25 03:32 03:32 03:32 WBC RBC Hgb Hct MCV MCH MCHC Plt Count MPV Immature Gran # Neutrophils # Lymphocytes # Eosinophils # Macrocytosis (manual) Crenated Cell ESR 59 H Sodium 132 L Potassium Chloride Anion Gap BUN 5.4 L Creatinine BUN/Creatinine Ratio 9.00 L Glucose 159 H POC Glucose (mg/dL) Plasma Lactic Acid Isidro Calcium 7.1 L Phosphorus 1.5 L Magnesium AST ALT C-Reactive Protein 17.10 H Total Protein Albumin Albumin/Globulin Ratio 03/22/25 03/22/25 03/22/25 06:09 11:42 16:56 WBC RBC Hgb Hct MCV MCH MCHC Plt Count MPV Immature Gran # Neutrophils # Lymphocytes # Eosinophils # Macrocytosis (manual) Crenated Cell ESR Sodium Potassium Chloride Anion Gap BUN Creatinine BUN/Creatinine Ratio Glucose POC Glucose (mg/dL) 112 H 211 H 238 H Plasma Lactic Acid Isidro Calcium Phosphorus Magnesium AST ALT C-Reactive Protein Total Protein Albumin Albumin/Globulin Ratio 03/22/25 03/23/25 03/23/25 20:13 05:36 07:01 WBC RBC Hgb Hct MCV MCH MCHC Plt Count MPV Immature Gran # Neutrophils # Lymphocytes # Eosinophils # Macrocytosis (manual) Crenated Cell ESR Sodium 130 L Potassium Chloride 96 L Anion Gap BUN 8 L Creatinine 0.54 L BUN/Creatinine Ratio Glucose 106 H POC Glucose (mg/dL) 154 H 125 H Plasma Lactic Acid Isidro Calcium 7.2 L Phosphorus 2.1 L Magnesium AST ALT C-Reactive Protein Total Protein Albumin Albumin/Globulin Ratio 03/23/25 03/23/25 03/23/25 11:53 12:31 12:37 WBC RBC Hgb Hct MCV MCH MCHC Plt Count MPV Immature Gran # Neutrophils # Lymphocytes # Eosinophils # Macrocytosis (manual) Crenated Cell ESR Sodium Potassium Chloride Anion Gap BUN Creatinine BUN/Creatinine Ratio Glucose POC Glucose (mg/dL) 60 L 48 L* 49 L* Plasma Lactic Acid Isidro Calcium Phosphorus Magnesium AST ALT C-Reactive Protein Total Protein Albumin Albumin/Globulin Ratio 03/23/25 03/23/25 03/24/25 13:10 15:20 05:23 WBC RBC Hgb Hct MCV MCH MCHC Plt Count MPV Immature Gran # Neutrophils # Lymphocytes # Eosinophils # Macrocytosis (manual) Crenated Cell ESR Sodium 130 L Potassium 3.0 L Chloride 96 L Anion Gap BUN 5 L Creatinine 0.45 L BUN/Creatinine Ratio Glucose 156 H POC Glucose (mg/dL) 158 H 125 H Plasma Lactic Acid Isidro Calcium 7.2 L Phosphorus Magnesium AST ALT C-Reactive Protein Total Protein Albumin Albumin/Globulin Ratio 03/24/25 03/24/25 03/24/25 05:23 06:17 11:39 WBC RBC Hgb Hct MCV MCH MCHC Plt Count MPV Immature Gran # Neutrophils # Lymphocytes # Eosinophils # Macrocytosis (manual) Crenated Cell ESR Sodium Potassium Chloride Anion Gap BUN Creatinine BUN/Creatinine Ratio Glucose POC Glucose (mg/dL) 185 H 257 H Plasma Lactic Acid Isidro Calcium Phosphorus Magnesium 1.5 L AST ALT C-Reactive Protein Total Protein Albumin Albumin/Globulin Ratio 03/24/25 03/24/25 03/25/25 17:14 20:12 04:03 WBC RBC Hgb Hct MCV MCH MCHC Plt Count MPV Immature Gran # Neutrophils # Lymphocytes # Eosinophils # Macrocytosis (manual) Crenated Cell ESR Sodium Potassium Chloride Anion Gap BUN Creatinine BUN/Creatinine Ratio Glucose POC Glucose (mg/dL) 319 H 220 H 231 H Plasma Lactic Acid Isidro Calcium Phosphorus Magnesium AST ALT C-Reactive Protein Total Protein Albumin Albumin/Globulin Ratio 03/25/25 03/25/25 03/25/25 04:40 04:40 06:21 WBC RBC 3.26 L Hgb 11.3 L Hct 35.2 L MCV 108.0 H MCH 34.7 H MCHC Plt Count MPV 9.3 L Immature Gran # 0.05 H Neutrophils # Lymphocytes # 0.69 L Eosinophils # 0.02 L Macrocytosis (manual) Crenated Cell ESR Sodium 132 L Potassium Chloride Anion Gap BUN 4 L Creatinine 0.54 L BUN/Creatinine Ratio Glucose 235 H POC Glucose (mg/dL) 218 H Plasma Lactic Acid Isidro Calcium 7.4 L Phosphorus Magnesium AST ALT C-Reactive Protein Total Protein Albumin Albumin/Globulin Ratio 03/25/25 03/25/25 03/25/25 11:48 17:29 21:15 WBC RBC Hgb Hct MCV MCH MCHC Plt Count MPV Immature Gran # Neutrophils # Lymphocytes # Eosinophils # Macrocytosis (manual) Crenated Cell ESR Sodium Potassium Chloride Anion Gap BUN Creatinine BUN/Creatinine Ratio Glucose POC Glucose (mg/dL) 186 H 167 H 131 H Plasma Lactic Acid Isidro Calcium Phosphorus Magnesium AST ALT C-Reactive Protein Total Protein Albumin Albumin/Globulin Ratio 03/26/25 03/26/25 03/26/25 02:54 02:54 02:54 WBC 10.73 H RBC 2.66 L Hgb 9.2 L Hct 29.7 L MCV 111.7 H MCH 34.6 H MCHC 31.0 L Plt Count MPV Immature Gran # 0.05 H Neutrophils # 9.18 H Lymphocytes # 0.70 L Eosinophils # Macrocytosis (manual) 2+ A Crenated Cell 2+ A ESR Sodium Potassium Chloride Anion Gap BUN 5.7 L Creatinine 0.5 L BUN/Creatinine Ratio 11.40 L Glucose 195 H POC Glucose (mg/dL) Plasma Lactic Acid Isidro Calcium 6.9 L Phosphorus 2.3 L Magnesium AST ALT C-Reactive Protein Total Protein Albumin Albumin/Globulin Ratio 03/26/25 03/26/25 06:23 11:21 WBC RBC Hgb Hct MCV MCH MCHC Plt Count MPV Immature Gran # Neutrophils # Lymphocytes # Eosinophils # Macrocytosis (manual) Crenated Cell ESR Sodium Potassium Chloride Anion Gap BUN Creatinine BUN/Creatinine Ratio Glucose POC Glucose (mg/dL) 139 H 188 H Plasma Lactic Acid Isidro Calcium Phosphorus Magnesium AST ALT C-Reactive Protein Total Protein Albumin Albumin/Globulin Ratio - Diagnostic Findings Chest x-ray: image reviewed Assessment and Plan Assessment: Generalized weakness with altered mental status secondary to multiple comorbidities Left pneumonia foot stump wound and right great toe wound positive for MRSA and Pseudomonas aeruginosa, status post debridement on 03/23/2025 Acute cough. Chest x-ray shows no acute pulmonary process. Add incentive spirometer and bronchodilators, Robitussin History of previous transmetatarsal amputation on the left History of coronary disease with previous coronary artery bypass grafting Diabetes mellitus Hypertension Hyperlipidemia History of malignant melanoma History of depression Chronic tobacco dependence History of pancreatic cancer status post Whipple procedure Atrial fibrillation anticoagulated with Eliquis History of gout Peripheral neuropathy Poor overall functional ability secondary to multiple above-mentioned comorbidities Plan: The patient was seen and evaluated Imaging, labs and medications reviewed Chest x-ray reveals no acute pulmonary process Add DuoNeb inhalations Add Robitussin Add incentive spirometer Continue daptomycin and Zosyn Anticoagulated with Eliquis We will continue to follow and make further recommendations based on his clinical status I have personally seen and examined the patient, performed the documentation and the assessment and plan as written. Number of minutes spent on the visit: 20 Dictation was produced using [employer] dictation software. Please excuse any grammatical, word or spelling errors. Time with Patient: Greater than 30
--- NOTE | 2025-03-26 14:47 | P.CRDCN ---
History of Present Illness Consult date: 03/26/25 Consult reason: atrial fibrillation History of present illness: This is an 84-year-old male patient with past medical history of metastatic malignant melanoma, pancreatic cancer status post Whipple, radiation and chemotherapy with recurrence, chronic diarrhea, coronary artery disease with history of three-vessel CABG with Dr. Haider, postural hypotension, diabetes mellitus type 2, hypertension, hyperlipidemia. Patient has not followed with a food service for more than 20 years. He also states his CABG 3 vessel was about 20 years ago. He denies history of myocardial infarction. We have been asked to evaluate the patient for atrial fibrillation. Patient was thought to go into atrial fibrillation with RVR this morning and was started on Eliquis. He states his breathing is okay. He denies dyspnea on exertion. He denies dizziness or palpitations. No skipped beats. No fast heart rate. He states he has lower extremity edema that comes and goes. He has a cough and he quit smoking 30 years ago. He denies abdominal pain. No blood in his stool or urine. He states he has trouble ambulating due to loss of balance. Regarding the malignant melanoma, patient is on chemotherapy and follows with Dr. Eason and was last seen by him 3 to 4 weeks ago. He states he does have have history of irregular heartbeat following his open heart surgery for about 2 years but has not had no recent issues. He denies history of asthma or COPD, he denies history of stroke or seizures. Patient presented to [facility] on 03/20 altered mental status and weakness, chronic wound to the left foot. Patient was diagnosed with a diabetic foot ulcer and underwent debridement on 03/23. Blood pressure 109/66, heart rate 91, pulse ox 100% on room air. Patient states he knows that his heart rate was irregular and fast because he had a number of staff come into his room. He denies symptoms at the time. -EKG: Obtained 03/25 at 422: Atrial fibrillation with ventricular rate of 138 bpm -Chest x-ray: No acute process. -Laboratory studies: WBC 10.7, hemoglobin 9.2, electrolytes within normal limits, BUN 5.7, creatinine 0.5. C-reactive protein 17 negative x 1. proBNP 3460. -Home cardiac medications: Atenolol 50 mg twice daily, Plavix 75 mg daily, magnesium 64 mg daily, simvastatin 20 mg at bedtime, also on midodrine 5 mg tw ice daily. -Lexiscan stress test performed at [facility] on 06/19/2022 was negative for reversible ischemia. Instead -Echocardiogram performed 07/11/2023 revealed preserved LV systolic function. Atypical septal motion. Mitral annular calcification and aortic valve sclerosis with mild mitral and tricuspid regurgitation. No pericardial effusion. Review Of Systems: At the time of my exam: CONSTITUTIONAL: Denies fever or chills. HEENT: Denies blurred vision, vision changes, or eye pain. Denies hemoptysis CARDIOVASCULAR: Denies chest pain. Denies orthopnea. Denies PND. Denies palpitations RESPIRATORY: Denies shortness of breath. GASTROINTESTINAL: Denies abdominal pain. Denies nausea or vomiting. HEMATOLOGIC: Denies bleeding disorders. GENITOURINARY: Denies any blood in urine. SKIN: Denies puritis. Denies rash. Physical examination: Gen: This is an 84-year-old male in no acute distress. VS: reviewed HEENT: Head is atraumatic, normocephalic. Pupils equal, round. Sclerae is anic teric. NECK: Supple. No JVD. LUNGS: Clear to auscultation. No wheezes or rhonchi. No intercostal retractions. HEART: Regular rate and rhythm. No murmur. ABDOMEN: Soft No tenderness. EXTREMITIES: No pedal edema. No calf tenderness. NEUROLOGICAL: Patient is awake, alert and oriented x3. Assessment: Episode of heart rate that was irregular and fast most likely atrial tachycardia, no clear-cut atrial fibrillation Diabetic foot ulcer left, s/p debridement 6/6 Coronary artery disease with previous CABG Hypertension Hyperlipidemia Metastatic malignant melanoma History of pancreatic cancer Plan: Continue current cardiac medications: Metoprolol succinate 50 mg daily Continue Eliquis Continue telemetry monitoring Repeat EKG in the morning Obtain TSH Repeat magnesium in the morning Obtain 2-D echocardiogram and Doppler study to assess cardiac structure and function on Wednesday per patient's request Further recommendations to follow based upon clinical course Thank you kindly for this consultation. Nurse practitioner note has been reviewed, I agree with documented findings and plan of care. Patient was seen and examined. 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 He and his have completed a home in [facility] in which she was hoping to have is his final assisted home. He has an adult daughter who will be coming to cloth picker her animals soon. He himself does not have any pets in the home. Smoking Status: Former smoker Past Alcohol Use History: Daily Additional Past Alcohol Use History / Comment(s): started smoking at age 12 smoke 1ppd quit cig 1965 swithced to pipe/cigar quit those 2001 Past Drug Use History: Unable to Obtain - Past Family History Father Family Medical History: Dementia Additional Family Medical History / Comment(s): AT AGE 93 Mother Family Medical History: Cancer Additional Family Medical History / Comment(s): BREAST CANCER SURVIVER, AT AGE 86 Medications and Allergies Home Medications Medication Instructions Recorded Confirmed Type allopurinoL [Zyloprim] 300 mg PO DAILY 10/26/14 03/20/25 History Omeprazole [PriLOSEC] 20 mg PO AC-BRKFST 06/03/18 03/20/25 History Clopidogrel Bisulfate [Plavix] 75 mg PO DAILY 02/26/21 03/20/25 History clonazePAM [KlonoPIN] 1 mg PO HS #3 tab 10/01/23 03/20/25 Rx Diphenox-Atrop 2.5-0.025 mg 2 tab PO AC-SUPPER 03/20/25 03/20/25 History [Lomotil] Gabapentin 300 mg PO HS 03/20/25 03/20/25 History Magnesium Chloride [Slow-Mag] 64 mg PO DAILY 03/20/25 03/20/25 History Midodrine [ProAmatine] 5 mg PO BID 03/20/25 03/20/25 History PARoxetine [Paxil] 20 mg PO DAILY 03/20/25 03/20/25 History Simvastatin [Zocor] 20 mg PO HS 03/20/25 03/20/25 History atenoloL [Tenormin] 50 mg PO BID 03/20/25 03/20/25 History Allergies Allergy/AdvReac Type Severity Reaction Status Date / Time No Known Allergies Allergy Verified 03/23/25 14:39 Physical Exam Vitals: Vital Signs Temp Pulse Resp BP Pulse Ox 03/26/25 07:30 91 18 03/26/25 07:05 91 18 109/66 100 03/26/25 00:50 98.7 F 102 H 18 95/54 96 03/25/25 18:47 98.6 F 61 17 90/57 98 03/25/25 13:55 97.7 F 85 18 102/67 96 Intake and Output 03/25/25 03/26/25 03/26/25 22:59 06:59 14:59 Output Total 600 Balance -600 Output: Urine 600 Other: Voiding Method External Catheter External Catheter # Voids 2 # Bowel Movements 1 2 Results 03/26/25 02:54 03/26/25 02:54 CBC 03/26/25 Range/Units 02:54 WBC 10.73 H (4.50-10.00) X 10*3/uL RBC 2.66 L (4.40-5.60) X 10*6/uL Hgb 9.2 L (13.0-17.0) g/dL Hct 29.7 L (39.6-50.0) % Plt Count 195 (140-440) X 10*3/uL Comprehensive Metabolic Panel 03/26/25 Range/Units 02:54 Sodium 141 (135-145) mmol/L Potassium 4.6 (3.5-5.5) mmol/L Chloride 102 (96-109) mmol/L Carbon Dioxide 27.1 (21.6-31.8) mmol/L BUN 5.7 L (9.0-27.0) mg/dL Creatinine 0.5 L (0.6-1.5) mg/dL Glucose 195 H (70-110) mg/dL Calcium 6.9 L (8.7-10.3) mg/dL Current Medications Generic Name Dose Route Start Last Admin Trade Name Freq PRN Reason Stop Dose Admin Acetaminophen 650 mg 03/23/25 06:21 Acetaminophen Tab 325 Mg Tab PO Q6HR PRN Fever and/ or Pain Albuterol/Ipratropium 3 ml 03/26/25 12:00 Ipratropium-Albuterol 3 Ml Neb INHALATION RT-QID [facility] Allopurinol 300 mg 03/21/25 09:00 03/26/25 08:38 Allopurinol 300 Mg Tab PO 300 mg DAILY [facility] Administration Apixaban 5 mg 03/26/25 21:00 Apixaban 5 Mg Tab PO BID [facility] Protocol Clonazepam 1 mg 03/21/25 21:00 03/25/25 22:15 Clonazepam 1 Mg Tab PO 1 mg HS [facility] Administration Dextrose/Water 25 ml 03/21/25 08:54 03/23/25 12:00 Dextrose 50% Syringe 50 Ml IVP 25 ml PER PROTOCOL PRN Administration Hypoglycemia Protocol Dextrose/Water 50 ml 03/21/25 08:54 03/23/25 12:39 Dextrose 50% Syringe 50 Ml IVP 50 ml PER PROTOCOL PRN Administration Hypoglycemia Protocol Diphenoxylate HCl/Atropine 2 each 03/26/25 17:30 Diphenox-Atrop 2.5-0.025 Mg 1 Each Tab PO AC-SUPPER [facility] Folic Acid 1 mg 03/22/25 09:00 03/26/25 08:38 Folic Acid 1 Mg Tab PO 1 mg DAILY [facility] Administration Gabapentin 300 mg 03/21/25 21:00 03/25/25 22:14 Gabapentin 300 Mg Cap PO 300 mg HS [facility] Administration Piperacillin Sod/Tazobactam 100 mls @ 25 mls/hr 03/23/25 20:00 03/26/25 04:21 Sod 3.375 gm/ Sodium Chloride IVPB 25 mls/hr Q8H [facility] Administration Protocol Daptomycin 400 mg/ Sodium 50 mls @ 100 mls/hr 03/23/25 19:00 03/25/25 18:48 Chloride IVPB 100 mls/hr Q24H [facility] Administration Protocol Insulin Human Lispro 0 unit 03/21/25 12:30 03/26/25 06:37 Insulin Lispro (Humalog) 100 Unit/Ml 10 Ml Vl SQ Not Given ACHS [facility] Protocol Magnesium Oxide 400 mg 03/27/25 09:00 Magnesium Oxide 400 Mg Tab PO DAILY [facility] Metoprolol Succinate 50 mg 03/22/25 09:00 03/26/25 08:38 Metoprolol Succinate (Er) 50 Mg Tab.Er.24h PO 50 mg DAILY [facility] Administration Naloxone HCl 0.2 mg 03/20/25 16:43 Naloxone 0.4 Mg/Ml 1 Ml Vial IV Q2M PRN Opioid Reversal Ondansetron HCl 4 mg 03/20/25 16:43 Ondansetron 4 Mg/2 Ml Vial IVP Q8HR PRN Nausea And Vomiting Pantoprazole Sodium 40 mg 03/27/25 07:30 Pantoprazole 40 Mg Tablet PO AC-BRKFST [facility] Paroxetine HCl 20 mg 03/21/25 09:00 03/26/25 08:38 Paroxetine 20 Mg Tab PO 20 mg DAILY [facility] Administration Petrolatum 1 applic 03/24/25 16:48 03/24/25 17:42 Zinc Oxide Paste (Z-Guard) 1 Applic TOPICAL 1 applic DAILY PRN Administration Wound Healing Protocol Potassium Phos/Sodium Phos 1 each 03/22/25 16:00 03/26/25 08:38 Lvfzz-Bgm-Npdx 280-160-250 Mg 1 Each Packet PO 1 each TID [facility] Administration Sodium Hypochlorite 100 ml 03/26/25 10:30 Sodium Hypochlorite 0.25% 480 Ml Bot MISCELLANE DAILY [facility] Intake and Output 03/25/25 03/26/25 03/26/25 22:59 06:59 14:59 Output Total 600 Balance -600 Output: Urine 600 Other: Voiding Method External Catheter External Catheter # Voids 2 # Bowel Movements 1 2 03/26/25 02:54 03/26/25 02:54
[2025-03-26 17:04] LABS: Glucose,Whole Blood 148 mg/dL (70-110)
[2025-03-26] MEDS: DIPHENOX-ATROP 2.5-0.025 MG 1 EACH TAB PO SCH (18:04)
[2025-03-26 21:00] LABS: Glucose,Whole Blood 226 mg/dL (70-110)
[2025-03-26] MEDS: guaiFENesin-DM 100-10MG/5ML 10 ML CUP PO PRN (21:40)
[2025-03-26] MEDS: ACETAMINOPHEN TAB 325 MG TAB PO PRN (21:41)
[2025-03-26] MEDS: APIXABAN 5 MG TAB PO SCH (21:41)
[2025-03-27 06:28] LABS: Glucose,Whole Blood 137 mg/dL (70-110)
[2025-03-27] MEDS: PANTOPRAZOLE 40 MG TABLET PO SCH (08:36)
[2025-03-27] MEDS: MAGNESIUM OXIDE 400 MG TAB PO SCH (08:36)
--- NOTE | 2025-03-27 09:08 | P.PN ---
Subjective Progress Note Date: 03/27/25 Principal diagnosis: Bilateral lower extremity wounds with osteomyelitis Patient seen and examined today as a follow-up. Yesterday discussed with patient that due to the extent of osteomyelitis and likely with antibiotics alone will not improve and recommendation would be for a left below the knee amputation and right great toe amputation. Patient is declining amputation wou ld like to continue with IV antibiotics. He is afebrile. Currently being treated for MRSA with infectious disease following. Objective - Vital Signs Vital signs: Vital Signs Temp 97.6 F 03/27/25 08:00 Pulse 80 03/27/25 08:00 Resp 18 03/27/25 08:00 BP 105/57 03/27/25 08:00 Pulse Ox 90 L 03/27/25 08:00 FiO2 Intake & Output 03/26/25 03/27/25 03/27/25 18:59 06:59 18:59 Intake Total 800 Balance 800 Intake: Intake, IV Titration 150 Amount DAPTOmycin 400 mg In 50 Sodium Chloride 0.9% 50 ml @ 100 mls/hr IVPB Q24H [facility] Rx#:[id number] Piperacillin-Tazobactam 3 100 .375 gm In Sodium Chloride 0.9% 100 ml @ 25 mls/hr IVPB Q8H [facility] Rx#: [id number] Oral 650 Other: Voiding Method External Catheter # Voids 2 - Exam General appearance: The patient is alert, oriented, ill-appearing, appears in no acute distress. HET: Head is normocephalic and atraumatic. Pupils are equal and reactive. Oxygen supplementation with nasal cannula. Neck: Supple. Heart: Regular. Lungs: Equal expansion, normal respiratory effort. Abdomen: Soft, nondistended. Extremities: Bilateral lower extremities warm to the touch, good capillary refill. Left foot with dressing clean dry and intact. Right great toe with dressing clean dry and intact. Neurological: Alert and oriented x 3. - Labs CBC & Chem 7: 03/26/25 02:54 03/26/25 02:54 Labs: Abnormal Lab Results - Last 24 Hours (Table) 03/26/25 03/26/25 03/26/25 Range/Units 02:54 02:54 11:21 Immature Gran # 0.05 H (0.00-0.04) X 10*3/uL Neutrophils # 9.18 H (1.80-7.70) X 10*3/uL Lymphocytes # 0.70 L (0.90-5.00) X 10*3/uL Macrocytosis (manual) 2+ A (None Seen) Crenated Cell 2+ A (None Seen) POC Glucose (mg/dL) 188 H (70-110) mg/dL Phosphorus 2.3 L (2.4-5.1) mg/dL 03/26/25 03/26/25 03/27/25 Range/Units 16:58 20:58 06:27 Immature Gran # (0.00-0.04) X 10*3/uL Neutrophils # (1.80-7.70) X 10*3/uL Lymphocytes # (0.90-5.00) X 10*3/uL Macrocytosis (manual) (None Seen) Crenated Cell (None Seen) POC Glucose (mg/dL) 148 H 226 H 137 H (70-110) mg/dL Phosphorus (2.4-5.1) mg/dL Microbiology - Last 24 Hours (Table) 03/23/25 16:24 Anaerobic Culture - Preliminary Foot - Left 03/23/25 16:24 Anaerobic Culture - Preliminary Toe - Right First 03/23/25 16:24 Gram Stain - Final Toe - Right First Wound Culture - Final Methicillin resist S. aureus Assessment and Plan Assessment: 1. Chronic nonhealing diabetic foot ulcer, left foot status post excisional debridement to the bone, with osteomyelitis 2. Diabetic ulcer to right great toe status post excisional debridement to the bone, with osteomyelitis 3. 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 Generalized weakness 5. Diabetes mellitus 6. History of coronary artery disease status post CABG Plan: 1. Recommend palliative wound VAC and wound care moving forward. Wound VAC to left plantar wound as ordered. Continue with iodoform packing to right great toe and wrapped with Kerlix. 2. IV antibiotics per infectious disease. 3. Nonweightbearing to left foot Discussed with patient findings of osteomyelitis and concern for infection not healing with only antibiotics. Likely patient would need below the knee amput ation of the left lower extremity and right great toe amputation. At this time patient would not like to be aggressive with surgical intervention and would like to continue antibiotics. Recommend outpatient palliative wound care at wound care center. Thank you for this consultation, we will sign off at this time. The impression and plan of care has been dictated as directed. Dr.Cuello Bolanos performed a history and examination of this patient, discussed the same with the dictator. I agree with the dictator's note ,documented as a scribe. Any additional findings or plans will be noted.
--- NOTE | 2025-03-27 11:39 | P.PN ---
Subjective Progress Note Date: 03/27/25 This is an 84-year-old male patient with a known history of coronary artery disease with previous coronary artery bypass grafting, diabetes mellitus, hyperlipidemia, hypertension, melanoma, depression, chronic and ongoing tobacco dependence, chronic diabetic wounds of the lower extremities, with previous left transmetatarsal amputation with current large wound on the base and a right great toe ulceration as well. Cultures are positive for MRSA and Pseudomonas aeruginosa. He is being followed by vascular surgery and did have debridement this admission on 03/23/2025. He was admitted back on 03/20/2025 for altered mental status and generalized weakness. We were consulted today 03/26/2025 for complaints of cough. Chest x-ray reveals no acute pulmonary process. He is maintaining O2 saturations up to 100% on room air oxygen. He is seen today in consultation on the regular medical floor. He is awake and alert. Quite cachectic appearing. He has a dry nonproductive cough. No fever or chills. White count 10.7. Hemoglobin 9.2. Platelets 195. Sodium 141. Potassium 4.6. Bicarb 27. BUN 6. Creatinine 0.5. Glucose 195. He is currently on daptomycin and Zosyn. Anticoagulated with Eliquis. The patient is seen today March 27, 2025 in follow-up on the regular medical floor. He is currently resting in bed. Awake and alert in no acute distress. He is maintaining O2 saturations in the 90s on 2 L/min per nasal cannula. He states his cough is better today. He remains on daptomycin and Zosyn. He is anticoagulated with Eliquis. He is continued on DuoNeb inhalations. Robitussin for his cough. Left foot wound positive for MRSA and Pseudomonas aeruginosa. Right great toe wound positive for MRSA. Glucose 137. Objective - Vital Signs Vital signs: Vital Signs Temp 97.6 F 03/27/25 08:00 Pulse 80 03/27/25 08:00 Resp 18 03/27/25 08:00 BP 105/57 03/27/25 08:00 Pulse Ox 90 L 03/27/25 08:00 FiO2 Intake & Output 03/26/25 03/27/25 03/27/25 18:59 06:59 18:59 Intake Total 800 Balance 800 Intake: Intake, IV Titration 150 Amount DAPTOmycin 400 mg In 50 Sodium Chloride 0.9% 50 ml @ 100 mls/hr IVPB Q24H [facility] Rx#:[id number] Piperacillin-Tazobactam 3 100 .375 gm In Sodium Chloride 0.9% 100 ml @ 25 mls/hr IVPB Q8H [facility] Rx#: [id number] Oral 650 Other: Voiding Method External Catheter External Catheter # Voids 2 - Exam GENERAL EXAM: Alert, cachectic 84-year-old male, on 2 L/min per nasal cannula, comfortable in no apparent distress. HEAD: Normocephalic. EYES: Normal reaction of pupils, equal size. NOSE: Clear with pink turbinates. THROAT: No erythema or exudates. NECK: No masses, no JVD. CHEST: No chest wall deformity. LUNGS: Equal air entry with no crackles, wheeze, rhonchi or dullness. CVS: S1 and S2 normal with no audible murmur, regular rhythm. ABDOMEN: No hepatosplenomegaly, normal bowel sounds, no guarding or rigidity. SPINE: No scoliosis or deformity SKIN: No rashes CENTRAL NERVOUS SYSTEM: No focal deficits, tone is normal in all 4 extremities. EXTREMITIES: Left transmetatarsal amputation of the foot with open wound at the stump, right great toe open wound. No clubbing, no cyanosis. Peripheral pulses are intact. - Labs CBC & Chem 7: 03/26/25 02:54 03/26/25 02:54 Labs: Abnormal Lab Results - Last 24 Hours (Table) 03/26/25 03/26/25 03/26/25 Range/Units 11:21 16:58 20:58 POC Glucose (mg/dL) 188 H 148 H 226 H (70-110) mg/dL 03/27/25 Range/Units 06:27 POC Glucose (mg/dL) 137 H (70-110) mg/dL Microbiology - Last 24 Hours (Table) 03/23/25 16:24 Gram Stain - Preliminary Foot - Left Wound Culture - Preliminary Presumptive MRSA Pseudomonas aeruginosa 03/23/25 16:24 Anaerobic Culture - Preliminary Foot - Left 03/23/25 16:24 Anaerobic Culture - Preliminary Toe - Right First 03/23/25 16:24 Gram Stain - Final Toe - Right First Wound Culture - Final Methicillin resist S. aureus Assessment and Plan Assessment: Generalized weakness with altered mental status secondary to multiple comorbidities Left pneumonia foot stump wound and right great toe wound positive for MRSA and Pseudomonas aeruginosa, status post debridement on 03/23/2025 Acute cough. Chest x-ray shows no acute pulmonary process. Continue incentive spirometer and bronchodilators, Robitussin History of previous transmetatarsal amputation on the left History of coronary disease with previous coronary artery bypass grafting Diabetes mellitus Hypertension Hyperlipidemia History of malignant melanoma History of depression Chronic tobacco dependence History of pancreatic cancer status post Whipple procedure Atrial fibrillation anticoagulated with Eliquis History of gout Peripheral neuropathy Poor overall functional ability secondary to multiple above-mentioned comorbidities Plan: The patient was seen and evaluated Labs and medications reviewed Continue DuoNeb inhalations Continue Robitussin Continue incentive spirometer Continue daptomycin and Zosyn PICC line was placed Duration of antibiotics per ID service Anticoagulated with Eliquis Patient currently declining amputation Will most likely need subacute rehab at discharge This patient was seen independently by the pulmonary nurse practitioner addressing pulmonary issues I have personally seen and examined the patient, performed the documentation and the assessment and plan as written. Number of minutes spent on the visit: 25 Dictation was produced using [employer] dictation software. Please excuse any grammatical, word or spelling errors.
[2025-03-27 11:44] LABS: Glucose,Whole Blood 224 mg/dL (70-110)
--- NOTE | 2025-03-27 11:45 | XR ---
EXAMINATION TYPE: XR chest 1V DATE OF EXAM: 03/27/2025 10:58 AM COMPARISON: 03/26/2025 CLINICAL INDICATION: Male, 84 years old with history of For placement of PICC line, TECHNIQUE: XR chest 1V view(s) obtained. FINDINGS: The heart size is normal. The pulmonary vasculature is normal. The lungs are clear. PICC line on left with the tip in the superior vena cava region IMPRESSION: 1. No acute pulmonary process. 2. PICC line in the left with the tip in the superior vena cava region [facility], , 03/27/2025 11:43 AM
--- NOTE | 2025-03-27 11:56 | CA ---
Transthoracic Echo Report Name: Isai Tovar Age: 84 Gender: M : 1940 Exam Date: 03/27/2025 10:03 Exam Location: [facility] Ht (in): 61 Wt (lb): 150 Ordering Physician: Ranjana Covarrubias MD Attending/Referring Phys: Venipuncturist Naida Isbell RDCS Procedure CPT: Indications: atrial fibrillation Cardiac Hx: Technical Quality: Fair, Pt Supine Contrast 1: Total Dose (mL): Contrast 2: Total Dose (mL): MEASUREMENTS (Male / Female) Normal Values 2D ECHO LV Diastolic Diameter PLAX 4.2 cm 4.2 - 5.9 / 3.9 - 5.3 cm LV Systolic Diameter PLAX 3.5 cm IVS Diastolic Thickness 1.0 cm 0.6 - 1.0 / 0.6 - 0.9 cm LVPW Diastolic Thickness 1.1 cm 0.6 - 1.0 / 0.6 - 0.9 cm LV Relative Wall Thickness 0.5 RV Internal Dim ED PLAX 2.3 cm LVOT Diameter 1.8 cm LA Systolic Diameter LX 4.0 cm 3.0 - 4.0 / 2.7 - 3.8 cm LV Diastolic Volume MOD 4C 56.6 cm??? LV Systolic Volume MOD 4C 37.5 cm??? LV Ejection Fraction MOD 4C 33.8 % LV Cardiac Index MOD 4C 1081.6 cm???/min???m??? LV Diastolic Length 4C 6.7 cm LV Systolic Length 4C 6.0 cm M-MODE Aortic Root Diameter MM 3.0 cm LA Systolic Diameter MM 4.0 cm LA Ao Ratio MM 1.3 AV Cusp Separation MM 1.8 cm DOPPLER MV Area PHT 3.2 cm??? Mitral E Point Velocity 56.6 cm/s Mitral A Point Velocity 72.5 cm/s Mitral E to A Ratio 0.8 MV Deceleration Time 234.2 ms TR Peak Velocity 289.8 cm/s TR Peak Gradient 33.6 mmHg Right Atrial Pressure 10.0 mmHg Pulmonary Artery Systolic Pressu 43.6 mmHg Right Ventricular Systolic Press 43.6 mmHg FINDINGS Left Ventricle Left ventricular ejection fraction is estimated at 35-40 %. Left ventricular cavity size normal. Left ventricular wall thickness normal. Moderately reduced global left ventricular systolic function. Right Ventricle Moderately right ventricular dilatation. Mild pulmonary hypertension. Right Atrium Severe right atrial dilatation. Echogenic area noted on the septal aspect of unclear etiology, cannot exclude artifact Left Atrium Mild left atrial dilatation. Mitral Valve Mitral valve thickened. Mitral annular calcification. Mild mitral regurgitation. Aortic Valve Trileaflet aortic valve. Thickened aortic valve without stenosis. No aortic regurgitation. Tricuspid Valve Structurally normal tricuspid valve. Moderate tricuspid regurgitation. No tricuspid stenosis. Pulmonic Valve Structurally normal pulmonic valve. Pericardium Effusion no pericardial effusion. Ascites noted. Aorta Normal size aortic root and proximal ascending aorta. CONCLUSIONS 1. Moderate global hypokinesis of the left ventricle 2. Mild mitral with moderate tricuspid regurgitation and mild pulm hypertension 3. Echogenic area noted on the septal aspect of the right atrium, cannot occlude exclude artifact. If clinically indicated a MONICO would be helpful. Previewed by: Dr. Mellissa Connell MD (Electronically Signed) Final Date: 27 March 2025 11:55
--- NOTE | 2025-03-27 13:22 | P.PN ---
Subjective Progress Note Date: 03/27/25 HISTORY OF PRESENT ILLNESS: Patient is a 84-year-old male with CAD status post CABG, diabetes, GERD, hype rlipidemia, hypertension, history of malignant melanoma, depression, daily smoker here for evaluation of altered mental status and weakness. He is unsure why he was sent to the emergency department. On my evaluation, he reported that he has had a chronic wound on his left foot that is being managed by his PCP for about 2 to 3 weeks now and has not improved with 2 types of antibiotics. He was then advised to go to the ED for IV antibiotics by his project management intern. He has no other associated symptoms. He denied fevers, cough, shortness of breath, recent prolonged travel, exposure to sick contacts, recent fall or trauma, abdominal pain, diarrhea, constipation, issues with urination or defecation, chest pain, lightheadedness, dizziness. He reported that he is able to eat meals on his own and does not have any issues with appetite or swallowing. On admission: Vitals: Temp 97.9 F, HI 87, RR 20, BP 121/67, O2 saturation 99% on room air Labs: WBC 8.5, hemoglobin 10.3, MCV 103.5, platelet count 1 25,000, sodium 131, potassium 2.6, chloride 94, BUN 15, creatinine 0.50, glucose 140, lactic acid 2.1, calcium 7.3,. Phosphorus 2.3, magnesium 1.5, AST 136, ALT 46, alk phos 110, troponin 0.013, proBNP 3000 4060, albumin 2.4. Serum alcohol less than 10. Imaging: EKG showed sinus rhythm with a rate of 91, PAC noted on lead II, normal axis, no ST-T changes, good R wave progression, QTc 421 MS,. 03/22/2025 patient seen and examined at bedside. No acute events overnight. ID and wound care recommends vascular surgery consult for I&D. Labs today: WBC 7.59, hemoglobin 10.3, platelet count 1 39,000, sodium 132, potassium 4, chloride 96, bicarb 27.9, BUN 5.4, creatinine 0.6, glucose 159, calcium 7.1, phosphorus 1.5, magnesium 1.7, B12 758, folate 8 03/23/2025 patient seen and examined at bedside. No acute event overnight. Labs: Sodium 130, potassium 3.7, chloride 96, BUN 8, creatinine 0.54, glucose 106, calcium 7.2, phosphorus 2.1, CRP 17.1. Wound culture positive for pseudomonas and MRSA Imaging; foot x-ray showed soft tissue ulceration without convincing radiographic evidence for acute osteomyelitis. ESTHER index by ultrasound showed normal for right and left lower extremities 03/24/2025 patient seen and examined at bedside. No acute events overnight. Patient underwent wound debridement of right great toe and left plantar wound. ID added IV Dapto after procedure. Patient has history of pancreatic cancer s/p irradiation and is being followed by Dr. Eason. Labs: Sodium 130, potassium 3, chloride 96, bicarb 29, creatinine 0.45, BUN 5, glucose 156, calcium 7.2, Phos 2.9 03/25/2025. Patient is s/p debridement of diabetic foot ulcer. Patient is lying in the bed. Awake alert and oriented. Afebrile overnight. Continued on IV antibiotics abnormal daptomycin and Zosyn. No complaints of chest pain or shortness of breath. Laboratory showed WBC 8.0 hemoglobin 9.3 MCV 108 and platelets 224 sodium 132 potassium 4.2 chloride 98 bicarb is 22 BUN 14 creatinine 0.54 and blood sugar 235 and calcium 7.5 magnesium 1.9. 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 of it and the wound appeared to be clean all the way to the bone, also on the right big toe ulcer that is debrided all the way down to the bone as well, patient will likely require 6 weeks of IV antibiotic at this time, infectious disease following, PICC line is ordered, patient will need to go for subacute rehabilitation, patient appears to be quite congested this point in time, chest x-ray was ordered, start the patient on DuoNeb 3 mL nebulization 4 times every day, patient baseline rhythm appears to be atrial fibrillation, start the patient on Eliquis 5 mg orally twice every day, continue metoprolol ER 50 mg once every bedtime, follow-up with the patient very closely, cardiology consultation, echocardiogram, I will follow-up with the patient very closely. 03/27: Patient sitting up in bed in no apparent distress, he continued being treated with nasal cannula, his echocardiogram was done showed ejection fraction of 35%, there is an area in the septum of unclear etiology apparent on echocardiogram, I discussed with Dr. Connell possibly not doing a transesophageal echocardiogram for now because it is negative change the treatment plan, patient is currently in sinus rhythm, and he was in between atrial tachycardia and atrial fibrillation continue anticoagulation because of his ejection fraction as well as atrial tachycardia as well, continue to monitor the patient very closely, patient blood pressure continues to be marginal, no room to add Entresto yet we will follow-up with the patient very closely, patient had a PICC line placed in the left upper extremity, and the plan is to transfer the patient [facility] on the [address] hopefully in the next 1 or 2 days. REVIEW OF SYSTEMS: Constitution: No documented fever, no chills, no night sweats. Significant weight change. Positive for weakness, positive for fatigue or lethargy. No daytime sleepiness. EENT: No headache. No blurred vision or double vision, no loss of vision. No loss of Hearing, no ringing in the ears, no dizziness. No nasal drainage or congestion. No epistaxis. No sore throat. Lungs: Positive for shortness of breath, positive for cough, positive for sputum production. Positive for wheezing. Reports dyspnea with activity. Cardiovascular: No chest pain, no lower extremity edema. No palpitations. No paroxysmal nocturnal dyspnea. No orthopnea. No lightheadedness or dizziness. No syncopal episodes. Abdominal: Reports no abdominal pain. No nausea, vomiting. Positive for diarrhea. No constipation. No bloody or tarry stools reports loss of appetite. Genitourinary: No dysuria, increased frequency, urgency. No urinary retention. Musculoskeletal: No myalgias. No muscle weakness, no gait dysfunction, no frequent falls. No back pain. No neck pain. Integumentary: Positive for 2 wounds 1 at the base of the left transmetatarsal amputation at the bottom that is debrided all the way down to the bone and 1 at the right big toe ulcer that was debrided to the bone., no lesions. No rash or pruritus. No unusual bruising. No change in hair or nails. Neurologic: No aphasia. No facial droop. No change in mentation. No head injury. No headache. No paralysis. Positive paresthesia. Psychiatric: Positive for depression. Positive for anxiety. No mood swings. Endocrine: Positive for abnormal blood sugars. Positive weight change. PHYSICAL EXAMINATION: General: 84-year-old gentleman laying down in bed in minimal distress HEENT: Head is atraumatic, normocephalic, pupils were equal round reactive to l ight and recommendation, extraocular muscle movement were intact, sclera nonicteric, conjunctivae were pale, mucous membranes of the mouth are somewhat dry. Neck: Supple, no JVP, normal carotid upstroke bilaterally, no lymphadenopathy. Chest: Decreased breath sounds at the bases, few rhonchi, positive for minimal expiratory wheezes, no chest wall tenderness, no intercostal retractions. Heart: First heart sound is normal, second heart sounds normal, irregular irregular there systolic ejection murmur 2/6 located in the left sternal border Abdomen: Soft, nontender, nondistended, positive bowel sounds. Extremities: There is no edema, no calf tenderness, there is a left transmetatarsal amputation with a large wound to the base of the stump all the way to the bone and there is right big toe ulcer status post debridement all the way down to the bone. Dorsalis pedis +1 bilaterally. Neurologic examination: Patient is awake alert and oriented x3, cranial nerves II-12 appear grossly intact, muscle power were 3 out of 5 in upper extremities and 3 out of 5 in bilateral lower extremities. ASSESSMENT AND PLAN: 1. Diabetic ulcer of the left foot patient is s/p debridement on 03/23/2025. Deep wound culture is positive for MRSA as well as Pseudomonas aeruginosa continue patient daptomycin 400 mg IV piggyback every 24 hours, continue Zosyn 3.375 g piggyback every 8 hours, patient will have a PICC line placement for 6 weeks of IV antibiotic. 2. Diabetic ulcer of right toe status post debridement. Continue patient on daptomycin 400 mg a piggyback every 24 hours, for 6 more weeks. Continue Dakin's solution as per vascular surgery. 3. Hypokalemia status post replacement. Recheck the patient CMP and magnesium tomorrow morning 4. medical debility due to chronic medical conditions. Physical therapy evaluation, patient will likely require subacute rehabilitation. 5. History of metastatic malignant melanoma. Currently off immunotherapy under the care of Dr. Hassan 6. History of pancreatic cancer currently in remission. Status post Whipple procedure. 7. Chronic diarrhea. Continue patient on Lomotil 2.5 mg at bedtime. 8. Atrial fibrillation/atrial tachycardia continue patient on metoprolol ER 50 mg at bedtime, continue Eliquis 5 mg orally twice every day, patient will have an echocardiogram was reviewed showed ejection fraction of 35% suggestive of nonischemic cardiomyopathy. 9. Acute respiratory insufficiency continue oxygen support, chest x-ray did not show evidence of acute pulmonary disease at this time, continue aggressive pulmonary toileting start the patient on DuoNeb 3 mL nebulization 4 times every day, and encourage the usage of incentive spirometer. Pulmonary consultation appreciated, echocardiogram showed evidence of nonischemic cardiomyopathy. 10. Hypertension and hypertensive vascular disease. Continue patient on metoprolol ER 50 mg once every day monitor patient blood pressure very closely. 11. Diabetes mellitus type 2. Continue with a sliding scale insulin. 12. Anxiety and depressive disorder. Continue patient on Klonopin 1 mg at bedtime continue with paroxetine 20 mg orally once every day. 13. DVT prophylaxis. Continue patient on Eliquis 5 mg orally twice every day. 14. GI prophylaxis. Continue Protonix 40 mg once every day. 15. Gout. Continue allopurinol 300 mg orally once every day. 16. Peripheral neuropathy continue gabapentin 300 mg at bedtime. 17. Overall prognosis is guarded. 18. Patient is full code. 19. Physical therapy evaluation for subacute rehabilitation. 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 Objective - Vital Signs Vital signs: Vital Signs Temp 97.6 F 03/27/25 08:00 Pulse 88 03/27/25 12:13 Resp 18 03/27/25 12:13 BP 105/57 03/27/25 08:00 Pulse Ox 90 L 03/27/25 08:00 FiO2 Intake & Output 03/26/25 03/27/25 03/27/25 18:59 06:59 18:59 Intake Total 800 Balance 800 Intake: Intake, IV Titration 150 Amount DAPTOmycin 400 mg In 50 Sodium Chloride 0.9% 50 ml @ 100 mls/hr [facility]PB [facility] Rx#:[id number] Piperacillin-Tazobactam 3 100 .375 gm In Sodium Chloride 0.9% 100 ml @ 25 mls/hr IVPB Q8H [facility] Rx#: [id number] Oral 650 Other: Voiding Method External Catheter External Catheter # Voids 2 - Labs CBC & Chem 7: 03/26/25 02:54 03/26/25 02:54 Labs: Abnormal Lab Results - Last 24 Hours (Table) 03/26/25 03/26/25 03/27/25 Range/Units 16:58 20:58 06:27 POC Glucose (mg/dL) 148 H 226 H 137 H (70-110) mg/dL 03/27/25 Range/Units 11:41 POC Glucose (mg/dL) 224 H (70-110) mg/dL Microbiology - Last 24 Hours (Table) 03/23/25 16:24 Gram Stain - Preliminary Foot - Left Wound Culture - Preliminary Presumptive MRSA Pseudomonas aeruginosa 03/23/25 16:24 Anaerobic Culture - Preliminary Foot - Left 03/23/25 16:24 Anaerobic Culture - Preliminary Toe - Right First
--- NOTE | 2025-03-27 13:28 | P.PN ---
Subjective Progress Note Date: 03/26/25 Principal diagnosis: Left foot infected ulcer Patient is a 84-year-old male with a past medical history significant for Coronary Artery Disease (CAD), Cancer, Diabetes Mellitus, GERD/Reflux, Hyperlipidemia, Hypertension and this patient has been dealing with a nonhealing wound to the left foot presenting to the hospital for evaluation of weakness and mental status changes did have a nonhealing wound to the left foot prompting this consultation. On today's evaluation that is Patient is status post sharp excisional debridement right great toe wound to bone 1 x 0.7 x 0.9 cm andSharp excisional debridement left plantar wound to bone 4.5 x 3 x 2 cm with 9:00 tunneling of 2 cm, completed on 03/23/2025 On today's evaluation that is 03/26/2025, patient has been afebrile, patient is breathing comfortably and is currently on room air, patient denies having any chest pain and cough, patient denies nausea vomiting or diarrhea and no abdominal pain, pain to bilateral foot wound is currently controlled. Patient white count is 10.73, creatinine 0.5, OR culture with MRSA Objective - Vital Signs Vital signs: Vital Signs Temp 98.7 F 03/26/25 00:50 Pulse 88 03/26/25 12:41 Resp 18 03/26/25 07:30 BP 109/66 03/26/25 07:05 Pulse Ox 100 03/26/25 07:05 FiO2 Intake & Output 03/25/25 03/26/25 03/26/25 18:59 06:59 18:59 Output Total 600 Balance -600 Output: Urine 600 Other: Voiding Method External Catheter External Catheter External Catheter # Voids 2 # Bowel Movements 1 2 - Exam GENERAL DESCRIPTION: An elderly male lying in bed in no distress RESPIRATORY SYSTEM: Unlabored breathing , decreased breath sounds at bases HEART: S1 S2 regular rate and rhythm , ABDOMEN: Soft , no tenderness EXTREMITIES: Left foot wound is currently dressed - Labs CBC & Chem 7: 03/26/25 02:54 03/26/25 02:54 Labs: Abnormal Lab Results - Last 24 Hours (Table) 03/25/25 03/25/25 03/26/25 Range/Units 17:29 21:15 02:54 WBC 10.73 H (4.50-10.00) X 10*3/uL RBC 2.66 L (4.40-5.60) X 10*6/uL Hgb 9.2 L (13.0-17.0) g/dL Hct 29.7 L (39.6-50.0) % MCV 111.7 H (80.0-97.0) FL MCH 34.6 H (27.0-32.0) pg MCHC 31.0 L (32.0-37.0) g/dL Immature Gran # 0.05 H (0.00-0.04) X 10*3/uL Neutrophils # 9.18 H (1.80-7.70) X 10*3/uL Lymphocytes # 0.70 L (0.90-5.00) X 10*3/uL Macrocytosis (manual) 2+ A (None Seen) Crenated Cell 2+ A (None Seen) BUN (9.0-27.0) mg/dL Creatinine (0.6-1.5) mg/dL BUN/Creatinine Ratio (12.00-20.00) Ratio Glucose (70-110) mg/dL POC Glucose (mg/dL) 167 H 131 H (70-110) mg/dL Calcium (8.7-10.3) mg/dL Phosphorus (2.4-5.1) mg/dL 03/26/25 03/26/25 03/26/25 Range/Units 02:54 02:54 06:23 WBC (4.50-10.00) X 10*3/uL RBC (4.40-5.60) X 10*6/uL Hgb (13.0-17.0) g/dL Hct (39.6-50.0) % MCV (80.0-97.0) FL MCH (27.0-32.0) pg MCHC (32.0-37.0) g/dL Immature Gran # (0.00-0.04) X 10*3/uL Neutrophils # (1.80-7.70) X 10*3/uL Lymphocytes # (0.90-5.00) X 10*3/uL Macrocytosis (manual) (None Seen) Crenated Cell (None Seen) BUN 5.7 L (9.0-27.0) mg/dL Creatinine 0.5 L (0.6-1.5) mg/dL BUN/Creatinine Ratio 11.40 L (12.00-20.00) Ratio Glucose 195 H (70-110) mg/dL POC Glucose (mg/dL) 139 H (70-110) mg/dL Calcium 6.9 L (8.7-10.3) mg/dL Phosphorus 2.3 L (2.4-5.1) mg/dL 03/26/25 Range/Units 11:21 WBC (4.50-10.00) X 10*3/uL RBC (4.40-5.60) X 10*6/uL Hgb (13.0-17.0) g/dL Hct (39.6-50.0) % MCV (80.0-97.0) FL MCH (27.0-32.0) pg MCHC (32.0-37.0) g/dL Immature Gran # (0.00-0.04) X 10*3/uL Neutrophils # (1.80-7.70) X 10*3/uL Lymphocytes # (0.90-5.00) X 10*3/uL Macrocytosis (manual) (None Seen) Crenated Cell (None Seen) BUN (9.0-27.0) mg/dL Creatinine (0.6-1.5) mg/dL BUN/Creatinine Ratio (12.00-20.00) Ratio Glucose (70-110) mg/dL POC Glucose (mg/dL) 188 H (70-110) mg/dL Calcium (8.7-10.3) mg/dL Phosphorus (2.4-5.1) mg/dL Microbiology - Last 24 Hours (Table) 03/23/25 16:24 Anaerobic Culture - Preliminary Foot - Left 03/23/25 16:24 Anaerobic Culture - Preliminary Toe - Right First 03/23/25 16:24 Gram Stain - Final Toe - Right First Wound Culture - Final Methicillin resist S. aureus Assessment and Plan (1) Diabetic ulcer of left foot Current Visit: Yes Status: Acute Code(s): E11.621 - TYPE 2 DIABETES MELLITUS WITH FOOT ULCER; L97.529 - NON-PRESSURE CHRONIC ULCER OTH PRT LEFT FOOT W UNSP SEVERITY SNOMED Code(s): 548077906 (2) MRSA (methicillin resistant staph aureus) culture positive Current Visit: No Status: Acute Code(s): Z22.322 - CARRIER OR SUSPECTED CARRIER OF METHICILLIN RESIS STAPH SNOMED Code(s): 161195266 Plan: 1patient with a chronic nonhealing wound of the plantar aspect of the left foot and this patient has been treated with 2 different antibiotics in the outpatient setting wounds looks deep keeping in mind patient with underlying diabetes will need to cover for the polymicrobial simeon associated diabetic foot infection. 2local culture grew MRSA and Pseudomonas aeruginosa x-ray of the foot did not show any bony changes 3patient did have debridement down to the bone suggestive of osteomyelitis and deep culture which are currently growing MRSA 4patient currently being treated with Zosyn and daptomycin plan is for 6 weeks of antibiotic therapy will likely need placement discussed with the family the bedside Dictation was produced using [employer] dictation software. please excuse any grammatical, word or spelling errors. Time with Patient: Less than 30
--- NOTE | 2025-03-27 13:29 | P.PN ---
Subjective Progress Note Date: 03/27/25 Principal diagnosis: Left foot infected ulcer Patient is a 84-year-old male with a past medical history significant for Coronary Artery Disease (CAD), Cancer, Diabetes Mellitus, GERD/Reflux, Hyperlipidemia, Hypertension and this patient has been dealing with a nonhealing wound to the left foot presenting to the hospital for evaluation of weakness and mental status changes did have a nonhealing wound to the left foot prompting this consultation. On today's evaluation that is Patient is status post sharp excisional debridement right great toe wound to bone 1 x 0.7 x 0.9 cm andSharp excisional debridement left plantar wound to bone 4.5 x 3 x 2 cm with 9:00 tunneling of 2 cm, completed on 03/23/2025 On today's evaluation that is 03/27/2025, Patient is afebrile this morning patient denies having any chest pain shortness of breath or cough, the patient is currently on room air, patient denies any abdominal pain no diarrhea no nausea no vomiting. No new lab has been obtained today Objective - Vital Signs Vital signs: Vital Signs Temp 97.6 F 03/27/25 08:00 Pulse 88 03/27/25 12:13 Resp 18 03/27/25 12:13 BP 105/57 03/27/25 08:00 Pulse Ox 90 L 03/27/25 08:00 FiO2 Intake & Output 03/26/25 03/27/25 03/27/25 18:59 06:59 18:59 Intake Total 800 Balance 800 Intake: Intake, IV Titration 150 Amount DAPTOmycin 400 mg In 50 Sodium Chloride 0.9% 50 ml @ 100 mls/hr IVPB Q24H [facility] Rx#:[id number] Piperacillin-Tazobactam 3 100 .375 gm In Sodium Chloride 0.9% 100 ml @ 25 mls/hr IVPB Q8H [facility] Rx#: [id number] Oral 650 Other: Voiding Method External Catheter External Catheter # Voids 2 - Exam GENERAL DESCRIPTION: An elderly male lying in bed in no distress RESPIRATORY SYSTEM: Unlabored breathing , decreased breath sounds at bases HEART: S1 S2 regular rate and rhythm , ABDOMEN: Soft , no tenderness EXTREMITIES: Left foot wound is currently dressed - Labs CBC & Chem 7: 03/26/25 02:54 03/26/25 02:54 Labs: Abnormal Lab Results - Last 24 Hours (Table) 03/26/25 03/26/25 03/27/25 Range/Units 16:58 20:58 06:27 POC Glucose (mg/dL) 148 H 226 H 137 H (70-110) mg/dL 03/27/25 Range/Units 11:41 POC Glucose (mg/dL) 224 H (70-110) mg/dL Microbiology - Last 24 Hours (Table) 03/23/25 16:24 Gram Stain - Preliminary Foot - Left Wound Culture - Preliminary Presumptive MRSA Pseudomonas aeruginosa 03/23/25 16:24 Anaerobic Culture - Preliminary Foot - Left 03/23/25 16:24 Anaerobic Culture - Preliminary Toe - Right First Assessment and Plan (1) Diabetic ulcer of left foot Current Visit: Yes Status: Acute Code(s): E11.621 - TYPE 2 DIABETES MELLITUS WITH FOOT ULCER; L97.529 - NON-PRESSURE CHRONIC ULCER OTH PRT LEFT FOOT W UNSP SEVERITY SNOMED Code(s): 899083674 (2) MRSA (methicillin resistant staph aureus) culture positive Current Visit: No Status: Acute Code(s): Z22.322 - CARRIER OR SUSPECTED CARRIER OF METHICILLIN RESIS STAPH SNOMED Code(s): 246526531 Plan: 1patient with a chronic nonhealing wound of the plantar aspect of the left foot and this patient has been treated with 2 different antibiotics in the outpatient setting wounds looks deep keeping in mind patient with underlying diabetes will need to cover for the polymicrobial simeon associated diabetic foot infection. 2local culture grew MRSA and Pseudomonas aeruginosa x-ray of the foot did not show any bony changes 3patient did have debridement down to the bone suggestive of osteomyelitis and deep culture which are currently growing MRSA 4patient currently being treated with Zosyn and daptomycin, daptomycin dose can be adjusted to 500 mg daily as 350 mg daily will be low-dose for his underlying osteomyelitis duration antibiotic will be 6 weeks with a monitoring of CRP and a sed rate and a close outpatient follow-up Dictation was produced using [employer] dictation software. please excuse any gr ammatical, word or spelling errors. Time with Patient: Less than 30
--- NOTE | 2025-03-27 14:39 | P.PN ---
Subjective Progress Note Date: 03/27/25 Consult reason: atrial fibrillation History of present illness: This is an 84-year-old male patient with past medical history of metastatic malignant melanoma, pancreatic cancer status post Whipple, radiation and chemotherapy with recurrence, chronic diarrhea, coronary artery disease with history of three-vessel CABG with Dr. Haider, postural hypotension, diabetes mellitus type 2, hypertension, hyperlipidemia. Patient has not followed with a [employer] for more than 20 years. He also states his CABG 3 vessel was about 20 years ago. He denies history of myocardial infarction. We have been asked to evaluate the patient for atrial fibrillation. Patient was thought to go into atrial fibrillation with RVR this morning and was started on Eliquis. He states his breathing is okay. He denies dyspnea on exertion. He denies dizziness or palpitations. No skipped beats. No fast heart rate. He states he has lower extremity edema that comes and goes. He has a cough and he quit smoking 30 years ago. He denies abdominal pain. No blood in his stool or urine. He states he has trouble ambulating due to loss of balance. Regarding the raoul christianant melanoma, patient is on chemotherapy and follows with Dr. Eason and was last seen by him 3 to 4 weeks ago. He states he does have have history of irregular heartbeat following his open heart surgery for about 2 years but has not had no recent issues. He denies history of asthma or COPD, he denies history of stroke or seizures. Patient presented to [facility] on 03/20 altered mental status and weakness, chronic wound to the left foot. Patient was diagnosed with a diabetic foot ulcer and underwent debridement on 03/23. Blood pressure 109/66, heart rate 91, pulse ox 100% on room air. Patient states he knows that his heart rate was irregular and fast because he had a num dennise of staff come into his room. He denies symptoms at the time. -EK/3: Sinus rhythm at 91 bpm, 03/25 appears to be discernible P waves in V1, V2 at 138 bpm and 132 bpm -Chest x-ray: No acute process. -Laboratory studies: WBC 10.7, hemoglobin 9.2, electrolytes within normal limits, BUN 5.7, creatinine 0.5. C-reactive protein 17 negative x 1. proBNP 3460. -Home cardiac medications: Atenolol 50 mg twice daily, Plavix 75 mg daily, magnesium 64 mg daily, simvastatin 20 mg at bedtime, also on midodrine 5 mg twice daily. -Lexiscan stress test performed at [facility] on 06/19/2022 was negative for reversible ischemia. Instead -Echocardiogram performed 07/11/2023 revealed preserved LV systolic function. Atypical septal motion. Mitral annular calcification and aortic valve sclerosis with mild mitral and tricuspid regurgitation. No pericardial effusion. 03/27 Patient seen and examined. Patient remains in sinus rhythm with no tachycardic episodes. Blood pressure 105/57, heart rate in the 80s, pulse ox 90% on 2 L nasal cannula. He denies having palpitations and denies having heart fluttering sensation. TSH 1.83. Echocardiogram reveals EF 35 to 40% with moderate global hypokinesis of the left ventricle. Mild mitral with moderate tricuspid regurgitation and mild pulmonary hypertension. Echogenic area noted on the septal aspect of the right atrium cannot exclude artifact. If clinically indicated, MONICO would be helpful. Physical examination: Gen: This is an 84-year-old male in no acute distress. VS: reviewed HEENT: Head is atraumatic, normocephalic. Pupils equal, round. Sclerae is anicteric. NECK: Supple. No JVD. LUNGS: Clear to auscultation. No wheezes or rhonchi. No intercostal retractions. HEART: Regular rate and rhythm. No murmur. ABDOMEN: Soft No tenderness. EXTREMITIES: No pedal edema. No calf tenderness. NEUROLOGICAL: Patient is awake, alert and oriented x3. Assessment: Episode of heart rate that was irregular and fast most likely atrial tachyc ardia, no clear-cut atrial fibrillation Diabetic foot ulcer left, s/p debridement 03/23 Coronary artery disease with previous CABG Hypertension Hyperlipidemia Metastatic malignant melanoma History of pancreatic cancer Ischemic cardiomyopathy with EF 35 to 40% Echogenic area in the septal aspect of the right atrium Plan: Continue current cardiac medications: Metoprolol succinate 50 mg daily Continue Eliquis Continue telemetry monitoring Repeat EKG in the morning Repeat magnesium in the morning Consider MONICO. Dr. Connell will discuss with Dr. Covarrubias. Further recommendations to follow based upon clinical course Nurse practitioner note has been reviewed, I agree with documented findings and plan of care. Patient was seen and examined. Objective - Vital Signs Vital signs: Vital Signs Temp 97.6 F 03/27/25 08:00 Pulse 80 03/27/25 08:00 Resp 18 03/27/25 08:00 BP 105/57 03/27/25 08:00 Pulse Ox 90 L 03/27/25 08:00 FiO2 Intake & Output 03/26/25 03/27/25 03/27/25 18:59 06:59 18:59 Intake Total 800 Balance 800 Intake: Intake, IV Titration 150 Amount DAPTOmycin 400 mg In 50 Sodium Chloride 0.9% 50 ml @ 100 mls/hr IVPB Q24H [facility] Rx#:[id number] Piperacillin-Tazobactam 3 100 .375 gm In Sodium Chloride 0.9% 100 ml @ 25 mls/hr IVPB Q8H [facility] Rx#: [id number] Oral 650 Other: Voiding Method External Catheter # Voids 2 - Labs CBC & Chem 7: 03/26/25 02:54 03/26/25 02:54 Labs: Abnormal Lab Results - Last 24 Hours (Table) 03/26/25 03/26/25 03/26/25 Range/Units 02:54 11:21 16:58 POC Glucose (mg/dL) 188 H 148 H (70-110) mg/dL Phosphorus 2.3 L (2.4-5.1) mg/dL 03/26/25 03/27/25 Range/Units 20:58 06:27 POC Glucose (mg/dL) 226 H 137 H (70-110) mg/dL Phosphorus (2.4-5.1) mg/dL Microbiology - Last 24 Hours (Table) 03/23/25 16:24 Gram Stain - Preliminary Foot - Left Wound Culture - Preliminary Presumptive MRSA Pseudomonas aeruginosa 03/23/25 16:24 Anaerobic Culture - Preliminary Foot - Left 03/23/25 16:24 Anaerobic Culture - Preliminary Toe - Right First 03/23/25 16:24 Gram Stain - Final Toe - Right First Wound Culture - Final Methicillin resist S. aureus
[2025-03-27 15:14] LABS: Basophils # (A) 0.03 X 10*3/uL (0.00-0.10); Basophils % (A) 0.3 %; Eosinophils # (A) 0.16 X 10*3/uL (0.04-0.35); Eosinophils % (A) 1.7 %; HCT 33.2 % (39.6-50.0); HGB 10.3 g/dL (13.0-17.0); Lymphocytes # (A) 0.67 X 10*3/uL (0.90-5.00); Lymphocytes % (A) 7.3 %; MCH 34.4 pg (27.0-32.0); Mean Platelet Volume 9.8 FL (9.5-12.2); Monocytes % (A) 5.4 %; NRBC Per 100 WBC 0 X 10*3/uL (0.00-0.01); Neutrophils # (A) 7.76 X 10*3/uL (1.80-7.70); Neutrophils % (A) 84.6 %; Platelet Count 195 X 10*3/uL (140-440); RBC 2.99 X 10*6/uL (4.40-5.60); RDW 13.8 % (11.5-14.5); WBC 9.18 X 10*3/uL (4.50-10.00)
[2025-03-27 16:05] LABS: Blood Urea Nitrogen 5.7 mg/dL (9.0-27.0); Glucose 192 mg/dL (70-110); Magnesium 1.7 mg/dL (1.5-2.4)
[2025-03-27 16:06] LABS: ALT 18 U/L (10-49); AST 22 U/L (14-35); Albumin 1.9 g/dL (3.8-4.9); Alkaline Phosphatase 92 U/L (41-126); Carbon Dioxide 28.9 mmol/L (21.6-31.8); Chloride 103 mmol/L (96-109); Globulin 2.7 g/dL (1.6-3.3); Potassium 3.8 mmol/L (3.5-5.5); Sodium 141 mmol/L (135-145); Total Bilirubin 0.2 mg/dL (0.3-1.2); Total Protein 4.6 g/dL (6.2-8.2)
[2025-03-27 16:41] LABS: Glucose,Whole Blood 174 mg/dL (70-110)
[2025-03-27 20:39] LABS: Glucose,Whole Blood 208 mg/dL (70-110)
[2025-03-28 06:14] LABS: Glucose,Whole Blood 171 mg/dL (70-110)
[2025-03-28 08:00] LABS: Basophils # (A) 0.03 X 10*3/uL (0.00-0.10); Basophils % (A) 0.5 %; Eosinophils # (A) 0.14 X 10*3/uL (0.04-0.35); Eosinophils % (A) 2.3 %; HCT 29.2 % (39.6-50.0); HGB 9.2 g/dL (13.0-17.0); Lymphocytes % (A) 14.5 %; MCH 33.9 pg (27.0-32.0); MCHC 31.5 g/dL (32.0-37.0); MCV 107.7 FL (80.0-97.0); Mean Platelet Volume 10.1 FL (9.5-12.2); Monocytes # (A) 0.46 X 10*3/uL (0.20-1.00); Monocytes % (A) 7.4 %; NRBC Per 100 WBC 0 X 10*3/uL (0.00-0.01); Neutrophils # (A) 4.63 X 10*3/uL (1.80-7.70); Neutrophils % (A) 74.3 %; Platelet Count 193 X 10*3/uL (140-440); RBC 2.71 X 10*6/uL (4.40-5.60); WBC 6.22 X 10*3/uL (4.50-10.00)
[2025-03-28 09:03] LABS: ALT 19 U/L (10-49); AST 25 U/L (14-35); Albumin 1.8 g/dL (3.8-4.9); Albumin/Globulin Ratio 0.67 Ratio (1.60-3.17); Alkaline Phosphatase 100 U/L (41-126); Blood Urea Nitrogen 6.4 mg/dL (9.0-27.0); Carbon Dioxide 26.4 mmol/L (21.6-31.8); Chloride 102 mmol/L (96-109); Globulin 2.7 g/dL (1.6-3.3); Glucose 190 mg/dL (70-110); Potassium 4.1 mmol/L (3.5-5.5); Sodium 136 mmol/L (135-145); Total Bilirubin 0.2 mg/dL (0.3-1.2); Total Protein 4.5 g/dL (6.2-8.2)
--- NOTE | 2025-03-28 10:22 | P.PN ---
Subjective Progress Note Date: 03/28/25 Principal diagnosis: Bilateral lower extremity wounds with osteomyelitis Patient is seen and examined today as a follow-up. Currently getting a breathing treatment. Patient states overall doing okay. He has not been up and out of bed in several days. Physical therapy on consultation. Wound VAC to left foot with good suction. Plan is for discharge to subacute rehab once c leared by cardiology. PICC line is in place. Objective - Vital Signs Vital signs: Vital Signs Temp 97.6 F 03/28/25 07:35 Pulse 75 03/28/25 08:41 Resp 17 03/28/25 07:35 BP 126/77 03/28/25 07:35 Pulse Ox 93 L 03/28/25 07:35 FiO2 Intake & Output 03/27/25 03/28/25 03/28/25 18:59 06:59 18:59 Other: Voiding Method External Catheter # Voids 3 3 # Bowel Movements 2 3 - Exam General appearance: The patient is alert, oriented, ill-appearing, appears in no acute distress. HET: Head is normocephalic and atraumatic. Pupils are equal and reactive. Oxygen supplementation with nasal cannula. Neck: Supple. Heart: Regular. Lungs: Equal expansion, normal respiratory effort. Abdomen: Soft, nondistended. Extremities: Bilateral lower extremities warm to the touch, good capillary refill. Left foot with wound VAC in place with good suction. Right great toe with dressing clean dry and intact. Neurological: Alert and oriented x 3. - Labs CBC & Chem 7: 03/28/25 03:09 03/28/25 03:09 Labs: Abnormal Lab Results - Last 24 Hours (Table) 03/27/25 03/27/25 03/27/25 Range/Units 09:39 09:39 11:41 RBC 2.99 L (4.40-5.60) X 10*6/uL Hgb 10.3 L (13.0-17.0) g/dL Hct 33.2 L (39.6-50.0) % MCV 111.0 H (80.0-97.0) FL MCH 34.4 H (27.0-32.0) pg MCHC 31.0 L (32.0-37.0) g/dL Immature Gran # 0.06 H (0.00-0.04) X 10*3/uL Neutrophils # 7.76 H (1.80-7.70) X 10*3/uL Lymphocytes # 0.67 L (0.90-5.00) X 10*3/uL BUN 5.7 L (9.0-27.0) mg/dL BUN/Creatinine Ratio 9.50 L (12.00-20.00) Ratio Glucose 192 H (70-110) mg/dL POC Glucose (mg/dL) 224 H (70-110) mg/dL Calcium 7.0 L (8.7-10.3) mg/dL Total Bilirubin 0.2 L (0.3-1.2) mg/dL Total Protein 4.6 L (6.2-8.2) g/dL Albumin 1.9 L (3.8-4.9) g/dL Albumin/Globulin Ratio 0.70 L (1.60-3.17) Ratio 03/27/25 03/27/25 03/28/25 Range/Units 16:32 20:35 03:09 RBC 2.71 L (4.40-5.60) X 10*6/uL Hgb 9.2 L (13.0-17.0) g/dL Hct 29.2 L (39.6-50.0) % MCV 107.7 H (80.0-97.0) FL MCH 33.9 H (27.0-32.0) pg MCHC 31.5 L (32.0-37.0) g/dL Immature Gran # 0.06 H (0.00-0.04) X 10*3/uL Neutrophils # (1.80-7.70) X 10*3/uL Lymphocytes # (0.90-5.00) X 10*3/uL BUN (9.0-27.0) mg/dL BUN/Creatinine Ratio (12.00-20.00) Ratio Glucose (70-110) mg/dL POC Glucose (mg/dL) 174 H 208 H (70-110) mg/dL Calcium (8.7-10.3) mg/dL Total Bilirubin (0.3-1.2) mg/dL Total Protein (6.2-8.2) g/dL Albumin (3.8-4.9) g/dL Albumin/Globulin Ratio (1.60-3.17) Ratio 03/28/25 Range/Units 06:11 RBC (4.40-5.60) X 10*6/uL Hgb (13.0-17.0) g/dL Hct (39.6-50.0) % MCV (80.0-97.0) FL MCH (27.0-32.0) pg MCHC (32.0-37.0) g/dL Immature Gran # (0.00-0.04) X 10*3/uL Neutrophils # (1.80-7.70) X 10*3/uL Lymphocytes # (0.90-5.00) X 10*3/uL BUN (9.0-27.0) mg/dL BUN/Creatinine Ratio (12.00-20.00) Ratio Glucose (70-110) mg/dL POC Glucose (mg/dL) 171 H (70-110) mg/dL Calcium (8.7-10.3) mg/dL Total Bilirubin (0.3-1.2) mg/dL Total Protein (6.2-8.2) g/dL Albumin (3.8-4.9) g/dL Albumin/Globulin Ratio (1.60-3.17) Ratio Microbiology - Last 24 Hours (Table) 03/23/25 16:24 Gram Stain - Preliminary Foot - Left Wound Culture - Preliminary Presumptive MRSA Pseudomonas aeruginosa Assessment and Plan Assessment: 1. Chronic nonhealing diabetic foot ulcer, left foot status post excisional debridement to the bone, with osteomyelitis 2. Diabetic ulcer to right great toe status post excisional debridement to the bone, with osteomyelitis 3. 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 Generalized weakness 5. Diabetes mellitus 6. History of coronary artery disease status post CABG Plan: 1. Recommend palliative wound VAC and wound care moving forward. Wound VAC to left plantar wound as ordered. Continue with iodoform packing to right great toe and wrapped with Kerlix. 2. IV antibiotics per infectious disease. 3. Nonweightbearing to left foot Discussed with patient findings of osteomyelitis and concern for infection not healing with only antibiotics. Likely patient would need below the knee amputation of the left lower extremity and right great toe amputation. At this time patient would not like to be aggressive with surgical intervention and would like to continue antibiotics. Recommend outpatient palliative wound care at [facility]. Thank you for this consultation, we will sign off at this time. The impression and plan of care has been dictated as directed. Dr.Cuello Bolanos performed a history and examination of this patient, discussed the same with the dictator. I agree with the dictator's note ,documented as a scribe. Any additional findings or plans will be noted.
[2025-03-28 10:50] LABS: Glucose,Whole Blood 231 mg/dL (70-110)
--- NOTE | 2025-03-28 12:34 | P.PN ---
Subjective Progress Note Date: 03/28/25 Principal diagnosis: Left foot infected ulcer Patient is a 84-year-old male with a past medical history significant for Coronary Artery Disease (CAD), Cancer, Diabetes Mellitus, GERD/Reflux, Hyperlipidemia, Hypertension and this patient has been dealing with a nonhealing wound to the left foot presenting to the hospital for evaluation of weakness and mental status changes did have a nonhealing wound to the left foot prompting this consultation. On today's evaluation that is Patient is status post sharp excisional debridement right great toe wound to bone 1 x 0.7 x 0.9 cm andSharp excisional debridement left plantar wound to bone 4.5 x 3 x 2 cm with 9:00 tunneling of 2 cm, completed on 03/23/2025 On today's evaluation that is 03/28/2025,the patient denies any fever or any chills, patient is breathing comfortably on room air, the patient denies chest pain shortness of breath and no significant cough, patient denies abdominal pain, no nausea vomiting or diarrhea. Denies any worsening pain to bilateral foot wound area. Patient white count 6.22, creatinine is 0.4 OR culture with MRSA Objective - Vital Signs Vital signs: Vital Signs Temp 97.6 F 03/28/25 07:35 Pulse 75 03/28/25 12:25 Resp 17 03/28/25 07:35 BP 126/77 03/28/25 07:35 Pulse Ox 93 L 03/28/25 07:35 FiO2 Intake & Output 03/27/25 03/28/25 03/28/25 18:59 06:59 18:59 Other: Voiding Method External Catheter # Voids 3 3 # Bowel Movements 2 3 - Exam GENERAL DESCRIPTION: An elderly male lying in bed in no distress RESPIRATORY SYSTEM: Unlabored breathing , decreased breath sounds at bases HEART: S1 S2 regular rate and rhythm , ABDOMEN: Soft , no tenderness EXTREMITIES: Left foot wound is currently covered with a wound VAC - Labs CBC & Chem 7: 03/28/25 03:09 03/28/25 03:09 Labs: Abnormal Lab Results - Last 24 Hours (Table) 03/27/25 03/27/25 03/27/25 Range/Units 09:39 09:39 16:32 RBC 2.99 L (4.40-5.60) X 10*6/uL Hgb 10.3 L (13.0-17.0) g/dL Hct 33.2 L (39.6-50.0) % MCV 111.0 H (80.0-97.0) FL MCH 34.4 H (27.0-32.0) pg MCHC 31.0 L (32.0-37.0) g/dL Immature Gran # 0.06 H (0.00-0.04) X 10*3/uL Neutrophils # 7.76 H (1.80-7.70) X 10*3/uL Lymphocytes # 0.67 L (0.90-5.00) X 10*3/uL BUN 5.7 L (9.0-27.0) mg/dL Creatinine (0.6-1.5) mg/dL BUN/Creatinine Ratio 9.50 L (12.00-20.00) Ratio Glucose 192 H (70-110) mg/dL POC Glucose (mg/dL) 174 H (70-110) mg/dL Calcium 7.0 L (8.7-10.3) mg/dL Total Bilirubin 0.2 L (0.3-1.2) mg/dL Total Protein 4.6 L (6.2-8.2) g/dL Albumin 1.9 L (3.8-4.9) g/dL Albumin/Globulin Ratio 0.70 L (1.60-3.17) Ratio 03/27/25 03/28/25 03/28/25 Range/Units 20:35 03:09 03:09 RBC 2.71 L (4.40-5.60) X 10*6/uL Hgb 9.2 L (13.0-17.0) g/dL Hct 29.2 L (39.6-50.0) % MCV 107.7 H (80.0-97.0) FL MCH 33.9 H (27.0-32.0) pg MCHC 31.5 L (32.0-37.0) g/dL Immature Gran # 0.06 H (0.00-0.04) X 10*3/uL Neutrophils # (1.80-7.70) X 10*3/uL Lymphocytes # (0.90-5.00) X 10*3/uL BUN 6.4 L (9.0-27.0) mg/dL Creatinine 0.4 L (0.6-1.5) mg/dL BUN/Creatinine Ratio (12.00-20.00) Ratio Glucose 190 H (70-110) mg/dL POC Glucose (mg/dL) 208 H (70-110) mg/dL Calcium 7.0 L (8.7-10.3) mg/dL Total Bilirubin 0.2 L (0.3-1.2) mg/dL Total Protein 4.5 L (6.2-8.2) g/dL Albumin 1.8 L (3.8-4.9) g/dL Albumin/Globulin Ratio 0.67 L (1.60-3.17) Ratio 03/28/25 03/28/25 Range/Units 06:11 10:48 RBC (4.40-5.60) X 10*6/uL Hgb (13.0-17.0) g/dL Hct (39.6-50.0) % MCV (80.0-97.0) FL MCH (27.0-32.0) pg MCHC (32.0-37.0) g/dL Immature Gran # (0.00-0.04) X 10*3/uL Neutrophils # (1.80-7.70) X 10*3/uL Lymphocytes # (0.90-5.00) X 10*3/uL BUN (9.0-27.0) mg/dL Creatinine (0.6-1.5) mg/dL BUN/Creatinine Ratio (12.00-20.00) Ratio Glucose (70-110) mg/dL POC Glucose (mg/dL) 171 H 231 H (70-110) mg/dL Calcium (8.7-10.3) mg/dL Total Bilirubin (0.3-1.2) mg/dL Total Protein (6.2-8.2) g/dL Albumin (3.8-4.9) g/dL Albumin/Globulin Ratio (1.60-3.17) Ratio Microbiology - Last 24 Hours (Table) 03/23/25 16:24 Gram Stain - Final Foot - Left Wound Culture - Final Methicillin resist S. aureus Pseudomonas aeruginosa Assessment and Plan (1) Diabetic ulcer of left foot Current Visit: Yes Status: Acute Code(s): E11.621 - TYPE 2 DIABETES MELLITUS WITH FOOT ULCER; L97.529 - NON-PRESSURE CHRONIC ULCER OTH PRT LEFT FOOT W UNSP SEVERITY SNOMED Code(s): 327052596 (2) MRSA (methicillin resistant staph aureus) culture positive Current Visit: No Status: Acute Code(s): Z22.322 - CARRIER OR SUSPECTED CARRIER OF METHICILLIN RESIS STAPH SNOMED Code(s): 082538529 Plan: 1patient with a chronic nonhealing wound of the plantar aspect of the left foot and this patient has been treated with 2 different antibiotics in the outpatient setting wounds looks deep keeping in mind patient with underlying diabetes will need to cover for the polymicrobial simeon associated diabetic foot infection. 2local culture grew MRSA and Pseudomonas aeruginosa x-ray of the foot did not show any bony changes 3patient did have debridement down to the bone suggestive of osteomyelitis and deep culture which are currently growing MRSA 4patient currently being treated with Zosyn and daptomycin, per the family member at the bedside vascular surgery recommending amputation on the left side with the patient is not agreeing to multiple question concern answered Dictation was produced using [employer] dictation software. please excuse any grammatical, word or spelling errors. Time with Patient: Less than 30
--- NOTE | 2025-03-28 12:57 | P.PN ---
Subjective Progress Note Date: 03/28/25 This is an 84-year-old male patient with a known history of coronary artery disease with previous coronary artery bypass grafting, diabetes mellitus, hyperlipidemia, hypertension, melanoma, depression, chronic and ongoing tobacco dependence, chronic diabetic wounds of the lower extremities, with previous left transmetatarsal amputation with current large wound on the base and a right great toe ulceration as well. Cultures are positive for MRSA and Pseudomonas aeruginosa. He is being followed by vascular surgery and did have debridement this admission on 03/23/2025. He was admitted back on 03/20/2025 for altered mental status and generalized weakness. We were consulted today 03/26/2025 for complaints of cough. Chest x-ray reveals no acute pulmonary process. He is maintaining O2 saturations up to 100% on room air oxygen. He is seen today in consultation on the regular medical floor. He is awake and alert. Quite cachectic appearing. He has a dry nonproductive cough. No fever or chills. White count 10.7. Hemoglobin 9.2. Platelets 195. Sodium 141. Potassium 4.6. Bicarb 27. BUN 6. Creatinine 0.5. Glucose 195. He is currently on daptomycin and Zosyn. Anticoagulated with Eliquis. The patient is seen today March 27, 2025 in follow-up on the regular medical floor. He is currently resting in bed. Awake and alert in no acute distress. He is maintaining O2 saturations in the 90s on 2 L/min per nasal cannula. He states his cough is better today. He remains on daptomycin and Zosyn. He is anticoagulated with Eliquis. He is continued on DuoNeb inhalations. Robitussin for his cough. Left foot wound positive for MRSA and Pseudomonas aeruginosa. Right great toe wound positive for MRSA. Glucose 137. The patient is seen today March 28, 2025 in follow-up on the regular medical floor. He is currently resting in bed. Awake and alert in no acute distress. He is maintaining good O2 saturations in the 90s on room air oxygen. He has been afebrile. Hemodynamically stable. Left foot cultures were positive for Pseudomonas aeruginosa and MRSA. Right great toe wound culture positive for MRSA. White count 6.2. Hemoglobin 9.2. Platelets 193. Sodium 136. Potassium 4.1. Bicarb 26. BUN 6.4. Creatinine 0.4. Glucose 190. He remains on DuoNeb inhalations. Continued on antibiotics in the form of daptomycin and Zosyn. Anticoagulated with Eliquis. Follow-up chest x-ray reveals no acute pulmonary process. PICC line in place to the left upper extremity. Objective - Vital Signs Vital signs: Vital Signs Temp 97.6 F 03/28/25 07:35 Pulse 75 03/28/25 12:25 Resp 17 03/28/25 07:35 BP 126/77 03/28/25 07:35 Pulse Ox 93 L 03/28/25 07:35 FiO2 Intake & Output 03/27/25 03/28/25 03/28/25 18:59 06:59 18:59 Other: Voiding Method External Catheter # Voids 3 3 # Bowel Movements 2 3 - Exam GENERAL EXAM: Alert, cachectic 84-year-old male, on room air oxygen, comfortable in no apparent distress. HEAD: Normocephalic. EYES: Normal reaction of pupils, equal size. NOSE: Clear with pink turbinates. THROAT: No erythema or exudates. NECK: No masses, no JVD. CHEST: No chest wall deformity. LUNGS: Equal air entry with no crackles, wheeze, rhonchi or dullness. CVS: S1 and S2 normal with no audible murmur, regular rhythm. ABDOMEN: No hepatosplenomegaly, normal bowel sounds, no guarding or rigidity. SPINE: No scoliosis or deformity SKIN: No rashes CENTRAL NERVOUS SYSTEM: No focal deficits, tone is normal in all 4 extremities. EXTREMITIES: Left transmetatarsal amputation of the foot with open wound at the stump, right great toe open wound. No clubbing, no cyanosis. Peripheral pulses are intact. - Labs CBC & Chem 7: 03/28/25 03:09 03/28/25 03:09 Labs: Abnormal Lab Results - Last 24 Hours (Table) 03/27/25 03/27/25 03/27/25 Range/Units 09:39 09:39 16:32 RBC 2.99 L (4.40-5.60) X 10*6/uL Hgb 10.3 L (13.0-17.0) g/dL Hct 33.2 L (39.6-50.0) % MCV 111.0 H (80.0-97.0) FL MCH 34.4 H (27.0-32.0) pg MCHC 31.0 L (32.0-37.0) g/dL Immature Gran # 0.06 H (0.00-0.04) X 10*3/uL Neutrophils # 7.76 H (1.80-7.70) X 10*3/uL Lymphocytes # 0.67 L (0.90-5.00) X 10*3/uL BUN 5.7 L (9.0-27.0) mg/dL Creatinine (0.6-1.5) mg/dL BUN/Creatinine Ratio 9.50 L (12.00-20.00) Ratio Glucose 192 H (70-110) mg/dL POC Glucose (mg/dL) 174 H (70-110) mg/dL Calcium 7.0 L (8.7-10.3) mg/dL Total Bilirubin 0.2 L (0.3-1.2) mg/dL Total Protein 4.6 L (6.2-8.2) g/dL Albumin 1.9 L (3.8-4.9) g/dL Albumin/Globulin Ratio 0.70 L (1.60-3.17) Ratio 03/27/25 03/28/25 03/28/25 Range/Units 20:35 03:09 03:09 RBC 2.71 L (4.40-5.60) X 10*6/uL Hgb 9.2 L (13.0-17.0) g/dL Hct 29.2 L (39.6-50.0) % MCV 107.7 H (80.0-97.0) FL MCH 33.9 H (27.0-32.0) pg MCHC 31.5 L (32.0-37.0) g/dL Immature Gran # 0.06 H (0.00-0.04) X 10*3/uL Neutrophils # (1.80-7.70) X 10*3/uL Lymphocytes # (0.90-5.00) X 10*3/uL BUN 6.4 L (9.0-27.0) mg/dL Creatinine 0.4 L (0.6-1.5) mg/dL BUN/Creatinine Ratio (12.00-20.00) Ratio Glucose 190 H (70-110) mg/dL POC Glucose (mg/dL) 208 H (70-110) mg/dL Calcium 7.0 L (8.7-10.3) mg/dL Total Bilirubin 0.2 L (0.3-1.2) mg/dL Total Protein 4.5 L (6.2-8.2) g/dL Albumin 1.8 L (3.8-4.9) g/dL Albumin/Globulin Ratio 0.67 L (1.60-3.17) Ratio 03/28/25 03/28/25 Range/Units 06:11 10:48 RBC (4.40-5.60) X 10*6/uL Hgb (13.0-17.0) g/dL Hct (39.6-50.0) % MCV (80.0-97.0) FL MCH (27.0-32.0) pg MCHC (32.0-37.0) g/dL Immature Gran # (0.00-0.04) X 10*3/uL Neutrophils # (1.80-7.70) X 10*3/uL Lymphocytes # (0.90-5.00) X 10*3/uL BUN (9.0-27.0) mg/dL Creatinine (0.6-1.5) mg/dL BUN/Creatinine Ratio (12.00-20.00) Ratio Glucose (70-110) mg/dL POC Glucose (mg/dL) 171 H 231 H (70-110) mg/dL Calcium (8.7-10.3) mg/dL Total Bilirubin (0.3-1.2) mg/dL Total Protein (6.2-8.2) g/dL Albumin (3.8-4.9) g/dL Albumin/Globulin Ratio (1.60-3.17) Ratio Microbiology - Last 24 Hours (Table) 03/23/25 16:24 Gram Stain - Final Foot - Left Wound Culture - Final Methicillin resist S. aureus Pseudomonas aeruginosa Assessment and Plan Assessment: Generalized weakness with altered mental status secondary to multiple comorbidities Left pneumonia foot stump wound and right great toe wound positive for MRSA and Pseudomonas aeruginosa, status post debridement on 03/23/2025 Acute cough. Chest x-ray shows no acute pulmonary process. Continue incentive spirometer and bronchodilators, Robitussin History of previous transmetatarsal amputation on the left History of coronary disease with previous coronary artery bypass grafting Diabetes mellitus Hypertension Hyperlipidemia History of malignant melanoma History of depression Chronic tobacco dependence History of pancreatic cancer status post Whipple procedure Atrial fibrillation anticoagulated with Eliquis History of gout Peripheral neuropathy Poor overall functional ability secondary to multiple above-mentioned comorbidities Plan: The patient was seen and evaluated Labs and medications reviewed Continue DuoNeb inhalations Continue Robitussin Continue incentive spirometer Continue daptomycin and Zosyn Anticoagulated with Eliquis Patient currently declining amputation Wishes to be a DNR/DNI CODE STATUS Will most likely need subacute rehab at discharge This patient was seen independently by the pulmonary nurse practitioner addressing pulmonary issues I have personally seen and examined the patient, performed the documentation and the assessment and plan as written. Number of minutes spent on the visit: 24 Dictation was produced using [employer] dictation software. Please excuse any grammatical, word or spelling errors.
--- NOTE | 2025-03-28 13:15 | P.PN ---
Subjective Progress Note Date: 03/28/25 This is an 84-year-old male patient with past medical history of metastatic malignant melanoma, pancreatic cancer status post Whipple, radiation and chemotherapy with recurrence, chronic diarrhea, coronary artery disease with history of three-vessel CABG with Dr. Haider, postural hypotension, diabetes mellitus type 2, hypertension, hyperlipidemia. 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 He also states his CABG 3 vessel was about 20 years ago. He denies history of myocardial infarction. We have been asked to evaluate the patient for atrial fibrillation. Patient was thought to go into atrial fibrillation with RVR this morning and was started on Eliquis. He states his breathing is okay. He denies dyspnea on exertion. He denies dizziness or palpitations. No skipped beats. No fast heart rate. He states he has lower extremity edema that comes and goes. He has a cough and he quit smoking 30 years ago. He denies abdominal pain. No blood in his stool or urine. He states he has trouble ambulating due to loss of balance. Regarding the malignant melanoma, patient is on chemotherapy and follows with Dr. Eason and was last seen by him 3 to 4 weeks ago. He states he does have have history of irregular heartbeat following his open heart surgery for about 2 years but has not had no recent issues. He denies history of asthma or COPD, he denies history of stroke or seizures. Patient presented to [facility] on 03/20 altered mental status and weakness, chronic wound to the left foot. Patient was diagnosed with a diabetic foot ulcer and underwent debridement on 03/23. Blood pressure 109/66, heart rate 91, pulse ox 100% on room air. Patient states he knows that his heart rate was irregular and fast because he had a number of staff come into his room. He denies symptoms at the time. -EK/3: Sinus rhythm at 91 bpm, 03/25 appears to be discernible P waves in V1, V2 at 138 bpm and 132 bpm -Chest x-ray: No acute process. -Laboratory studies: WBC 10.7, hemoglobin 9.2, electrolytes within normal limits, BUN 5.7, creatinine 0.5. C-reactive protein 17 negative x 1. proBNP 3460. -Home cardiac medications: Atenolol 50 mg twice daily, Plavix 75 mg daily, magnesium 64 mg daily, simvastatin 20 mg at bedtime, also on midodrine 5 mg t wice daily. -Lexiscan stress test performed at [facility] on 06/19/2022 was negative for reversible ischemia. Instead -Echocardiogram reveals EF 35 to 40% with moderate global hypokinesis of the left ventricle. Mild mitral with moderate tricuspid regurgitation and mild pulmonary hypertension. Echogenic area noted on the septal aspect of the right atrium cannot exclude artifact. 03/28/2025 The option of MONICO for further evaluation of the echogenic area noted on the septal aspect of the right atrium was discussed with the patient. Due to unlikelihood of changing clinical course the patient has decided at this time he does not wish to undergo MONICO. He is overall feeling fairly well. He remains in sinus rhythm. Vital signs are stable. He has had no palpitations. Physical examination: Gen: This is an 84-year-old male in no acute distress. VS: reviewed HEENT: Head is atraumatic, normocephalic. Pupils equal, round. Sclerae is anicteric. NECK: Supple. No JVD. LUNGS: Clear to auscultation. No wheezes or rhonchi. No intercostal retractions. HEART: Regular rate and rhythm. No murmur. ABDOMEN: Soft No tenderness. EXTREMITIES: No pedal edema. No calf tenderness. NEUROLOGICAL: Patient is awake, alert and oriented x3. Assessment: Episode of heart rate that was irregular and fast most likely atrial tachycardia, no clear-cut atrial fibrillation Diabetic foot ulcer left, s/p debridement / Coronary artery disease with previous CABG Hypertension Hyperlipidemia Metastatic malignant melanoma History of pancreatic cancer Ischemic cardiomyopathy with EF 35 to 40% Echogenic area in the septal aspect of the right atrium Plan: Medications were reviewed and we will continue the same. Repeat renal function and electrolytes in the morning. Further recommendations to follow based upon clinical course Nurse practitioner note has been reviewed, I agree with documented findings and plan of care. Patient was seen and examined. Objective - Vital Signs Vital signs: Vital Signs Temp 97.6 F 03/28/25 07:35 Pulse 75 03/28/25 12:25 Resp 17 03/28/25 07:35 BP 126/77 03/28/25 07:35 Pulse Ox 93 L 03/28/25 07:35 FiO2 Intake & Output 06/08/1103/28/25 03/28/25 18:59 06:59 18:59 Other: Voiding Method External Catheter # Voids 3 3 # Bowel Movements 2 3 - Labs CBC & Chem 7: 03/28/25 03:09 03/28/25 03:09 Labs: Abnormal Lab Results - Last 24 Hours (Table) 03/27/25 03/27/25 03/27/25 Range/Units 09:39 09:39 16:32 RBC 2.99 L (4.40-5.60) X 10*6/uL Hgb 10.3 L (13.0-17.0) g/dL Hct 33.2 L (39.6-50.0) % MCV 111.0 H (80.0-97.0) FL MCH 34.4 H (27.0-32.0) pg MCHC 31.0 L (32.0-37.0) g/dL Immature Gran # 0.06 H (0.00-0.04) X 10*3/uL Neutrophils # 7.76 H (1.80-7.70) X 10*3/uL Lymphocytes # 0.67 L (0.90-5.00) X 10*3/uL BUN 5.7 L (9.0-27.0) mg/dL Creatinine (0.6-1.5) mg/dL BUN/Creatinine Ratio 9.50 L (12.00-20.00) Ratio Glucose 192 H (70-110) mg/dL POC Glucose (mg/dL) 174 H (70-110) mg/dL Calcium 7.0 L (8.7-10.3) mg/dL Total Bilirubin 0.2 L (0.3-1.2) mg/dL Total Protein 4.6 L (6.2-8.2) g/dL Albumin 1.9 L (3.8-4.9) g/dL Albumin/Globulin Ratio 0.70 L (1.60-3.17) Ratio 03/27/25 03/28/25 03/28/25 Range/Units 20:35 03:09 03:09 RBC 2.71 L (4.40-5.60) X 10*6/uL Hgb 9.2 L (13.0-17.0) g/dL Hct 29.2 L (39.6-50.0) % MCV 107.7 H (80.0-97.0) FL MCH 33.9 H (27.0-32.0) pg MCHC 31.5 L (32.0-37.0) g/dL Immature Gran # 0.06 H (0.00-0.04) X 10*3/uL Neutrophils # (1.80-7.70) X 10*3/uL Lymphocytes # (0.90-5.00) X 10*3/uL BUN 6.4 L (9.0-27.0) mg/dL Creatinine 0.4 L (0.6-1.5) mg/dL BUN/Creatinine Ratio (12.00-20.00) Ratio Glucose 190 H (70-110) mg/dL POC Glucose (mg/dL) 208 H (70-110) mg/dL Calcium 7.0 L (8.7-10.3) mg/dL Total Bilirubin 0.2 L (0.3-1.2) mg/dL Total Protein 4.5 L (6.2-8.2) g/dL Albumin 1.8 L (3.8-4.9) g/dL Albumin/Globulin Ratio 0.67 L (1.60-3.17) Ratio 03/28/25 03/28/25 Range/Units 06:11 10:48 RBC (4.40-5.60) X 10*6/uL Hgb (13.0-17.0) g/dL Hct (39.6-50.0) % MCV (80.0-97.0) FL MCH (27.0-32.0) pg MCHC (32.0-37.0) g/dL Immature Gran # (0.00-0.04) X 10*3/uL Neutrophils # (1.80-7.70) X 10*3/uL Lymphocytes # (0.90-5.00) X 10*3/uL BUN (9.0-27.0) mg/dL Creatinine (0.6-1.5) mg/dL BUN/Creatinine Ratio (12.00-20.00) Ratio Glucose (70-110) mg/dL POC Glucose (mg/dL) 171 H 231 H (70-110) mg/dL Calcium (8.7-10.3) mg/dL Total Bilirubin (0.3-1.2) mg/dL Total Protein (6.2-8.2) g/dL Albumin (3.8-4.9) g/dL Albumin/Globulin Ratio (1.60-3.17) Ratio Microbiology - Last 24 Hours (Table) 03/23/25 16:24 Gram Stain - Final Foot - Left Wound Culture - Final Methicillin resist S. aureus Pseudomonas aeruginosa
[2025-03-28 15:58] LABS: Glucose,Whole Blood 187 mg/dL (70-110)
--- NOTE | 2025-03-28 18:50 | CDI ---
Documentation Clarification Form Date: 03/28/2025 06:37:28 PM From: Katie Adams RN, CCDS Phone: [phone] Admit Date: 03/20/2025 04:44:00 PM Patient Name: Isai Tovar Visit Number: [id number] Discharge Date: ATTENTION: The Clinical Documentation Specialists (CDI) and [facility] Coding Staff appreciate your assistance in clarifying documentation. Please respond to the clarification below the line at the bottom and electronically sign. The CDI & [facility] Coding staff will review the response and follow-up if needed. Please note: Queries are made part of the Legal Health Record. If you have any questions, please contact the author of this message via ITS. DoctorMicky Covarrubias Malnutrition is documented in the H/P on 03/21/25 and subsequent progress notes. Additional clarification regarding the severity of malnutrition is requested. History/Risk Factors: Diabetes Mellitus, GERD, Clinical Indicators: 84-year-old male admitted for failure to thrive, weakness debility and electrolyte abnormalities. 6/3 Potassium 2.6 Lactic acid 2.1 Calcium 7.3, Magnesium 1.5, Protein 5.4, Albumin 2.4 Current BMI: 19.0 Height 6 ft. He has inadequate PO intake described by patient prior to admission. RD Consult Assessment: decreased ability to consume sufficient energy, severe muscle losses, severe subcutaneous fat losses, (physiological causes increasing nutrient needs) as evidenced by continued intakes</=75% of Est needs for >/= 1 month), NFPE: severe muscles losses (trapezius, temporalis, buccal, deltoids, interosseous) (orbital) Increased metabolic demand for wound healing (excisional debridement of left plantar wound to bone Nutrition Diagnosis: Malnutrition chronic, severe Treatment: Glucerna TID DC on high protein, consistent CHO diet Monitor PO intake, tolerance to Glucerna Please clarify the severity of malnutrition, if known: [ ] Moderate Protein-Calorie Malnutrition [ X ] Severe Protein-Calorie Malnutrition [ ] Other condition, please specify [ ] Unable to Determine (Template Last Revised: April 2023) MTDD
[2025-03-28 21:32] LABS: Glucose,Whole Blood 180 mg/dL (70-110)
[2025-03-28] MEDS: SACUBITRIL/VALSARTAN 24 MG-26 MG TABLET PO SCH (21:47)
[2025-03-29 06:48] LABS: Glucose,Whole Blood 101 mg/dL (70-110)
[2025-03-29 08:17] LABS: Basophils # (A) 0.06 X 10*3/uL (0.00-0.10); Eosinophils # (A) 0.13 X 10*3/uL (0.04-0.35); Eosinophils % (A) 2.2 %; HCT 30.6 % (39.6-50.0); Lymphocytes # (A) 1.11 X 10*3/uL (0.90-5.00); Lymphocytes % (A) 18.4 %; MCH 35.2 pg (27.0-32.0); MCHC 32.7 g/dL (32.0-37.0); MCV 107.7 FL (80.0-97.0); Mean Platelet Volume 10.3 FL (9.5-12.2); Monocytes # (A) 0.43 X 10*3/uL (0.20-1.00); Monocytes % (A) 7.1 %; NRBC Per 100 WBC 0.04 X 10*3/uL (0.00-0.01); Neutrophils # (A) 4.21 X 10*3/uL (1.80-7.70); Platelet Count 215 X 10*3/uL (140-440); RBC 2.84 X 10*6/uL (4.40-5.60); RDW 14.1 % (11.5-14.5); WBC 6.02 X 10*3/uL (4.50-10.00)
[2025-03-29 09:16] LABS: NT-Pro-B-Type Natriuretic Pept 2385 pg/mL (0-450)
[2025-03-29 09:18] LABS: ALT 15 U/L (10-49); AST 19 U/L (14-35); Albumin 1.7 g/dL (3.8-4.9); Albumin/Globulin Ratio 0.65 Ratio (1.60-3.17); Alkaline Phosphatase 97 U/L (41-126); Blood Urea Nitrogen 6.3 mg/dL (9.0-27.0); Calcium 6.9 mg/dL (8.7-10.3); Carbon Dioxide 24.5 mmol/L (21.6-31.8); Chloride 100 mmol/L (96-109); Globulin 2.6 g/dL (1.6-3.3); Glucose 130 mg/dL (70-110); Potassium 4.3 mmol/L (3.5-5.5); Sodium 132 mmol/L (135-145); Total Bilirubin <0.2 mg/dL (0.3-1.2); Total Protein 4.3 g/dL (6.2-8.2)
[2025-03-29] MEDS: DAPAGLIFLOZIN PROPANEDIOL 10 MG TABLET PO SCH (09:44)
[2025-03-29 11:49] LABS: Glucose,Whole Blood 212 mg/dL (70-110)
--- NOTE | 2025-03-29 13:06 | P.PN ---
Subjective Progress Note Date: 03/28/25 HISTORY OF PRESENT ILLNESS: Patient is a 84-year-old male with CAD status post CABG, diabetes, GERD, hype rlipidemia, hypertension, history of malignant melanoma, depression, daily smoker here for evaluation of altered mental status and weakness. He is unsure why he was sent to the emergency department. On my evaluation, he reported that he has had a chronic wound on his left foot that is being managed by his PCP for about 2 to 3 weeks now and has not improved with 2 types of antibiotics. He was then advised to go to the ED for IV antibiotics by his roll hand. He has no other associated symptoms. He denied fevers, cough, shortness of breath, recent prolonged travel, exposure to sick contacts, recent fall or trauma, abdominal pain, diarrhea, constipation, issues with urination or defecation, chest pain, lightheadedness, dizziness. He reported that he is able to eat meals on his own and does not have any issues with appetite or swallowing. On admission: Vitals: Temp 97.9 F, ND 87, RR 20, BP 121/67, O2 saturation 99% on room air Labs: WBC 8.5, hemoglobin 10.3, MCV 103.5, platelet count 1 25,000, sodium 131, potassium 2.6, chloride 94, BUN 15, creatinine 0.50, glucose 140, lactic acid 2.1, calcium 7.3,. Phosphorus 2.3, magnesium 1.5, AST 136, ALT 46, alk phos 110, troponin 0.013, proBNP 3000 4060, albumin 2.4. Serum alcohol less than 10. Imaging: EKG showed sinus rhythm with a rate of 91, PAC noted on lead II, normal axis, no ST-T changes, good R wave progression, QTc 421 MS,. 03/22/2025 patient seen and examined at bedside. No acute events overnight. ID and wound care recommends vascular surgery consult for I&D. Labs today: WBC 7.59, hemoglobin 10.3, platelet count 1 39,000, sodium 132, potassium 4, chloride 96, bicarb 27.9, BUN 5.4, creatinine 0.6, glucose 159, calcium 7.1, phosphorus 1.5, magnesium 1.7, B12 758, folate 8 03/23/2025 patient seen and examined at bedside. No acute event overnight. Labs: Sodium 130, potassium 3.7, chloride 96, BUN 8, creatinine 0.54, glucose 106, calcium 7.2, phosphorus 2.1, CRP 17.1. Wound culture positive for pseudomonas and MRSA Imaging; foot x-ray showed soft tissue ulceration without convincing radiographic evidence for acute osteomyelitis. ESTHER index by ultrasound showed normal for right and left lower extremities 03/24/2025 patient seen and examined at bedside. No acute events overnight. Patient underwent wound debridement of right great toe and left plantar wound. ID added IV Dapto after procedure. Patient has history of pancreatic cancer s/p irradiation and is being followed by Dr. Eason. Labs: Sodium 130, potassium 3, chloride 96, bicarb 29, creatinine 0.45, BUN 5, glucose 156, calcium 7.2, Phos 2.9 03/25/2025. Patient is s/p debridement of diabetic foot ulcer. Patient is lying in the bed. Awake alert and oriented. Afebrile overnight. Continued on IV antibiotics abnormal daptomycin and Zosyn. No complaints of chest pain or shortness of breath. Laboratory showed WBC 8.0 hemoglobin 9.3 MCV 108 and platelets 224 sodium 132 potassium 4.2 chloride 98 bicarb is 22 BUN 14 creatinine 0.54 and blood sugar 235 and calcium 7.5 magnesium 1.9. 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 of it and the wound appeared to be clean all the way to the bone, also on the right big toe ulcer that is debrided all the way down to the bone as well, patient will likely require 6 weeks of IV antibiotic at this time, infectious disease following, PICC line is ordered, patient will need to go for subacute rehabilitation, patient appears to be quite congested this point in time, chest x-ray was ordered, start the patient on DuoNeb 3 mL nebulization 4 times every day, patient baseline rhythm appears to be atrial fibrillation, start the patient on Eliquis 5 mg orally twice every day, continue metoprolol ER 50 mg once every bedtime, follow-up with the patient very closely, cardiology consultation, echocardiogram, I will follow-up with the patient very closely. 03/27: Patient sitting up in bed in no apparent distress, he continued being treated with nasal cannula, his echocardiogram was done showed ejection fraction of 35%, there is an area in the septum of unclear etiology apparent on echocardiogram, I discussed with Dr. Connell possibly not doing a transesophageal echocardiogram for now because it is negative change the treatment plan, patient is currently in sinus rhythm, and he was in between atrial tachycardia and atrial fibrillation continue anticoagulation because of his ejection fraction as well as atrial tachycardia as well, continue to monitor the patient very closely, patient blood pressure continues to be marginal, no room to add Entresto yet we will follow-up with the patient very closely, patient had a PICC line placed in the left upper extremity, and the plan is to transfer the patient to [facility] hopefully in the next 1 or 2 days. 03/28: Patient is laying down in bed in no apparent distress, he continues to be somewhat short of breath, I will start the patient on Entresto 24/26 mg orally twice every day, Farxiga 10 mg orally once every day, continue with current treatment plan, follow-up with the patient very closely, patient did have an echocardiogram that showed significant cardiomyopathy, with a focus in the atrial septum, patient is not interested to going for a transesophageal echocardiogram at this point in time, continue IV antibiotic in the form of daptomycin as well as Zosyn, patient will need to have a 6-week of IV antibiotic at this time, patient will be transferred to [facility] hopefully in the next 1 or 2 days. REVIEW OF SYSTEMS: Constitution: No documented fever, no chills, no night sweats. Significant weight change. Positive for weakness, positive for fatigue or lethargy. No daytime sleepiness. EENT: No headache. No blurred vision or double vision, no loss of vision. No loss of Hearing, no ringing in the ears, no dizziness. No nasal drainage or congestion. No epistaxis. No sore throat. Lungs: Positive for shortness of breath, positive for cough, positive for sputum production. Positive for wheezing. Reports dyspnea with activity. Cardiovascular: No chest pain, no lower extremity edema. No palpitations. No paroxysmal nocturnal dyspnea. No orthopnea. No lightheadedness or dizziness. No syncopal episodes. Abdominal: Reports no abdominal pain. No nausea, vomiting. Positive for diarrhea. No constipation. No bloody or tarry stools reports loss of appetite. Genitourinary: No dysuria, increased frequency, urgency. No urinary retention. Musculoskeletal: No myalgias. No muscle weakness, no gait dysfunction, no frequent falls. No back pain. No neck pain. Integumentary: Positive for 2 wounds 1 at the base of the left transmetatarsal amputation at the bottom that is debrided all the way down to the bone and 1 at the right big toe ulcer that was debrided to the bone., no lesions. No rash or pruritus. No unusual bruising. No change in hair or nails. Neurologic: No aphasia. No facial droop. No change in mentation. No head injury. No headache. No paralysis. Positive paresthesia. Psychiatric: Positive for depression. Positive for anxiety. No mood swings. Endocrine: Positive for abnormal blood sugars. Positive weight change. PHYSICAL EXAMINATION: General: 84-year-old gentleman laying down in bed in minimal distress HEENT: Head is atraumatic, normocephalic, pupils were equal round reactive to light and recommendation, extraocular muscle movement were intact, sclera nonicteric, conjunctivae were pale, mucous membranes of the mouth are somewhat dry. Neck: Supple, no JVP, normal carotid upstroke bilaterally, no lymphadenopathy. Chest: Decreased breath sounds at the bases, few rhonchi, positive for minimal expiratory wheezes, no chest wall tenderness, no intercostal retractions. Heart: First heart sound is normal, second heart sounds normal, irregular irregular there systolic ejection murmur 2/6 located in the left sternal border Abdomen: Soft, nontender, nondistended, positive bowel sounds. Extremities: There is no edema, no calf tenderness, there is a left transmet atarsal amputation with a large wound to the base of the stump all the way to the bone and there is right big toe ulcer status post debridement all the way down to the bone. Dorsalis pedis +1 bilaterally. Neurologic examination: Patient is awake alert and oriented x3, cranial nerves II-12 appear grossly intact, muscle power were 3 out of 5 in upper extremities and 3 out of 5 in bilateral lower extremities. ASSESSMENT AND PLAN: 1. Diabetic ulcer of the left foot patient is s/p debridement on 03/23/2025. Deep wound culture is positive for MRSA as well as Pseudomonas aeruginosa continue patient daptomycin 400 mg IV piggyback every 24 hours, continue Zosyn 3.375 g piggyback every 8 hours, patient will have a PICC line placement for 6 weeks of IV antibiotic. 2. Diabetic ulcer of right toe status post debridement. Continue patient on daptomycin 400 mg a piggyback every 24 hours, for 6 more weeks continue also with Zosyn 3.375 g piggyback every 8 hours. Continue Dakin's solution as per vascular surgery. 3. Hypokalemia status post replacement. Recheck the patient CMP and magnesium tomorrow morning 4. medical debility due to chronic medical conditions. Physical therapy evaluation, patient will likely require subacute rehabilitation. 5. History of metastatic malignant melanoma. Currently off immunotherapy under the care of Dr. Hassan 6. History of pancreatic cancer currently in remission. Status post Whipple procedure. 7. Chronic diarrhea. Continue patient on Lomotil 2.5 mg at bedtime. 8. Atrial fibrillation/atrial tachycardia continue patient on metoprolol ER 50 mg at bedtime, continue Eliquis 5 mg orally twice every day, patient will have an echocardiogram was reviewed showed ejection fraction of 35% suggestive of nonischemic cardiomyopathy. 9. Acute respiratory insufficiency continue oxygen support, chest x-ray did not show evidence of acute pulmonary disease at this time, continue aggressive pulmonary toileting start the patient on DuoNeb 3 mL nebulization 4 times every day, and encourage the usage of incentive spirometer. Pulmonary consultation appreciated, echocardiogram showed evidence of nonischemic cardiomyopathy. 10. Hypertension and hypertensive vascular disease. Continue patient on metoprolol ER 50 mg once every day monitor patient blood pressure very closely. 11. Diabetes mellitus type 2. Continue with a sliding scale insulin. 12. Anxiety and depressive disorder. Continue patient on Klonopin 1 mg at bedtime continue with paroxetine 20 mg orally once every day. 13. DVT prophylaxis. Continue patient on Eliquis 5 mg orally twice every day. 14. GI prophylaxis. Continue Protonix 40 mg once every day. 15. Gout. Continue allopurinol 300 mg orally once every day. 16. Peripheral neuropathy continue gabapentin 300 mg at bedtime. 17. Nonischemic cardiomyopathy. Continue patient on metoprolol ER 50 mg once every day, Farxiga 10 mg once every day, Entresto 24/26 mg orally twice every day, follow-up with the patient very closely continue oxygen support. 18. Patient is full code. 19. Physical therapy evaluation for subacute rehabilitation. 20. day worker consultation for subacute rehabilitation [facility] [place] 1 to 2 days Objective - Vital Signs Vital signs: Vital Signs Temp 97.6 F 03/28/25 07:35 Pulse 75 03/28/25 08:41 Resp 17 03/28/25 07:35 BP 126/77 03/28/25 07:35 Pulse Ox 93 L 03/28/25 07:35 FiO2 Intake & Output 03/27/25 03/28/25 03/28/25 18:59 06:59 18:59 Other: Voiding Method External Catheter # Voids 3 3 # Bowel Movements 2 3 - Labs CBC & Chem 7: 03/29/25 03:07 03/29/25 03:07 Labs: Abnormal Lab Results - Last 24 Hours (Table) 03/27/25 03/27/25 03/27/25 Range/Units 09:39 09:39 11:41 RBC 2.99 L (4.40-5.60) X 10*6/uL Hgb 10.3 L (13.0-17.0) g/dL Hct 33.2 L (39.6-50.0) % MCV 111.0 H (80.0-97.0) FL MCH 34.4 H (27.0-32.0) pg MCHC 31.0 L (32.0-37.0) g/dL Immature Gran # 0.06 H (0.00-0.04) X 10*3/uL Neutrophils # 7.76 H (1.80-7.70) X 10*3/uL Lymphocytes # 0.67 L (0.90-5.00) X 10*3/uL BUN 5.7 L (9.0-27.0) mg/dL BUN/Creatinine Ratio 9.50 L (12.00-20.00) Ratio Glucose 192 H (70-110) mg/dL POC Glucose (mg/dL) 224 H (70-110) mg/dL Calcium 7.0 L (8.7-10.3) mg/dL Total Bilirubin 0.2 L (0.3-1.2) mg/dL Total Protein 4.6 L (6.2-8.2) g/dL Albumin 1.9 L (3.8-4.9) g/dL Albumin/Globulin Ratio 0.70 L (1.60-3.17) Ratio 03/27/25 03/27/25 03/28/25 Range/Units 16:32 20:35 03:09 RBC 2.71 L (4.40-5.60) X 10*6/uL Hgb 9.2 L (13.0-17.0) g/dL Hct 29.2 L (39.6-50.0) % MCV 107.7 H (80.0-97.0) FL MCH 33.9 H (27.0-32.0) pg MCHC 31.5 L (32.0-37.0) g/dL Immature Gran # 0.06 H (0.00-0.04) X 10*3/uL Neutrophils # (1.80-7.70) X 10*3/uL Lymphocytes # (0.90-5.00) X 10*3/uL BUN (9.0-27.0) mg/dL BUN/Creatinine Ratio (12.00-20.00) Ratio Glucose (70-110) mg/dL POC Glucose (mg/dL) 174 H 208 H (70-110) mg/dL Calcium (8.7-10.3) mg/dL Total Bilirubin (0.3-1.2) mg/dL Total Protein (6.2-8.2) g/dL Albumin (3.8-4.9) g/dL Albumin/Globulin Ratio (1.60-3.17) Ratio 03/28/25 Range/Units 06:11 RBC (4.40-5.60) X 10*6/uL Hgb (13.0-17.0) g/dL Hct (39.6-50.0) % MCV (80.0-97.0) FL MCH (27.0-32.0) pg MCHC (32.0-37.0) g/dL Immature Gran # (0.00-0.04) X 10*3/uL Neutrophils # (1.80-7.70) X 10*3/uL Lymphocytes # (0.90-5.00) X 10*3/uL BUN (9.0-27.0) mg/dL BUN/Creatinine Ratio (12.00-20.00) Ratio Glucose (70-110) mg/dL POC Glucose (mg/dL) 171 H (70-110) mg/dL Calcium (8.7-10.3) mg/dL Total Bilirubin (0.3-1.2) mg/dL Total Protein (6.2-8.2) g/dL Albumin (3.8-4.9) g/dL Albumin/Globulin Ratio (1.60-3.17) Ratio Microbiology - Last 24 Hours (Table) 03/23/25 16:24 Gram Stain - Preliminary Foot - Left Wound Culture - Preliminary Presumptive MRSA Pseudomonas aeruginosa
--- NOTE | 2025-03-29 13:07 | P.PN ---
Subjective Progress Note Date: 03/29/25 HISTORY OF PRESENT ILLNESS: Patient is a 84-year-old male with CAD status post CABG, diabetes, GERD, hype rlipidemia, hypertension, history of malignant melanoma, depression, daily smoker here for evaluation of altered mental status and weakness. He is unsure why he was sent to the emergency department. On my evaluation, he reported that he has had a chronic wound on his left foot that is being managed by his PCP for about 2 to 3 weeks now and has not improved with 2 types of antibiotics. He was then advised to go to the ED for IV antibiotics by his allied health instructor. He has no other associated symptoms. He denied fevers, cough, shortness of breath, recent prolonged travel, exposure to sick contacts, recent fall or trauma, abdominal pain, diarrhea, constipation, issues with urination or defecation, chest pain, lightheadedness, dizziness. He reported that he is able to eat meals on his own and does not have any issues with appetite or swallowing. On admission: Vitals: Temp 97.9 F, ND 87, RR 20, BP 121/67, O2 saturation 99% on room air Labs: WBC 8.5, hemoglobin 10.3, MCV 103.5, platelet count 1 25,000, sodium 131, potassium 2.6, chloride 94, BUN 15, creatinine 0.50, glucose 140, lactic acid 2.1, calcium 7.3,. Phosphorus 2.3, magnesium 1.5, AST 136, ALT 46, alk phos 110, troponin 0.013, proBNP 3000 4060, albumin 2.4. Serum alcohol less than 10. Imaging: EKG showed sinus rhythm with a rate of 91, PAC noted on lead II, normal axis, no ST-T changes, good R wave progression, QTc 421 MS,. 03/22/2025 patient seen and examined at bedside. No acute events overnight. ID and wound care recommends vascular surgery consult for I&D. Labs today: WBC 7.59, hemoglobin 10.3, platelet count 1 39,000, sodium 132, potassium 4, chloride 96, bicarb 27.9, BUN 5.4, creatinine 0.6, glucose 159, calcium 7.1, phosphorus 1.5, magnesium 1.7, B12 758, folate 8 03/23/2025 patient seen and examined at bedside. No acute event overnight. Labs: Sodium 130, potassium 3.7, chloride 96, BUN 8, creatinine 0.54, glucose 106, calcium 7.2, phosphorus 2.1, CRP 17.1. Wound culture positive for pseudomonas and MRSA Imaging; foot x-ray showed soft tissue ulceration without convincing radiographic evidence for acute osteomyelitis. ESTHER index by ultrasound showed normal for right and left lower extremities 03/24/2025 patient seen and examined at bedside. No acute events overnight. Patient underwent wound debridement of right great toe and left plantar wound. ID added IV Dapto after procedure. Patient has history of pancreatic cancer s/p irradiation and is being followed by Dr. Eason. Labs: Sodium 130, potassium 3, chloride 96, bicarb 29, creatinine 0.45, BUN 5, glucose 156, calcium 7.2, Phos 2.9 03/25/2025. Patient is s/p debridement of diabetic foot ulcer. Patient is lying in the bed. Awake alert and oriented. Afebrile overnight. Continued on IV antibiotics abnormal daptomycin and Zosyn. No complaints of chest pain or shortness of breath. Laboratory showed WBC 8.0 hemoglobin 9.3 MCV 108 and platelets 224 sodium 132 potassium 4.2 chloride 98 bicarb is 22 BUN 14 creatinine 0.54 and blood sugar 235 and calcium 7.5 magnesium 1.9. 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 of it and the wound appeared to be clean all the way to the bone, also on the right big toe ulcer that is debrided all the way down to the bone as well, patient will likely require 6 weeks of IV antibiotic at this time, infectious disease following, PICC line is ordered, patient will need to go for subacute rehabilitation, patient appears to be quite congested this point in time, chest x-ray was ordered, start the patient on DuoNeb 3 mL nebulization 4 times every day, patient baseline rhythm appears to be atrial fibrillation, start the patient on Eliquis 5 mg orally twice every day, continue metoprolol ER 50 mg once every bedtime, follow-up with the patient very closely, cardiology consultation, echocardiogram, I will follow-up with the patient very closely. 03/27: Patient sitting up in bed in no apparent distress, he continued being treated with nasal cannula, his echocardiogram was done showed ejection fraction of 35%, there is an area in the septum of unclear etiology apparent on echocardiogram, I discussed with Dr. Connell possibly not doing a transesophageal echocardiogram for now because it is negative change the treatment plan, patient is currently in sinus rhythm, and he was in between atrial tachycardia and atrial fibrillation continue anticoagulation because of his ejection fraction as well as atrial tachycardia as well, continue to monitor the patient very closely, patient blood pressure continues to be marginal, no room to add Entresto yet we will follow-up with the patient very closely, patient had a PICC line placed in the left upper extremity, and the plan is to transfer the patient to [facility] hopefully in the next 1 or 2 days. 03/28: Patient is laying down in bed in no apparent distress, he continues to be somewhat short of breath, I will start the patient on Entresto 24/26 mg orally twice every day, Farxiga 10 mg orally once every day, continue with current treatment plan, follow-up with the patient very closely, patient did have an echocardiogram that showed significant cardiomyopathy, with a focus in the atrial septum, patient is not interested to going for a transesophageal echocardiogram at this point in time, continue IV antibiotic in the form of daptomycin as well as Zosyn, patient will need to have a 6-week of IV antibiotic at this time, patient will be transferred to [facility] hopefully in the next 1 or 2 days. 03/29: Patient is sitting up in the recliner chair today, he feels better today, he is requiring less oxygen, he denies any chest pain, less short of breath, he has been tolerating Entresto as well as Farxiga very well, continue current treatment plan, continue IV antibiotic, the plan is for the patient be transferred to [facility] hopefully tomorrow morning. REVIEW OF SYSTEMS: Constitution: No documented fever, no chills, no night sweats. Significant weight change. Positive for weakness, positive for fatigue or lethargy. No daytime sleepiness. EENT: No headache. No blurred vision or double vision, no loss of vision. No loss of Hearing, no ringing in the ears, no dizziness. No nasal drainage or congestion. No epistaxis. No sore throat. Lungs: Positive for shortness of breath, positive for cough, positive for sputum production. Positive for wheezing. Reports dyspnea with activity. Cardiovascular: No chest pain, no lower extremity edema. No palpitations. No paroxysmal nocturnal dyspnea. No orthopnea. No lightheadedness or dizziness. No syncopal episodes. Abdominal: Reports no abdominal pain. No nausea, vomiting. Positive for diarrhea. No constipation. No bloody or tarry stools reports loss of appetite. Genitourinary: No dysuria, increased frequency, urgency. No urinary retention. Musculoskeletal: No myalgias. No muscle weakness, no gait dysfunction, no frequent falls. No back pain. No neck pain. Integumentary: Positive for 2 wounds 1 at the base of the left transmetatarsal amputation at the bottom that is debrided all the way down to the bone and 1 at the right big toe ulcer that was debrided to the bone., no lesions. No rash or pruritus. No unusual bruising. No change in hair or nails. Neurologic: No aphasia. No facial droop. No change in mentation. No head injury. No headache. No paralysis. Positive paresthesia. Psychiatric: Positive for depression. Positive for anxiety. No mood swings. Endocrine: Positive for abnormal blood sugars. Positive weight change. PHYSICAL EXAMINATION: General: 84-year-old gentleman laying down in bed in minimal distress HEENT: Head is atraumatic, normocephalic, pupils were equal round reactive to light and recommendation, extraocular muscle movement were intact, sclera nonicteric, conjunctivae were pale, mucous membranes of the mouth are somewhat dry. Neck: Supple, no JVP, normal carotid upstroke bilaterally, no lymphadenopathy. Chest: Decreased breath sounds at the bases, few rhonchi, positive for minimal expiratory wheezes, no chest wall tenderness, no intercostal retractions. Heart: First heart sound is normal, second heart sounds normal, irregular irregular there systolic ejection murmur 2/6 located in the left sternal border Abdomen: Soft, nontender, nondistended, positive bowel sounds. Extremities: There is no edema, no calf tenderness, there is a left transmetatarsal amputation with a large wound to the base of the stump all the way to the bone and there is right big toe ulcer status post debridement all the way down to the bone. Dorsalis pedis +1 bilaterally. Neurologic examination: Patient is awake alert and oriented x3, cranial nerves II-12 appear grossly intact, muscle power were 3 out of 5 in upper extremities and 3 out of 5 in bilateral lower extremities. ASSESSMENT AND PLAN: 1. Diabetic ulcer of the left foot patient is s/p debridement on 03/23/2025. Deep wound culture is positive for MRSA as well as Pseudomonas aeruginosa continue patient daptomycin 400 mg IV piggyback every 24 hours, continue Zosyn 3.375 g piggyback every 8 hours, patient will have a PICC line placement for 6 weeks of IV antibiotic. 2. Diabetic ulcer of right toe status post debridement. Continue patient on daptomycin 400 mg a piggyback every 24 hours, for 6 more weeks continue also with Zosyn 3.375 g piggyback every 8 hours. Continue Dakin's solution as per vascular surgery. 3. Hypokalemia status post replacement. Recheck the patient CMP and magnesium tomorrow morning 4. medical debility due to chronic medical conditions. Physical therapy evaluation, patient will likely require subacute rehabilitation. 5. History of metastatic malignant melanoma. Currently off immunotherapy under the care of Dr. Hassan 6. History of pancreatic cancer currently in remission. Status post Whipple procedure. 7. Chronic diarrhea. Continue patient on Lomotil 2.5 mg at bedtime. 8. Atrial fibrillation/atrial tachycardia continue patient on metoprolol ER 50 mg at bedtime, continue Eliquis 5 mg orally twice every day, patient will have an echocardiogram was reviewed showed ejection fraction of 35% suggestive of nonischemic cardiomyopathy. 9. Acute respiratory insufficiency continue oxygen support, chest x-ray did not show evidence of acute pulmonary disease at this time, continue aggressive pulmonary toileting start the patient on DuoNeb 3 mL nebulization 4 times every day, and encourage the usage of incentive spirometer. Pulmonary consultation appreciated, echocardiogram showed evidence of nonischemic cardiomyopathy. 10. Hypertension and hypertensive vascular disease. Continue patient on metoprolol ER 50 mg once every day monitor patient blood pressure very closely. 11. Diabetes mellitus type 2. Continue with a sliding scale insulin. 12. Anxiety and depressive disorder. Continue patient on Klonopin 1 mg at bedtime continue with paroxetine 20 mg orally once every day. 13. DVT prophylaxis. Continue patient on Eliquis 5 mg orally twice every day. 14. GI prophylaxis. Continue Protonix 40 mg once every day. 15. Gout. Continue allopurinol 300 mg orally once every day. 16. Peripheral neuropathy continue gabapentin 300 mg at bedtime. 17. Nonischemic cardiomyopathy. Continue patient on metoprolol ER 50 mg once every day, Farxiga 10 mg once every day, Entresto 24/26 mg orally twice every day, follow-up with the patient very closely continue oxygen support. 18. Patient is full code. 19. Physical therapy evaluation for subacute rehabilitation. 20. community service worker consultation for subacute rehabilitation [facility] [place] in [place]. Objective - Vital Signs Vital signs: Vital Signs Temp 97.5 F L 03/29/25 07:22 Pulse 88 03/29/25 12:06 Resp 18 03/29/25 08:00 BP 100/66 03/29/25 07:22 Pulse Ox 98 03/29/25 08:38 FiO2 Intake & Output 03/28/25 03/29/25 03/29/25 18:59 06:59 18:59 Other: Voiding Method External Catheter # Voids 1 1 # Bowel Movements 1 2 - Labs CBC & Chem 7: 03/29/25 03:07 03/29/25 03:07 Labs: Abnormal Lab Results - Last 24 Hours (Table) 03/28/25 03/28/25 03/29/25 Range/Units 15:55 21:31 03:07 RBC 2.84 L (4.40-5.60) X 10*6/uL Hgb 10.0 L (13.0-17.0) g/dL Hct 30.6 L (39.6-50.0) % MCV 107.7 H (80.0-97.0) FL MCH 35.2 H (27.0-32.0) pg Immature Gran # 0.08 H (0.00-0.04) X 10*3/uL NRBC/100 WBC Diff 0.04 H (0.00-0.01) X 10*3/uL Sodium (135-145) mmol/L BUN (9.0-27.0) mg/dL Creatinine (0.6-1.5) mg/dL Glucose (70-110) mg/dL POC Glucose (mg/dL) 187 H 180 H (70-110) mg/dL Calcium (8.7-10.3) mg/dL Total Bilirubin (0.3-1.2) mg/dL NT-Pro-B Natriuret Pep (0-450) pg/mL Total Protein (6.2-8.2) g/dL Albumin (3.8-4.9) g/dL Albumin/Globulin Ratio (1.60-3.17) Ratio 03/29/25 03/29/25 Range/Units 03:07 11:47 RBC (4.40-5.60) X 10*6/uL Hgb (13.0-17.0) g/dL Hct (39.6-50.0) % MCV (80.0-97.0) FL MCH (27.0-32.0) pg Immature Gran # (0.00-0.04) X 10*3/uL NRBC/100 WBC Diff (0.00-0.01) X 10*3/uL Sodium 132 L (135-145) mmol/L BUN 6.3 L (9.0-27.0) mg/dL Creatinine 0.5 L (0.6-1.5) mg/dL Glucose 130 H (70-110) mg/dL POC Glucose (mg/dL) 212 H (70-110) mg/dL Calcium 6.9 L (8.7-10.3) mg/dL Total Bilirubin <0.2 L (0.3-1.2) mg/dL NT-Pro-B Natriuret Pep 2385 H (0-450) pg/mL Total Protein 4.3 L (6.2-8.2) g/dL Albumin 1.7 L (3.8-4.9) g/dL Albumin/Globulin Ratio 0.65 L (1.60-3.17) Ratio Microbiology - Last 24 Hours (Table) 03/23/25 16:24 Anaerobic Culture - Final Foot - Left 03/23/25 16:24 Anaerobic Culture - Final Toe - Right First 03/23/25 16:24 Gram Stain - Final Foot - Left Wound Culture - Final Methicillin resist S. aureus Pseudomonas aeruginosa
--- NOTE | 2025-03-29 13:39 | P.PN ---
Subjective Progress Note Date: 03/29/25 This is an 84-year-old male patient with past medical history of metastatic malignant melanoma, pancreatic cancer status post Whipple, radiation and chemotherapy with recurrence, chronic diarrhea, coronary artery disease with history of three-vessel CABG with Dr. Haider, postural hypotension, diabetes m ellitus type 2, hypertension, hyperlipidemia. Patient has not followed with a customer quality specialist for more than 20 years. He also states his CABG 3 vessel was about 20 years ago. He denies history of myocardial infarction. We have been asked to evaluate the patient for atrial fibrillation. Patient was thought to go into atrial fibrillation with RVR this morning and was started on Eliquis. He states his breathing is okay. He denies dyspnea on exertion. He denies dizziness or palpitations. No skipped beats. No fast heart rate. He states he has lower extremity edema that comes and goes. He has a cough and he quit smoking 30 years ago. He denies abdominal pain. No blood in his stool or urine. He states he has trouble ambulating due to loss of balance. Regarding the malignant melanoma, patient is on chemotherapy and follows with Dr. Eason and was last seen by him 3 to 4 weeks ago. He states he does have have history of irregular heartbeat following his open heart surgery for about 2 years but has not had no recent issues. He denies history of asthma or COPD, he denies history of stroke or seizures. Patient presented to [facility] on 03/20 altered mental status and weakness, chronic wound to the left foot. Patient was diagnosed with a diabetic foot ulcer and underwent debridement on 03/23. Blood pressure 109/66, heart rate 91, pulse ox 100% on room air. Patient states he knows that his heart rate was irregular and fast because he had a number of staff come into his room. He denies symptoms at the time. -EK/3: Sinus rhythm at 91 bpm, 03/25 appears to be discernible P waves in V1, V2 at 138 bpm and 132 bpm -Chest x-ray: No acute process. -Laboratory studies: WBC 10.7, hemoglobin 9.2, electrolytes within normal limits, BUN 5.7, creatinine 0.5. C-reactive protein 17 negative x 1. proBNP 3460. -Home cardiac medications: Atenolol 50 mg twice daily, Plavix 75 mg daily, magnesium 64 mg daily, simvastatin 20 mg at bedtime, also on midodrine 5 mg twice daily. -Lexiscan stress test performed at [facility] on 06/19/2022 was negative for reversible ischemia. Instead -Echocardiogram reveals EF 35 to 40% with moderate global hypokinesis of the left ventricle. Mild mitral with moderate tricuspid regurgitation and mild pulmonary hypertension. Echogenic area noted on the septal aspect of the right atrium cannot exclude artifact. 03/28/2025 The option of MONICO for further evaluation of the echogenic area noted on the septal aspect of the right atrium was discussed with the patient. Due to unlikelihood of changing clinical course the patient has decided at this time he does not wish to undergo MONICO. He is overall feeling fairly well. He remains in sinus rhythm. Vital signs are stable. He has had no palpitations. 03/29/2025 Patient seen and examined. He states his breathing is okay. His appetite is okay. He denies chest pain or chest pressure. Patient is planning to go to [facility] for subacute rehab. Blood pressure 100/66, heart rate 82, pulse ox 99% on 3 L nasal cannula. Repeat blood work reveals WBC 6, hemoglobin 10, BUN 6.3 and creatinine 0.5, potassium 4.3. proBNP 2385. Repeat EKG is sinus rhythm with PACs. Physical examination: Gen: This is an 84-year-old male in no acute distress. VS: reviewed HEENT: Head is atraumatic, normocephalic. Pupils equal, round. Sclerae is anicteric. NECK: Supple. No JVD. LUNGS: Clear to auscultation. No wheezes or rhonchi. No intercostal retractions. HEART: Regular rate and rhythm. No murmur. ABDOMEN: Soft No tenderness. EXTREMITIES: No pedal edema. Dressing in place in the left foot. NEUROLOGICAL: Patient is awake, alert and oriented x3. Assessment: Episode of heart rate that was irregular and fast most likely atrial tachycardia, no clear-cut atrial fibrillation Diabetic foot ulcer left, s/p debridement 03/23 Coronary artery disease with previous CABG Hypertension Hyperlipidemia Metastatic malignant melanoma History of pancreatic cancer Ischemic cardiomyopathy with EF 35 to 40% Echogenic area in the septal aspect of the right atrium Plan: Medications were reviewed and we will continue the same. Patient is cleared for discharge from a cardiology perspective Cardiology will sign off this case and follow on an as-needed basis. Please reconsult for any new concerns. Nurse practitioner note has been reviewed, I agree with documented findings and plan of care. Patient was seen and examined. Objective - Vital Signs Vital signs: Vital Signs Temp 97.5 F L 03/29/25 07:22 Pulse 91 03/29/25 08:48 Resp 18 03/29/25 08:00 BP 100/66 03/29/25 07:22 Pulse Ox 98 03/29/25 08:38 FiO2 Intake & Output 03/28/25 03/29/25 03/29/25 18:59 06:59 18:59 Other: Voiding Method External Catheter # Voids 1 1 # Bowel Movements 1 2 - Labs CBC & Chem 7: 03/29/25 03:07 03/29/25 03:07 Labs: Abnormal Lab Results - Last 24 Hours (Table) 03/28/25 03/28/25 03/29/25 Range/Units 15:55 21:31 03:07 RBC 2.84 L (4.40-5.60) X 10*6/uL Hgb 10.0 L (13.0-17.0) g/dL Hct 30.6 L (39.6-50.0) % MCV 107.7 H (80.0-97.0) FL MCH 35.2 H (27.0-32.0) pg Immature Gran # 0.08 H (0.00-0.04) X 10*3/uL NRBC/100 WBC Diff 0.04 H (0.00-0.01) X 10*3/uL Sodium (135-145) mmol/L BUN (9.0-27.0) mg/dL Creatinine (0.6-1.5) mg/dL Glucose (70-110) mg/dL POC Glucose (mg/dL) 187 H 180 H (70-110) mg/dL Calcium (8.7-10.3) mg/dL Total Bilirubin (0.3-1.2) mg/dL NT-Pro-B Natriuret Pep (0-450) pg/mL Total Protein (6.2-8.2) g/dL Albumin (3.8-4.9) g/dL Albumin/Globulin Ratio (1.60-3.17) Ratio 03/29/25 Range/Units 03:07 RBC (4.40-5.60) X 10*6/uL Hgb (13.0-17.0) g/dL Hct (39.6-50.0) % MCV (80.0-97.0) FL MCH (27.0-32.0) pg Immature Gran # (0.00-0.04) X 10*3/uL NRBC/100 WBC Diff (0.00-0.01) X 10*3/uL Sodium 132 L (135-145) mmol/L BUN 6.3 L (9.0-27.0) mg/dL Creatinine 0.5 L (0.6-1.5) mg/dL Glucose 130 H (70-110) mg/dL POC Glucose (mg/dL) (70-110) mg/dL Calcium 6.9 L (8.7-10.3) mg/dL Total Bilirubin <0.2 L (0.3-1.2) mg/dL NT-Pro-B Natriuret Pep 2385 H (0-450) pg/mL Total Protein 4.3 L (6.2-8.2) g/dL Albumin 1.7 L (3.8-4.9) g/dL Albumin/Globulin Ratio 0.65 L (1.60-3.17) Ratio Microbiology - Last 24 Hours (Table) 03/23/25 16:24 Anaerobic Culture - Final Foot - Left 03/23/25 16:24 Anaerobic Culture - Final Toe - Right First 03/23/25 16:24 Gram Stain - Final Foot - Left Wound Culture - Final Methicillin resist S. aureus Pseudomonas aeruginosa
--- NOTE | 2025-03-29 16:53 | P.PN ---
Subjective Progress Note Date: 03/29/25 Principal diagnosis: Left foot infected ulcer Patient is a 84-year-old male with a past medical history significant for Coronary Artery Disease (CAD), Cancer, Diabetes Mellitus, GERD/Reflux, Hyperlipidemia, Hypertension and this patient has been dealing with a nonhealing wound to the left foot presenting to the hospital for evaluation of weakness and mental status changes did have a nonhealing wound to the left foot prompting this consultation. On today's evaluation that is Patient is status post sharp excisional debridement right great toe wound to bone 1 x 0.7 x 0.9 cm andSharp excisional debridement left plantar wound to bone 4.5 x 3 x 2 cm with 9:00 tunneling of 2 cm, completed on 03/23/2025 On today's evaluation that is 03/29/2025,the patient remains to be afebrile, patient is on room air not requiring supplemental oxygen and denies any shortness of breath no chest pain or cough.Patient denies having any nausea or vomiting, no abdominal pain and no diarrhea and denies pain to the lower extremity. Patient white count 6.02 creatinine 0.5 Objective - Vital Signs Vital signs: Vital Signs Temp 97.5 F L 03/29/25 07:22 Pulse 88 03/29/25 12:06 Resp 18 03/29/25 08:00 BP 100/66 03/29/25 07:22 Pulse Ox 98 03/29/25 08:38 FiO2 Intake & Output 03/28/25 03/29/25 03/29/25 18:59 06:59 18:59 Other: Voiding Method External Catheter # Voids 1 1 # Bowel Movements 1 2 - Labs CBC & Chem 7: 03/29/25 03:07 03/29/25 03:07 Labs: Abnormal Lab Results - Last 24 Hours (Table) 03/28/25 03/28/25 03/29/25 Range/Units 15:55 21:31 03:07 RBC 2.84 L (4.40-5.60) X 10*6/uL Hgb 10.0 L (13.0-17.0) g/dL Hct 30.6 L (39.6-50.0) % MCV 107.7 H (80.0-97.0) FL MCH 35.2 H (27.0-32.0) pg Immature Gran # 0.08 H (0.00-0.04) X 10*3/uL NRBC/100 WBC Diff 0.04 H (0.00-0.01) X 10*3/uL Sodium (135-145) mmol/L BUN (9.0-27.0) mg/dL Creatinine (0.6-1.5) mg/dL Glucose (70-110) mg/dL POC Glucose (mg/dL) 187 H 180 H (70-110) mg/dL Calcium (8.7-10.3) mg/dL Total Bilirubin (0.3-1.2) mg/dL NT-Pro-B Natriuret Pep (0-450) pg/mL Total Protein (6.2-8.2) g/dL Albumin (3.8-4.9) g/dL Albumin/Globulin Ratio (1.60-3.17) Ratio 03/29/25 03/29/25 Range/Units 03:07 11:47 RBC (4.40-5.60) X 10*6/uL Hgb (13.0-17.0) g/dL Hct (39.6-50.0) % MCV (80.0-97.0) FL MCH (27.0-32.0) pg Immature Gran # (0.00-0.04) X 10*3/uL NRBC/100 WBC Diff (0.00-0.01) X 10*3/uL Sodium 132 L (135-145) mmol/L BUN 6.3 L (9.0-27.0) mg/dL Creatinine 0.5 L (0.6-1.5) mg/dL Glucose 130 H (70-110) mg/dL POC Glucose (mg/dL) 212 H (70-110) mg/dL Calcium 6.9 L (8.7-10.3) mg/dL Total Bilirubin <0.2 L (0.3-1.2) mg/dL NT-Pro-B Natriuret Pep 2385 H (0-450) pg/mL Total Protein 4.3 L (6.2-8.2) g/dL Albumin 1.7 L (3.8-4.9) g/dL Albumin/Globulin Ratio 0.65 L (1.60-3.17) Ratio Microbiology - Last 24 Hours (Table) 03/23/25 16:24 Anaerobic Culture - Final Foot - Left 03/23/25 16:24 Anaerobic Culture - Final Toe - Right First Assessment and Plan (1) Diabetic ulcer of left foot Current Visit: Yes Status: Acute Code(s): E11.621 - TYPE 2 DIABETES MELLITUS WITH FOOT ULCER; L97.529 - NON-PRESSURE CHRONIC ULCER OTH PRT LEFT FOOT W UNSP SEVERITY SNOMED Code(s): 100169467 (2) MRSA (methicillin resistant staph aureus) culture positive Current Visit: No Status: Acute Code(s): Z22.322 - CARRIER OR SUSPECTED CARRIER OF METHICILLIN RESIS STAPH SNOMED Code(s): 285151532 Plan: 1patient with a chronic nonhealing wound of the plantar aspect of the left foot and this patient has been treated with 2 different antibiotics in the outpatient setting wounds looks deep keeping in mind patient with underlying diabetes will need to cover for the polymicrobial simeon associated diabetic foot infection. 2local culture grew MRSA and Pseudomonas aeruginosa x-ray of the foot did not show any bony changes 3patient did have debridement down to the bone suggestive of osteomyelitis and deep culture which are currently growing MRSA 4patient did have a PICC line placement currently being treated with Zosyn and daptomycin, which he will need to continue for 6 weeks on discharge Dictation was produced using [employer] dictation software. please excuse any grammatical, word or spelling errors. Time with Patient: Less than 30
[2025-03-29 17:16] LABS: Glucose,Whole Blood 259 mg/dL (70-110)
[2025-03-29 20:28] LABS: Glucose,Whole Blood 151 mg/dL (70-110)
[2025-03-29] MEDS ORDERED: HYDROcodone/APAP 5-325MG 1 EACH TAB PO PRN (23:20)
[2025-03-30 02:01] VITALS: RESP 17
[2025-03-30] MEDS: MIDODRINE 5 MG TAB PO STA (02:55)
[2025-03-30 06:32] LABS: Glucose,Whole Blood 146 mg/dL (70-110)
[2025-03-30 08:34] LABS: ALT 16 U/L (10-49); AST 19 U/L (14-35); Albumin 1.9 g/dL (3.8-4.9); Albumin/Globulin Ratio 0.63 Ratio (1.60-3.17); Alkaline Phosphatase 108 U/L (41-126); BUN/Creat Ratio 11.67 Ratio (12.00-20.00); Calcium 7.3 mg/dL (8.7-10.3); Carbon Dioxide 26.3 mmol/L (21.6-31.8); Chloride 101 mmol/L (96-109); Glucose 147 mg/dL (70-110); Potassium 4.7 mmol/L (3.5-5.5); Sodium 135 mmol/L (135-145); Total Bilirubin 0.2 mg/dL (0.3-1.2); Total Protein 4.9 g/dL (6.2-8.2)
[2025-03-30 08:54] LABS: Basophils # (A) 0.04 X 10*3/uL (0.00-0.10); Basophils % (A) 0.6 %; Eosinophils # (A) 0.08 X 10*3/uL (0.04-0.35); Eosinophils % (A) 1.2 %; HCT 33.8 % (39.6-50.0); HGB 10.6 g/dL (13.0-17.0); Lymphocytes # (A) 1.27 X 10*3/uL (0.90-5.00); Lymphocytes % (A) 18.7 %; MCH 33.4 pg (27.0-32.0); MCHC 31.4 g/dL (32.0-37.0); MCV 106.6 FL (80.0-97.0); Mean Platelet Volume 10.1 FL (9.5-12.2); Monocytes # (A) 0.43 X 10*3/uL (0.20-1.00); Monocytes % (A) 6.3 %; NRBC Per 100 WBC 0 X 10*3/uL (0.00-0.01); Neutrophils # (A) 4.85 X 10*3/uL (1.80-7.70); Neutrophils % (A) 71.6 %; Platelet Count 246 X 10*3/uL (140-440); RBC 3.17 X 10*6/uL (4.40-5.60); RDW 14.2 % (11.5-14.5); WBC 6.78 X 10*3/uL (4.50-10.00)
--- NOTE | 2025-03-30 09:33 | P.DS ---
Providers Date of admission: 03/20/25 16:44 Expected date of discharge: 03/30/25 Attending physician: Ranjana Covarrubias Consults: 03/21/25 11:22 Consult Physician Routine Consulting Provider: Marcos De La Fuente Consult Reason/Comments: left foot chronic wound not improving with antibiotics Do you want consulting provider notified?: Yes 03/26/25 10:00 Consult Physician Routine Consulting Provider: Betty Dumont Consult Reason/Comments: Productive cough Do you want consulting provider notified?: Yes 03/26/25 10:59 Consult Physician Routine Consulting Provider: Mellissa Connell Consult Reason/Comments: Atrial fibrillation Do you want consulting provider notified?: Yes Primary care physician: Ranjana Covarrubias Hospital Course: HISTORY OF PRESENT ILLNESS: Patient is a 84-year-old male with CAD status post CABG, diabetes, GERD, hyperlipidemia, hypertension, history of malignant melanoma, depression, daily smoker here for evaluation of altered mental status and weakness. He is unsure why he was sent to the emergency department. On my evaluation, he reported that he has had a chronic wound on his left foot that is being managed by his PCP for about 2 to 3 weeks now and has not improved with 2 types of antibiotics. He was then advised to go to the ED for IV antibiotics by his log deckman. He has no other associated symptoms. He denied fevers, cough, shortness of breath, recent prolonged travel, exposure to sick contacts, recent fall or trauma, abdominal pain, diarrhea, constipation, issues with urination or defecation, chest pain, lightheadedness, dizziness. He reported that he is able to eat meals on his own and does not have any issues with appetite or swallowing. On admission: Vitals: Temp 97.9 F, ND 87, RR 20, BP 121/67, O2 saturation 99% on room air Labs: WBC 8.5, hemoglobin 10.3, MCV 103.5, platelet count 1 25,000, sodium 131, potassium 2.6, chloride 94, BUN 15, creatinine 0.50, glucose 140, lactic acid 2.1, calcium 7.3,. Phosphorus 2.3, magnesium 1.5, AST 136, ALT 46, alk phos 110, troponin 0.013, proBNP 3000 4060, albumin 2.4. Serum alcohol less than 10. Imaging: EKG showed sinus rhythm with a rate of 91, PAC noted on lead II, normal axis, no ST-T changes, good R wave progression, QTc 421 MS,. 03/22/2025 patient seen and examined at bedside. No acute events overnight. ID and wound care recommends vascular surgery consult for I&D. Labs today: WBC 7.59, hemoglobin 10.3, platelet count 1 39,000, sodium 132, potassium 4, chloride 96, bicarb 27.9, BUN 5.4, creatinine 0.6, glucose 159, calcium 7.1, phosphorus 1.5, magnesium 1.7, B12 758, folate 8 03/23/2025 patient seen and examined at bedside. No acute event overnight. Labs: Sodium 130, potassium 3.7, chloride 96, BUN 8, creatinine 0.54, glucose 106, calcium 7.2, phosphorus 2.1, CRP 17.1. Wound culture positive for pseudomonas and MRSA Imaging; foot x-ray showed soft tissue ulceration without convincing radiographic evidence for acute osteomyelitis. ESTHER index by ultrasound showed normal for right and left lower extremities 03/24/2025 patient seen and examined at bedside. No acute events overnight. Patient underwent wound debridement of right great toe and left plantar wound. ID added IV Dapto after procedure. Patient has history of pancreatic cancer s/p irradiation and is being followed by Dr. Eason. Labs: Sodium 130, potassium 3, chloride 96, bicarb 29, creatinine 0.45, BUN 5, glucose 156, calcium 7.2, Phos 2.9 03/25/2025. Patient is s/p debridement of diabetic foot ulcer. Patient is lying in the bed. Awake alert and oriented. Afebrile overnight. Continued on IV antibiotics abnormal daptomycin and Zosyn. No complaints of chest pain or shortness of breath. Laboratory showed WBC 8.0 hemoglobin 9.3 MCV 108 and platelets 224 sodium 132 potassium 4.2 chloride 98 bicarb is 22 BUN 14 creatinine 0.54 and blood sugar 235 and calcium 7.5 magnesium 1.9. 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 of it and the wound appeared to be clean all the way to the bone, also on the right big toe ulcer that is debrided all the way down to the bone as well, patient will likely require 6 weeks of IV antibiotic at this time, infectious disease following, PICC line is ordered, patient will need to go for subacute rehabilitation, patient appears to be quite congested this point in time, chest x-ray was ordered, start the patient on DuoNeb 3 mL nebulization 4 times every day, patient baseline rhythm appears to be atrial fibrillation, start the patient on Eliquis 5 mg orally twice every day, continue metoprolol ER 50 mg once every bedtime, follow-up with the patient very closely, cardiology consultation, echocardiogram, I will follow-up with the patient very closely. 03/27: Patient sitting up in bed in no apparent distress, he continued being treated with nasal cannula, his echocardiogram was done showed ejection fraction of 35%, there is an area in the septum of unclear etiology apparent on echocardiogram, I discussed with Dr. Connell possibly not doing a transesophageal echocardiogram for now because it is negative change the treatment plan, patient is currently in sinus rhythm, and he was in between atrial tachycardia and atrial fibrillation continue anticoagulation because of his ejection fraction as well as atrial tachycardia as well, continue to monitor the patient very closely, patient blood pressure continues to be marginal, no room to add Entresto yet we will follow-up with the patient very closely, patient had a PICC line placed in the left upper extremity, and the plan is to transfer the patient to [facility] hopefully in the next 1 or 2 days. 03/28: Patient is laying down in bed in no apparent distress, he continues to be somewhat short of breath, I will start the patient on Entresto 24/26 mg orally twice every day, Farxiga 10 mg orally once every day, continue with current treatment plan, follow-up with the patient very closely, patient did have an echocardiogram that showed significant cardiomyopathy, with a focus in the atrial septum, patient is not interested to going for a transesophageal echocardiogram at this point in time, continue IV antibiotic in the form of daptomycin as well as Zosyn, patient will need to have a 6-week of IV antibiotic at this time, patient will be transferred to [facility] hopefully in the next 1 or 2 days. 03/29: Patient is sitting up in the recliner chair today, he feels better today, he is requiring less oxygen, he denies any chest pain, less short of breath, he has been tolerating Entresto as well as Farxiga very well, continue current treatment plan, continue IV antibiotic, the plan is for the patient be transferred to [facility] hopefully tomorrow morning. 03/30: Patient blood pressure dropped yesterday to 70/45, discontinued his Entresto in the morning, decrease his metoprolol ER to 25 mg once every day, increase fluid intake, we will monitor the patient very closely, patient is scheduled to be discharged to [facility] today, he has a PICC line in the left upper extremity, for IV antibiotic for 6 weeks. And physical therapy and rehabilitation. I will follow-up with the patient tomorrow morning. Discharge diagnoses: 1. Diabetic ulcer of the left foot patient is s/p debridement on 03/23/2025. Deep wound culture is positive for MRSA as well as Pseudomonas aeruginosa left stump as well as the right big toe(please look at the sinuses per ID notes.) 2. Diabetic ulcer of right toe status post debridement. 3. Hypokalemia status post replacement. 4. medical debility due to chronic medical conditions. 5. History of metastatic malignant melanoma. 6. History of pancreatic cancer currently in remission. 7. Chronic diarrhea. 8. Atrial fibrillation/atrial tachycardia 9. Acute respiratory insufficiency 10. Hypertension and hypertensive vascular disease. 11. Diabetes mellitus type 2. 12. Anxiety and depressive disorder. 13. Severe protein calorie malnutrition. 14. Severe medical debility. 15. Gout. 16. Peripheral neuropathy 17. Nonischemic cardiomyopathy. Patient Condition at Discharge: Serious Plan - Discharge Summary Discharge Rx Participant: No New Discharge Prescriptions: No Action allopurinoL [Zyloprim] 300 mg PO DAILY Omeprazole [PriLOSEC] 20 mg PO AC-BRKFST PARoxetine [Paxil] 20 mg PO DAILY Simvastatin [Zocor] 20 mg PO HS Midodrine [ProAmatine] 5 mg PO BID Clopidogrel Bisulfate [Plavix] 75 mg PO DAILY clonazePAM [KlonoPIN] 1 mg PO HS #3 tab Diphenox-Atrop 2.5-0.025 mg [Lomotil] 2 tab PO AC-SUPPER Magnesium Chloride [Slow-Mag] 64 mg PO DAILY Gabapentin 300 mg PO HS atenoloL [Tenormin] 50 mg PO BID Discharge Medication List allopurinoL [Zyloprim] 300 mg PO DAILY 10/26/14 [History] Omeprazole [PriLOSEC] 20 mg PO AC-BRKFST 06/03/18 [History] Clopidogrel Bisulfate [Plavix] 75 mg PO DAILY 02/26/21 [History] clonazePAM [KlonoPIN] 1 mg PO HS #3 tab 10/01/23 [Rx] Diphenox-Atrop 2.5-0.025 mg [Lomotil] 2 tab PO AC-SUPPER 03/20/25 [History] Gabapentin 300 mg PO HS 03/20/25 [History] Magnesium Chloride [Slow-Mag] 64 mg PO DAILY 03/20/25 [History] Midodrine [ProAmatine] 5 mg PO BID 03/20/25 [History] PARoxetine [Paxil] 20 mg PO DAILY 03/20/25 [History] Simvastatin [Zocor] 20 mg PO HS 03/20/25 [History] atenoloL [Tenormin] 50 mg PO BID 03/20/25 [History] Follow up Appointment(s)/Referral(s): Ranjana Covarrubias MD [Primary Care Provider] - 1-2 days Tristin Estevez DO [Doctor of Osteopathic Medicine] - [facility] [NON-STAFF] - 04/06/25 8:00 am [facility], [NON-STAFF] - As Needed Activity/Diet/Wound Care/Special Instructions: Nonweightbearing to left foot Wound VAC to left plantar wound settings 125 mmHg, slow, black granular foam. Changed Tuesdays, and Saturdays Right great toe pack with iodoform gauze, wrapped with Kerlix, change daily
[2025-03-30] MEDS: METOPROLOL SUCCINATE (ER) 25 MG TAB.ER.24H PO SCH (09:38)
[2025-03-30 11:42] LABS: Glucose,Whole Blood 167 mg/dL (70-110)
[2025-03-30 15:11] VITALS: BP 117/79; PULSE 93; TEMP 98.4
--- NOTE | 2025-03-31 15:07 | P.PN ---
Subjective Progress Note Date: 03/30/25 Principal diagnosis: Left foot infected ulcer Patient is a 84-year-old male with a past medical history significant for Coronary Artery Disease (CAD), Cancer, Diabetes Mellitus, GERD/Reflux, Hyperlipidemia, Hypertension and this patient has been dealing with a nonhealing wound to the left foot presenting to the hospital for evaluation of weakness and mental status changes did have a nonhealing wound to the left foot prompting this consultation. On today's evaluation that is Patient is status post sharp excisional debridement right great toe wound to bone 1 x 0.7 x 0.9 cm andSharp excisional debridement left plantar wound to bone 4.5 x 3 x 2 cm with 9:00 tunneling of 2 cm, completed on 03/23/2025 On today's evaluation that is 03/30/2025, the patient continues to be afebrile, the patient is on room air and breathing comfortably, the Pt denies having any chest pain or cough, the patient denies having any abdominal pain no vomiting or any diarrhea, denies pain to her bilateral foot wound. Patient white count 6.78, creatinine 0.6 Objective - Vital Signs Vital signs: Vital Signs Temp 98.0 F 03/30/25 07:26 Pulse 85 03/30/25 13:06 Resp 17 03/30/25 07:26 BP 90/57 03/30/25 07:26 Pulse Ox 95 03/30/25 07:26 FiO2 Intake & Output 03/29/25 03/30/25 03/30/25 18:59 06:59 18:59 Intake Total 515 Balance 515 Intake: Intake, IV Titration 100 Amount Piperacillin-Tazobactam 3 100 .375 gm In Sodium Chloride 0.9% 100 ml @ 25 mls/hr IVPB Q8H [facility] Rx#: [id number] Oral 415 Other: Voiding Method External Catheter Diaper Diaper # Voids 4 3 1 # Bowel Movements 2 1 - Exam GENERAL DESCRIPTION: An elderly male lying in bed in no distress RESPIRATORY SYSTEM: Unlabored breathing , decreased breath sounds at bases HEART: S1 S2 regular rate and rhythm , ABDOMEN: Soft , no tenderness EXTREMITIES: Left foot wound is currently covered with a wound VAC - Labs CBC & Chem 7: 03/30/25 02:33 03/30/25 02:33 Labs: Abnormal Lab Results - Last 24 Hours (Table) 03/29/25 03/29/25 03/30/25 Range/Units 17:14 20:25 02:33 RBC 3.17 L (4.40-5.60) X 10*6/uL Hgb 10.6 L (13.0-17.0) g/dL Hct 33.8 L (39.6-50.0) % MCV 106.6 H (80.0-97.0) FL MCH 33.4 H (27.0-32.0) pg MCHC 31.4 L (32.0-37.0) g/dL Immature Gran # 0.11 H (0.00-0.04) X 10*3/uL BUN (9.0-27.0) mg/dL BUN/Creatinine Ratio (12.00-20.00) Ratio Glucose (70-110) mg/dL POC Glucose (mg/dL) 259 H 151 H (70-110) mg/dL Calcium (8.7-10.3) mg/dL Total Bilirubin (0.3-1.2) mg/dL Total Protein (6.2-8.2) g/dL Albumin (3.8-4.9) g/dL Albumin/Globulin Ratio (1.60-3.17) Ratio 03/30/25 03/30/25 03/30/25 Range/Units 02:33 06:26 11:40 RBC (4.40-5.60) X 10*6/uL Hgb (13.0-17.0) g/dL Hct (39.6-50.0) % MCV (80.0-97.0) FL MCH (27.0-32.0) pg MCHC (32.0-37.0) g/dL Immature Gran # (0.00-0.04) X 10*3/uL BUN 7.0 L (9.0-27.0) mg/dL BUN/Creatinine Ratio 11.67 L (12.00-20.00) Ratio Glucose 147 H (70-110) mg/dL POC Glucose (mg/dL) 146 H 167 H (70-110) mg/dL Calcium 7.3 L (8.7-10.3) mg/dL Total Bilirubin 0.2 L (0.3-1.2) mg/dL Total Protein 4.9 L (6.2-8.2) g/dL Albumin 1.9 L (3.8-4.9) g/dL Albumin/Globulin Ratio 0.63 L (1.60-3.17) Ratio Assessment and Plan (1) Diabetic ulcer of left foot Status: Acute Code(s): E11.621 - TYPE 2 DIABETES MELLITUS WITH FOOT ULCER; L97.529 - NON-PRESSURE CHRONIC ULCER OTH PRT LEFT FOOT W UNSP SEVERITY SNOMED Code(s): 287914577 (2) MRSA (methicillin resistant staph aureus) culture positive Status: Acute Code(s): Z22.322 - CARRIER OR SUSPECTED CARRIER OF METHICILLIN RESIS STAPH SNOMED Code(s): 759227870 Plan: 1patient with a chronic nonhealing wound of the plantar aspect of the left foot and this patient has been treated with 2 different antibiotics in the outpatient setting wounds looks deep keeping in mind patient with underlying diabetes will need to cover for the polymicrobial simeon associated diabetic foot infection. 2local culture grew MRSA and Pseudomonas aeruginosa x-ray of the foot did not show any bony changes 3patient did have debridement down to the bone suggestive of osteomyelitis and deep culture which are currently growing MRSA 4patient did have a PICC line placement, plan is for 6-week course of Zosyn and daptomycin and close outpatient follow-up Dictation was produced using [employer] dictation software. please excuse any grammatical, word or spelling errors. Time with Patient: Less than 30
== END 2025-03-30 15:00 | DRG 628 ==
LOC: EC 14:07 → 4SSUR 16:44
PROVIDERS: ADMIT Internal Medicine; ATTEND Internal Medicine
PROC: 02HV33Z Insertion of Infusion Device into Superior Vena Cava, Percutaneous Approach (ICD-10-PCS; 2025-03-27)
PROC: 0QBQ0ZZ Excision of Right Toe Phalanx, Open Approach (ICD-10-PCS; principal; 2025-03-28)
PROC: 0QBM0ZZ Excision of Left Tarsal, Open Approach (ICD-10-PCS; principal; 2025-03-28)
DX: E11.621 Type 2 diabetes mellitus with foot ulcer (principal); E43 Unspecified severe protein-calorie malnutrition; M86.9 Osteomyelitis, unspecified; R64 Cachexia; I42.8 Other cardiomyopathies; E83.39 Other disorders of phosphorus metabolism; E87.1 Hypo-osmolality and hyponatremia; C43.9 Malignant melanoma of skin, unspecified; B96.5 Pseudomonas (aeruginosa) (mallei) (pseudomallei) as the cause of diseases classified elsewhere; E86.0 Dehydration; E11.69 Type 2 diabetes mellitus with other specified complication; F32.A Depression, unspecified; I10 Essential (primary) hypertension; D53.9 Nutritional anemia, unspecified; I08.3 Combined rheumatic disorders of mitral, aortic and tricuspid valves; L97.426 Non-pressure chronic ulcer of left heel and midfoot with bone involvement without evidence of necrosis; L97.516 Non-pressure chronic ulcer of other part of right foot with bone involvement without evidence of necrosis; I47.19 Other supraventricular tachycardia; L03.116 Cellulitis of left lower limb; Z68.1 Body mass index [BMI] 19.9 or less, adult; E11.40 Type 2 diabetes mellitus with diabetic neuropathy, unspecified; I48.91 Unspecified atrial fibrillation; Z89.432 Acquired absence of left foot; Z79.4 Long term (current) use of insulin; N17.9 Acute kidney failure, unspecified; B95.62 Methicillin resistant Staphylococcus aureus infection as the cause of diseases classified elsewhere; E78.5 Hyperlipidemia, unspecified; E83.42 Hypomagnesemia; E87.6 Hypokalemia; R53.81 Other malaise; F17.200 Nicotine dependence, unspecified, uncomplicated; I95.1 Orthostatic hypotension; F41.9 Anxiety disorder, unspecified; I25.10 Atherosclerotic heart disease of native coronary artery without angina pectoris; I25.5 Ischemic cardiomyopathy; K21.9 Gastro-esophageal reflux disease without esophagitis; K52.9 Noninfective gastroenteritis and colitis, unspecified; M10.9 Gout, unspecified; Z79.01 Long term (current) use of anticoagulants; Z79.02 Long term (current) use of antithrombotics/antiplatelets; Z79.84 Long term (current) use of oral hypoglycemic drugs; Z79.899 Other long term (current) drug therapy; Z85.07 Personal history of malignant neoplasm of pancreas; Z86.14 Personal history of Methicillin resistant Staphylococcus aureus infection; Z90.411 Acquired partial absence of pancreas; Z95.1 Presence of aortocoronary bypass graft; Z91.81 History of falling
CPT/HCPCS: 36415; 36573; 71045; 80048; 80053; 80320; 82607; 82746; 83036; 83605; 83735; 83880; 84100; 84132; 84443; 84484; 85025; 85610; 85652; 85730; 86140; 87070; 87075; 87077; 87186; 87205; 93005; 93306; 93922; 93923; 94640; 94760; 96361; 96365; 96375; 99285